=== PATIENT | male | born 1930 | race Caucasian/White ===

== ENCOUNTER 2018-04-17 07:19 | Inpatient (IN) | payer OTHER, MEDICARE ==
--- NOTE | 2018-04-17 07:56 | PDOC ---
History of Present Illness - General Chief Complaint: Chest Pain Stated Complaint: CHEST PAIN Time Seen by Provider: 04/17/18 07:25 History Source: Patient, Family Exam Limitations: No Limitations - History of Present Illness Initial Comments: 04/17/18 07:45 The patient is an 88M with a PMH of dementia, congestive heart failure with pacemaker, atrial fibrillation on xarelto who presents to the ER with worsening SOB and chest pressure. The patient states that he's had chest pressure worsening over the past 3-4 days. The pressure is retrosternal, nonradiating, not exacerbated or alleviated by any factors including positioning. The daughter is at bedside and states that the patient was recently d/c from lasix and switched from coumadin to xarelto to stop monitoring of PT/INR. The daughter states that the patient has a "wet cough" that is nonproductive. The patient denies any nausea, vomiting, fevers, chills. Past History - Past Medical History Allergies/Adverse Reactions: Allergies Allergy/AdvReac Type Severity Reaction Status Date / Time No Known Drug Allergies Allergy Verified 04/17/18 07:24 Home Medications: Ambulatory Orders Amiodarone HCl [Cordarone -] 200 mg PO DAILY 04/17/18 Donepezil HCl 10 mg PO DAILY 04/17/18 Levothyroxine [Synthroid -] 75 mcg PO DAILY 04/17/18 Metoprolol Succinate 25 mg PO DAILY 04/17/18 Quetiapine Fumarate [Seroquel -] 50 mg PO HS 04/17/18 Rivaroxaban [Xarelto -] 15 mg PO DAILY 04/17/18 Tamsulosin HCl [Flomax] 0.4 mg PO DAILY 04/17/18 Anemia: No Asthma: No Cancer: Yes (Prostate, SEEDING, leukemia) Cardiac Disorders: Yes (Atrial Fibrillation, PPM) CVA: No COPD: No CHF: Yes Dementia: Yes (MILD) Diabetes: Yes Dialysis: No GI Disorders: Yes (espohageal dilations, GI bleed) Disorders: No HTN: Yes Hypercholesterolemia: Yes Kidney Stones: No Liver Disease: No Seizures: No Thyroid Disease: Yes (hypothyroid) - Surgical History Abdominal Surgery: No Appendectomy: No Cardiac Surgery: Yes (PACEMAKER) Cholecystectomy: No Lung Surgery: No Neurologic Surgery: No Orthopedic Surgery: Yes (BACK SURGERY) - Immunization History Td Vaccination: Yes TDAP Vaccination: Yes Immunization Up to Date: Yes - Suicide/Smoking/Psychosocial Hx Smoking Status: No Smoking History: Never smoked Have you smoked in the past 12 months: No Number of Cigarettes Smoked Daily: 0 Information on smoking cessation initiated: No Hx Alcohol Use: No Drug/Substance Use Hx: No Substance Use Type: None Hx Substance Use Treatment: No Review of Systems - Review of Systems Able to Perform ROS?: Yes Comments:: 04/17/18 07:47 GENERAL/CONSTITUTIONAL: No fever or chills. No weakness. HEAD, EYES, EARS, NOSE AND THROAT: No change in vision. No ear pain or discharge. No sore throat. CARDIOVASCULAR: Positive for chest pressure. No chest pain, palpitations, or lightheadedness. RESPIRATORY: Positive for cough and shortness of breath. No wheezing or hemoptysis. GASTROINTESTINAL: No nausea, vomiting, diarrhea, constipation, or abdominal pain. GENITOURINARY: No dysuria, frequency, hematuria, or change in urination. MUSCULOSKELETAL: No joint or muscle swelling or pain. No neck or back pain. SKIN: No rash or lesions. NEUROLOGIC: No headache, numbness, tingling, focal weakness, loss of consciousness, or change in strength/sensation. ENDOCRINE: No increased thirst. No abnormal weight change. HEMATOLOGIC/LYMPHATIC: No anemia, easy bleeding, or history of blood clots. ALLERGIC/IMMUNOLOGIC: No hives or skin allergy. Is the patient limited Nigerien proficient: No *Physical Exam - Vital Signs Last Vital Signs Temp Pulse Resp BP Pulse Ox 97.4 F L 68 20 127/64 99 04/17/18 07:40 04/17/18 07:25 04/17/18 07:25 04/17/18 07:25 04/17/18 07:25 - Physical Exam Comments: 04/17/18 08:02 GENERAL: Well developed, well nourished. Awake and alert. No acute distress. HEENT: Normocephalic, atraumatic. Hearing grossly normal. Moist mucous membranes. PERRLA, EOMI. No conjunctival pallor. Sclera are non-icteric. NECK: Supple. Full ROM. CARDIOVASCULAR: Regular rate and rhythm. No murmurs, rubs, or gallops. PULMONARY: No evidence of respiratory distress. B/l lower lobe crackles. ABDOMINAL: Soft. Non-tender. Distended. No rebound or guarding. GENITOURINARY: No CVA tenderness bilaterally. MUSCULOSKELETAL: Normal range of motion at all joints. No bony deformities or tenderness. EXTREMITIES: No cyanosis. No clubbing. 2+ pitting edema in R leg. Leg swelling mildly appreciated in R leg. SKIN: Warm and dry. Normal capillary refill. No rashes. No jaundice. NEUROLOGICAL: Alert, awake, appropriate. Cranial nerves 2-12 grossly intact. Normal speech. Gait is normal without ataxia. PSYCHIATRIC: Cooperative. Good eye contact. Appropriate mood and affect. Heart Score/ECG Review #1 ECG reviewed & interpreted by me at: 08:05 General ECG Interpretation: Sinus Rhythm, Normal Rate, Normal Intervals, No acute ischemic changes Compared to previous ECG there are: No significant change 04/17/18 08:05 Vent paced rhythm rate 70 IA - QRS 178 QTc 501 No STD or BINU noted No changes from prior ED Treatment Course - LABORATORY CBC & Chemistry Diagram: 04/17/18 07:33 04/17/18 07:33 - RADIOLOGY Radiology Studies Ordered: Category Date Time Status CHEST X-RAY PORTABLE* [RAD] Stat Radiology 04/17/18 07:25 Ordered DUPLEX VASCUL US-2LEGS [US] Stat Ultrasound 04/17/18 07:42 Ordered Medical Decision Making - Medical Decision Making 04/17/18 08:05 The patient is an 88M with a PMH of CHF, a-fib on xarelto, and dementia who presents to the ER with worsening SOB and chest pressure concerning for worsening CHF vs ACS. Pt is low risk for PE d/t current AC. EKG unremarkable. Pending labs and CXR. 04/17/18 08:28 Hgb of 9.1, down from 12.1 in 2016. Will send stool occult. 04/17/18 09:32 Daughter states that the patient has a history of leukemia being treated by Dr. Garrison, and that his anemia is not new. 04/17/18 10:00 Stool occult negative. Will give 20 lasix as preliminary read of CXR shows b/l pleural effusions. I have endorsed the patient to Dr. Salamanca. I have d/w Dr. Joshua who agrees with plan. *DC/Admit/Observation/Transfer Diagnosis at time of Disposition: (HFpEF) heart failure with preserved ejection fraction CHF exacerbation Qualifiers: Heart failure type: unspecified Qualified Code(s): I50.9 - Heart failure, unspecified - Discharge Dispostion Condition at time of disposition: Guarded Decision to Admit order: Yes - Referrals Referrals: Jack Sharp MD [Primary Care Provider] - - Patient Instructions - Post Discharge Activity
--- NOTE | 2018-04-17 08:05 | PDOC ---
Attending Attestation - Resident Resident Name: Bradley Beaver - ED Attending Attestation I have performed the following: I have examined & evaluated the patient, The case was reviewed & discussed with the resident, I agree w/resident's findings & plan, Exceptions are as noted - HPI HPI: 04/17/18 07:58 80-year-old male history of CHF hypertension CK D dementia and pacemaker and A. fib here today complaining of progressive shortness of breath and today having some chest pressure. Patient is Slovak speaking translation is provided by his daughter patient refuses translation services states cough has been nonproductive he has had some worsening shortness of breath over the last few days over the last week his volleyball assistant coach Dr. huntley has been decreasing his Lasix for concerns of increasing renal failure denies any fevers or chills no nausea no vomiting did also note some leg swelling which appeared to be worse on the right no history of PE or DVT patient does take Coumadin and was recently switched to xareelto 2 days ago - Physicial Exam PE: 04/17/18 08:01 Awake alert no acute distress lungs are with crackles throughout bilateral bases posteriorly heart is regular no appreciated murmurs rubs or gallops abdomen is soft obese nontender extremities are warm and well-perfused there is noted bilateral edema pitting edema noted to the right calf foot 2+ DP and PT pulses bilaterally neurologically the patient is awake alert moves all 4 extremities - Medical Decision Making 04/17/18 08:02 88-year-old male with a history of CAD CHF A. fib and pacemaker here today with worsening shortness of breath and chest pressure. Differential includes CHF exacerbation underlying VT or angina, infection such as pneumonia, effusion. Due to concerns for asymmetric swelling DVT is considered however should be low risk the patient is currently anticoagulated will obtain a Doppler of his right leg plan EKG, chest x-ray, CBC CMP and BNP trop chest x-ray patient will likely require admission to telemetry for further diuresis will discuss this volleyball assistant coach Dr. Whitney 04/17/18 10:07 focused ed TTE performed, indication : sob four views of the heart obtained ( parasternal long and short, apical and subxiphoid) no pericardial effusion noted. moderately decreased contractility. no rv dilation or enlargement. impression: moderately decreased contractility. lung ultrasound performed. bilateral B line predominant at the bases. no plueral effusion noted. focused ED ultrasound aorta indication: anemia, abd distension aorta scanned in trasnverse and saggital planes. measurement taken at proximal , mid, and distal, no aaa noted. proximal 2.6cm mid aorta 2.2 cm distal 1.6 cm difficult study due to overlying bowel gas. impression: no aaa. cxr with fluid overload, edema. anemia noted. guiac sent. pt daughter states he has h/o leukemia, anemia, has had transfusions in the past. folows with dr. kumar. no recent melena. Heart Score/ECG Review #1 General ECG Interpretation: No acute ischemic changes Compared to previous ECG there are: Other (paced rhythem no acute changs.)
[2018-04-17 08:15] LABS: BASO % 0.4 % (0-2.0); HEMOGLOBIN 9.1 GM/dL (11.7-16.9); LYMPH % 31.3 % (8-40); MCH 32.1 pg (25.7-33.7); MCHC 33.5 g/dl (32.0-35.9); MEAN CELL VOLUME 95.8 fl (80-96); MEAN PLT VOLUME 9.3 fl (7.5-11.1); MONO % 10.6 % (3.8-10.2); NEUT % 54.7 % (42.8-82.8); PLATELET COUNT 103 K/MM3 (134-434); RBC 2.82 M/mm3 (4.00-5.60); RDW 15.1 % (11.9-15.9); WHITE BLOOD COUNT 4.7 K/mm3 (4.0-10.0)
[2018-04-17 08:36] LABS: INR 1.3 (0.83-1.09); PROTHROMBIN TIME (PATIENT) 14.7 SEC (9.7-13.0)
[2018-04-17 09:11] LABS: ALBUMIN 3.6 g/dl (3.4-5.0); ALK PHOS 65 U/L (45-117); ANION GAP 4 MMOL/L (8-16); BILIRUBIN,TOTAL 0.4 mg/dL (0.2-1); BLOOD UREA NITROGEN 24 mg/dL (7-18); CHLORIDE 111 mmol/L (98-107); CO2 26 mmol/L (21-32); CREATININE 1.7 mg/dL (0.55-1.3); GLUCOSE,RANDOM 81 mg/dL (74-106); POTASSIUM 5.1 mmol/L (3.5-5.1); SGOT/AST 13 U/L (15-37); SGPT/ALT 16 U/L (13-61); SODIUM 141 mmol/L (136-145)
[2018-04-17] MEDS ORDERED: FUROSEMIDE 40 MG/4 ML INJECTABLE VIAL IVPUSH ONE (09:31)
[2018-04-17] MEDS ORDERED: FUROSEMIDE 40 MG/4 ML INJECTABLE VIAL ONE (10:06)
--- NOTE | 2018-04-17 10:45 | CON.CARD ---
Consult Consult Specialty:: Cardiology Referred by:: Cheikh Reason for Consultation:: CHF exacerbation - History of Present Illness Chief Complaint: chest pressure, dyspnea History of Present Illness: 88M h/o dementia, combined systolic and diastolic CHF, s/p PPM, afib on xarelto p/w dyspnea, chest pressure worsening over last 3-4 days. Recently home lasix was stopped per daughter due to renal function, was on lasix 20 mg daily at home. In the ER EKG showed paced rhythm, CXR shows congestion, Cr 1.7, trop neg x 1, BNP >2400. Received lasix 20 mg IV. Currently denies complaints. Sees Dr. Whitney in clinic - Past Medical History [employer]: Yes: Dementia Cardio/Vascular: Yes: AFIB, CAD, CHF, HTN, Hyperlipdemia Renal/: Yes: Renal Inusuff, BPH, Other Musculoskeletal: Yes: Chronic low back pain (compression fractures of the spine) Endocrine: Yes: Hypothyroidism - Past Surgical History Past Surgical History: Yes: Permanent Pacemaker - Alcohol/Substance Use Hx Alcohol Use: No History of Substance Use: reports: None - Smoking History Smoking history: Never smoked Have you smoked in the past 12 months: No Aproximately how many cigarettes per day: 0 - Social History ADL: Family Assistance History of Recent Travel: No Home Medications - Allergies Allergies/Adverse Reactions: Allergies Allergy/AdvReac Type Severity Reaction Status Date / Time No Known Drug Allergies Allergy Verified 04/17/18 07:24 - Home Medications Home Medications: Ambulatory Orders Amiodarone HCl [Cordarone -] 200 mg PO DAILY 04/17/18 Donepezil HCl 10 mg PO DAILY 04/17/18 Levothyroxine [Synthroid -] 75 mcg PO DAILY 04/17/18 Metoprolol Succinate 25 mg PO DAILY 04/17/18 Quetiapine Fumarate [Seroquel -] 50 mg PO HS 04/17/18 Rivaroxaban [Xarelto -] 15 mg PO DAILY 04/17/18 Tamsulosin HCl [Flomax] 0.4 mg PO DAILY 04/17/18 Family Disease History - Family Disease History Family History: Unremarkable Family Disease History: CA: Brother (dementia) Review of Systems - Review of Systems Constitutional: reports: No Symptoms Eyes: reports: No Symptoms HENT: reports: No Symptoms Neck: reports: No Symptoms Cardiovascular: reports: Chest Pain, Shortness of Breath Respiratory: reports: SOB Gastrointestinal: reports: No Symptoms Genitourinary: reports: No Symptoms Musculoskeletal: reports: No Symptoms Integumentary: reports: No Symptoms Neurological: reports: No Symptoms Endocrine: reports: No Symptoms Hematology/Lymphatic: reports: No Symptoms Psychiatric: reports: No Symptoms Vital Signs: Vital Signs Temperature 97.4 F L 04/17/18 07:40 Pulse Rate 68 04/17/18 07:25 Respiratory Rate 20 04/17/18 07:25 Blood Pressure 127/64 04/17/18 07:25 O2 Sat by Pulse Oximetry (%) 99 04/17/18 07:25 Constitutional: Yes: Well Nourished, No Distress, Calm Eyes: Yes: Conjunctiva Clear, EOM Intact HENT: Yes: Atraumatic, Normocephalic Neck: Yes: Supple, Trachea Midline Respiratory: Yes: Regular, Rales Gastrointestinal: Yes: Normal Bowel Sounds, Soft Cardiovascular: Yes: Regular Rate and Rhythm JVD: Yes Carotid Bruit: No Heart Sounds: Yes: S1, S2 Musculoskeletal: Yes: WNL Extremities: Yes: WNL Edema: Yes Edema: LLE: 1+, RLE: 1+ Peripheral Pulses: 1+ Left Doralis Pedis, 1+ Right Dorsalis Pedis Integumentary: Yes: WNL Neurological: Yes: Alert, Oriented ...Motor Strength: WNL Psychiatric: Yes: Alert, Oriented - Other Data Labs, Other Data: CBC, BMP 04/17/18 07:33 04/17/18 07:33 INR, PTT INR 1.30 (0.83-1.09) H 04/17/18 07:33 Troponin, BNP 04/17/18 07:33 Troponin I < 0.02 B-Natriuretic Peptide 2496.0 H Troponin, BNP 04/17/18 07:33 Troponin I < 0.02 B-Natriuretic Peptide 2496.0 H Assessment/Plan EKG: sinus, BUCCARO CXR: mild congestion echo 07/2015: mild lve, lvef 45%, global hk, nl rv, mod mr/tr, mild ar, mod phtn , mild ao root dil MPI 2012 (pers): v-paced; small-medium apical infarct; apical AK with EF 46% 88M h/o dementia, combined systolic and diastolic CHF, s/p PPM, afib on xarelto p/w dyspnea, chest pressure worsening over last 3-4 days Acute on chronic combined systolic and diastolic congestive heart failure - recently lasix was stopped due to DEE by Dr. 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 Whitney recently
[2018-04-17 11:19] LABS: URINE APPEARANCE CLEAR; URINE BILIRUBIN NEGATIVE (<2.0 mg/dL); URINE COLOR STRAW; URINE GLUCOSE (UA) NEGATIVE (NEGATIVE); URINE KETONE NEGATIVE (NEGATIVE); URINE LEUK ESTERASE NEGATIVE (NEGATIVE); URINE NITRITE NEGATIVE (NEGATIVE); URINE PROTEIN NEGATIVE (NEGATIVE); URINE UROBILINOGEN NEGATIVE mg/dL (0.2-1.0)
[2018-04-17 11:23] LABS: CHOLESTEROL 166 mg/dL (50-200); HDL CHOLESTEROL 62 mg/dL (40-60); TRIGLYCERIDES 107 mg/dL (0-150)
[2018-04-17 12:57] VITALS: BMI 32.9
--- NOTE | 2018-04-17 13:02 | HP ---
Admitting History and Physical - Primary Care Physician PCP: Jack Sharp - Admission Chief Complaint: SOB History of Present Illness: 88 yo male with significant past medical history of hypertension, hyperlipidemia , CAD, P.afib, S/P PPM, CHF, pulm HTN, CKD satge 3 , hypothyroidism, dementia, chronic low back pain, today present with gradually worsening SOB over past 3 days, patient was on Lasix that was stopped few days ago due to worsening renal function, on arrival to Ed patient was saturating well P exam shows B/L Crepts , elevated BNP 2.4 K and Creat 1.7 , CXR shows Pulmonary congestion, patient recived Lasix 20 mg with improvement in symptoms, Evaluated by Cardiology consult. Home Meds: Home Medication List Medication Instructions Recorded Confirmed Type Amiodarone HCl [Cordarone -] 200 mg PO DAILY 04/17/18 04/17/18 History Donepezil HCl 10 mg PO DAILY 04/17/18 04/17/18 History Levothyroxine [Synthroid -] 75 mcg PO DAILY 04/17/18 04/17/18 History Metoprolol Succinate 25 mg PO DAILY 04/17/18 04/17/18 History Quetiapine Fumarate [Seroquel -] 50 mg PO HS 04/17/18 04/17/18 History Rivaroxaban [Xarelto -] 15 mg PO DAILY 04/17/18 04/17/18 History Tamsulosin HCl [Flomax] 0.4 mg PO DAILY 04/17/18 04/17/18 History Active Medications Amiodarone HCl (Cordarone -) 200 mg PO DAILY JOSE Donepezil HCl (Aricept -) 10 mg PO DAILY JOSE Levothyroxine Sodium (Synthroid -) 75 mcg PO DAILY@0700 [facility] Metoprolol Succinate (Toprol Xl -) 25 mg PO DAILY JOSE Quetiapine Fumarate (Seroquel -) 50 mg PO HS JOSE Rivaroxaban (Xarelto -) 15 mg PO DAILY JOSE Tamsulosin HCl (Flomax -) 0.4 mg PO DAILY [facility] History Source: Patient - Past Medical History 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 Cardiovascular: Yes: AFIB, CAD, CHF, HTN, Hyperlipdemia Renal/: Yes: Renal Inusuff, BPH, Other Heme/Onc: Yes: Other (leukemia) Musculoskeletal: Yes: Chronic low back pain (compression fractures of the spine) Endocrine: Yes: Hypothyroidism - Past Surgical History Past Surgical History: Yes: Permanent Pacemaker - Smoking History Smoking history: Never smoked Have you smoked in the past 12 months: No Aproximately how many cigarettes per day: 0 - Alcohol/Substance Use Hx Alcohol Use: No History of Substance Use: reports: None - Social History ADL: Family Assistance History of Recent Travel: No Home Medications - Allergies Allergies/Adverse Reactions: Allergies Allergy/AdvReac Type Severity Reaction Status Date / Time No Known Drug Allergies Allergy Verified 04/17/18 07:24 - Home Medications Home Medications: Ambulatory Orders Amiodarone HCl [Cordarone -] 200 mg PO DAILY 04/17/18 Donepezil HCl 10 mg PO DAILY 04/17/18 Levothyroxine [Synthroid -] 75 mcg PO DAILY 04/17/18 Metoprolol Succinate 25 mg PO DAILY 04/17/18 Quetiapine Fumarate [Seroquel -] 50 mg PO HS 04/17/18 Rivaroxaban [Xarelto -] 15 mg PO DAILY 04/17/18 Tamsulosin HCl [Flomax] 0.4 mg PO DAILY 04/17/18 Family Disease History - Family Disease History Family Disease History: CA: Brother (dementia) Review of Systems - Review of Systems Constitutional: denies: Chills, Diaphoresis, Fever, Lethargy HENT: denies: Difficult Swallowing, Ear Discharge, Ear Pain Neck: denies: Decreased ROM, Lumps, Pain on Movement Cardiovascular: reports: Edema, Shortness of Breath. denies: Chest Pain Respiratory: reports: Exercise Intolerance, Orthopnea, SOB. denies: Cough, Hemoptysis Gastrointestinal: denies: Abdominal Pain, Bloating, Constipation Genitourinary: denies: Burning, Discharge, Dysuria Integumentary: denies: Blister, Bruising, Change in Color Neurological: denies: Change in LOC, Change in Speech Psychiatric: denies: Altered Sleep Pattern, Anxiety, Depression Physical Examination Vital Signs: Vital Signs Temperature 97.4 F L 04/17/18 07:40 Pulse Rate 65 04/17/18 11:18 Respiratory Rate 20 04/17/18 11:18 Blood Pressure 134/69 04/17/18 11:18 O2 Sat by Pulse Oximetry (%) 100 04/17/18 11:18 Constitutional: Yes: Well Nourished, No Distress, Calm Eyes: Yes: Conjunctiva Clear, EOM Intact HENT: Yes: Atraumatic, Normocephalic Neck: Yes: Supple, Trachea Midline. No: Decreased ROM, Lymphadenopathy Cardiovascular: Yes: Regular Rate and Rhythm, Bradycardia, S1, S2 Respiratory: Yes: Regular, Rales, SOB Gastrointestinal: Yes: Normal Bowel Sounds, Soft Musculoskeletal: Yes: Back Pain. No: Joint Stiffness, Joint Swelling Extremities: Yes: Calf Tenderness (Rt popliteal cyst), Other Edema: Yes Edema: LLE: Trace, RLE: Trace Peripheral Pulses: Left Doralis Pedis: 1+, Right Dorsalis Pedis: 1+ Neurological: Yes: Alert, Oriented. No: Aphasia, Asterixis, Ataxia ...Motor Strength: WNL, LUE, LLE, RUE, RLE Psychiatric: Yes: Oriented Labs: CBC, BMP 04/17/18 07:33 04/17/18 07:33 CBC,CMP WBC 4.7 K/mm3 (4.0-10.0) 04/17/18 07:33 RBC 2.82 M/mm3 (4.00-5.60) L 04/17/18 07:33 Hgb 9.1 GM/dL (11.7-16.9) L 04/17/18 07:33 Hct 27.0 % (35.4-49) L D 04/17/18 07:33 MCV 95.8 fl (80-96) 04/17/18 07:33 MCH 32.1 pg (25.7-33.7) 04/17/18 07:33 MCHC 33.5 g/dl (32.0-35.9) 04/17/18 07:33 RDW 15.1 % (11.9-15.9) 04/17/18 07:33 Plt Count 103 K/MM3 (134-434) L D 04/17/18 07:33 MPV 9.3 fl (7.5-11.1) D 04/17/18 07:33 Absolute Neuts (auto) 2.6 K/mm3 (1.5-8.0) 04/17/18 07:33 Neutrophils % 54.7 % (42.8-82.8) 04/17/18 07:33 Lymphocytes % 31.3 % (8-40) 04/17/18 07:33 Monocytes % 10.6 % (3.8-10.2) H 04/17/18 07:33 Eosinophils % 3.0 % (0-4.5) D 04/17/18 07:33 Basophils % 0.4 % (0-2.0) 04/17/18 07:33 Nucleated RBC % 0 % (0-0) 04/17/18 07:33 Sodium 141 mmol/L (136-145) 04/17/18 07:33 Potassium 5.1 mmol/L (3.5-5.1) 04/17/18 07:33 Chloride 111 mmol/L (98-107) H 04/17/18 07:33 Carbon Dioxide 26 mmol/L (21-32) 04/17/18 07:33 Anion Gap 4 MMOL/L (8-16) L 04/17/18 07:33 BUN 24 mg/dL (7-18) H 04/17/18 07:33 Creatinine 1.7 mg/dL (0.55-1.3) H 04/17/18 07:33 Creat Clearance w eGFR 38.23 (>60) 04/17/18 07:33 Random Glucose 81 mg/dL (74-106) 04/17/18 07:33 Calcium 8.0 mg/dL (8.5-10.1) L 04/17/18 07:33 Total Bilirubin 0.4 mg/dL (0.2-1) 04/17/18 07:33 AST 13 U/L (15-37) L 04/17/18 07:33 ALT 16 U/L (13-61) 04/17/18 07:33 Alkaline Phosphatase 65 U/L (45-117) 04/17/18 07:33 Creatine Kinase 69 IU/L (26-308) 04/17/18 07:33 Troponin I < 0.02 ng/ml (0.00-0.05) 04/17/18 10:14 B-Natriuretic Peptide 2496.0 pg/ml (5-450) H 04/17/18 07:33 Total Protein 6.0 g/dl (6.4-8.2) L 04/17/18 07:33 Albumin 3.6 g/dl (3.4-5.0) 04/17/18 07:33 Triglycerides 107 mg/dL (0-150) 04/17/18 10:14 Cholesterol 166 mg/dL (50-200) 04/17/18 10:14 Total LDL Cholesterol 98 mg/dL (5-100) 04/17/18 10:14 HDL Cholesterol 62 mg/dL (40-60) H 04/17/18 10:14 Imaging - Results X-ray: Report Reviewed (Pulmonary congestion) Ultrasound: Report Reviewed (Rt Popliteal cyst) EKG: Report Reviewed (Paced Rhythm at [address] changes) Problem List - Problems (1) CHF exacerbation Assessment/Plan: present with CHF exacerbation in the setting of discontinuation of The lasix received IV Lasix with improvement, F/U BMP in am before standing dose of Lasix , Cardiology consult, Resume home meds Code(s): I50.9 - HEART FAILURE, UNSPECIFIED Qualifiers: Heart failure type: unspecified Qualified Code(s): I50.9 - Heart failure, unspecified (2) AF (paroxysmal atrial fibrillation) Assessment/Plan: S/P PPM on AC cont home meds Code(s): I48.0 - PAROXYSMAL ATRIAL FIBRILLATION (3) DEE (acute kidney injury) Assessment/Plan: At base line Ckd stage 3 mild worsening F/u BMP in am Code(s): N17.9 - ACUTE KIDNEY FAILURE, UNSPECIFIED (4) CKD (chronic kidney disease) Assessment/Plan: F/U BMP on Lasix Code(s): N18.9 - CHRONIC KIDNEY DISEASE, UNSPECIFIED Qualifiers: Chronic kidney disease stage: stage 3 (moderate) Qualified Code(s): N18.3 - Chronic kidney disease, stage 3 (moderate) (5) HTN (hypertension) Assessment/Plan: Controlled cont home meds Code(s): I10 - ESSENTIAL (PRIMARY) HYPERTENSION (6) Hypothyroidism Assessment/Plan: Cont Levothyroxine F/U TSH Code(s): E03.9 - HYPOTHYROIDISM, UNSPECIFIED (7) Popliteal cyst Assessment/Plan: Rt Popliteal cyst F/U as out patient Code(s): M71.20 - SYNOVIAL CYST OF POPLITEAL SPACE [RUIZ], UNSPECIFIED KNEE Qualifiers: Laterality: right Qualified Code(s): M71.21 - Synovial cyst of popliteal space [Ruiz], right knee (8) Anemia Assessment/Plan: Chronic F/U anemia w/u including stool occult blood. Iron TIBC, B12, Ferritin level. Code(s): D64.9 - ANEMIA, UNSPECIFIED
[2018-04-17] MEDS ORDERED: FLU VACCINE QUAD 60 MCG/0.5 ML (MDV 18-19) IM ONE (14:00)
--- NOTE | 2018-04-17 17:00 | EKG ---
Test Reason : Blood Pressure : / mmHG Vent. Rate : 065 BPM Atrial Rate : 053 BPM P-R Int : 000 ms QRS Dur : 178 ms QT Int : 482 ms P-R-T Axes : 000 -52 124 degrees QTc Int : 501 ms Ventricular-paced rhythm ABNORMAL ECG WHEN COMPARED WITH ECG OF 25-APR-2016 19:21, VENT. RATE HAS DECREASED BY 6 BPM Confirmed by MD Jacek, Carlos ([id number]) on 04/17/2018 5:00:10 PM Referred By: Confirmed By:Carlos Read MD
[2018-04-17] MEDS: QUEtiapine FUMARATE 50 MG TABLET PO SCH (21:29)
[2018-04-18] MEDS: LEVOTHYROXINE NA 75 MCG TABLET (FP) PO SCH (06:15)
[2018-04-18 06:47] LABS: BASO % 0.4 % (0-2.0); EOS % 2.6 % (0-4.5); HEMATOCRIT 27.8 % (35.4-49); HEMOGLOBIN 9.3 GM/dL (11.7-16.9); LYMPH % 28.5 % (8-40); MCH 31.8 pg (25.7-33.7); MCHC 33.5 g/dl (32.0-35.9); MEAN PLT VOLUME 8.9 fl (7.5-11.1); MONO % 8.3 % (3.8-10.2); NEUT % 60.2 % (42.8-82.8); PLATELET COUNT 102 K/MM3 (134-434); RBC 2.92 M/mm3 (4.00-5.60); RDW 15.1 % (11.9-15.9); WHITE BLOOD COUNT 5.3 K/mm3 (4.0-10.0)
[2018-04-18 07:37] LABS: ALBUMIN 3.6 g/dl (3.4-5.0); ALK PHOS 67 U/L (45-117); ANION GAP 5 MMOL/L (8-16); BILIRUBIN,TOTAL 0.4 mg/dL (0.2-1); BLOOD UREA NITROGEN 21 mg/dL (7-18); CALCIUM 8.1 mg/dL (8.5-10.1); CHLORIDE 110 mmol/L (98-107); CO2 26 mmol/L (21-32); CREATININE 1.6 mg/dL (0.55-1.3); GLUCOSE,RANDOM 88 mg/dL (74-106); SGOT/AST 13 U/L (15-37); SGPT/ALT 15 U/L (13-61); SODIUM 141 mmol/L (136-145); TOT PROT 6.1 g/dl (6.4-8.2)
[2018-04-18] MEDS ORDERED: FUROSEMIDE 40 MG/4 ML INJECTABLE VIAL IVPUSH SCH (10:00)
--- NOTE | 2018-04-18 10:37 | PN ---
Progress Note (short form) - Note Progress Note: s: sob improved. 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 Current Medications Amiodarone HCl (Cordarone -) 200 mg PO DAILY [facility] [place] Donepezil HCl (Aricept -) 10 mg PO DAILY [facility] Furosemide (Lasix Injection -) 20 mg IVPUSH DAILY [facility] Levothyroxine Sodium (Synthroid -) 75 mcg PO DAILY@0700 [facility] Last Admin: 04/18/18 06:15 Dose: 75 mcg Metoprolol Succinate (Toprol Xl -) 25 mg PO DAILY [facility] Quetiapine Fumarate (Seroquel -) 50 mg PO HS [facility] Last Admin: 04/17/18 21:29 Dose: 50 mg Rivaroxaban (Xarelto -) 15 mg PO DAILY [facility] [place] Tamsulosin HCl (Flomax -) 0.4 mg PO DAILY [facility] Vital Signs Period Temp Pulse Resp BP Sys/Neal Pulse Ox Last 24 Hr 97.6 F-98.8 F 64-68 18-20 103-136/46-82 96-100 Constitutional: Yes: Well Nourished, No Distress, Calm Eyes: Yes: Conjunctiva Clear, EOM Intact HENT: Yes: Atraumatic, Normocephalic Neck: Yes: Supple, Trachea Midline Respiratory: Yes: Regular, Rales Gastrointestinal: Yes: Normal Bowel Sounds, Soft Cardiovascular: Yes: Regular Rate and Rhythm JVD: Yes Carotid Bruit: No Heart Sounds: Yes: S1, S2 Musculoskeletal: Yes: WNL Extremities: Yes: WNL Edema: Yes Edema: LLE: 1+, RLE: 1+ Peripheral Pulses: 1+ Left Doralis Pedis, 1+ Right Dorsalis Pedis Integumentary: Yes: WNL Neurological: Yes: Alert, Oriented ...Motor Strength: WNL Psychiatric: Yes: Alert, Oriented Assessment/Plan EKG: sinus, SYSTEM SUPPORT TECHNICIAN CXR: mild congestion echo 07/2015: mild lve, lvef 45%, global hk, nl rv, mod mr/tr, mild ar, mod phtn , mild ao root dil MPI 2012 (pers): v-paced; small-medium apical infarct; apical AK with EF 46% LHC/RHC '09 normal wedge, nl PAP, mod nonobstructive OM1 lesion, no other dz, nl EF echo 10/2017 nl LV size, LV function mod impaired EF 40%, septal wall motion c/w pacing, other wilson mildly hypok, RV nl funcion, LA/RA severely dilated, mod MR , mod to sev TR, at least mild to mod pulm HTN, RVSP at least 47 mmHg, ao root 4.2 cm 88M h/o dementia, combined systolic and diastolic CHF, s/p PPM, afib on xarelto p/w dyspnea, chest pressure worsening over last 3-4 days Acute on chronic combined systolic and diastolic congestive heart failure - recently lasix was stopped due to DEE by Dr. Whitney - symptoms, maxi effusions on Cxr, BNP 2400 c/w CHF exacerbation - received lasix 20 mg IV in ER (was on 20 mg daily at home) and AM 04/18 - Cr improved, sob resolved - discussed case with Cindy Guardado NP, had been adjusting diuretics at home and getting weekly labs, had been advised to restart lasix 20 mg PO daily last Wednesday but had not started yet - dc IV lasix - restart lasix 20 mg PO daily on discharge - continue metoprolol, not on ACEI - daily standing weights, Cr PPM - dependent, SYSTEM SUPPORT TECHNICIAN on EKG - routine office checks afib - cont amiodarone, xarelto CAD - nonobstructive dz on cath 2008 - cont xarelto (no aspirin), intolerant to statin, cont metoprolol HTN - stable cont current meds HLD - intolerant to statins, monitor DEE - monitoring Cr, may be in setting of CHF exac - lasix had been held per Dr. Whitney recently
[2018-04-18] MEDS: AMIODARONE HCL 200 MG TABLET (FP) PO SCH (11:53)
[2018-04-18] MEDS: DONEPEZIL HCL 10 MG TABLET (FP) PO SCH (11:53)
[2018-04-18] MEDS: RIVAROXABAN 15 MG TABLET PO SCH (11:54)
[2018-04-18] MEDS: TAMSULOSIN HCL 0.4 MG CAP PO SCH (11:54)
[2018-04-18] MEDS: metoPROLOL SUCCINATE 25 MG TAB.SR.24H (FP) PO SCH (11:54)
--- NOTE | 2018-04-18 13:07 | PN ---
Progress Note, Physician Chief Complaint: Mr Cavanaugh says he is feeling well. Says his breathing is much better and feels normal. Legs are slightly more swollen then normal. No cp, sob, n/v. - Current Medication List Current Medications: Active Medications Amiodarone HCl (Cordarone -) 200 mg PO DAILY [facility] Last Admin: 04/18/18 11:53 Dose: 200 mg Donepezil HCl (Aricept -) 10 mg PO DAILY [facility] Last Admin: 04/18/18 11:53 Dose: 10 mg Furosemide (Lasix Injection -) 20 mg IVPUSH DAILY [facility] Last Admin: 04/18/18 11:54 Dose: 20 mg Levothyroxine Sodium (Synthroid -) 75 mcg PO DAILY@0700 [facility] Last Admin: 04/18/18 06:15 Dose: 75 mcg Metoprolol Succinate (Toprol Xl -) 25 mg PO DAILY [facility] Last Admin: 04/18/18 11:54 Dose: 25 mg Quetiapine Fumarate (Seroquel -) 50 mg PO HS [facility] Last Admin: 04/17/18 21:29 Dose: 50 mg Rivaroxaban (Xarelto -) 15 mg PO DAILY [facility] Last Admin: 04/18/18 11:54 Dose: 15 mg Tamsulosin HCl (Flomax -) 0.4 mg PO DAILY [facility] Last Admin: 04/18/18 11:54 Dose: 0.4 mg - Objective Vital Signs: Vital Signs Temperature 36.6 C 04/18/18 10:00 Pulse Rate 65 04/18/18 10:00 Respiratory Rate 18 04/18/18 10:00 Blood Pressure 110/46 L 04/18/18 10:00 O2 Sat by Pulse Oximetry (%) 96 04/17/18 21:00 Constitutional: Yes: Well Nourished, No Distress, Calm Cardiovascular: Yes: Regular Rate and Rhythm. No: Gallop, Murmur, Rub Respiratory: Yes: Regular, Rhonchi. No: CTA Bilaterally, Rales, Wheezes Gastrointestinal: Yes: Normal Bowel Sounds, Soft. No: Distention, Tenderness Extremities: Yes: WNL Edema: LLE: 1+, RLE: 1+ Labs: CBC, BMP 04/18/18 05:30 04/18/18 05:30 INR, PTT INR 1.30 (0.83-1.09) H 04/17/18 07:33 Problem List - Problems (1) CHF exacerbation Assessment/Plan: -case d/w Dr Joshua -continue IV lasix today -plan for discharge tomorrow, will d/w cardiology plan for outpatient diuresis Code(s): I50.9 - HEART FAILURE, UNSPECIFIED Qualifiers: Heart failure type: combined systolic and diastolic Qualified Code(s): I50.43 - Acute on chronic combined systolic (congestive) and diastolic ( congestive) heart failure (2) AF (paroxysmal atrial fibrillation) Assessment/Plan: -in sinus rhythm today -continue amiodarone and xarelto Code(s): I48.0 - PAROXYSMAL ATRIAL FIBRILLATION (3) DEE (acute kidney injury) Assessment/Plan: -monitor since on IV lasix -improved today Code(s): N17.9 - ACUTE KIDNEY FAILURE, UNSPECIFIED (4) CAD (coronary artery disease) Assessment/Plan: -quiescent -continue current regimen Code(s): I25.10 - ATHSCL HEART DISEASE OF [place] CORONARY ARTERY W/O ANG PCTRS Qualifiers: Coronary Disease-Associated Artery/Lesion type: unspecified vessel or lesion type Associated angina: with unspecified angina (5) CKD (chronic kidney disease) Assessment/Plan: -with DEE -stable today -recheck in am Code(s): N18.9 - CHRONIC KIDNEY DISEASE, UNSPECIFIED Qualifiers: Chronic kidney disease stage: stage 3 (moderate) Qualified Code(s): N18.3 - Chronic kidney disease, stage 3 (moderate) (6) Chronic interstitial lung disease Assessment/Plan: -ronchi noted Code(s): J84.9 - INTERSTITIAL PULMONARY DISEASE, UNSPECIFIED (7) Dementia Assessment/Plan: -stable Code(s): F03.90 - UNSPECIFIED DEMENTIA WITHOUT BEHAVIORAL DISTURBANCE (8) HTN (hypertension) Assessment/Plan: -well controlled Code(s): I10 - ESSENTIAL (PRIMARY) HYPERTENSION (9) Hypothyroid Assessment/Plan: -continue synthroid Code(s): E03.9 - HYPOTHYROIDISM, UNSPECIFIED
--- NOTE | 2018-04-18 19:01 | ECHO ---
Name: KAYKAY RODGERS Exam:Adult Echocardiogram Study Date: 04/18/2018 11:02 AM Age: 88 yrs Reason For Study: SYNCOPE Height: 66 in Weight: 190 lb BSA: 2.0 m2 MMode/2D Measurements & Calculations RVDd: 4.3 cm Ao root diam: 4.2 cm IVSd: 0.73 cm LA dimension: 5.1 cm LVIDd: 5.5 cm ACS: 1.9 cm LVIDs: 4.4 cm LVPWd: 0.76 cm IVSs: 1.0 cm LVPWs: 1.1 cm EDV(Teich): 145.9 ml ESV(Teich): 87.5 ml Doppler Measurements & Calculations MV E max daniele: 75.2 cm/sec Ao V2 max: 130.9 cm/sec MV A max daniele: 37.3 cm/sec Ao max P.9 mmHg MV E/A: 2.0 Ao V2 mean: 90.9 cm/sec Ao mean P.7 mmHg Ao V2 VTI: 27.8 cm AI P1/2t: 505.0 msec AI max daniele: 453.4 cm/sec MR max daniele: 483.4 cm/sec AI max P.3 mmHg MR max P.6 mmHg AI dec slope: 262.9 cm/sec2 TR max daniele: 315.8 cm/sec PI end-d daniele: 142.1 cm/sec TR max P.2 mmHg Med Peak E' Daniele: 5.4 cm/sec Med E/e': 14.0 Lat Peak E' Daniele: 9.2 cm/sec Lat E/e': 8.2 Procedure A complete two-dimensional transthoracic echocardiogram was performed (2D, M-mode, Doppler and color flow Doppler). Left Ventricle The left ventricle is normal in size. Left ventricular systolic function is moderately reduced. Eject ion Fraction = 35-40%. Diastolic dysfunction, Grade II (pseudonormalization pattern). Ratio E/E'= 15. The re is moderate global hypokinesis of the left ventricle. Right Ventricle The right ventricle is normal size. There is a pacemaker lead in the right ventricle. The right ventr icular systolic function is normal. Atria The left atrium is moderately dilated. Right atrial size is normal. Mitral Valve There is mild mitral annular calcification. There is moderate mitral regurgitation. Tricuspid Valve The tricuspid valve is normal in structure and function. There is moderate to severe tricuspid regurg itation. Pulmonary artery systolic pressure is at least 70 mmHg assuming RA pressure of 15 mmHg (dilated IVC w ith <50% collapse). Aortic Valve There is mild aortic sclerosis.;. Mild aortic regurgitation. Pulmonic Valve The pulmonic valve is not well visualized. Mild pulmonic valvular regurgitation. Great Vessels Moderate aortic root dilatation. Pericardium/Pleura There is no pericardial effusion. Interpretation Summary The left ventricle is normal in size. Left ventricular systolic function is moderately reduced. There is moderate global hypokinesis of the left ventricle. Ejection Fraction = 35-40%. Diastolic dysfunction, Grade II (pseudonormalization pattern). Ratio E/E'= 15 c/w elevated filling pressure There is a pacemaker lead in the right ventricle. The right ventricular systolic function is normal. The left atrium is moderately dilated. Right atrial size is normal. There is mild mitral annular calcification. There is moderate mitral regurgitation. There is moderate to severe tricuspid regurgitation. Pulmonary artery systolic pressure is at least 70 mmHg assuming RA pressure of 15 mmHg (dilated IVC w ith <50% collapse) There is mild aortic sclerosis.; Mild aortic regurgitation. Mild pulmonic valvular regurgitation. Moderate aortic root dilatation. There is no pericardial effusion. Previous study is not available for comparison Sesar Cedillo MD 04/18/2018 07:01 PM
[2018-04-18] MEDS: QUEtiapine FUMARATE 50 MG TABLET PO SCH (21:39)
[2018-04-19 06:06] LABS: SERUM IRON SATURATION 9 % (15-55); TOTAL IRON BINDING CAPACITY 364 ug/dL (250-450); UIBC 331 ug/dL (111-343)
[2018-04-19 06:18] VITALS: BP 123/53; PULSE 65; TEMP 98.1
[2018-04-19] MEDS: LEVOTHYROXINE NA 75 MCG TABLET (FP) PO SCH (06:29)
[2018-04-19 07:00] LABS: BASO % 0.4 % (0-2.0); EOS % 3.3 % (0-4.5); HEMATOCRIT 28.1 % (35.4-49); HEMOGLOBIN 9.3 GM/dL (11.7-16.9); LYMPH % 31.9 % (8-40); MCH 31.7 pg (25.7-33.7); MCHC 33.2 g/dl (32.0-35.9); MEAN CELL VOLUME 95.4 fl (80-96); MEAN PLT VOLUME 8.7 fl (7.5-11.1); MONO % 10.9 % (3.8-10.2); NEUT % 53.5 % (42.8-82.8); PLATELET COUNT 107 K/MM3 (134-434); RBC 2.94 M/mm3 (4.00-5.60); RDW 15.3 % (11.9-15.9); WHITE BLOOD COUNT 4.4 K/mm3 (4.0-10.0)
[2018-04-19 07:31] LABS: ANION GAP 9 MMOL/L (8-16); BLOOD UREA NITROGEN 18 mg/dL (7-18); CALCIUM 8.6 mg/dL (8.5-10.1); CHLORIDE 110 mmol/L (98-107); CO2 26 mmol/L (21-32); CREATININE 1.6 mg/dL (0.55-1.3); GLUCOSE,RANDOM 87 mg/dL (74-106); MAGNESIUM 2.6 mg/dL (1.8-2.4); PHOSPHOROUS 3.3 mg/dL (2.5-4.9); POTASSIUM 4.8 mmol/L (3.5-5.1); SODIUM 145 mmol/L (136-145)
[2018-04-19] MEDS ORDERED: PT OWN MED DRAWER 7, Y5N ONE (08:18)
[2018-04-19] MEDS: RIVAROXABAN 15 MG TABLET PO SCH (09:39)
[2018-04-19] MEDS: AMIODARONE HCL 200 MG TABLET (FP) PO SCH (09:39)
[2018-04-19] MEDS: TAMSULOSIN HCL 0.4 MG CAP PO SCH (09:39)
[2018-04-19] MEDS: metoPROLOL SUCCINATE 25 MG TAB.SR.24H (FP) PO SCH (09:40)
[2018-04-19] MEDS: DONEPEZIL HCL 10 MG TABLET (FP) PO SCH (09:42)
--- NOTE | 2018-04-19 10:27 | PN ---
Progress Note (short form) - Note Progress Note: s:no chest pain, palps, dizzy, lightheadedness, sob. feels at baseline. 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 Current Medications Amiodarone HCl (Cordarone -) 200 mg PO DAILY [facility] Last Admin: 04/19/18 09:39 Dose: 200 mg Donepezil HCl (Aricept -) 10 mg PO DAILY [facility] Last Admin: 04/19/18 09:42 Dose: 10 mg Levothyroxine Sodium (Synthroid -) 75 mcg PO DAILY@0700 [facility] Last Admin: 04/19/18 06:29 Dose: 75 mcg Metoprolol Succinate (Toprol Xl -) 25 mg PO DAILY [facility] Last Admin: 04/19/18 09:40 Dose: 25 mg Quetiapine Fumarate (Seroquel -) 50 mg PO HS [facility] Last Admin: 04/18/18 21:39 Dose: 50 mg Rivaroxaban (Xarelto -) 15 mg PO DAILY [facility] Last Admin: 04/19/18 09:39 Dose: 15 mg Tamsulosin HCl (Flomax -) 0.4 mg PO DAILY [facility] Last Admin: 04/19/18 09:39 Dose: 0.4 mg Vital Signs Period Temp Pulse Resp BP Sys/Neal Pulse Ox Last 24 Hr 97.6 F-98.4 F 65-68 20-20 121-153/53-72 97 Constitutional: Yes: Well Nourished, No Distress, Calm Eyes: Yes: Conjunctiva Clear, EOM Intact HENT: Yes: Atraumatic, Normocephalic Neck: Yes: Supple, Trachea Midline Respiratory: Yes: Regular, Rales Gastrointestinal: Yes: Normal Bowel Sounds, Soft Cardiovascular: Yes: Regular Rate and Rhythm JVD: Yes Carotid Bruit: No Heart Sounds: Yes: S1, S2 Musculoskeletal: Yes: WNL Extremities: Yes: WNL Edema: Yes Edema: LLE: 1+, RLE: 1+ Peripheral Pulses: 1+ Left Doralis Pedis, 1+ Right Dorsalis Pedis Integumentary: Yes: WNL Neurological: Yes: Alert, Oriented ...Motor Strength: WNL Psychiatric: Yes: Alert, Oriented Assessment/Plan EKG: sinus, SIDE SEAM TENDER CXR: mild congestion echo 07/2015: mild lve, lvef 45%, global hk, nl rv, mod mr/tr, mild ar, mod phtn , mild ao root dil MPI 2012 (pers): v-paced; small-medium apical infarct; apical AK with EF 46% LHC/RHC ' normal wedge, nl PAP, mod nonobstructive OM1 lesion, no other dz, nl EF echo 10/2017 nl LV size, LV function mod impaired EF 40%, septal wall motion c/w pacing, other wilson mildly hypok, RV nl funcion, LA/RA severely dilated, mod MR , mod to sev TR, at least mild to mod pulm HTN, RVSP at least 47 mmHg, ao root 4.2 cm 88M h/o dementia, combined systolic and diastolic CHF, s/p PPM, afib on xarelto p/w dyspnea, chest pressure worsening over last 3-4 days Acute on chronic combined systolic and diastolic congestive heart failure - recently lasix was stopped due to DEE by Dr. Whitney - symptoms, maxi effusions on Cxr, BNP 2400 c/w CHF exacerbation - received lasix 20 mg IV in ER (was on 20 mg daily at home) and AM 04/18 - Cr improved, sob resolved - discussed case with Cindy Guardado NP, had been adjusting diuretics at home and getting weekly labs, had been advised to restart lasix 20 mg PO daily last Wednesday but had not started yet - continue metoprolol, not on ACEI, has CKD - daily standing weights, Cr - restart lasix 20 mg PO daily on discharge - stable for discharge from cardiac perspective, follow up for weekly labs this week, discussed with Cindy Guardado NP PPM - dependent, SIDE SEAM TENDER on EKG - routine office checks afib - cont amiodarone, xarelto CAD - nonobstructive dz on cath 2008 - cont xarelto (no aspirin), intolerant to statin, cont metoprolol HTN - stable cont current meds HLD - intolerant to statins, monitor DEE - monitoring Cr, may be in setting of CHF exac - lasix had been held per Dr. Whitney recently
--- NOTE | 2018-04-19 13:16 | DS ---
Physical Examination Vital Signs: Vital Signs Temperature 36.7 C 04/19/18 06:00 Pulse Rate 65 04/19/18 06:00 Respiratory Rate 20 04/19/18 06:00 Blood Pressure 123/53 L 04/19/18 06:00 O2 Sat by Pulse Oximetry (%) 97 04/18/18 21:00 Constitutional: Yes: Well Nourished, No Distress, Calm Cardiovascular: Yes: Regular Rate and Rhythm. No: Gallop, Murmur, Rub Respiratory: Yes: Regular, Rhonchi (slight, bibasilar). No: CTA Bilaterally, Rales, Wheezes Gastrointestinal: Yes: Normal Bowel Sounds, Soft. No: Distention, Tenderness Extremities: Yes: WNL Edema: LLE: Trace, RLE: Trace Labs: CBC, BMP 04/19/18 06:20 04/19/18 06:20 Discharge Summary Reason For Visit: ACUTE CHRONIC CONGESTIVE HEART FAILURE Current Active Problems (HFpEF) heart failure with preserved ejection fraction (Acute) AF (paroxysmal atrial fibrillation) (Acute) Anemia (Acute) CHF exacerbation (Acute) Hypothyroidism (Acute) Popliteal cyst (Acute) Hospital Course: (1) CHF exacerbation Code(s): I50.9 - HEART FAILURE, UNSPECIFIED Qualifiers: Heart failure type: combined systolic and diastolic Qualified Code(s): I50.43 - Acute on chronic combined systolic (congestive) and diastolic ( congestive) heart failure (2) AF (paroxysmal atrial fibrillation) Code(s): I48.0 - PAROXYSMAL ATRIAL FIBRILLATION (3) DEE (acute kidney injury) Code(s): N17.9 - ACUTE KIDNEY FAILURE, UNSPECIFIED (4) CAD (coronary artery disease) Code(s): I25.10 - ATHSCL HEART DISEASE OF [place] CORONARY ARTERY W/O ANG PCTRS Qualifiers: Coronary Disease-Associated Artery/Lesion type: unspecified vessel or lesion type Associated angina: with unspecified angina (5) CKD (chronic kidney disease) Code(s): N18.9 - CHRONIC KIDNEY DISEASE, UNSPECIFIED Qualifiers: Chronic kidney disease stage: stage 3 (moderate) Qualified Code(s): N18.3 - Chronic kidney disease, stage 3 (moderate) (6) Chronic interstitial lung disease Code(s): J84.9 - INTERSTITIAL PULMONARY DISEASE, UNSPECIFIED (7) Dementia Code(s): F03.90 - UNSPECIFIED DEMENTIA WITHOUT BEHAVIORAL DISTURBANCE (8) HTN (hypertension) Code(s): I10 - ESSENTIAL (PRIMARY) HYPERTENSION (9) Hypothyroid Code(s): E03.9 - HYPOTHYROIDISM, UNSPECIFIED Mr Cavanaugh is a very pleasant 88 year old male who comes in with acute on chronic CHF exacerbation secondary to cessation of lasix for DEE. He was admitted to telemetry and seen by cardiology. He was diuresed with lasix 20mg IV daily with proper response. His renal function remained stable while here. Case was discussed with cardiology and he will be transitioned to lasix 20mg po daily and close follow up. He is currently feeling back to his baseline and eager to go home. He says he has slight burning on urination so a urinalysis is pending. If positive will discharge on oral antibiotics. Patient to have close follow up with his PCP and cardiology. 33 minutes spent in preparation of this discharge Condition: Stable - Instructions Diet, Activity, Other Instructions: resume previous diet and activity Referrals: Jack Sharp MD [Primary Care Provider] - David Whitney MD [Staff Physician] - Disposition: HOME - Home Medications Comprehensive Discharge Medication List: Ambulatory Orders Amiodarone HCl [Cordarone -] 200 mg PO DAILY 04/17/18 Donepezil HCl 10 mg PO DAILY 04/17/18 Levothyroxine [Synthroid -] 75 mcg PO DAILY 04/17/18 Metoprolol Succinate 25 mg PO DAILY 04/17/18 Quetiapine Fumarate [Seroquel -] 50 mg PO HS 04/17/18 Rivaroxaban [Xarelto -] 15 mg PO DAILY 04/17/18 Tamsulosin HCl [Flomax -] 0.4 mg PO DAILY 04/17/18 Furosemide [Lasix -] 20 mg PO DAILY #30 tablet 04/19/18
[2018-04-19 15:31] LABS: URINE APPEARANCE CLEAR; URINE BILIRUBIN NEGATIVE (<2.0 mg/dL); URINE COLOR LTYELLOW; URINE GLUCOSE (UA) NEGATIVE (NEGATIVE); URINE KETONE NEGATIVE (NEGATIVE); URINE LEUK ESTERASE NEGATIVE (NEGATIVE); URINE NITRITE NEGATIVE (NEGATIVE); URINE PROTEIN NEGATIVE (NEGATIVE); URINE UROBILINOGEN NEGATIVE mg/dL (0.2-1.0)
== END 2018-04-19 17:29 | disposition home or self-care (01) | DRG 291 ==
LOC: JER 07:19 → JERBED 10:03 → J4W 11:55
PROVIDERS: ADMIT Internal Medicine; ATTEND Internal Medicine
DX: I13.0 Hypertensive heart and chronic kidney disease with heart failure and stage 1 through stage 4 chronic kidney disease, or unspecified chronic kidney disease (principal); I50.43 Acute on chronic combined systolic (congestive) and diastolic (congestive) heart failure; N17.9 Acute kidney failure, unspecified; J84.9 Interstitial pulmonary disease, unspecified; N18.3 Chronic kidney disease, stage 3 (moderate); E78.5 Hyperlipidemia, unspecified; E03.9 Hypothyroidism, unspecified; F03.90 Unspecified dementia, unspecified severity, without behavioral disturbance, psychotic disturbance, mood disturbance, and anxiety; I48.0 Paroxysmal atrial fibrillation; I25.10 Atherosclerotic heart disease of native coronary artery without angina pectoris; M71.21 Synovial cyst of popliteal space [Baker], right knee; D64.9 Anemia, unspecified; Z95.0 Presence of cardiac pacemaker
CPT/HCPCS: 36415; 71045-TC-FY; 80048; 80053; 80061; 81003; 81015; 82272; 82550; 82607; 82728; 83540; 83550; 83721; 83735; 83880; 84100; 84443; 84484; 85025; 85610; 90688; 93005; 93010; 93306-TC; 93970-TC; 99285-25; G0008

== ENCOUNTER 2018-12-02 10:20 | Inpatient (IN) | payer OTHER, MEDICARE | END 2018-12-16 14:19 | LOC: J6S 12-09 20:05 → JER 10:20 → JERBED 16:15 → J4W 18:40 ==

== ENCOUNTER 2019-01-06 14:40 | Inpatient (IN) | payer OTHER, MEDICARE ==
[2019-01-06 16:00] VITALS: BMI 33.7
[2019-01-06] MEDS ORDERED: ACETAMINOPHEN 325 MG TABLET (FP) PO PRN (16:47)
[2019-01-06] MEDS ORDERED: FUROSEMIDE 40 MG/4 ML INJECTABLE VIAL IVPUSH ONE (16:50)
--- NOTE | 2019-01-06 17:21 | HP ---
Admitting History and Physical - Primary Care Physician PCP: Jack Sharp - Admission Chief Complaint: I'm ok History of Present Illness: Mr Cavanaugh is a very pleasant 88 year old male who comes in from SNF with anemia requiring transfusion. He is without complaint, however his daughter is at the bedside and states that she noticed his legs have become more swollen. He is followed by Dr Whitney as an outpatient and he was changed to torsemide. He also had a cbc checked with a low hemoglobin. He presents here for transfusion. He denies fevers, chills, lightheadedness, dizziness, passing out, chest pain or pressure, shortness of breath, nausea, vomiting, diarrhea, constipation, or difficulty/pain on urination. 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) Endocrine: Yes: Hypothyroidism - Past Surgical History Past Surgical History: Yes: Permanent Pacemaker - Smoking History Smoking history: Never smoked Have you smoked in the past 12 months: No Aproximately how many cigarettes per day: 0 - Alcohol/Substance Use Hx Alcohol Use: No History of Substance Use: reports: None - Social History Usual Living Arrangement: Yes: With Child ADL: Family Assistance History of Recent Travel: No Home Medications - Allergies Allergies/Adverse Reactions: Allergies Allergy/AdvReac Type Severity Reaction Status Date / Time No Known Drug Allergies Allergy Verified 12/02/18 10:35 - Home Medications Home Medications: Ambulatory Orders Amiodarone HCl [Cordarone -] 100 mg PO DAILY 04/17/18 Donepezil HCl 10 mg PO DAILY 04/17/18 Levothyroxine [Synthroid -] 75 mcg PO DAILY 04/17/18 Metoprolol Succinate 25 mg PO BID 04/17/18 Quetiapine Fumarate [Seroquel -] 50 mg PO HS 04/17/18 Rivaroxaban [Xarelto] 15 mg PO DAILY 04/17/18 Tamsulosin HCl [Flomax -] 0.4 mg PO DAILY 04/17/18 Furosemide [Lasix -] 20 mg PO Q48H 05/10/19 Family Disease History - Family Disease History Family Disease History: [place]: Brother (dementia) Review of Systems Findings/Remarks: Full review of systems obtained, as per HPI and otherwise negative. Physical Examination Vital Signs: Vital Signs Temperature 36.6 C 01/06/19 15:47 Pulse Rate 67 01/06/19 15:47 Respiratory Rate 20 01/06/19 15:47 Blood Pressure 115/65 01/06/19 15:47 O2 Sat by Pulse Oximetry (%) Constitutional: Yes: Well Nourished, No Distress, Calm Eyes: Yes: Conjunctiva Clear, EOM Intact, PERRL HENT: Yes: Atraumatic, Normocephalic Cardiovascular: Yes: Regular Rate and Rhythm. No: Gallop, Murmur, Rub Respiratory: Yes: Regular, CTA Bilaterally. No: Rales, Rhonchi, Wheezes Gastrointestinal: Yes: Normal Bowel Sounds, Soft. No: Distention, Tenderness Extremities: Yes: WNL Edema: Yes Edema: LLE: 3+, RLE: 3+ Integumentary: Yes: Other (pallor) Problem List - Problems (1) Anemia Code(s): D64.9 - ANEMIA, UNSPECIFIED (2) AF (paroxysmal atrial fibrillation) Code(s): I48.0 - PAROXYSMAL ATRIAL FIBRILLATION (3) CHF (congestive heart failure) Code(s): I50.9 - HEART FAILURE, UNSPECIFIED Qualifiers: Qualified Code(s): I50.22 - Chronic systolic (congestive) heart failure (4) Dementia Code(s): F03.90 - UNSPECIFIED DEMENTIA WITHOUT BEHAVIORAL DISTURBANCE (5) Hypothyroid Code(s): E03.9 - HYPOTHYROIDISM, UNSPECIFIED Assessment/Plan -admit under observation -transfuse 1 unit pRBCs -give lasix 40mg IV x1 after transfusion -fall risk precautions -otherwise continue home medications -regular diet -can discharge back to SNF in am
[2019-01-06] MEDS ORDERED: QUEtiapine FUMARATE 25 MG TABLET (FP) ONE (22:03)
[2019-01-06] MEDS: metoPROLOL SUCCINATE 25 MG TAB.SR.24H (FP) PO SCH (22:05)
[2019-01-06] MEDS: QUEtiapine FUMARATE 50 MG TABLET PO SCH (22:06)
[2019-01-06] MEDS ORDERED: PT OWN MED DRAWER 7, Y5N ONE (22:06)
--- NOTE | 2019-01-07 00:06 | HOSP ---
Subjective - Review of Symptoms Subjective: Paged by nurse to evaluate pt undergoing blood tranfusion. Transfusion paused by nurse due to pt complaining of dizziness. Upon encounter, pt also complaining of back pain. Manual BP taken: R arm 80/30s, L arm 120s systolic. Pt is verbal and answers to questions appropriately. Denies cp, sob, abd pain. Repeat manual BP while pt in Trendelenburg, improved to 90/45. No bleeding noted at IV sites. A/P: -Will discontinue blood transfusion for now due to concern for possible transfusion reaction -Will order CBC, urinalysis, blood culture <Jordana Vega - Last Filed: 01/07/19 00:30> Physical Examination Vital Signs: Vital Signs Temperature 98.5 F 01/06/19 21:42 Pulse Rate 62 01/06/19 21:42 Respiratory Rate 20 01/06/19 21:42 Blood Pressure 131/55 L 01/06/19 21:42 O2 Sat by Pulse Oximetry (%) <Jordana Vega - Last Filed: 01/07/19 00:30> Vital Signs: Vital Signs Temperature 98.8 F 01/08/19 10:00 Pulse Rate 63 01/08/19 10:00 Respiratory Rate 20 01/08/19 10:00 Blood Pressure 110/50 L 01/08/19 10:00 O2 Sat by Pulse Oximetry (%) 96 01/08/19 07:31 Labs: CBC, BMP 01/07/19 07:45 <Thomas Hamlin - Last Filed: 01/09/19 23:44> Hospitalist Encounter Assessment: Seen and examined; agree with above except as supplemented by myself in my own documentation. Present for and verified all [place] of history of physical exam and independently reviewed all labs, test results, etc. <Thomas Hamlin - Last Filed: 01/09/19 23:44> Visit type - Emergency Visit Emergency Visit: Yes Care time: The patient presented to the Emergency Department on the above date and was hospitalized for further evaluation of their emergent condition. - New Patient This patient is new to me today: Yes Date on this admission: 01/07/19 - Critical Care Critical Care patient: No <Jordana Vega - Last Filed: 01/07/19 00:30>
[2019-01-07 02:36] LABS: HEMATOCRIT 23.8 % (35.4-49); HEMOGLOBIN 7.7 GM/dL (11.7-16.9); MCH 25.9 pg (25.7-33.7); MCHC 32.2 g/dl (32.0-35.9); MEAN CELL VOLUME 80.6 fl (80-96); MEAN PLT VOLUME 7.7 fl (7.5-11.1); PLATELET COUNT 217 K/MM3 (134-434); RBC 2.96 M/mm3 (4.00-5.60); RDW 17.8 % (11.9-15.9); WHITE BLOOD COUNT 7.4 K/mm3 (4.0-10.0)
[2019-01-07 08:49] LABS: HEMATOCRIT 24.1 % (35.4-49); HEMOGLOBIN 7.7 GM/dL (11.7-16.9); MCH 25.5 pg (25.7-33.7); MCHC 31.8 g/dl (32.0-35.9); MEAN CELL VOLUME 80.2 fl (80-96); MEAN PLT VOLUME 7.5 fl (7.5-11.1); PLATELET COUNT 227 K/MM3 (134-434); RBC 3.01 M/mm3 (4.00-5.60)
[2019-01-07] MEDS ORDERED: FUROSEMIDE 40 MG/4 ML INJECTABLE VIAL IVPUSH SCH (09:11)
[2019-01-07] MEDS ORDERED: ACETAMINOPHEN 325 MG TABLET (FP) PO SCH (09:12)
[2019-01-07] MEDS: LEVOTHYROXINE NA 75 MCG TABLET (FP) PO SCH (09:17)
[2019-01-07] MEDS: AMIODARONE HCL 200 MG TABLET (FP) PO SCH (09:18)
[2019-01-07] MEDS: TAMSULOSIN HCL 0.4 MG CAP PO SCH (09:18)
[2019-01-07] MEDS: DONEPEZIL HCL 10 MG TABLET (FP) PO SCH (09:18)
[2019-01-07] MEDS: metoPROLOL SUCCINATE 25 MG TAB.SR.24H (FP) PO SCH ×2 (09:19→21:29)
--- NOTE | 2019-01-07 10:02 | PN ---
Progress Note, Physician Chief Complaint: Mr Cavanaugh is without complaint this am. No cp, sob, n/v. Last night had episode of confusion. - Current Medication List Current Medications: Active Medications Acetaminophen (Tylenol -) 650 mg PO Q4H PRN PRN Reason: FEVER Acetaminophen (Tylenol -) 650 mg PO [employer] [facility] Stop: 01/07/19 12:00 Amiodarone HCl (Cordarone -) 100 mg PO DAILY [facility] Last Admin: 01/07/19 09:18 Dose: 100 mg Diphenhydramine HCl (Benadryl Injection -) 25 mg IVPUSH [employer] [facility] Stop: 01/07/19 12:00 Donepezil HCl (Aricept -) 10 mg PO DAILY [facility] Last Admin: 01/07/19 09:18 Dose: 10 mg Furosemide (Lasix Injection -) 40 mg IVPUSH [employer] [facility] Stop: 01/07/19 14:00 Levothyroxine Sodium (Synthroid -) 75 mcg PO DAILY [facility] Last Admin: 01/07/19 09:17 Dose: 75 mcg Metoprolol Succinate (Toprol Xl -) 25 mg PO BID [facility] Last Admin: 01/07/19 09:19 Dose: 25 mg Quetiapine Fumarate (Seroquel -) 50 mg PO HS [facility] Last Admin: 01/06/19 22:06 Dose: 50 mg Tamsulosin HCl (Flomax -) 0.4 mg PO DAILY [facility] Last Admin: 01/07/19 09:18 Dose: 0.4 mg - Objective Vital Signs: Vital Signs Temperature 36.6 C 01/07/19 09:51 Pulse Rate 69 01/07/19 09:51 Respiratory Rate 20 01/07/19 09:51 Blood Pressure 110/58 L 01/07/19 09:51 O2 Sat by Pulse Oximetry (%) 96 01/07/19 08:00 Constitutional: Yes: Well Nourished, No Distress, Calm Cardiovascular: Yes: Regular Rate and Rhythm. No: Gallop, Murmur, Rub Respiratory: Yes: Regular, CTA Bilaterally. No: Rales, Rhonchi, Wheezes Gastrointestinal: Yes: Normal Bowel Sounds, Soft. No: Distention, Tenderness Extremities: Yes: WNL Edema: Yes Edema: LLE: 2+, RLE: 2+ Labs: CBC, BMP 01/07/19 07:45 Problem List - Problems (1) Anemia Code(s): D64.9 - ANEMIA, UNSPECIFIED (2) AF (paroxysmal atrial fibrillation) Code(s): I48.0 - PAROXYSMAL ATRIAL FIBRILLATION (3) CHF (congestive heart failure) Code(s): I50.9 - HEART FAILURE, UNSPECIFIED Qualifiers: Qualified Code(s): I50.22 - Chronic systolic (congestive) heart failure (4) Dementia Code(s): F03.90 - UNSPECIFIED DEMENTIA WITHOUT BEHAVIORAL DISTURBANCE (5) Hypothyroid Code(s): E03.9 - HYPOTHYROIDISM, UNSPECIFIED Assessment/Plan -unable to transfuse overnight secondary to confusion and hypotension -concern for transfusion reaction -checked, negative -will perform transfusion today -will give tylenol and benadryl prior to transfusion -give lasix longterm through transfusion -monitor overnight -if stable, can transfer back to [facility] tomorrow
[2019-01-07] MEDS ORDERED: PT OWN MED DRAWER 7, Y5N ONE (16:34)
[2019-01-07 20:54] LABS: EPI CELLS 1.5 /HPF (0-5/HPF); HYALINE CASTS 1 /lpf (0-8); PH,URINE 7.5 (5.0-8.0); URINE APPEARANCE CLEAR; URINE BACTERIA 66.9 /hpf (NEGATIVE); URINE BILIRUBIN NEGATIVE (NEGATIVE); URINE COLOR YELLOW; URINE GLUCOSE (UA) NEGATIVE (NEGATIVE); URINE KETONE NEGATIVE (NEGATIVE); URINE LEUK ESTERASE TRACE (NEGATIVE); URINE NITRITE NEGATIVE (NEGATIVE); URINE PROTEIN NEGATIVE (NEGATIVE); URINE RBC 1 /hpf (0-4); URINE UROBILINOGEN 0.2 mg/dL (0.2-1.0); URINE WBC 5 /hpf (0-5)
[2019-01-07] MEDS ORDERED: QUEtiapine FUMARATE 25 MG TABLET (FP) ONE (21:08)
[2019-01-07] MEDS: QUEtiapine FUMARATE 50 MG TABLET PO SCH (21:29)
[2019-01-08] MEDS ORDERED: PT OWN MED DRAWER 7, Y5N ONE (09:26)
[2019-01-08] MEDS: TAMSULOSIN HCL 0.4 MG CAP PO SCH (09:27)
[2019-01-08] MEDS: metoPROLOL SUCCINATE 25 MG TAB.SR.24H (FP) PO SCH (09:27)
[2019-01-08] MEDS: DONEPEZIL HCL 10 MG TABLET (FP) PO SCH (09:27)
[2019-01-08] MEDS: AMIODARONE HCL 200 MG TABLET (FP) PO SCH (09:27)
--- NOTE | 2019-01-08 09:51 | DS ---
Physical Examination Vital Signs: Vital Signs Temperature 36.7 C 01/08/19 06:00 Pulse Rate 69 01/08/19 06:00 Respiratory Rate 20 01/08/19 07:31 Blood Pressure 112/60 01/08/19 06:00 O2 Sat by Pulse Oximetry (%) 96 01/08/19 07:31 Constitutional: Yes: Well Nourished, No Distress, Calm Cardiovascular: Yes: Regular Rate and Rhythm, Murmur. No: Gallop, Rub Respiratory: Yes: Regular, CTA Bilaterally. No: Rales, Rhonchi, Wheezes Gastrointestinal: Yes: Normal Bowel Sounds, Soft. No: Distention, Tenderness Extremities: Yes: WNL Edema: Yes Edema: LLE: 2+, RLE: 2+ Labs: CBC, BMP 01/07/19 07:45 Discharge Summary Reason For Visit: ANEMIA Hospital Course: (1) Anemia Code(s): D64.9 - ANEMIA, UNSPECIFIED (2) AF (paroxysmal atrial fibrillation) Code(s): I48.0 - PAROXYSMAL ATRIAL FIBRILLATION (3) CHF (congestive heart failure) Code(s): I50.9 - HEART FAILURE, UNSPECIFIED Qualifiers: Qualified Code(s): I50.22 - Chronic systolic (congestive) heart failure (4) Dementia Code(s): F03.90 - UNSPECIFIED DEMENTIA WITHOUT BEHAVIORAL DISTURBANCE (5) Hypothyroid Code(s): E03.9 - HYPOTHYROIDISM, UNSPECIFIED Mr Cavanaugh is a very pleasant 88 year old male who came over for 1 unit pRBC transfusion and IV lasix secondary to anemia and increased edema. He was originally admitted under observation in anticipation of transfusion and discharge, however when the first transfusion was started he became confused, agitated, and hypotensive. The transfusion was stopped and he was monitored overnight. The possibility of a transfusion reaction was investigated, this was ruled out by labs and the transfusion commenced again with close monitoring. He tolerated the second attempt without difficulty or complication. He also received IV lasix and diuresed well. His leg swelling is improved. He is safe for discharge back to SNF for continued rehabilitation. He will be transitioned from oral lasix to oral torsemide. 34 minutes spent in preparation of this discharge. Condition: Stable - Instructions Diet, Activity, Other Instructions: Change lasix 80mg daily to torsemide 80mg daily. If weight not improved and edema not decreasing after being on torsemide 80mg daily for 1 week, increase torsemide to 100mg daily. Repeat cbc/bmp in 5 days. Hold xarelto, please call Dr Whitney after CBC/BMP in 5 days to evaluate if xarelto can be restarted. No wraps of YANI bandages on legs. Referrals: Jack Sharp MD [Staff Physician] - David Whitney MD [Staff Physician] - Disposition: [facility] - Home Medications Comprehensive Discharge Medication List: Ambulatory Orders Amiodarone HCl [Cordarone -] 100 mg PO DAILY 04/17/18 Donepezil HCl 10 mg PO DAILY 04/17/18 Levothyroxine [Synthroid -] 75 mcg PO DAILY 04/17/18 Metoprolol Succinate 25 mg PO BID 04/17/18 Quetiapine Fumarate [Seroquel -] 50 mg PO HS 04/17/18 Tamsulosin HCl [Flomax -] 0.4 mg PO DAILY 04/17/18 Torsemide [Demadex -] 80 mg PO DAILY #30 tablet 01/08/19
[2019-01-08] MEDS: LEVOTHYROXINE NA 75 MCG TABLET (FP) PO SCH (11:14)
[2019-01-08 11:25] VITALS: BP 110/50; PULSE 63; TEMP 98.8
== END 2019-01-08 11:37 | DRG 812 ==
LOC: JBLOOD 14:40 → J8W 14:42 → JBLOOD 14:43 → J8W 14:43 → UNDOADMIN 01-07 15:08 → J8W 01-07 15:08
PROVIDERS: ADMIT Internal Medicine; ATTEND Internal Medicine
PROC: 30233N1 Transfusion of Nonautologous Red Blood Cells into Peripheral Vein, Percutaneous Approach (ICD-10-PCS; principal; 2019-01-06)
DX: D64.9 Anemia, unspecified (principal); I50.22 Chronic systolic (congestive) heart failure; I25.10 Atherosclerotic heart disease of native coronary artery without angina pectoris; I11.0 Hypertensive heart disease with heart failure; E78.5 Hyperlipidemia, unspecified; I48.0 Paroxysmal atrial fibrillation; E03.9 Hypothyroidism, unspecified; F03.90 Unspecified dementia, unspecified severity, without behavioral disturbance, psychotic disturbance, mood disturbance, and anxiety
CPT/HCPCS: 36415; 36430; 81003; 82962; 85027; 86078; 86850; 86900; 86901; 86922; 87040; P9038; P9058

== ENCOUNTER 2019-01-26 21:54 | Inpatient (IN) | payer OTHER, MEDICARE ==
--- NOTE | 2019-01-26 22:45 | PDOC ---
History of Present Illness - General Chief Complaint: Injury Stated Complaint: FALL Time Seen by Provider: 01/26/19 22:29 History Source: Family (daughter) - History of Present Illness Initial Comments: 01/26/19 22:44 Miguel Cavanaugh is an [place]ian 88M with PMH dementia, CHF, hypothyroidism, HTN , Afib on Xarelto presenting with injury from fall. Patient is Liberian-speaking with dementia, here with daughter to translate. Daughter reports patient fell out of bed onto floor, unwitnessed fall. High likelihood of head injury, and patient is nursing both elbows but not complaining of pain in a specific place. On Eliquis 15mg qd, took all medications today. Per daughter, patient is baseline confused, but is acting more confused at this time. No F/C, no N/V, no C/D. Able to walk with walker and assistance only. No incontinence, patient denies dysuria or hematuria. Past History - Past Medical History Allergies/Adverse Reactions: Allergies Allergy/AdvReac Type Severity Reaction Status Date / Time No Known Drug Allergies Allergy Verified 12/02/18 10:35 Home Medications: Ambulatory Orders Amiodarone HCl [Cordarone -] 100 mg PO DAILY 04/17/18 Donepezil HCl 10 mg PO DAILY 04/17/18 Levothyroxine [Synthroid -] 75 mcg PO DAILY 04/17/18 Metoprolol Succinate 25 mg PO BID 04/17/18 Quetiapine Fumarate [Seroquel -] 50 mg PO HS 04/17/18 Tamsulosin HCl [Flomax -] 0.4 mg PO DAILY 04/17/18 Torsemide [Demadex -] 80 mg PO DAILY #30 tablet 01/08/19 Anemia: No Asthma: No Cancer: Yes (Prostate, SEEDING, leukemia) Cardiac Disorders: Yes (Atrial Fibrillation, PPM) CVA: No COPD: No CHF: Yes Dementia: Yes (MILD) Diabetes: Yes Dialysis: No GI Disorders: Yes (espohageal dilations, GI bleed) Disorders: No HTN: Yes Hypercholesterolemia: Yes Kidney Stones: No Liver Disease: No Seizures: No Thyroid Disease: Yes (hypothyroid) - Surgical History Abdominal Surgery: No Appendectomy: No Cardiac Surgery: Yes (PACEMAKER) Cholecystectomy: No Lung Surgery: No Neurologic Surgery: No Orthopedic Surgery: Yes (BACK SURGERY) - Immunization History Td Vaccination: Yes TDAP Vaccination: Yes Immunization Up to Date: Yes - Suicide/Smoking/Psychosocial Hx Smoking Status: No Smoking History: Never smoked Have you smoked in the past 12 months: No Number of Cigarettes Smoked Daily: 0 Cigars Per Day: 0 Information on smoking cessation initiated: No Hx Alcohol Use: No Drug/Substance Use Hx: No Substance Use Type: None Hx Substance Use Treatment: No Review of Systems - Review of Systems Able to Perform ROS?: No (Liberian speaking+dementia) Is the patient limited Romansh proficient: No Constitutional: Yes: Loss of Appetite *Physical Exam - Vital Signs Last Vital Signs Temp Pulse Resp BP Pulse Ox 98.5 F 61 18 132/55 L 96 01/26/19 22:10 01/26/19 22:10 01/26/19 22:10 01/26/19 22:10 01/26/19 22:10 - Physical Exam General Appearance: Yes: Nourished, Appropriately Dressed. No: Apparent Distress HEENT: positive: EOMI, Normal Voice, Symmetrical, Pharynx Normal, Other ( folliculitis R ear). negative: Scleral Icterus (R), Scleral Icterus (L), Orbits Neck: positive: Supple. negative: Tender Respiratory/Chest: positive: Lungs Clear, Normal Breath Sounds. negative: Chest Tender, Respiratory Distress, Crackles, Rales, Rhonchi Cardiovascular: positive: Regular Rhythm, Regular Rate, Edema. negative: Murmur Gastrointestinal/Abdominal: positive: Normal Bowel Sounds, Flat, Soft. negative : Tender, Tenderness, Mass Musculoskeletal: positive: Decreased Range of Motion (bilateral elbows) Extremity: positive: Normal Capillary Refill, Other (guarding L and R elbows, some ecchymosis L forearm) Integumentary: positive: Normal Color, Dry, Warm. negative: Jaundice Neurologic: positive: trimmer climber II-XII NML intact, Alert, Motor Strength 5/5, Responsive, Confused, Disoriented. negative: Facial Droop ED Treatment Course - LABORATORY CBC & Chemistry Diagram: 01/27/19 00:20 01/27/19 00:20 Medical Decision Making - Medical Decision Making 01/27/19 00:47 Given presentation of falling out of bed, will order CT head and C-spine, as well as CXR and limb XR to evaluate for further injury. CMP, CBC, UA, and ECG for evaluation of non-medical causes of fall, including syncope 2/2 arrythmia vs. infection such as UTI. 01/27/19 00:[address] Fink. *DC/Admit/Observation/Transfer Diagnosis at time of Disposition: Fall - Discharge Dispostion Condition at time of disposition: Fair - Referrals Referrals: Jack Sharp MD [Primary Care Provider] - - Patient Instructions - Post Discharge Activity
--- NOTE | 2019-01-26 23:31 | PDOC ---
Documentation entered by Nghia Arriaza SCRIBE, acting as scribe for Saman Richmond MD. Saman Richmond MD: This documentation has been prepared by the Arsalan hutchins Nirvannie, SCRIBE, under my direction and personally reviewed by me in its entirety. I confirm that the documentation accurately reflects all work, treatment, procedures, and medical decision making performed by me. Attending Attestation - Resident Resident Name: CornellsanjuNorman - ED Attending Attestation I have performed the following: I have examined & evaluated the patient, The case was reviewed & discussed with the resident, I agree w/resident's findings & plan - HPI HPI: 01/26/19 23:12 The patient is an 88 year old male, with a significant past medical history of dementia, hypothyroidism, CHF, AFib (on xarelto, s/p pacemaker), and leukemia, who presents to the emergency department s/p unwitnessed fall. As per daughter, they are unaware of the mechanism of fall but, believes he hit his head. Daughter endorses increased confusion beyond baseline dementia, prompting his arrival to the ED. Allergies: NKDA Primary Care Physician: Dr. Sharp - Physicial Exam PE: 01/27/19 02:02 Agree with exam as documented by resident - Medical Decision Making 01/27/19 01:30 EKG ventricular paced rhythm at 60 bpm Unwitnessed fall from bed, a/w acute worsening of chronic dementia unreliable historian cannot characterize nature of fall. Eval for trauma, consider syncope admit for further evaluation.
[2019-01-27 00:28] LABS: BASO % 0.6 % (0-2.0); EOS % 2.3 % (0-4.5); HEMOGLOBIN 8.5 GM/dL (11.7-16.9); LYMPH % 29.4 % (8-40); MCH 26.3 pg (25.7-33.7); MCHC 31.4 g/dl (32.0-35.9); MEAN CELL VOLUME 83.8 fl (80-96); MEAN PLT VOLUME 8.1 fl (7.5-11.1); MONO % 8.7 % (3.8-10.2); PLATELET COUNT 171 K/MM3 (134-434); RBC 3.22 M/mm3 (4.00-5.60); RDW 19.5 % (11.9-15.9); WHITE BLOOD COUNT 8.3 K/mm3 (4.0-10.0)
[2019-01-27 00:51] LABS: INR 1.63 (0.83-1.09); PROTHROMBIN TIME (PATIENT) 19.3 SEC (9.7-13.0)
[2019-01-27 01:03] LABS: ALBUMIN 3.4 g/dl (3.4-5.0); BILIRUBIN,TOTAL 0.3 mg/dL (0.2-1); CALCIUM 8.5 mg/dL (8.5-10.1); CREATININE 2.1 mg/dL (0.55-1.3); POTASSIUM 4.5 mmol/L (3.5-5.1); TOT PROT 6.1 g/dl (6.4-8.2)
--- NOTE | 2019-01-27 01:13 | PDOC ---
*Physical Exam - Vital Signs Last Vital Signs Temp Pulse Resp BP Pulse Ox 98.5 F 61 18 132/55 L 96 01/26/19 22:10 01/26/19 22:10 01/26/19 22:10 01/26/19 22:10 01/26/19 22:10 - Physical Exam General Appearance: Yes: Obese. No: Apparent Distress HEENT: positive: Normal Voice, Symmetrical Neck: positive: Trachea midline, Supple Respiratory/Chest: positive: Lungs Clear, Normal Breath Sounds. negative: Accessory Muscle Use Cardiovascular: positive: Regular Rhythm, Regular Rate Extremity: positive: Normal Capillary Refill, Normal Inspection, Pedal Edema Integumentary: positive: Normal Color, Dry, Warm, Ecchymosis, Bruising Neurologic: positive: air sampling and monitoring II-XII NML intact, Alert, Normal Response, Motor Strength /5 ED Treatment Course - LABORATORY CBC & Chemistry Diagram: 01/27/19 00:20 01/27/19 00:20 - ADDITIONAL ORDERS Additional order review: Laboratory Results 01/27/19 01/27/19 00:20 00:20 PT with INR 19.30 H INR 1.63 H Sodium 146 H Potassium 4.5 Chloride 115 H Carbon Dioxide 27 Anion Gap 5 L BUN 32.0 H Creatinine 2.1 H Est GFR (CKD-EPI)AfAm 31.62 Est GFR (CKD-EPI)NonAf 27.28 Random Glucose 100 Calcium 8.5 Total Bilirubin 0.3 AST 19 ALT 15 Alkaline Phosphatase 74 Total Protein 6.1 L Albumin 3.4 01/27/19 00:20 RBC 3.22 L MCV 83.8 MCHC 31.4 L RDW 19.5 H MPV 8.1 Neutrophils % 59.0 Lymphocytes % 29.4 D Monocytes % 8.7 Eosinophils % 2.3 D Basophils % 0.6 Medical Decision Making - Medical Decision Making Signout received from Dr. Edmonds. 01/27/19 01:[address] Spine, Elbow/Chest Xray, UA, and ECG. Assessing possible medical causes for fall. 01/27/19 01:17 Spoke with pt daughter at bedside. Wednesday patient SBP of 89, PCP changed Terosemide to Furosemide with subsequent BP readings in the 110s. Daughter is concerned about taking pt home, appears overwhelmed and hopeful for admission. Bruising noted on lateral right knee and lateral left elbow. 01/27/19 01:32 88yo man with pmh dementia, afib on xarelto, CHF, HTN, hypothyroidism presenting after an unwitnessed fall. Pt with bruising, at baseline mental status per daughter at bedside. - NCHCT negative - C-spine negative - R and L Elbows negative - Chest XRAY without signs of fracture - Cr 2.1, up from baseline - Baseline anemia - HEART Score 5 - Pending Troponin - Pending UA Plan to admit for further workup given unexplained fall on eloquis with DEE, anemia, dementia at baseline. 01/27/19 02:03 *DC/Admit/Observation/Transfer Diagnosis at time of Disposition: Fall - Discharge Dispostion Condition at time of disposition: Fair Decision to Admit order: Yes - Referrals Referrals: Jack Sharp MD [Primary Care Provider] - - Patient Instructions - Post Discharge Activity
--- NOTE | 2019-01-27 03:05 | PN ---
Teaching Attending Note Name of Resident: Yasir Kaur ATTENDING PHYSICIAN STATEMENT I saw and evaluated the patient. I reviewed the resident's note and discussed the case with the resident. I agree with the resident's findings and plan as documented. SUBJECTIVE: Patient is an [place]ian 88 year old man with PMH Dementia, Pacemaker, CHF, Hypothyroidism, HTN and Afib on Xarelto presenting with injury from fall. Patient is Estonian-speaking with dementia, here with daughter to translate. Daughter reports patient fell out of bed onto floor - unwitnessed. High likelihood of head injury, and patient is nursing both elbows but not complaining of pain in a specific place. On Eliquis 15mg qd and took all his medications today. Per daughter, patient is baseline confused, but is acting more confused at this time. 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 No sick contacts or recent travel. No fever, chills, nausea, vomiting and no changes in bowel habit. Able to walk with walker and assistance only. No incontinence, patient denies dysuria or hematuria. OBJECTIVE: Alert Vital Signs Period Temp Pulse Resp BP Sys/Neal Pulse Ox Last 24 Hr 98.5 F 61-67 18 113-132/55-68 96-100 HEENT: No Jaundice, eye redness or discharge, PERRLA, EOMI. Normocephalic, atraumatic. External ears are normal and hearing is grossly intact. No nasal discharge. Neck: Supple, nontender. No palpable adenopathy or thyromegaly. No JVD Chest: Good effort. Clear to auscultation and percussion. Heart: Regular. No S3, rub or murmur Abdomen: Not distended, soft, nontender and no HSM. No rebound or guarding. Normal bowel sounds. Ext: Peripheral pulses intact. No leg edema. Skin: Warm and dry. No petechiae, rash or ecchymosis. Neuro: Alert. Oriented to person. CN 2-12 grossly intact. Sensation grossly intact in all four extremities and DTR are symmetric. Psych: Appropriate mood and affect. Home Medications Medication Instructions Recorded Amiodarone HCl [Cordarone -] 100 mg PO DAILY 04/17/18 Donepezil HCl 10 mg PO DAILY 04/17/18 Levothyroxine [Synthroid -] 75 mcg PO DAILY 04/17/18 Metoprolol Succinate 25 mg PO BID 04/17/18 Quetiapine Fumarate [Seroquel -] 50 mg PO HS 04/17/18 Tamsulosin HCl [Flomax -] 0.4 mg PO DAILY 04/17/18 Furosemide 20 mg PO DAILY 01/27/19 Rivaroxaban [Xarelto -] 0 mg PO DAILY 01/27/19 Abnormal Lab Results 01/27/19 01/27/19 01/27/19 00:20 00:20 00:20 RBC 3.22 L Hgb 8.5 L Hct 27.0 L MCHC 31.4 L RDW 19.5 H PT with INR 19.30 H INR 1.63 H Sodium 146 H Chloride 115 H Anion Gap 5 L BUN 32.0 H Creatinine 2.1 H Total Protein 6.1 L ASSESSMENT AND PLAN: 1. Fall/On Xarelto for Afib - Unclear if he had a syncopal episode when he fell. No new abnormality on head CT and CXR. EKG shows ventricular-paced rhythm with no new ST-T wave changes. Initial troponin is negative. Will monitor closely on telemetry, do neurochecks, get urinalysis, CPK, repeat head CT in 24 hours, implement fall precautions and arrange for pacemaker interrogation. Consult his coating and embossing unit operator. Continue comprehensive care of all his comorbid conditions. 2. Obesity Counseled on the risks associated with obesity. Will provide patient all the necessary assistance, counseling and positive reinforcement to facilitate weight loss. Consult time buyer. 3. Hypertension - Restart suitable outpatient antihypertensive drugs when clinically appropriate. Revise regimen to ensure good BP control. Nonpharmacologic measures to control hypertension like weight loss, salt restriction and exercise discussed. 4. Anemia - Likely multifactorial. Will do basic anemia work up including serial stool guaiacs, reticulocyte count and iron studies. Would benefit from Procrit therapy once iron replete. 5. CKD - Cause unclear. Will consult nephrology and avoid nephrotoxic agents such as NSAIDS, aminoglycosides, contrast dyes and certain Alternative medicine products. 6. DVT prophylaxis - On Eliquis for Afib 7. Advance directives - Full code
--- NOTE | 2019-01-27 04:08 | HP ---
CHIEF COMPLAINT: found down PCP: HISTORY OF PRESENT ILLNESS: 88M Syriac-speaking w/ PMH of Dementia, h/o prostate Ca, BPH(s/p TURP November 2018) , h/o of ANJUM(doesn't use CPAP), Pacemaker, HF, PPM, Hypothyroidism, HTN, Afib( on Xarelto), chronic anemia, ?leukemia, CKD, chronic lower back pain presents to [facility] after being found down by patient's . Patient was found conscious bedside his household bed. Complaint of b/l elbow pain. Denies LOC. Denies double vision, headache, confusion, numbness, weakness. Recently, was discharged from SNF with medication change(torsemide -> furosemide). Daughter believes that the medication change was due to severe pitting edema of lower extremities. Has h/o of fall in 2003, sustaining severe injuries to back and wrists. ER course was notable for: (1) CXR neg (2) CT H neg Recent Travel: PAST MEDICAL HISTORY: Dementia, h/o prostate Ca, BPH(s/p TURP November 2018) Pacemaker, HF, PPM, Hypothyroidism, HTN, Afib(on Xarelto), chronic anemia, ?leukemia, CKD, chronic lower back pain PAST SURGICAL HISTORY: TURP PPM(additional lead installed recently) Social History: Smoking: denies Alcohol: denies Drugs: denies Family History: Allergies: No Known Drug Allergies Allergy (Verified 12/02/18 10:35) HOME MEDICATIONS: Home Medications Medication Instructions Recorded Amiodarone HCl [Cordarone -] 100 mg PO DAILY 04/17/18 Donepezil HCl 10 mg PO DAILY 04/17/18 Levothyroxine [Synthroid -] 75 mcg PO DAILY 04/17/18 Metoprolol Succinate 25 mg PO BID 04/17/18 Quetiapine Fumarate [Seroquel -] 50 mg PO HS 04/17/18 Tamsulosin HCl [Flomax -] 0.4 mg PO DAILY 04/17/18 Furosemide 20 mg PO DAILY 01/27/19 Rivaroxaban [Xarelto -] 0 mg PO DAILY 01/27/19 REVIEW OF SYSTEMS CONSTITUTIONAL: lower extremity weakness Absent: fever, chills, diaphoresis, generalized weakness, malaise, loss of appetite, weight change HEENT: Absent: rhinorrhea, nasal congestion, throat pain, throat swelling, difficulty swallowing, mouth swelling, ear pain, eye pain, visual changes CARDIOVASCULAR: h/o peripheral edema Absent: chest pain, syncope, palpitations, irregular heart rate, lightheadedness RESPIRATORY: Absent: cough, shortness of breath, dyspnea with exertion, orthopnea, wheezing, stridor, hemoptysis GASTROINTESTINAL: Absent: abdominal pain, abdominal distension, nausea, vomiting, diarrhea, constipation, melena, hematochezia GENITOURINARY: frequent urination Absent: dysuria, urgency, hesitancy, hematuria, flank pain, genital pain MUSCULOSKELETAL: Absent: myalgia, arthralgia, joint swelling, back pain, neck pain SKIN: Absent: rash, itching, pallor HEMATOLOGIC/IMMUNOLOGIC: Absent: easy bleeding, easy bruising, lymphadenopathy, frequent infections ENDOCRINE: Absent: unexplained weight gain, unexplained weight loss, heat intolerance, cold intolerance NEUROLOGIC: Absent: headache, focal weakness or paresthesias, dizziness, unsteady gait, seizure, mental status changes, bladder or bowel incontinence PSYCHIATRIC: Absent: anxiety, depression, suicidal or homicidal ideation, hallucinations. PHYSICAL EXAMINATION Vital Signs - 24 hr 01/26/19 01/27/19 01/27/19 22:10 01:27 02:57 Temperature 98.5 F Pulse Rate 61 Pulse Rate [ 67 65 Radial] Respiratory 18 Rate Blood Pressure 132/55 L Blood Pressure 124/68 113/64 [Right Arm] O2 Sat by Pulse 96 99 100 Oximetry (%) GENERAL: no acute distress HEAD: Normal with no signs of trauma. EYES: Pupils equal, round and reactive to light, extraocular movements intact, sclera anicteric, conjunctiva clear. EARS, NOSE, THROAT: Ears normal, nares patent, oropharynx clear without exudates. Moist mucous membranes. NECK: Normal range of motion, supple without lymphadenopathy, JVD, or masses. LUNGS: Breath sounds equal, clear to auscultation bilaterally. No wheezes, and no crackles. No accessory muscle use. HEART: Regular rate and rhythm, normal S1 and S2 without murmur, rub or gallop. ABDOMEN: Soft, nontender, not distended, no guarding, no rebound, no masses. Recti diastasis MUSCULOSKELETAL: Normal range of motion at all joints. No bony deformities. Purpura of b/l elbow UPPER EXTREMITIES: well-perfused. No peripheral edema. LOWER EXTREMITIES: 2+ pulses, warm, well-perfused. No peripheral edema. NEUROLOGICAL: Cranial nerves II-XII intact. Normal speech. PSYCHIATRIC: Cooperative. Good eye contact. Appropriate mood and affect. SKIN: Warm, dry, normal turgor, no rashes or lesions noted. Laboratory Results - last 24 hr 01/27/19 01/27/19 01/27/19 00:20 00:20 00:20 WBC 8.3 RBC 3.22 L Hgb 8.5 L Hct 27.0 L MCV 83.8 MCH 26.3 MCHC 31.4 L RDW 19.5 H Plt Count 171 D MPV 8.1 Absolute Neuts (auto) 4.9 Neutrophils % 59.0 Lymphocytes % 29.4 D Monocytes % 8.7 Eosinophils % 2.3 D Basophils % 0.6 Nucleated RBC % 0 PT with INR 19.30 H INR 1.63 H Sodium 146 H Potassium 4.5 Chloride 115 H Carbon Dioxide 27 Anion Gap 5 L BUN 32.0 H Creatinine 2.1 H Est GFR (CKD-EPI)AfAm 31.62 Est GFR (CKD-EPI)NonAf 27.28 Random Glucose 100 Calcium 8.5 Total Bilirubin 0.3 AST 19 ALT 15 Alkaline Phosphatase 74 Troponin I Total Protein 6.1 L Albumin 3.4 01/27/19 00:30 WBC RBC Hgb Hct MCV MCH MCHC RDW Plt Count MPV Absolute Neuts (auto) Neutrophils % Lymphocytes % Monocytes % Eosinophils % Basophils % Nucleated RBC % PT with INR INR Sodium Potassium Chloride Carbon Dioxide Anion Gap BUN Creatinine Est GFR (CKD-EPI)AfAm Est GFR (CKD-EPI)NonAf Random Glucose Calcium Total Bilirubin AST ALT Alkaline Phosphatase Troponin I < 0.02 Total Protein Albumin ASSESSMENT/PLAN: 88M Syriac-speaking w/ PMH of Dementia, h/o prostate Ca, BPH(s/p TURP November 2018) , h/o of ANJUM(doesn't use CPAP), Pacemaker, HF, PPM, Hypothyroidism, HTN, Afib( on Xarelto), chronic anemia, ?leukemia, CKD, chronic lower back pain presents with fall possibly 2/2 to mechanical vs syncopal # fall 2/2 mechanical vs syncope >non cont CT Head(01/26/19): prelim neg >echo(12/05/18): LVEF 35-40% w/ global hypokinesis, PASP>27mmHg - defer carotid duplex - repeat CT H in 24hs - hold on AC - admit to tele NEURO # chronic dementia - fall precautions - cw home donepezil CARDIO # HF w/ PPM - cardiology consult - interogate PM # Afib - LEFTY-VASC ~3 - hold Xarelto RESPIR # chronic ANJUM - pt refused CPAP in past - monitor pulse-ox GI # no active issues RENAL # CKD - IVF and encourage PO intake FEN - low sodium diet ENDO # hypothyrodism - cw levothyroxine HEME # ?leukemia - monitor CBC MSK # chronic lower back pain - monitor - avoid excessive NSAID usage DISPO - possible SNF, pending PT evaluation Yasir Kaur, DO PGY-1 Medicine, PM Float [id number] 01/27/19 Visit type - Emergency Visit Emergency Visit: Yes ED Registration Date: 01/27/19 Care time: The patient presented to the Emergency Department on the above date and was hospitalized for further evaluation of their emergent condition. - New Patient This patient is new to me today: Yes Date on this admission: 01/27/19 - Critical Care Critical Care patient: No
[2019-01-27] MEDS: LEVOTHYROXINE NA 75 MCG TABLET (FP) PO SCH (06:37)
--- NOTE | 2019-01-27 07:23 | PDOC ---
Patient Follow-up (Call Back) - Post ED Follow - Up Condition at time of discharge: Fair - Disposition Additional Instructions/Notes: Received call from radiology re: L elbow radial head fracture Information endorsed to night RN admitting team - VIKTORIYA Kirby
[2019-01-27] MEDS ORDERED: TAMSULOSIN HCL 0.4 MG CAP PO SCH (08:30)
--- NOTE | 2019-01-27 08:51 | PN ---
Progress Note, Physician Chief Complaint: Known to our service from recent admission, now readmitted. History of Present Illness: HPI from ER reviewed: 88M Barbadian-speaking w/ PMH of Dementia, h/o prostate Ca, BPH(s/p TURP November 2018) , h/o of ANJUM(doesn't use CPAP), Pacemaker, HF, PPM, Hypothyroidism, HTN, Afib( on Xarelto), chronic anemia, ?leukemia, CKD, chronic lower back pain presents to [facility] after being found down by patient's . Patient was found conscious bedside his household bed. Complaint of b/l elbow pain. Denies LOC. Denies double vision, headache, confusion, numbness, weakness. Patient was seen and examined on telemetry. History was reviewed in Barbadian: He denies CP, SOB, palpitations. Circumstances surrounding the fall are unclear at this time. Head CT pending. X rays reveal left radial head fx. ECG: Paced, 60bpm. TELE: Paced, no sustained arrhythmias. - Current Medication List Current Medications: Active Medications Amiodarone HCl (Cordarone -) 100 mg PO DAILY JOSE Donepezil HCl (Aricept -) 10 mg PO HS [facility] Levothyroxine Sodium (Synthroid -) 75 mcg PO DAILY@0700 [facility] Last Admin: 01/27/19 06:37 Dose: 75 mcg Metoprolol Succinate (Toprol Xl -) 25 mg PO BID JOSE Tamsulosin HCl (Flomax -) 0.4 mg PO DAILY@0830 [facility] - Objective Vital Signs: Vital Signs Temperature 98.4 F 01/27/19 08:14 Pulse Rate 60 01/27/19 08:14 Respiratory Rate 16 01/27/19 08:17 Blood Pressure 97/44 L 01/27/19 08:14 O2 Sat by Pulse Oximetry (%) 100 01/27/19 08:17 Constitutional: Yes: No Distress Cardiovascular: Yes: Regular Rate and Rhythm Respiratory: Yes: Other (rales at bases 1/3 up) Gastrointestinal: Yes: Soft Edema: No Peripheral Pulses WNL: Yes Neurological: Yes: Alert Labs: CBC, BMP 01/27/19 00:20 01/27/19 00:20 INR, PTT INR 1.63 (0.83-1.09) H 01/27/19 00:20 Laboratory Tests 01/27/19 01/27/19 01/27/19 00:20 00:20 00:30 WBC 8.3 Hgb 8.5 L Plt Count 171 D Sodium 146 H Potassium 4.5 BUN 32.0 H Creatinine 2.1 H Troponin I < 0.02 - ....Imaging Chest X-ray: Image Reviewed (cardiomegaly, PPM) Cat Scan: Pending, Report Reviewed EKG: Image Reviewed Assessment/Plan Echo 11/2018: EF 35-40%, Global. HK, AVS, mild AR. RVSP 27- may be underestimated Assessment/Plan A/P: 88M h/o dementia, combined systolic and diastolic CHF, s/p PPM, afib on xarelto p/w fall, circumstances unclear: 1. Fall: mechanical vs syncope--unclear circumstances -Telemetry -Check orthostatics -Holding Lasix for now -Daily weights -Will check office records, and check PPM interrogation this admission. 2.Chronic combined systolic and diastolic congestive heart failure, pulm HTN, RV dysfunction: -Lasix held for now in setting of soft BP, possible orthostasis -Creatinine is at baseline -Would resume usual home dose within next 24 hours if not orthostatic. 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 continue prior tx plan 3. PPM: -nl fxn on ecg/tele -Will try to have PPM interrogated 4. Afib: -cont amiodarone -Xarelto held in setting of fall, radial fracture and pending Head CT final result (prelim negative) -May need to assess his candidacy for chronic snf AC based on PT eval and discussion w/ pt and family re fall risk 5. CAD: - no signs acs - nonobstructive dz on cath 2008 - intolerant to statin, cont metoprolol 6. HTN: -Chronically on low end 90s-110 systolic. Check orthostatics 7. HLD: - intolerant to statins, monitor 8. CKD: -Creat is basically at baseline. Ok to hold Diuretic for a day or two while we assess orthostatics. Resume over weekend pending initial evaluation 9. Anemia: -At baseline. Follow H/H
[2019-01-27] MEDS: AMIODARONE HCL 200 MG TABLET (FP) PO SCH (09:15)
[2019-01-27] MEDS ORDERED: ACETAMINOPHEN 1000 MG/100 ML VIAL (NON FORMULARY) IVPB PRN (09:31)
[2019-01-27] MEDS ORDERED: metoPROLOL SUCCINATE 25 MG TAB.SR.24H (FP) PO SCH (10:00)
--- NOTE | 2019-01-27 10:06 | CONSULT ---
Consult - text type - Consultation Consultation Note: ORTHOPEDIC SURGERY CONSULTATION NOTE Department of Orthopedic Surgery HISTORY OF PRESENT ILLNESS Miguel Perkins is an 88 year old male who was admitted to [facility] yesterday after being found down by his . The history was obtained by the patient and his medical records. He does not recall well the events that brought him to the hospital. The orthopedic service was consulted for a possible left radial head fracture. The patient apparently was complaining of elbow pain and radiographs were taken which showed a possible radial head fracture. He currently denies any joint pain. Denies numbness, tingling or other constitutional complaints. Denies tobacco use, drug use, alcohol abuse. PAST MEDICAL HISTORY: Dementia, h/o prostate Ca, BPH(s/p TURP November 2018) Pacemaker, HF, PPM, Hypothyroidism, HTN, Afib(on Xarelto), chronic anemia, ?leukemia, CKD, chronic lower back pain PAST SURGICAL HISTORY: TURP PPM(additional lead installed recently) Social History: Smoking: denies Alcohol: denies Drugs: denies Active Problems Problem Status Category Onset Fall Acute Medical Past Medical History [facility] Dementia Cardio/Vascular AFIB,CAD,CHF,HTN,Hyperlipdemia Renal/ Renal Inusuff,BPH,Other Heme/Onc Other Endocrine Hypothyroidism Past Surgical History Past Surgical History Permanent Pacemaker Social History Smoking history Unknown if ever smoked Aproximately how many 0 cigarettes per day Hx Alcohol Use No History of Substance Use None ADL Family Assistance History of Recent Travel No Allergies Allergy/AdvReac Type Severity Reaction Status Date / Time No Known Drug Allergies Allergy Verified 12/02/18 10:35 Active Medications Generic Name Dose Route Start Last Admin Trade Name Markq PRN Reason Stop Dose Admin Acetaminophen 1,000 mg 01/27/19 09:31 Ofirmev Injection - IVPB Q6H PRN PAIN LEVEL 6-10 Amiodarone HCl 100 mg 01/27/19 10:00 01/27/19 09:15 Cordarone - PO 100 mg DAILY JOSE Administration Donepezil HCl 10 mg 01/27/19 22:00 Aricept - PO HS JOSE Levothyroxine Sodium 75 mcg 01/27/19 07:00 01/27/19 06:37 Synthroid - PO 75 mcg DAILY@0700 JOSE Administration Metoprolol Succinate 25 mg 01/27/19 10:00 01/27/19 09:15 Toprol Xl - PO 25 mg BID JOSE Administration Tamsulosin HCl 0.4 mg 01/27/19 08:30 01/27/19 09:15 Flomax - PO 0.4 mg DAILY@0830 JOSE Administration Vital Signs (last) Temp Pulse Resp BP Pulse Ox 98.4 F 60 16 97/44 L 100 01/27/19 08:14 01/27/19 08:14 01/27/19 08:17 01/27/19 08:14 01/27/19 08:17 Intake and Output 01/25/19 01/26/19 01/27/19 23:59 23:59 23:59 Other: Voiding Method Incontinent # Unmeasured Voids Void 3 Weight 192 lb 193 lb 12.8 oz Height 5 ft 5 in 5 ft 5 in Body Mass Index (BMI) 31.9 31.9 Weight Measurement Method Standing Scale Weight Measurement Method Est/Stated by Patient Laboratory 01/27/19 00:20 01/27/19 00:20 PT with INR 19.30 SEC (9.7-13.0) H 01/27/19 00:20 FAMILY HISTORY Reviewed and noncontributory. REVIEW OF SYMPTOMS A twelve-point review of systems was performed and was negative except as noted in HPI. PHYSICAL EXAM Constitutional: Alert and oriented to person, place, and time. Appropriate mood and affect. HEENT: Normocephalic, atraumatic Right Upper Extremity: Skin warm, dry, and intact; subcutaneous ecchymosis noted. Muscle mass equal and symmetric to contralateral side. No atrophy noted. No masses or effusions noted. No tenderness to palpation. Passive and active ROM , free from pain. Joints stable with no pathologic laxity. M/R/U/MSK/AX motor intact; SILT distally; 2+ radial pulses; Cap refill brisk. Tone and reflexes normal. Left Upper Extremity: Skin warm, dry, and intact; subcutaneous ecchymosis noted. Muscle mass equal and symmetric to contralateral side. No atrophy noted. No masses or effusions noted. No tenderness to palpation. No tenderness over the radial head. Passive and active ROM, free from pain. Joints stable with no pathologic laxity. M/R/U/MSK/AX motor intact; SILT distally; 2+ radial pulses; Cap refill brisk. Tone and reflexes normal. Right Lower Extremity: No tenderness to palpation. No cords or calf tenderness. No significant calf/ankle edema. Passive and active ROM, free from pain. Joints stable with no pathologic laxity. EHL/TA/GS motor intact; SILT distally; 2+ DP pulses; Cap refill brisk. Tone and reflexes normal. Left Lower Extremity: No tenderness to palpation. No cords or calf tenderness. No significant calf/ankle edema. Passive and active ROM, free from pain. Joints stable with no pathologic laxity. EHL/TA/GS motor intact; SILT distally; 2+ DP pulses; Cap refill brisk. Tone and reflexes normal. IMAGING I personally reviewed radiograph of bilateral elbows. There is a non displaced fracture lined on the AP which is not seen on the other images. The right elbow shows no fracture or dislocation. ASSESSMENT AND PLAN Miguel Cavanaugh is an 88 year old male presenting status post fall with a possible left sided radial head fracture. We have reviewed the imaging and clinical findings in detail, as well as their potential implications. - No surgical intervention - AROM of the left elbow as tolerated; No AAROM or PROM of the elbow. AROM and PROM of the shoulder, wrist and hand. - WBAT - Physical therapy eval - Appreciate medical management - DVT prophylaxis All questions were answered. Thank you for involving our team in the care of this patient. Please have patient follow up in our office in 1-2 weeks .
--- NOTE | 2019-01-27 11:19 | EKG ---
Test Reason : Blood Pressure : / mmHG Vent. Rate : 060 BPM Atrial Rate : 202 BPM P-R Int : 000 ms QRS Dur : 132 ms QT Int : 474 ms P-R-T Axes : 000 000 127 degrees QTc Int : 474 ms ATRIAL FIBRILLATION Ventricular-paced rhythm Confirmed by ANGELA RUGGIERO MD ([id number]) on 01/27/2019 11:19:17 AM Referred By: Confirmed By:ANGELA RUGGIERO MD
--- NOTE | 2019-01-27 15:16 | PN ---
Teaching Attending Note Name of Resident: Tessie Pereyra ATTENDING PHYSICIAN STATEMENT I saw and evaluated the patient. I reviewed the resident's note and discussed the case with the resident. I agree with the resident's findings and plan as documented with exceptions below. SUBJECTIVE: patient seen and examined, oriented to self, knows is in the hospital, unable to recall events around the falls. OBJECTIVE: Vital Signs Period Temp Pulse Resp BP Sys/Nael Pulse Ox Last 24 Hr 98.3 F-98.5 F 60-67 16-18 91-132/38-68 96-100 Intake & Output 01/24/19 01/25/19 01/26/19 01/27/19 23:59 23:59 23:59 23:59 Weight 192 lb 193 lb 12.8 oz General: sitting in wheelchair in no acute distress Chest: Decreased effort, no rales or wheezing Abdomen:soft, NT, ND Extremities: no edema CVS:S1S2 regular Neuro: AAOx2, to person and place, not to time, facial symmetry, moves all extremities, unable to check for sensations Home Medications Medication Instructions Recorded Amiodarone HCl [Cordarone -] 100 mg PO DAILY 04/17/18 Donepezil HCl 10 mg PO DAILY 04/17/18 Levothyroxine [Synthroid -] 75 mcg PO DAILY 04/17/18 Metoprolol Succinate 25 mg PO BID 04/17/18 Quetiapine Fumarate [Seroquel -] 50 mg PO HS 04/17/18 Tamsulosin HCl [Flomax -] 0.4 mg PO DAILY 04/17/18 Furosemide 20 mg PO DAILY 01/27/19 Rivaroxaban [Xarelto -] 0 mg PO DAILY 01/27/19 Active Medications Acetaminophen (Ofirmev Injection -) 1,000 mg IVPB Q6H PRN PRN Reason: PAIN LEVEL 6-10 Amiodarone HCl (Cordarone -) 100 mg PO DAILY REPLACED BY [facility] Last Admin: 01/27/19 09:15 Dose: 100 mg Donepezil HCl (Aricept -) 10 mg PO HS REPLACED BY [facility] Levothyroxine Sodium (Synthroid -) 75 mcg PO DAILY@0700 REPLACED BY [facility] Last Admin: 01/27/19 06:37 Dose: 75 mcg Metoprolol Succinate (Toprol Xl -) 25 mg PO BID REPLACED BY [facility] Tamsulosin HCl (Flomax -) 0.4 mg PO HS REPLACED BY [facility] Laboratory Results - last 24 hr 01/27/19 01/27/19 01/27/19 00:20 00:20 00:20 WBC 8.3 RBC 3.22 L Hgb 8.5 L Hct 27.0 L MCV 83.8 MCH 26.3 MCHC 31.4 L RDW 19.5 H Plt Count 171 D MPV 8.1 Absolute Neuts (auto) 4.9 Neutrophils % 59.0 Lymphocytes % 29.4 D Monocytes % 8.7 Eosinophils % 2.3 D Basophils % 0.6 Nucleated RBC % 0 PT with INR 19.30 H INR 1.63 H Sodium 146 H Potassium 4.5 Chloride 115 H Carbon Dioxide 27 Anion Gap 5 L BUN 32.0 H Creatinine 2.1 H Est GFR (CKD-EPI)AfAm 31.62 Est GFR (CKD-EPI)NonAf 27.28 Random Glucose 100 Calcium 8.5 Total Bilirubin 0.3 AST 19 ALT 15 Alkaline Phosphatase 74 Troponin I Total Protein 6.1 L Albumin 3.4 01/27/19 01/27/19 00:30 09:45 WBC RBC Hgb Hct MCV MCH MCHC RDW Plt Count MPV Absolute Neuts (auto) Neutrophils % Lymphocytes % Monocytes % Eosinophils % Basophils % Nucleated RBC % PT with INR INR Sodium Potassium Chloride Carbon Dioxide Anion Gap BUN Creatinine Est GFR (CKD-EPI)AfAm Est GFR (CKD-EPI)NonAf Random Glucose Calcium Total Bilirubin AST ALT Alkaline Phosphatase Troponin I < 0.02 < 0.02 Total Protein Albumin Telemetry reviewed, no events of tachycardia, Afib CT head/C-spine results noted Elbow xrays noted ASSESSMENT AND PLAN: 88 yom with PMHx of hypertension, hyperlipidemia, CAD, P.afib, S/P PPM, on Xarelto, Sysytolic/Diastolic Dysfunction, CHF, pulm HTN, CKD satge 3 , Prostate ca s/p Radiation/Seed, H/o urinary retention needing peña, Leukemia, 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, hypothyroidism, dementia, chronic low back pain, progressive dementia, recent change from torsemide to lasix, admitted with unwitnessed fall from bed -Unwitnessed fall from bed vs syncope -Hypernatremia, ?hypovolumia from unreliable oral intake/continuation of lasix -DEE on CKD stage III,?from above -Hypotension -Afib s/p PMM, on xarelto -Chronic systolic/diastolic dysfunction -Pul HTN -CKD stage III-HTN -HLD -CAD -Prostate ca s/p radiation/seed -Leukemia -Hypothyroidism -Chronic low back pain -Progressive dementia Plan: Trauma w/u in ED neg. PPM interrogated, no events Suspect left elbow fracture but full ROM, no point tenderness, discussed with Dr. Garzon, no indication for intervention, WBAT. Discussed with Dr. Tavares, resume eliquis. Hold lasix for now. Encourage oral free water intake. Monitor lytes, renal function. Change flomax to hs Metoprolol with hemodynamic parameters. PT eval noted, for SNF. Discussed with CM Plan for SNF in 24-48 hours if continues to improve, and disposition arranged Plan discussed with nursing.
--- NOTE | 2019-01-27 15:44 | PN ---
Teaching Attending Note Name of Resident: Tessie Pereyra ATTENDING PHYSICIAN STATEMENT I saw and evaluated the patient. I reviewed the resident's note and discussed the case with the resident. I agree with the resident's findings and plan as documented with exceptions below. SUBJECTIVE: Patient seen and examined. OBJECTIVE: ASSESSMENT AND PLAN:
--- NOTE | 2019-01-27 18:51 | PN ---
Physical Exam: SUBJECTIVE: Patient seen and examined. Sitting up in bed c/o generalized body pain. Moving all extremities. Not short of breath, no chest pain, no bleeding from any orifice. Asking for his daughter. OBJECTIVE: Vital Signs Period Temp Pulse Resp BP Sys/Neal Pulse Ox Last 24 Hr 98.2 F-98.5 F 60-69 16-18 91-132/38-68 96-100 GENERAL: The patient is awake, alert, and fully oriented, in no acute distress. HEAD: Healed upper lip scar EYES: PERRL, extraocular movements intact ENT: moist mucous membranes. NECK: full range of motion, supple, R posterior neck swelling 1x1cm, non tender. LUNGS: B/l gynecomastia, posterior fine crackles lung bases HEART: Regular rate and rhythm, S1, S2 without murmur, rub or gallop. ABDOMEN: firm, nontender, normoactive bowel sounds, no guarding EXTREMITIES: B/l leg edema NEUROLOGICAL: Cranial nerves II through XII grossly intact. Normal speech, gait not observed. CBC, BMP 01/27/19 00:20 01/27/19 00:20 Laboratory Results - last 24 hr 01/27/19 01/27/19 01/27/19 00:20 00:20 00:20 WBC 8.3 RBC 3.22 L Hgb 8.5 L Hct 27.0 L MCV 83.8 MCH 26.3 MCHC 31.4 L RDW 19.5 H Plt Count 171 D MPV 8.1 Absolute Neuts (auto) 4.9 Neutrophils % 59.0 Lymphocytes % 29.4 D Monocytes % 8.7 Eosinophils % 2.3 D Basophils % 0.6 Nucleated RBC % 0 PT with INR 19.30 H INR 1.63 H Sodium 146 H Potassium 4.5 Chloride 115 H Carbon Dioxide 27 Anion Gap 5 L BUN 32.0 H Creatinine 2.1 H Est GFR (CKD-EPI)AfAm 31.62 Est GFR (CKD-EPI)NonAf 27.28 Random Glucose 100 Calcium 8.5 Total Bilirubin 0.3 AST 19 ALT 15 Alkaline Phosphatase 74 Troponin I Total Protein 6.1 L Albumin 3.4 01/27/19 01/27/19 00:30 09:45 WBC RBC Hgb Hct MCV MCH MCHC RDW Plt Count MPV Absolute Neuts (auto) Neutrophils % Lymphocytes % Monocytes % Eosinophils % Basophils % Nucleated RBC % PT with INR INR Sodium Potassium Chloride Carbon Dioxide Anion Gap BUN Creatinine Est GFR (CKD-EPI)AfAm Est GFR (CKD-EPI)NonAf Random Glucose Calcium Total Bilirubin AST ALT Alkaline Phosphatase Troponin I < 0.02 < 0.02 Total Protein Albumin Active Medications Generic Name Dose Route Start Last Admin Trade Name Freq PRN Reason Stop Dose Admin Acetaminophen 1,000 mg 01/27/19 09:31 Ofirmev Injection - IVPB Q6H PRN PAIN LEVEL 6-10 Amiodarone HCl 100 mg 01/27/19 10:00 01/27/19 09:15 Cordarone - PO 100 mg DAILY [facility] Administration Donepezil HCl 10 mg 01/27/19 22:00 Aricept - PO [facility] Levothyroxine Sodium 75 mcg 01/27/19 07:00 01/27/19 06:37 Synthroid - PO 75 mcg DAILY@0700 [facility] Administration Metoprolol Succinate 25 mg 01/27/19 22:00 Toprol Xl - PO BID [facility] Rivaroxaban 15 mg 01/27/19 18:00 Xarelto PO DAILY@1800 [facility] Tamsulosin HCl 0.4 mg 01/28/19 22:00 Flomax - PO [facility] Ambulatory Orders Amiodarone HCl [Cordarone -] 100 mg PO DAILY 04/17/18 Donepezil HCl 10 mg PO DAILY 04/17/18 Levothyroxine [Synthroid -] 75 mcg PO DAILY 04/17/18 Metoprolol Succinate 25 mg PO BID 04/17/18 Quetiapine Fumarate [Seroquel -] 50 mg PO HS 04/17/18 Tamsulosin HCl [Flomax -] 0.4 mg PO DAILY 04/17/18 Furosemide 20 mg PO DAILY 01/27/19 Rivaroxaban [Xarelto] 15 mg PO DAILY 01/27/19 Current Medications Acetaminophen (Ofirmev Injection -) 1,000 mg IVPB Q6H PRN PRN Reason: PAIN LEVEL 6-10 Amiodarone HCl (Cordarone -) 100 mg PO DAILY [facility] Last Admin: 01/27/19 09:15 Dose: 100 mg Donepezil HCl (Aricept -) 10 mg PO HS [facility] Last Admin: 01/27/19 23:22 Dose: 10 mg Levothyroxine Sodium (Synthroid -) 75 mcg PO DAILY@0700 [facility] Last Admin: 01/27/19 06:37 Dose: 75 mcg Metoprolol Succinate (Toprol Xl -) 25 mg PO BID [facility] Last Admin: 01/27/19 23:23 Dose: 25 mg Rivaroxaban (Xarelto) 15 mg PO DAILY@1800 [facility] Last Admin: 01/27/19 23:23 Dose: 15 mg Tamsulosin HCl (Flomax -) 0.4 mg PO HS [facility] CT Head(01/26/19): neg echo(12/05/18): LVEF 35-40% w/ global hypokinesis, PASP>27mmHg ASSESSMENT/PLAN: 88M [place]-speaking w/ PMH of Dementia, h/o prostate Ca, BPH(s/p TURP November 2018) , ANJUM(doesn't use CPAP), Pacemaker, HF, PPM, Hypothyroidism, HTN, Afib(on Xarelto), chronic anemia, possible leukemia, CKD, chronic lower back pain presents to [facility] after being found down by patient's admitted to R/o mechanical fall vs syncope, found to have possible L radial head fracture on imaging # Possible mechanical fall vs syncope -Trops negative x2 - Px on xarelto, held initally, now resumed -Paced and interrogated PPM per cards - Will need re-eval and discussion about terminal system operator AC with recurrent falls -Lasix held for 24 hrs, pt orthostatic, will repeat orthostatic vitals in am -Per cards- if negative, pt may cont lasix -Fall precautions #L radial fracture -Pt moving all extremities -No surgical intervention per ortho -PT-max distance 75 #PPM: -s/p interrogation per cards -Known AF -Pt Pacemaker depend. -Overall noted normal functioning PPM with no arrhythmias likely related to fall. #Chronic systolic and diastolic CHF, pulm HTN, RV dysfunction -Repeat orthostatics to determine resuming lasix #Afib: -cont amiodarone -Cont Xarelto, held intially, head CT negative for ICH or fractures -Pending discussion for goals for continous AC # chronic dementia - fall precautions - cw home donepezil # chronic ANJUM - pt refused CPAP in past, pt with PH per ECHO - Cont to monitor #CAD: -s/p cardiac cath (2008) with nonobstructive dx - did not tolerant statin -cont metoprolol # CKD G4 -Cr close to [place] -Avoid nephrotoxins -Strict ins and outs - Lasix held for now pending negative orthostatics # chronic lower back pain - Cont tylenol - avoid NSAIDs /opiates # hypothyrodism - cont levothyroxine #Anemia: -Stable H/H, cont to monitor -Transfusion treshold <8 with CAD #HTN: -Cont to monitor -orthostatic vitals FEN - low sodium diet Dispo Walked with PT Dc planning Visit type - Emergency Visit Emergency Visit: Yes ED Registration Date: 01/27/19 Care time: The patient presented to the Emergency Department on the above date and was hospitalized for further evaluation of their emergent condition. - New Patient This patient is new to me today: Yes Date on this admission: 01/27/19 - Critical Care Critical Care patient: No
[2019-01-27] MEDS: DONEPEZIL HCL 10 MG TABLET (FP) PO SCH ×2 (21:00→21:54)
[2019-01-27] MEDS: RIVAROXABAN 15 MG TABLET PO SCH ×2 (21:00→21:54)
[2019-01-27] MEDS: metoPROLOL SUCCINATE 25 MG TAB.SR.24H (FP) PO SCH ×3 (21:00→23:23)
[2019-01-27] MEDS ORDERED: LORazepam 2 MG/ML SDV VIAL IVPUSH ONE (21:32)
[2019-01-27] MEDS ORDERED: QUEtiapine FUMARATE 50 MG TABLET PO ONE (22:48)
[2019-01-27] MEDS ORDERED: DONEPEZIL HCL 10 MG TABLET (FP) PO SCH (23:30)
[2019-01-27] MEDS ORDERED: RIVAROXABAN 15 MG TABLET PO SCH (23:30)
[2019-01-28] MEDS: LEVOTHYROXINE NA 75 MCG TABLET (FP) PO SCH (06:14)
[2019-01-28 07:29] LABS: HEMATOCRIT 26.4 % (35.4-49); HEMOGLOBIN 8.3 GM/dL (11.7-16.9); MCH 26.4 pg (25.7-33.7); MCHC 31.6 g/dl (32.0-35.9); MEAN CELL VOLUME 83.3 fl (80-96); MEAN PLT VOLUME 8.4 fl (7.5-11.1); RBC 3.17 M/mm3 (4.00-5.60); RDW 19.2 % (11.9-15.9); WHITE BLOOD COUNT 7.1 K/mm3 (4.0-10.0)
[2019-01-28 08:07] LABS: CALCIUM 8.6 mg/dL (8.5-10.1); CREATININE 1.5 mg/dL (0.55-1.3); PHOSPHOROUS 3.1 mg/dL (2.5-4.9); POTASSIUM 4.4 mmol/L (3.5-5.1)
[2019-01-28 08:23] LABS: PLATELET COUNT 159 K/MM3 (134-434)
[2019-01-28] MEDS: AMIODARONE HCL 200 MG TABLET (FP) PO SCH (09:02)
[2019-01-28] MEDS: metoPROLOL SUCCINATE 25 MG TAB.SR.24H (FP) PO SCH ×2 (09:02→21:02)
--- NOTE | 2019-01-28 11:31 | PN ---
Progress Note (short form) - Note Progress Note: s: per daughter has been confused, not answering questions. agitated and fell yesterday. no chest pain, sob, palps Current Medications Acetaminophen (Ofirmev Injection -) 1,000 mg IVPB Q6H PRN PRN Reason: PAIN LEVEL 6-10 Amiodarone HCl (Cordarone -) 100 mg PO DAILY [facility] Last Admin: 01/28/19 09:02 Dose: 100 mg Donepezil HCl (Aricept -) 10 mg PO [facility] Last Admin: 01/27/19 23:22 Dose: 10 mg Levothyroxine Sodium (Synthroid -) 75 mcg PO DAILY@0700 [facility] Last Admin: 01/28/19 06:14 Dose: Not Given Metoprolol Succinate (Toprol Xl -) 25 mg PO BID [facility] Last Admin: 01/28/19 09:02 Dose: 25 mg Rivaroxaban (Xarelto) 15 mg PO DAILY@1800 [facility] Last Admin: 01/27/19 23:23 Dose: 15 mg Tamsulosin HCl (Flomax -) 0.4 mg PO [facility] Vital Signs Period Temp Pulse Resp BP Sys/Neal Pulse Ox Last 24 Hr 97.9 F-98.3 F 58-69 18-20 112-155/50-80 98-98 Constitutional: Yes: No Distress Cardiovascular: Yes: Regular Rate and Rhythm Respiratory: Yes: rales at bases maxi Gastrointestinal: Yes: Soft Edema: No Peripheral Pulses WNL: Yes Neurological: Yes: Alert, confused not agitated no jaundice, diaphoresis - ....Imaging Chest X-ray: Image Reviewed (cardiomegaly, PPM) Cat Scan: Pending, Report Reviewed EKG: Image Reviewed Assessment/Plan Echo 11/2018: EF 35-40%, Global. HK, AVS, mild AR. RVSP 27- may be underestimated Assessment/Plan A/P: 88M h/o dementia, combined systolic and diastolic CHF, s/p PPM, afib on xarelto p/w fall, circumstances unclear: 1. 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 continue prior tx plan 3. PPM: -nl fxn on ecg/tele - interrogated here, no arrhythmia - outpatient follow up 4. 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 CAD: - no signs acs - nonobstructive dz on cath 2008 - intolerant to statin, cont metoprolol 6. HTN: -Chronically on low end 90s-110 systolic - holding lasix as above 7. HLD: - intolerant to statins, monitor 8. CKD: -Creat is basically at baseline. holding lasix as above 9. Anemia: -At baseline. Follow H/H
--- NOTE | 2019-01-28 11:53 | PN ---
Physical Exam: SUBJECTIVE: Patient seen and examined, oriented to self, denies pain. OBJECTIVE: Vital Signs Period Temp Pulse Resp BP Sys/Neal Pulse Ox Last 24 Hr 97.9 F-98.3 F 58-69 18-20 112-155/50-80 98-98 Intake & Output 01/25/19 01/26/19 01/27/19 01/28/19 23:59 23:59 23:59 23:59 Intake Total 180 210 Balance 180 210 Weight 192 lb 193 lb 12.8 oz General: sitting in wheelchair in no acute distress Neck: soft, supple, no JVD Chest: Decreased effort, no rales or wheezing Abdomen:soft, NT, ND Extremities: no edema CVS:S1S2 regular Neuro: AAOx1, to self only, facial symmetry, moves all extremities, unable to check for sensations Psych: confused, oriented to self only, follows simple commands and answers simple questions appropriately Laboratory Results - last 24 hr 01/28/19 01/28/19 05:25 05:25 WBC 7.1 RBC 3.17 L Hgb 8.3 L Hct 26.4 L MCV 83.3 MCH 26.4 MCHC 31.6 L RDW 19.2 H Plt Count 159 MPV 8.4 Sodium 146 H Potassium 4.4 Chloride 114 H Carbon Dioxide 25 Anion Gap 8 BUN 23.0 H Creatinine 1.5 H Est GFR (CKD-EPI)AfAm 47.49 Est GFR (CKD-EPI)NonAf 40.98 Random Glucose 96 Calcium 8.6 Phosphorus 3.1 Magnesium 3.0 H Active Medications Generic Name Dose Route Start Last Admin Trade Name Freq PRN Reason Stop Dose Admin Acetaminophen 1,000 mg 01/27/19 09:31 Ofirmev Injection - IVPB Q6H PRN PAIN LEVEL 6-10 Amiodarone HCl 100 mg 01/27/19 10:00 01/28/19 09:02 Cordarone - PO 100 mg DAILY [facility] Administration Donepezil HCl 10 mg 01/27/19 23:30 01/27/19 23:22 Aricept - PO 10 mg HS [facility] Administration Levothyroxine Sodium 75 mcg 01/27/19 07:00 01/28/19 06:14 Synthroid - PO Not Given DAILY@0700 [facility] Metoprolol Succinate 25 mg 01/27/19 23:30 01/28/19 09:02 Toprol Xl - PO 25 mg BID [facility] Administration Rivaroxaban 15 mg 01/27/19 23:30 01/27/19 23:23 Xarelto PO 15 mg DAILY@1800 [facility] Administration Tamsulosin HCl 0.4 mg 01/28/19 22:00 Flomax - PO HS [facility] ASSESSMENT/PLAN: 88 yom with PMHx of hypertension, hyperlipidemia, CAD, P.afib, S/P PPM, on Xarelto, Sysytolic/Diastolic Dysfunction, CHF, pulm HTN, CKD satge 3 , Prostate ca s/p Radiation/Seed, H/o urinary retention needing peña, Leukemia, 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, hypothyroidism, dementia, chronic low back pain, progressive dementia, recent change from torsemide to lasix, admitted with unwitnessed fall from bed -Unwitnessed fall from bed vs syncope -Hypernatremia, ?hypovolumia from unreliable oral intake/continuation of lasix -DEE on CKD stage III,?from above -Hypotension -AMS, suspect toxic metabolic encephalopathy from above/Delirium in the setting of severe dementia -Afib s/p PMM, on xarelto -Chronic systolic/diastolic dysfunction -Pul HTN -CKD stage III-HTN -HLD -CAD -Prostate ca s/p radiation/seed -Leukemia -Hypothyroidism -Chronic low back pain -Progressive dementia Plan: Overnight events noted Resume seroquel. Avoid benzos. Haldol prn for severe agitation. Trauma w/u in ED neg. PPM interrogated, no events Suspected left elbow fracture on imaging but full ROM, no point tenderness, discussed with Dr. Garzon, no indication for intervention, WBAT. Xarelto resumed. Recurrent fall, when slid out of wheelchair today. Defer to outpatient programming engineer Dr. Whitney to address longterm AC. Hold lasix for now. Encourage oral free water intake. Monitor lytes, renal function. Flomax changed to hs. Metoprolol with hemodynamic parameters. PT eval noted, for SNF. Discussed with CM Plan for SNF in 24-48 hours if no events, and disposition arranged d/c telemetry. Plan discussed with nursing. Visit type - Emergency Visit Emergency Visit: Yes ED Registration Date: 01/27/19 Care time: The patient presented to the Emergency Department on the above date and was hospitalized for further evaluation of their emergent condition. - New Patient This patient is new to me today: No - Critical Care Critical Care patient: No - Discharge Referral Referred to [facility] Med P.C.: No
[2019-01-28] MEDS ORDERED: HALOPERIDOL LACTATE 5 MG/ML IM PRN (14:06)
[2019-01-28] MEDS ORDERED: ACETAMINOPHEN 1000 MG/100 ML VIAL (NON FORMULARY) IVPB PRN (16:19)
[2019-01-28] MEDS ORDERED: QUEtiapine FUMARATE 25 MG TABLET (FP) ONE (20:54)
[2019-01-28] MEDS: TAMSULOSIN HCL 0.4 MG CAP PO SCH (21:02)
[2019-01-28] MEDS: QUEtiapine FUMARATE 50 MG TABLET PO SCH (21:03)
[2019-01-28] MEDS: RIVAROXABAN 15 MG TABLET PO SCH (21:04)
[2019-01-28] MEDS: DONEPEZIL HCL 10 MG TABLET (FP) PO SCH (21:05)
[2019-01-28] MEDS ORDERED: TAMSULOSIN HCL 0.4 MG CAP PO SCH (22:00)
[2019-01-29] MEDS: LEVOTHYROXINE NA 75 MCG TABLET (FP) PO SCH (07:03)
--- NOTE | 2019-01-29 10:24 | PN ---
Physical Exam: SUBJECTIVE: Patient seen and examined, sleeping comfortably, no complaints. OBJECTIVE: Vital Signs Period Temp Pulse Resp BP Sys/Neal Pulse Ox Last 24 Hr 97.7 F-98.6 F 54-67 18-18 109-144/54-75 98 Intake & Output 01/26/19 01/27/19 01/28/19 01/29/19 23:59 23:59 23:59 23:59 Intake Total 180 820 Balance 180 820 Weight 192 lb 193 lb 12.8 oz 184 lb 14.4 oz General: in bed in no acute distress Neck: soft, supple, no JVD Chest: Decreased effort, no rales or wheezing Abdomen:soft, NT, ND Extremities: no edema CVS:S1S2 regular Neuro: AAOx1, to self only, facial symmetry, moves all extremities, unable to check for sensations Psych: confused, oriented to self only, follows simple commands and answers simple questions appropriately Active Medications Generic Name Dose Route Start Last Admin Trade Name Freq PRN Reason Stop Dose Admin Acetaminophen 1,000 mg 01/28/19 16:19 Ofirmev Injection - IVPB Q6H PRN PAIN LEVEL 6-10 Amiodarone HCl 100 mg 01/29/19 10:00 Cordarone - PO DAILY [facility] Donepezil HCl 10 mg 01/28/19 22:00 01/28/19 21:05 Aricept - PO 10 mg HS [facility] Administration Haloperidol 5 mg 01/28/19 14:06 Haldol Injection (Fast Acting) - IM Q6H PRN AGITATION Levothyroxine Sodium 75 mcg 01/29/19 07:00 01/29/19 07:03 Synthroid - PO 75 mcg DAILY@0700 [facility] Administration Metoprolol Succinate 25 mg 01/28/19 22:00 01/28/19 21:02 Toprol Xl - PO 25 mg BID [facility] Administration Quetiapine Fumarate 50 mg 01/28/19 20:00 01/28/19 21:03 Seroquel - PO 50 mg DAILY [facility] Administration Rivaroxaban 15 mg 01/28/19 18:00 01/28/19 21:04 Xarelto PO 15 mg DAILY@1800 [facility] Administration Tamsulosin HCl 0.4 mg 01/28/19 22:00 01/28/19 21:02 Flomax - PO 0.4 mg HS [facility] Administration ASSESSMENT/PLAN: 88 yom with PMHx of hypertension, hyperlipidemia, CAD, P.afib, S/P PPM, on Xarelto, Sysytolic/Diastolic Dysfunction, CHF, pulm HTN, CKD satge 3 , Prostate ca s/p Radiation/Seed, H/o urinary retention needing peña, Leukemia, 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, hypothyroidism, dementia, chronic low back pain, progressive dementia, recent change from torsemide to lasix, admitted with unwitnessed fall from bed -Unwitnessed fall from bed vs syncope -Hypernatremia, ?hypovolumia from unreliable oral intake/continuation of lasix -DEE on CKD stage III,?from above -Hypotension -AMS, suspect toxic metabolic encephalopathy from above/Delirium in the setting of severe dementia -Afib s/p PMM, on xarelto -Chronic systolic/diastolic dysfunction -Pul HTN -CKD stage III-HTN -HLD -CAD -Prostate ca s/p radiation/seed -Leukemia -Hypothyroidism -Chronic low back pain -Progressive dementia Plan: Mental status improved, calmer. Continue seroquel. Avoid benzos. Haldol prn for severe agitation. Trauma w/u in ED neg. PPM interrogated, no events Suspected left elbow fracture on imaging but full ROM, no point tenderness, discussed with Dr. Garzon, no indication for intervention, WBAT. Xarelto resumed. Defer to outpatient plant sprayer Dr. Whitney to address lobsterman AC. Hold lasix for now. Encourage oral free water intake. Monitor lytes, renal function. Flomax changed to hs. Metoprolol with hemodynamic parameters. PT eval noted, for SNF. Discussed with CM Plan for SNF when disposition arranged Plan discussed with nursing. Visit type - Emergency Visit Emergency Visit: Yes ED Registration Date: 01/27/19 Care time: The patient presented to the Emergency Department on the above date and was hospitalized for further evaluation of their emergent condition. - New Patient This patient is new to me today: No - Critical Care Critical Care patient: No - Discharge Referral Referred to [facility] Med P.C.: No
[2019-01-29] MEDS ORDERED: QUEtiapine FUMARATE 25 MG TABLET (FP) ONE (10:38)
[2019-01-29] MEDS: QUEtiapine FUMARATE 50 MG TABLET PO SCH (10:39)
[2019-01-29] MEDS: AMIODARONE HCL 200 MG TABLET (FP) PO SCH (10:39)
[2019-01-29] MEDS: metoPROLOL SUCCINATE 25 MG TAB.SR.24H (FP) PO SCH ×2 (10:39→21:29)
[2019-01-29] MEDS: ACETAMINOPHEN 325 MG TABLET (FP) PO PRN (11:19)
--- NOTE | 2019-01-29 11:42 | PN ---
Progress Note (short form) - Note Progress Note: s: no chest pain, sob, palps Current Medications Acetaminophen (Tylenol -) 650 mg PO Q6H PRN PRN Reason: PAIN LEVEL 1-5 Last Admin: 01/29/19 11:19 Dose: 650 mg Amiodarone HCl (Cordarone -) 100 mg PO DAILY [facility] Last Admin: 01/29/19 10:39 Dose: 100 mg Donepezil HCl (Aricept -) 10 mg PO [facility] Last Admin: 01/28/19 21:05 Dose: 10 mg Haloperidol (Haldol Injection (Fast Acting) -) 5 mg IM Q6H PRN PRN Reason: AGITATION Levothyroxine Sodium (Synthroid -) 75 mcg PO DAILY@0700 [facility] Last Admin: 01/29/19 07:03 Dose: 75 mcg Metoprolol Succinate (Toprol Xl -) 25 mg PO BID [facility] Last Admin: 01/29/19 10:39 Dose: 25 mg Quetiapine Fumarate (Seroquel -) 50 mg PO DAILY [facility] Last Admin: 01/29/19 10:39 Dose: 50 mg Rivaroxaban (Xarelto) 15 mg PO DAILY@1800 [facility] Last Admin: 01/28/19 21:04 Dose: 15 mg Tamsulosin HCl (Flomax -) 0.4 mg PO [facility] Last Admin: 01/28/19 21:02 Dose: 0.4 mg Vital Signs Period Temp Pulse Resp BP Sys/Neal Pulse Ox Last 24 Hr 97.7 F-98.6 F 54-67 18-18 109-144/54-75 98 Constitutional: Yes: No Distress Cardiovascular: Yes: Regular Rate and Rhythm Respiratory: Yes: rales at bases maxi Gastrointestinal: Yes: Soft Edema: No Peripheral Pulses WNL: Yes Neurological: Yes: Alert, confused not agitated no jaundice, diaphoresis - ....Imaging Chest X-ray: Image Reviewed (cardiomegaly, PPM) Cat Scan: Pending, Report Reviewed EKG: Image Reviewed Assessment/Plan Echo 11/2018: EF 35-40%, Global. HK, AVS, mild AR. RVSP 27- may be underestimated Assessment/Plan A/P: 88M h/o dementia, combined systolic and diastolic CHF, s/p PPM, afib on xarelto p/w fall, circumstances unclear: 1. 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 continue prior tx plan 3. PPM: -nl fxn on ecg/tele - interrogated here, no arrhythmia - outpatient follow up 4. Afib: -cont amiodarone -Xarelto initially after fall - restarted -May need to assess his candidacy for chronic fpc AC based on PT eval and discussion w/ pt and family re fall risk 5. CAD: - no signs acs - nonobstructive dz on cath 2008 - intolerant to statin, cont metoprolol 6. HTN: -Chronically on low end 90s-110 systolic - holding lasix as above 7. HLD: - intolerant to statins, monitor 8. CKD: -Creat is basically at baseline. holding lasix as above 9. Anemia: -At baseline. Follow H/H
[2019-01-29 16:24] VITALS: BMI 30.6
[2019-01-29] MEDS: RIVAROXABAN 15 MG TABLET PO SCH (17:36)
[2019-01-29] MEDS: TAMSULOSIN HCL 0.4 MG CAP PO SCH (21:29)
[2019-01-29] MEDS: DONEPEZIL HCL 10 MG TABLET (FP) PO SCH (21:30)
[2019-01-30] MEDS: LEVOTHYROXINE NA 75 MCG TABLET (FP) PO SCH (06:51)
[2019-01-30 07:00] LABS: BLOOD UREA NITROGEN 15.5 mg/dL (7-18); CALCIUM 8.2 mg/dL (8.5-10.1); CREATININE 1.5 mg/dL (0.55-1.3); POTASSIUM 4.2 mmol/L (3.5-5.1)
[2019-01-30 08:55] VITALS: BP 114/47; PULSE 60; TEMP 97.9
[2019-01-30] MEDS ORDERED: QUEtiapine FUMARATE 25 MG TABLET (FP) ONE (09:45)
[2019-01-30] MEDS: ACETAMINOPHEN 325 MG TABLET (FP) PO PRN (09:48)
[2019-01-30] MEDS: AMIODARONE HCL 200 MG TABLET (FP) PO SCH (09:48)
[2019-01-30] MEDS: metoPROLOL SUCCINATE 25 MG TAB.SR.24H (FP) PO SCH (09:49)
[2019-01-30] MEDS: QUEtiapine FUMARATE 50 MG TABLET PO SCH (09:54)
--- NOTE | 2019-01-30 11:25 | PN ---
Progress Note, Physician Chief Complaint: sitting in chair No acute distress - Current Medication List Current Medications: Active Medications Acetaminophen (Tylenol -) 650 mg PO Q6H PRN PRN Reason: PAIN LEVEL 1-5 Last Admin: 01/30/19 09:48 Dose: 650 mg Amiodarone HCl (Cordarone -) 100 mg PO DAILY [facility] Last Admin: 01/30/19 09:48 Dose: 100 mg Donepezil HCl (Aricept -) 10 mg PO [facility] Last Admin: 01/29/19 21:30 Dose: 10 mg Haloperidol (Haldol Injection (Fast Acting) -) 5 mg IM Q6H PRN PRN Reason: AGITATION Last Admin: 01/29/19 23:32 Dose: 5 mg Levothyroxine Sodium (Synthroid -) 75 mcg PO DAILY@0700 [facility] Last Admin: 01/30/19 06:51 Dose: Not Given Metoprolol Succinate (Toprol Xl -) 25 mg PO BID [facility] Last Admin: 01/30/19 09:49 Dose: 25 mg Quetiapine Fumarate (Seroquel -) 50 mg PO DAILY [facility] Last Admin: 01/30/19 09:54 Dose: 50 mg Rivaroxaban (Xarelto) 15 mg PO DAILY@1800 [facility] Last Admin: 01/29/19 17:36 Dose: 15 mg Tamsulosin HCl (Flomax -) 0.4 mg PO [facility] Last Admin: 01/29/19 21:29 Dose: 0.4 mg - Objective Vital Signs: Vital Signs Temperature 97.9 F 01/30/19 08:48 Pulse Rate 60 01/30/19 08:48 Respiratory Rate 18 01/30/19 08:48 Blood Pressure 114/47 L 01/30/19 08:48 O2 Sat by Pulse Oximetry (%) 98 01/29/19 21:00 Constitutional: Yes: No Distress Cardiovascular: Yes: Pulse Irregular Respiratory: Yes: Other (decreased breath sounds bases) Gastrointestinal: Yes: Soft Edema: No Labs: CBC, BMP 01/28/19 05:25 01/30/19 06:10 INR, PTT INR 1.63 (0.83-1.09) H 01/27/19 00:20 Laboratory Tests 01/30/19 06:10 Sodium 144 Potassium 4.2 Creatinine 1.5 H Assessment/Plan Echo 11/2018: EF 35-40%, Global. HK, AVS, mild AR. RVSP 27- may be underestimated Assessment/Plan A/P: 88M h/o dementia, combined systolic and diastolic CHF, s/p PPM, afib on xarelto p/w fall, circumstances unclear: 1. 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 continue prior tx plan 3. PPM: -nl fxn on ecg/tele - interrogated here, no arrhythmia - outpatient follow up 4. 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 CAD: - no signs acs - nonobstructive dz on cath 2008 - intolerant to statin, cont metoprolol 6. HTN: -Chronically on low end 90s-110 systolic - holding lasix as above 7. HLD: - intolerant to statins, monitor 8. CKD: -Creat is basically at baseline. Would resume Lasix 9. Anemia: -At baseline. Follow H/H
[2019-01-30] MEDS ORDERED: FUROSEMIDE 20 MG TABLET (FP) PO SCH (11:30)
--- NOTE | 2019-01-30 12:12 | DS ---
Physical Exam: SUBJECTIVE: Patient seen and examined, "pain all over". OBJECTIVE: Vital Signs Period Temp Pulse Resp BP Sys/Neal Pulse Ox Last 24 Hr 97.9 F-98.5 F 60-73 18-18 105-125/47-61 98 PHYSICAL EXAM General: sitting in wheel chair in no acute distress Neck: soft, supple, no JVD Chest: Decreased effort, no rales or wheezing Abdomen:soft, NT, ND Extremities: no edema CVS:S1S2 regular Neuro: AAOx1, to self only, facial symmetry, moves all extremities, unable to check for sensations Psych: confused, oriented to self only, follows simple commands and answers simple questions appropriately LABS Laboratory Results - last 24 hr 01/30/19 06:10 Sodium 144 Potassium 4.2 Chloride 113 H Carbon Dioxide 25 Anion Gap 6 L BUN 15.5 Creatinine 1.5 H Est GFR (CKD-EPI)AfAm 47.49 Est GFR (CKD-EPI)NonAf 40.98 Random Glucose [address] brain/CT C-spine: IMPRESSION: No significant interval change or acute intracranial pathology. Chronic sinusitis that has improved since the prior examination. CT scan of the cervical spine without intravenous contrast Coronal and sagittal reconstruction images were obtained. There is minimal retrolisthesis of C3 over C4, likely degenerative. Otherwise, no gross fracture, subluxation or prevertebral soft tissue swelling is seen. No jumped facets are identified. There is a suggestion of fusion of C4, C5 and C6 vertebral bodies. Marked degenerative disc disease at C3-C4 and C6-C7 level with anterior and mild posterior spur formation. Visualized portion of the airway appears unremarkable. No gross enlarged lymph nodes are identified. Lung windows at the thoracic inlet appear unremarkable. IMPRESSION: Minimal retrolisthesis of C3 over C4, likely degenerative. Otherwise , the alignment is satisfactory. No gross fracture or subluxation is seen. No jumped facets are identified. Multilevel degenerative disc disease, as described above with fusion of C4-C6 vertebral bodies. [facility], [employer]. Right/Left Elbow xray: 3 views of the right elbow have been submitted. A gross fracture, subluxation or bone destruction is not seen. If symptoms persist, further imaging and orthopedic consultation may be of help. 3 views of the left elbow have been submitted. The imaging is somewhat rotated. In one view there is suggestion of a radial head fracture. Correlation recommended. 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 He was watched on telemetry with no events, his PPM was interrogated with no concerns. He was seen by cardiology. He was also noted hypernatremic/ hyperchloremic with DEE. His lasix was held and oral free water intake was encouraged. His renal function and electrolytes improved. His elbow xray raised suspicion for left radial head fracture, he was evaluated by orthopedic, was noted to have full ROM, with no point tenderness or limitation and was advised conservative management. He had episodes of agitation at night that improved with resumption of seroquel. He will be discharged to SNF in stable condition. Condition: Stable - Instructions Diet, Activity, Other Instructions: You were admitted with unwitnessed fall from the bed. You were watched on monitor and your pacemaker was interrogated. You were seen by civil process server. You were evaluated by physical therapy and will be discharged to rehab FOLLOW UP: Flomax has been changed to night time dosing. Continue all your medications as before INSTRUCTIONS: Weigh yourself daily and notify doctor if weight gain > 3 lbs in 2 days Your kidney function needs to be monitored. FOLLOW UP: Blood work for kidneys BMP in 3 days at the SNF Follow up with your primary care doctor in 1 week of discharge from SNF With Dr. Whitney in 1 week, please discuss about long standing blood thinner xarelto on next visit If you notice severe dizziness, or any new concerns, please call 911 or come to the ED. Referrals: Jack Sharp MD [Primary Care Provider] - David Whitney MD [Staff Physician] - Sameer Garrison MD [Staff Physician] - [facility]position[facility] - Home Medications Comprehensive Discharge Medication List: Ambulatory Orders Amiodarone HCl [Cordarone -] 100 mg PO DAILY 04/17/18 Donepezil HCl 10 mg PO DAILY 04/17/18 Levothyroxine [Synthroid -] 75 mcg PO DAILY 04/17/18 Metoprolol Succinate 25 mg PO BID 04/17/18 Quetiapine Fumarate [Seroquel -] 50 mg PO HS 04/17/18 Furosemide 20 mg PO DAILY 01/27/19 Rivaroxaban [Xarelto] 15 mg PO DAILY 01/27/19 Tamsulosin HCl [Flomax -] 0.4 mg PO HS cap.er.24h 01/30/19 This patient is new to me today: No Emergency Visit: Yes ED Registration Date: 01/27/19 Care time: The patient presented to the Emergency Department on the above date and was hospitalized for further evaluation of their emergent condition. Critical Care patient: No - Discharge Referral Referred to [facility] No
== END 2019-01-30 13:44 | DRG 682 ==
LOC: JER 21:54 → JERBED 01-27 03:02 → J4W 01-27 04:37 → J5S 01-28 15:36
PROVIDERS: ADMIT Internal Medicine; ATTEND Hospitalist
DX: N17.9 Acute kidney failure, unspecified (principal); G93.41 Metabolic encephalopathy; I13.0 Hypertensive heart and chronic kidney disease with heart failure and stage 1 through stage 4 chronic kidney disease, or unspecified chronic kidney disease; I50.42 Chronic combined systolic (congestive) and diastolic (congestive) heart failure; E87.0 Hyperosmolality and hypernatremia; R41.0 Disorientation, unspecified; N18.3 Chronic kidney disease, stage 3 (moderate); E86.1 Hypovolemia; F03.90 Unspecified dementia, unspecified severity, without behavioral disturbance, psychotic disturbance, mood disturbance, and anxiety; S52.125A Nondisplaced fracture of head of left radius, initial encounter for closed fracture; I48.91 Unspecified atrial fibrillation; E03.9 Hypothyroidism, unspecified; D64.9 Anemia, unspecified; I25.10 Atherosclerotic heart disease of native coronary artery without angina pectoris; I95.9 Hypotension, unspecified; E66.8 Other obesity; Z68.30 Body mass index [BMI] 30.0-30.9, adult; I27.20 Pulmonary hypertension, unspecified; N40.0 Benign prostatic hyperplasia without lower urinary tract symptoms; G47.33 Obstructive sleep apnea (adult) (pediatric); M54.5 Low back pain; Z85.46 Personal history of malignant neoplasm of prostate; Z85.6 Personal history of leukemia; Z95.0 Presence of cardiac pacemaker; Y92.092 Bedroom in other non-institutional residence as the place of occurrence of the external cause; W06.XXXA Fall from bed, initial encounter
CPT/HCPCS: 36415; 70450-TC; 71045-TC-FY; 72125-TC; 73070-TC-LT-FY; 73070-TC-RT-FY; 80048; 80053; 82962; 83735; 84100; 84484; 85025; 85027; 85610; 93005; 93010; 97116-GP; 97161-GP; 99284-25

== ENCOUNTER 2019-03-08 22:10 | Inpatient (IN) | payer OTHER, MEDICARE ==
--- NOTE | 2019-03-09 00:37 | PDOC ---
Attending Attestation - Resident Resident Name: Alysia Calzada - ED Attending Attestation I have performed the following: I have examined & evaluated the patient, The case was reviewed & discussed with the resident, I agree w/resident's findings & plan - HPI HPI: 03/14/19 21:26 see resident HPI - Physicial Exam PE: 03/14/19 21:26 agree with resident exam - Medical Decision Making 03/14/19 21:26 03/14/19 21:27 88-year-old status post unwitnessed fall currently on [place] toe CT scan of the head and cervical spine are negative for acute traumatic injury Will admit for observation and possible syncope workup to medical service
--- NOTE | 2019-03-09 02:35 | PDOC ---
History of Present Illness - General Chief Complaint: Injury Stated Complaint: FALL Time Seen by Provider: 03/09/19 00:28 - History of Present Illness Initial Comments: 03/09/19 05:11 88y/o M hx of dementia, prostate Ca, BPH s/p TURP, ANJUM, CHF, HTN, Afib on Xarelto, pacemaker, CKD, hypothyroidism, chronic back pain,presents to the ED after an unwitnessed fall. He was found by his on his left side and BIBEMS. He complained about lightheadeness earlier in the day, but is unable to elaborate any further. He was accompanied by his daughter. He was last seen for a fall from his bed in this ED on 01/27/2019 , CXR and head CT at that time were negative. 03/09/19 07:08 Past History - Past Medical History Allergies/Adverse Reactions: Allergies Allergy/AdvReac Type Severity Reaction Status Date / Time No Known Drug Allergies Allergy Verified 12/02/18 10:35 Home Medications: Ambulatory Orders Amiodarone HCl [Cordarone -] 100 mg PO DAILY 04/17/18 Donepezil HCl 10 mg PO DAILY 04/17/18 Levothyroxine [Synthroid -] 75 mcg PO DAILY 04/17/18 Metoprolol Succinate 25 mg PO BID 04/17/18 Quetiapine Fumarate [Seroquel -] 50 mg PO HS 04/17/18 Furosemide 20 mg PO DAILY 01/27/19 Rivaroxaban [Xarelto] 15 mg PO DAILY 01/27/19 Tamsulosin HCl [Flomax -] 0.4 mg PO HS cap.er.24h 01/30/19 Anemia: No Asthma: No Cancer: Yes (Prostate, SEEDING, leukemia) Cardiac Disorders: Yes (Atrial Fibrillation, PPM) CVA: No COPD: No CHF: Yes Dementia: Yes (MILD) Diabetes: Yes Dialysis: No GI Disorders: Yes (espohageal dilations, GI bleed) Disorders: No HTN: Yes Hypercholesterolemia: Yes Kidney Stones: No Liver Disease: No Seizures: No Thyroid Disease: Yes (hypothyroid) - Surgical History Abdominal Surgery: No Appendectomy: No Cardiac Surgery: Yes (PACEMAKER) Cholecystectomy: No Lung Surgery: No Neurologic Surgery: No Orthopedic Surgery: Yes (BACK SURGERY) - Immunization History Td Vaccination: Yes TDAP Vaccination: Yes Immunization Up to Date: Yes - Suicide/Smoking/Psychosocial Hx Smoking Status: No Smoking History: Unknown if ever smoked Have you smoked in the past 12 months: No Number of Cigarettes Smoked Daily: 0 Cigars Per Day: 0 Hx Alcohol Use: No Drug/Substance Use Hx: No Substance Use Type: None Hx Substance Use Treatment: No Review of Systems - Review of Systems Able to Perform ROS?: No Comments:: 03/09/19 05:16 Pt has dementia *Physical Exam - Vital Signs Last Vital Signs Temp Pulse Resp BP Pulse Ox 98.0 F 60 17 115/63 100 03/08/19 23:26 03/08/19 23:26 03/08/19 23:26 03/08/19 23:26 03/08/19 23:26 - Physical Exam General Appearance: Yes: Nourished, Appropriately Dressed HEENT: positive: LATIA. negative: Scleral Icterus (R), Scleral Icterus (L) Neck: positive: Trachea midline. negative: Rigid, Decreased range of motion Respiratory/Chest: positive: Rales. negative: Chest Tender, Respiratory Distress, Accessory Muscle Use, Labored Respiration, Decreased Breath Sounds Cardiovascular: positive: Regular Rhythm, Regular Rate, S1, S2. negative: JVD Vascular Pulses: Dorsalis-Pedis (R): 2+, Doralis-Pedis (L): 2+ Gastrointestinal/Abdominal: positive: Normal Bowel Sounds, Soft, Increased Bowel Sounds, Decreased BS, Mass. negative: Pulsatile Mass, Distended, Guarding Rectal Exam: positive: normal exam, normal rectal tone Musculoskeletal: positive: Normal Inspection. negative: CVA Tenderness Extremity: positive: Other (Bruising on the left elbow and left knee laterally) Integumentary: positive: Normal Color, Dry, Warm Neurologic: positive: Alert, Other (Has dementia) ED Treatment Course - LABORATORY CBC & Chemistry Diagram: 03/09/19 02:36 03/09/19 02:36 - RADIOLOGY Radiology Studies Ordered: Category Date Time Status CERVICAL SPINE CT W/O CONTR [CT] Stat CT Scan 03/09/19 01:[address] WITHOUT CONTRAST [CT] Stat CT Scan 03/09/19 01:14 Ordered ELBOW-LEFT [RAD] Stat Radiology 03/09/19 01:14 Ordered KNEE 3 POS-LEFT [RAD] Stat Radiology 03/09/19 01:14 Ordered Medical Decision Making - Medical Decision Making 03/09/19 05:20 88y/o M hx of dementia, prostate Ca, BPH s/p TURP, ANJUM, CHF, HTN, Afib on Xarelto, pacemaker, CKD Ddx: mechanical fall vs syncope vs ACS Labs/Imaging/Meds CT c-spine and head w/o contrast, ua and urine culture, cxr, left elbow and left knee x-ray cbc,cmp, troponin, pt/inr, ptt, ekg -Pt became very agitated and comabative in radiology when CT scanning was attempted initially. Was brought back to the ED where he received 1 mg Ativan IV and 5mg Haldol IM after which we were able to get cxr, head and c-spine ct.CT Results Trop negative pt/inr/ptt: 17.30/1.46/38.5 white count: 7.1 Ct Head: No evidence of acute pathology CT cervical spine: No fracture EKG: ventricular paced rhythm. No ST elevations - 03/09/19 05:27 Admitting team microblogged for admission 03/09/19 06:[address] Artis (resident) on the phone she will be signing the patient out to the day admitting team 03/09/19 07:12 *DC/Admit/Observation/Transfer Diagnosis at time of Disposition: Syncope Qualifiers: Syncope type: unspecified Qualified Code(s): R55 - Syncope and collapse - Discharge Dispostion Condition at time of disposition: Guarded Decision to Admit order: Yes - Referrals - Patient Instructions - Post Discharge Activity
[2019-03-09 02:55] LABS: BASO % 0.4 % (0-2.0); EOS % 4.1 % (0-4.5); HEMATOCRIT 25.1 % (35.4-49); HEMOGLOBIN 8.1 GM/dL (11.7-16.9); LYMPH % 38.6 % (8-40); MCH 26.9 pg (25.7-33.7); MCHC 32.1 g/dl (32.0-35.9); MEAN CELL VOLUME 83.9 fl (80-96); MEAN PLT VOLUME 7.7 fl (7.5-11.1); MONO % 10.7 % (3.8-10.2); NEUT % 46.2 % (42.8-82.8); PLATELET COUNT 155 K/MM3 (134-434); RDW 19.6 % (11.9-15.9); WHITE BLOOD COUNT 7.1 K/mm3 (4.0-10.0)
[2019-03-09 03:06] LABS: INR 1.46 (0.83-1.09); PROTHROMBIN TIME (PATIENT) 17.3 SEC (9.7-13.0)
[2019-03-09 03:20] LABS: ALBUMIN 3.2 g/dl (3.4-5.0); BILIRUBIN,TOTAL 0.2 mg/dL (0.2-1); BLOOD UREA NITROGEN 31.6 mg/dL (7-18); CALCIUM 8.5 mg/dL (8.5-10.1); CREATININE 1.7 mg/dL (0.55-1.3); POTASSIUM 4.5 mmol/L (3.5-5.1)
[2019-03-09] MEDS ORDERED: LORazepam 2 MG/ML SDV VIAL ONE (03:59)
[2019-03-09] MEDS ORDERED: HALOPERIDOL LACTATE 5 MG/ML IM ONE (04:08)
[2019-03-09] MEDS ORDERED: HALOPERIDOL LACTATE 5 MG/ML ONE (04:13)
[2019-03-09 08:24] LABS: EPI CELLS 0.2 /HPF (0-5/HPF); HYALINE CASTS 8 /lpf (0-8); URINE APPEARANCE CLEAR; URINE BACTERIA 1761.1 /hpf (NEGATIVE); URINE BILIRUBIN NEGATIVE (NEGATIVE); URINE COLOR YELLOW; URINE GLUCOSE (UA) NEGATIVE (NEGATIVE); URINE KETONE NEGATIVE (NEGATIVE); URINE LEUK ESTERASE 2+ (NEGATIVE); URINE NITRITE NEGATIVE (NEGATIVE); URINE PROTEIN 1+ (NEGATIVE); URINE RBC 3 /hpf (0-4); URINE UROBILINOGEN 0.2 mg/dL (0.2-1.0); URINE WBC 47 /hpf (0-5)
--- NOTE | 2019-03-09 09:16 | HP ---
CHIEF COMPLAINT: syncope PCP:Dr. Sharp HISTORY OF PRESENT ILLNESS: 88 y/o male with PMH of dementia, prostate ca, BPH sp TURP, CHF, HTN, Afib (on xarelto) ppm, CKD presents to the ED after having an unwitnessed fall at home- of note, patient was here about one month ago after suffering a fall at home, where his pacemaker was interrogated at the time showoing no arrythmias and was discharged to [facility] and had just been discharged back home this past wednesday- as per patient's daughter, the visiting nurse had heard a thud came in to the room and saw the patient on the floor far from the bed , she noticed a slight bruise on his forehead as well as some bruising on is elbow. the daughter states that the patient has not been is usual self since coming home from [facility], that she thinks his legs are weaker, he has been complaining frequently that he is dizzy and that he could possibly ne having a urinary tract infection. she denies him having any chest pains/abdominal discomfort/ fevers or chills ER course was notable for: (1)vitals wnl; (2)Hgb 8.1; Na 146, Cr 1,7 UA" 2+ leuk esterase 43 WBC (3)head CT and c spine negative; CXR congestive changes Recent Travel: denies PAST MEDICAL HISTORY: see above PAST SURGICAL HISTORY: TURP; pacemaker placement Social History: Smoking:denies Alcohol:denies Drugs: denies Family History: not contributable Allergies No Known Drug Allergies Allergy (Verified 12/02/18 10:35) HOME MEDICATIONS: Home Medications Medication Instructions Recorded Amiodarone HCl [Cordarone -] 100 mg PO DAILY 04/17/18 Donepezil HCl 10 mg PO DAILY 04/17/18 Levothyroxine [Synthroid -] 75 mcg PO DAILY 04/17/18 Metoprolol Succinate 25 mg PO BID 04/17/18 Quetiapine Fumarate [Seroquel -] 50 mg PO HS 04/17/18 Furosemide 20 mg PO DAILY 01/27/19 Rivaroxaban [Xarelto] 15 mg PO DAILY 01/27/19 Tamsulosin HCl [Flomax -] 0.4 mg PO HS cap.er.24h 01/30/19 REVIEW OF SYSTEMS CONSTITUTIONAL: Absent: fever, chills, diaphoresis, generalized weakness, malaise, loss of appetite, weight change HEENT: Absent: rhinorrhea, nasal congestion, throat pain, throat swelling, difficulty swallowing, mouth swelling, ear pain, eye pain, visual changes CARDIOVASCULAR: Absent: chest pain, syncope, palpitations, irregular heart rate, lightheadedness , peripheral edema RESPIRATORY: Absent: cough, shortness of breath, dyspnea with exertion, orthopnea, wheezing, stridor, hemoptysis GASTROINTESTINAL: Absent: abdominal pain, abdominal distension, nausea, vomiting, diarrhea, constipation, melena, hematochezia GENITOURINARY: Absent: dysuria, frequency, urgency, hesitancy, hematuria, flank pain, genital pain MUSCULOSKELETAL: Present: back pain Absent: myalgia, arthralgia, joint swelling, neck pain SKIN: Absent: rash, itching, pallor HEMATOLOGIC/IMMUNOLOGIC: Absent: easy bleeding, easy bruising, lymphadenopathy, frequent infections ENDOCRINE: Absent: unexplained weight gain, unexplained weight loss, heat intolerance, cold intolerance NEUROLOGIC: Absent: headache, focal weakness or paresthesias, dizziness, unsteady gait, seizure, mental status changes, bladder or bowel incontinence PSYCHIATRIC: Absent: anxiety, depression, suicidal or homicidal ideation, hallucinations. PHYSICAL EXAMINATION Vital Signs - 24 hr 03/08/19 03/09/19 03/09/19 23:26 02:34 08:00 Temperature 98.0 F 97.9 F 98.1 F Pulse Rate 60 Pulse Rate [ 66 60 Right Radial] Respiratory 17 15 15 Rate Blood Pressure 115/63 Blood Pressure 127/68 124/52 L [Left Arm] O2 Sat by Pulse 100 99 100 Oximetry (%) GENERAL: Awake, alert, oriented to self HEAD: slight scab on forehead with bruise EYES:PEERLA: EOMI: no scleral itcterus NECK:no JVD; no lymphadenopathy LUNGS: fine crackles at the bases HEART:irregularly irregular, normal S1 and S2 without murmur, rub or gallop. ABDOMEN: Soft,NT/ND +BS in all 4 quadrants; no suprapubic tenderness MUSCULOSKELETAL: moving all extremities EXTREMITIES: warml well-perfused 1+pitting edema B/L NEUROLOGICAL: Cranial nerves II-XII intact. Normal speech.5/5 strenght B/L UE LE sensation intact; oriented to self . PSYCHIATRIC: Cooperative. Good eye contact. Appropriate mood and affect. SKIN: Warm, dry, normal turgor, no rashes or lesions noted, normal capillary refill. Laboratory Results - last 24 hr 03/09/19 03/09/19 03/09/19 02:36 02:36 02:36 WBC 7.1 RBC 3.00 L Hgb 8.1 L Hct 25.1 L MCV 83.9 MCH 26.9 MCHC 32.1 RDW 19.6 H Plt Count 155 MPV 7.7 Absolute Neuts (auto) 3.3 Neutrophils % 46.2 D Lymphocytes % 38.6 D Monocytes % 10.7 H Eosinophils % 4.1 Basophils % 0.4 Nucleated RBC % 0 PT with INR INR PTT (Actin FS) 38.5 H Sodium 146 H Potassium 4.5 Chloride 112 H Carbon Dioxide 29 Anion Gap 5 L BUN 31.6 H Creatinine 1.7 H Est GFR (CKD-EPI)AfAm 40.82 Est GFR (CKD-EPI)NonAf 35.22 Random Glucose 87 Calcium 8.5 Total Bilirubin 0.2 AST 12 L ALT 13 Alkaline Phosphatase 81 Creatine Kinase Troponin I Total Protein 6.0 L Albumin 3.2 L Urine Color Urine Appearance Urine pH Ur Specific [place] Urine Protein Urine Glucose (UA) Urine Ketones Urine Blood Urine Nitrite Urine Bilirubin Urine Urobilinogen Ur Leukocyte Esterase Urine WBC (Auto) Urine RBC (Auto) Urine Casts (Auto) U Epithel Cells (Auto) Urine Bacteria (Auto) 03/09/19 03/09/19 03/09/19 02:36 02:36 07:51 WBC RBC Hgb Hct MCV MCH MCHC RDW Plt Count MPV Absolute Neuts (auto) Neutrophils % Lymphocytes % Monocytes % Eosinophils % Basophils % Nucleated RBC % PT with INR 17.30 H INR 1.46 H PTT (Actin FS) Sodium Potassium Chloride Carbon Dioxide Anion Gap BUN Creatinine Est GFR (CKD-EPI)AfAm Est GFR (CKD-EPI)NonAf Random Glucose Calcium Total Bilirubin AST ALT Alkaline Phosphatase Creatine Kinase 66 Troponin I < 0.02 Total Protein Albumin Urine Color Yellow Urine Appearance Clear Urine pH 7.0 Ur Specific [place] 1.018 Urine Protein 1+ H Urine Glucose (UA) Negative Urine Ketones Negative Urine Blood Negative Urine Nitrite Negative Urine Bilirubin Negative Urine Urobilinogen 0.2 Ur Leukocyte Esterase 2+ H Urine WBC (Auto) 47 Urine RBC (Auto) 3 Urine Casts (Auto) 8 U Epithel Cells (Auto) 0.2 Urine Bacteria (Auto) 1761.1 ASSESSMENT/PLAN: 88 y/o male with PMH of dementia, prostate ca, BPH sp TURP, CHF, HTN, Afib (on xarelto) ppm, CKD presents to the ED after having an unwitnessed fall at home additionally found to have a urinary tract infection #Syncope patient had a fall at home; unclear if mechanical v. syncope -imaging done and negative thus far -tele monitoring - carotid dopplers ordered -will call pacemaker company and have pacemaker interrogated -PT -fall precautions #UTI patient found to have a positive UA -f/u urine cx -Ceftriaxone 1gram daily #CHF patient found to have increased congestive changes on CXR -c/w lasix 20mg daily -cardio consulted -I's and O's #Afib on Xarelto and amiodarone -will call pacemaker company and have ppm interrogated #HTN -c/w toprol 25mg BID #CKD patients Cr on arrival was 1.7 -baseline seems to be around 1.15 -avoid nephrotoxic drugs #Anemia patients Hgb on arrival was 8.1 -at baseline -monitor for any signs of bleeding #hypothyroidism -c/w sythoid 75mcg daily -TSH for AM #BPH -c/w flomax 0.4mg HS #Dementia c/w donepezil and seroquel F/E/N d5@42mls/hr monitor electrolytes soidum controlled diet dvt ppx: xarelto Problem List - Problem (1) Syncope Code(s): R55 - SYNCOPE AND COLLAPSE Qualifiers: Syncope type: unspecified Qualified Code(s): R55 - Syncope and collapse (2) AF (paroxysmal atrial fibrillation) Code(s): I48.0 - PAROXYSMAL ATRIAL FIBRILLATION (3) CHF (congestive heart failure) Code(s): I50.9 - HEART FAILURE, UNSPECIFIED Qualifiers: Qualified Code(s): I50.22 - Chronic systolic (congestive) heart failure (4) Dizziness Code(s): R42 - DIZZINESS AND GIDDINESS Visit type - Emergency Visit Emergency Visit: Yes ED Registration Date: 03/09/19 Care time: The patient presented to the Emergency Department on the above date and was hospitalized for further evaluation of their emergent condition. - New Patient This patient is new to me today: Yes Date on this admission: 03/09/19 - Critical Care Critical Care patient: No ATTENDING PHYSICIAN STATEMENT I saw and evaluated the patient. I reviewed the resident's note and discussed the case with the resident. I agree with the resident's findings and plan as documented. SUBJECTIVE: OBJECTIVE: ASSESSMENT AND PLAN:
[2019-03-09 09:18] LABS: N-TERMINAL BNP 2735.3 pg/ml (5-450)
[2019-03-09] MEDS: CEFTRIAXONE 1 GM in DEXTROSE 5%-WATER - 50 ML IVPB SCH ×2 (09:47→12:22)
[2019-03-09] MEDS: DEXTROSE 5%-WATER - 1,000 ML IV SCH (09:48)
--- NOTE | 2019-03-09 09:53 | PN ---
Progress Note, Physician Chief Complaint: Well known to our group with multiple recent admissions here for falls, urinary retention and chronic systolic CHF now re-admitted after fall at home. History obtained in [place] from patient and with daughter at bedside. In summary, 88M with non-obstructive CAD, AF s/p PPM ([employer]tr[employer]), Chronic systolic CHF and CKD who has had multiple recent admissions here for various issues: falls, urinary issues, CHF and has been in and out of rehab. Daughter reports she has been checking on him regularly because she is working on termite renewal inspector care plan for him and he has been complaining of feeling dizzy lately. When he stands and when he rises from supine position. Last evening he fell at home and scraped his head, bruised his palm and hip. He has no memory of the event but denies chest pain, SOB, palps. He appears dry. History of Present Illness: ECG: Paced, underlying AF - Current Medication List Current Medications: Active Medications Amiodarone HCl (Cordarone -) 100 mg PO DAILY JOSE Donepezil HCl (Aricept -) 10 mg PO DAILY JOSE Furosemide (Lasix -) 20 mg PO DAILY JOSE Ceftriaxone Sodium 1 gm/ (Dextrose) 50 mls @ 100 mls/hr IVPB DAILY JOSE; Protocol Last Admin: 03/09/19 09:47 Dose: 100 mls/hr Dextrose (D5w -) 1,000 mls @ 42 mls/hr IV ASDIR JOSE Last Admin: 03/09/19 09:48 Dose: 42 mls/hr Levothyroxine Sodium (Synthroid -) 75 mcg PO AM JOSE Metoprolol Succinate (Toprol Xl -) 25 mg PO BID JOSE Quetiapine Fumarate (Seroquel -) 50 mg PO HS JOSE Rivaroxaban (Xarelto) 15 mg PO 1630 JOSE Tamsulosin HCl (Flomax -) 0.4 mg PO HS JOSE - Objective Vital Signs: Vital Signs Temperature 98.1 F 03/09/19 08:00 Pulse Rate 60 03/09/19 08:00 Respiratory Rate 15 03/09/19 08:00 Blood Pressure 124/52 L 03/09/19 08:00 O2 Sat by Pulse Oximetry (%) 100 03/09/19 08:00 Constitutional: Yes: No Distress, Calm, Other (dry OP) Eyes: Yes: Conjunctiva Clear Cardiovascular: Yes: Regular Rate and Rhythm, Other (no murmur) Respiratory: Yes: Other (decreasd breath sounds at bases.) Gastrointestinal: Yes: Soft Edema: No Neurological: Yes: Alert, Oriented ...Motor Strength: WNL Labs: CBC, BMP 03/09/19 02:36 03/09/19 02:36 INR, PTT INR 1.46 (0.83-1.09) H 03/09/19 02:36 Laboratory Tests 03/09/19 03/09/19 03/09/19 02:36 02:36 02:36 WBC 7.1 Hgb 8.1 L Plt Count 155 INR 1.46 H Sodium 146 H Potassium 4.5 Creatinine 1.7 H Troponin I B-Natriuretic Peptide 2735.3 H Urine Color Urine Appearance Urine Protein Urine Glucose (UA) Urine Ketones Urine Blood Urine Nitrite Urine Bilirubin Ur Leukocyte Esterase Urine Bacteria (Auto) 03/09/19 03/09/19 02:36 07:51 WBC Hgb Plt Count INR Sodium Potassium Creatinine Troponin I < 0.02 B-Natriuretic Peptide Urine Color Yellow Urine Appearance Clear Urine Protein 1+ H Urine Glucose (UA) Negative Urine Ketones Negative Urine Blood Negative Urine Nitrite Negative Urine Bilirubin Negative Ur Leukocyte Esterase 2+ H Urine Bacteria (Auto) 1761.1 - ....Imaging Chest X-ray: Image Reviewed EKG: Image Reviewed Other: Other (Head and cervical CT no acute fx or acute intracranial path) Assessment/Plan DATA: MPI 2012 (pers): v-paced; small-medium apical infarct; apical AK with EF 46% LHC/RHC '09 normal wedge, nl PAP, mod nonobstructive OM1 lesion, no other dz, nl EF echo 10/2017 nl LV size, LV function mod impaired EF 40%, septal wall motion c/w pacing, other wilson mildly hypok, RV nl funcion, LA/RA severely dilated, mod MR , mod to sev TR, at least mild to mod pulm HTN, RVSP at least 47 mmHg, ao root 4.2 cm Pacemaker: [employer]TRONIC IMP: 88M h/o dementia, combined systolic and diastolic CHF, s/p PPM, afib on xarelto, multiple recent admissions for various issues now recently discharged from rehab presents to ER after fall at home and with complaints of dizziness, orthostatic in character. REC: 1. Check orthostatics. 2. Tele to r/o arrhythmia (rapid AF/ VT), although sx sound more orthostatic in nature. Continue current dose Metoprolol. 3. Ok to gently hydrate, with close f/u of weight and volume status. BNP is unreliable in setting CKD. Clinically, he appears dry. 4. Abx deferred to PMD, r/o UTI. 5. On flomax for BPH, may be contributing to orthostatic sx. 6. Chronic anemia noted, H/H seem to be at baseline. 7. For now, continue NOAC. Will need to address with family goals of care. If he is continues to be considered a sig falls risk moving forward then the risk/ benefit of full AC should be revisited.
--- NOTE | 2019-03-09 10:55 | EKG ---
Test Reason : Blood Pressure : / mmHG Vent. Rate : 060 BPM Atrial Rate : 312 BPM P-R Int : 000 ms QRS Dur : 126 ms QT Int : 450 ms P-R-T Axes : 000 002 156 degrees QTc Int : 450 ms Suspect unspecified pacemaker failure Ventricular-paced rhythm ATRIAL FIBRILLATION underlying ABNORMAL ECG Confirmed by ANGELA RUGGIERO MD ([id number]) on 03/09/2019 10:55:13 AM Referred By: Confirmed By:ANGELA RUGGIERO MD
[2019-03-09] MEDS ORDERED: DEXTROSE 5%-WATER - 50 ML IVPB ONE (11:57)
[2019-03-09] MEDS ORDERED: cefTRIAXone SODIUM 1 GM VIAL ONE (11:57)
[2019-03-09] MEDS: FUROSEMIDE 20 MG TABLET (FP) PO SCH (12:21)
[2019-03-09] MEDS: AMIODARONE HCL 200 MG TABLET (FP) PO SCH (12:21)
[2019-03-09] MEDS: metoPROLOL SUCCINATE 25 MG TAB.SR.24H (FP) PO SCH ×2 (12:21→21:00)
[2019-03-09] MEDS: DONEPEZIL HCL 10 MG TABLET (FP) PO SCH (12:21)
--- NOTE | 2019-03-09 13:16 | PN ---
Progress Note (short form) - Note Progress Note: Medtronic biV PPM interrogated: 4 years approximately remain on battery Paced 100% of time AF is permanent. Possible increased Optival fluid retention since December, but trend improved last 3 -4 weeks.
--- NOTE | 2019-03-09 14:56 | PN ---
Teaching Attending Note Name of Resident: Aria Damon ATTENDING PHYSICIAN STATEMENT I saw and evaluated the patient. I reviewed the resident's note and discussed the case with the resident. I agree with the resident's findings and plan as documented with exceptions below. SUBJECTIVE: 88 yom with PMhx of HTN, HLD, CAD, P Afib, s/pPPM, on xarelto, systolic/ diastolic dysfunction, CHF, pulm HTN, CKD stage III, prostate Ca s/p radiation/ seed, h/o urinary retention, needing peña, leukemia (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), hypothyroidism, dementia, chronic low back pain, progressive dementia, recently admitted with unwitnessed fall vs syncope comes with another unwitnessed fall. heard a 'thud' and found patient on floor far from bad with bruise on his forehead. recently d/marylin from [employer], per daughter, has been weaker and not his usual self. OBJECTIVE: Vital Signs Period Temp Pulse Resp BP Sys/Neal Pulse Ox Last 24 Hr 97.9 F-98.1 F 60-66 15-17 115-133/52-68 98-100 Intake & Output 03/06/19 03/07/19 03/08/19 03/09/19 23:59 23:59 23:59 23:59 Weight 192 lb 192 lb GENERAL: Awake, alert, oriented to self, in no acute distress HEAD: small scab on forehead with bruise EYES: Pupils equal, round and reactive to light, extraocular movements intact, sclera anicteric, conjunctiva clear. No lid lag. EARS, NOSE, THROAT: Ears normal, nares patent, oropharynx clear without exudates. dry mucous membrane NECK: Normal range of motion, supple without lymphadenopathy, JVD, or masses. LUNGS: Breath sounds equal, clear to auscultation bilaterally. No wheezes, and no crackles. No accessory muscle use. HEART: Regular rate and rhythm, normal S1 and S2 ABDOMEN: Soft, nontender, not distended, normoactive bowel sounds, no guarding, no rebound, no masses. MUSCULOSKELETAL: Normal range of motion at all joints. Left elbow/left knee bruising UPPER EXTREMITIES: 2+ pulses, warm, well-perfused. No cyanosis. No clubbing. No peripheral edema. LOWER EXTREMITIES: 2+ pulses, warm, well-perfused. No calf tenderness. No peripheral edema. NEUROLOGICAL: AA, Oriented to self, facial symmetry, moves all extremities, unable to check for sensation, moves all extremities freely, speech normal, gait not observed PSYCHIATRIC: Occasionally co-operative SKIN: Warm, dry, normal turgor, no rashes or lesions noted, normal capillary refill. Home Medications Medication Instructions Recorded Amiodarone HCl [Cordarone -] 100 mg PO DAILY 04/17/18 Donepezil HCl 10 mg PO DAILY 04/17/18 Levothyroxine [Synthroid -] 75 mcg PO DAILY 04/17/18 Metoprolol Succinate 25 mg PO BID 04/17/18 Quetiapine Fumarate [Seroquel -] 50 mg PO HS 04/17/18 Furosemide 20 mg PO DAILY 01/27/19 Rivaroxaban [Xarelto] 15 mg PO DAILY 01/27/19 Tamsulosin HCl [Flomax -] 0.4 mg PO HS cap.er.24h 01/30/19 Active Medications Amiodarone HCl (Cordarone -) 100 mg PO DAILY [facility] Last Admin: 03/09/19 12:21 Dose: 100 mg Donepezil HCl (Aricept -) 10 mg PO DAILY [facility] Last Admin: 03/09/19 12:21 Dose: 10 mg Furosemide (Lasix -) 20 mg PO DAILY [facility] Last Admin: 03/09/19 12:21 Dose: 20 mg Ceftriaxone Sodium 1 gm/ (Dextrose) 50 mls @ 100 mls/hr IVPB DAILY JOSE; Protocol Last Admin: 03/09/19 12:22 Dose: Not Given Dextrose (D5w -) 1,000 mls @ 42 mls/hr IV ASDIR JOSE Last Admin: 03/09/19 09:48 Dose: 42 mls/hr Levothyroxine Sodium (Synthroid -) 75 mcg PO AM JOSE Metoprolol Succinate (Toprol Xl -) 25 mg PO BID [facility] Last Admin: 03/09/19 12:21 Dose: 25 mg Quetiapine Fumarate (Seroquel -) 50 mg PO HS JOSE Rivaroxaban (Xarelto) 15 mg PO 1630 JOSE Tamsulosin HCl (Flomax -) 0.4 mg PO HS [facility] Laboratory Results - last 24 hr 03/09/19 03/09/19 03/09/19 02:36 02:36 02:36 WBC 7.1 RBC 3.00 L Hgb 8.1 L Hct 25.1 L MCV 83.9 MCH 26.9 MCHC 32.1 RDW 19.6 H Plt Count 155 MPV 7.7 Absolute Neuts (auto) 3.3 Neutrophils % 46.2 D Lymphocytes % 38.6 D Monocytes % 10.7 H Eosinophils % 4.1 Basophils % 0.4 Nucleated RBC % 0 PT with INR INR PTT (Actin FS) 38.5 H Sodium 146 H Potassium 4.5 Chloride 112 H Carbon Dioxide 29 Anion Gap 5 L BUN 31.6 H Creatinine 1.7 H Est GFR (CKD-EPI)AfAm 40.82 Est GFR (CKD-EPI)NonAf 35.22 Random Glucose 87 Calcium 8.5 Total Bilirubin 0.2 AST 12 L ALT 13 Alkaline Phosphatase 81 Creatine Kinase Troponin I B-Natriuretic Peptide 2735.3 H Total Protein 6.0 L Albumin 3.2 L Urine Color Urine Appearance Urine pH Ur Specific [place] Urine Protein Urine Glucose (UA) Urine Ketones Urine Blood Urine Nitrite Urine Bilirubin Urine Urobilinogen Ur Leukocyte Esterase Urine WBC (Auto) Urine RBC (Auto) Urine Casts (Auto) U Epithel Cells (Auto) Urine Bacteria (Auto) 03/09/19 03/09/19 03/09/19 02:36 02:36 07:51 WBC RBC Hgb Hct MCV MCH MCHC RDW Plt Count MPV Absolute Neuts (auto) Neutrophils % Lymphocytes % Monocytes % Eosinophils % Basophils % Nucleated RBC % PT with INR 17.30 H INR 1.46 H PTT (Actin FS) Sodium Potassium Chloride Carbon Dioxide Anion Gap BUN Creatinine Est GFR (CKD-EPI)AfAm Est GFR (CKD-EPI)NonAf Random Glucose Calcium Total Bilirubin AST ALT Alkaline Phosphatase Creatine Kinase 66 Troponin I < 0.02 B-Natriuretic Peptide Total Protein Albumin Urine Color Yellow Urine Appearance Clear Urine pH 7.0 Ur Specific [place] 1.018 Urine Protein 1+ H Urine Glucose (UA) Negative Urine Ketones Negative Urine Blood Negative Urine Nitrite Negative Urine Bilirubin Negative Urine Urobilinogen 0.2 Ur Leukocyte Esterase 2+ H Urine WBC (Auto) 47 Urine RBC (Auto) 3 Urine Casts (Auto) 8 U Epithel Cells (Auto) 0.2 Urine Bacteria (Auto) 1761.1 EKG V pacing CXR results and images reviewed ASSESSMENT AND PLAN: 88 yom with PMhx of HTN, HLD, CAD, P Afib, s/pPPM, on xarelto, systolic/ diastolic dysfunction, CHF, pulm HTN, CKD stage III, prostate Ca s/p radiation/ seed, h/o urinary retention, needing peña, leukemia (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), hypothyroidism, dementia, chronic low back pain, progressive dementia, recently admitted with unwitnessed fall vs syncope comes with another unwitnessed fall -Unwitnessed fall from bed vs syncope -Hypernatremia, suspect from poor free water intake/continuation of lasix -DEE on CKD stage III,?from above -Complicated UTI -AMS, suspect toxic metabolic encephalopathy from above/Delirium in the setting of severe dementia -Afib s/p PMM, on xarelto -Chronic systolic/diastolic dysfunction -Pul HTN -CKD stage III -HTN -HLD -CAD -Prostate ca s/p radiation/seed -Leukemia -Hypothyroidism -Chronic low back pain -Progressive dementia Plan: Telemetry, carotid duplex, fall precautions, PT eval Trauma w/u in Ed neg. PPM interrogation. Recent 2D echo. No clinical concerns for gross volume overload. Cardiology input appreciated. Continue lasix 20 mg daily D5w at 42 ml/hr, encourage free water intake Ceftriaxone, follow up urine cultures. Continue Amiodarone/Metoprolol/xarelto/levothyroxine/donepezil/seroquel/flomax. DVTPPX xarelto dispo admit to telemetry Plan discussed with daughter at bedside, all questions answered Total admit time 65 min.
[2019-03-09] MEDS: RIVAROXABAN 15 MG TABLET PO SCH (17:39)
[2019-03-09] MEDS: QUEtiapine FUMARATE 50 MG TABLET PO SCH (21:00)
[2019-03-09] MEDS: TAMSULOSIN HCL 0.4 MG CAP PO SCH (21:00)
[2019-03-10] MEDS: LEVOTHYROXINE NA 75 MCG TABLET (FP) PO SCH (06:47)
[2019-03-10 07:48] LABS: BASO % 0.4 % (0-2.0); HEMATOCRIT 26.2 % (35.4-49); HEMOGLOBIN 8.7 GM/dL (11.7-16.9); LYMPH % 34.8 % (8-40); MCH 27.3 pg (25.7-33.7); MEAN CELL VOLUME 82.5 fl (80-96); MEAN PLT VOLUME 8.2 fl (7.5-11.1); MONO % 10.9 % (3.8-10.2); NEUT % 50.9 % (42.8-82.8); PLATELET COUNT 162 K/MM3 (134-434); RBC 3.18 M/mm3 (4.00-5.60); RDW 19.6 % (11.9-15.9)
[2019-03-10 07:49] LABS: INR 1.39 (0.83-1.09); PROTHROMBIN TIME (PATIENT) 16.5 SEC (9.7-13.0)
[2019-03-10 07:52] LABS: ACTIVATED PTT 36.8 SECONDS (25.2-36.5)
[2019-03-10 07:59] LABS: ALBUMIN 3.4 g/dl (3.4-5.0); BILIRUBIN,TOTAL 0.4 mg/dL (0.2-1); BLOOD UREA NITROGEN 23.5 mg/dL (7-18); CALCIUM 8.8 mg/dL (8.5-10.1); CREATININE 1.3 mg/dL (0.55-1.3); MAGNESIUM 2.6 mg/dL (1.8-2.4); PHOSPHOROUS 3.7 mg/dL (2.5-4.9); TOT PROT 6.4 g/dl (6.4-8.2)
[2019-03-10] MEDS: DEXTROSE 5%-WATER - 1,000 ML IV SCH (09:09)
--- NOTE | 2019-03-10 09:14 | PN ---
Progress Note, Physician Chief Complaint: laying on his left side today, appears mildly tachypneic History of Present Illness: creat is improved to 1.3 TELE: Paced. Found to be orthostatic. - Current Medication List Current Medications: Active Medications Amiodarone HCl (Cordarone -) 100 mg PO DAILY [facility] Last Admin: 03/09/19 12:21 Dose: 100 mg Donepezil HCl (Aricept -) 10 mg PO DAILY [facility] Last Admin: 03/09/19 12:21 Dose: 10 mg Furosemide (Lasix -) 20 mg PO DAILY [facility] Last Admin: 03/09/19 12:21 Dose: 20 mg Ceftriaxone Sodium 1 gm/ (Dextrose) 50 mls @ 100 mls/hr IVPB DAILY [facility]; Protocol Last Admin: 03/09/19 12:22 Dose: Not Given Dextrose (D5w -) 1,000 mls @ 42 mls/hr IV ASDIR [facility] Last Admin: 03/10/19 09:09 Dose: Not Given Levothyroxine Sodium (Synthroid -) 75 mcg PO AM [facility] Last Admin: 03/10/19 06:47 Dose: 75 mcg Metoprolol Succinate (Toprol Xl -) 25 mg PO BID [facility] Last Admin: 03/09/19 21:00 Dose: 25 mg Quetiapine Fumarate (Seroquel -) 50 mg PO HS [facility] Last Admin: 03/09/19 21:00 Dose: 50 mg Rivaroxaban (Xarelto) 15 mg PO 1630 [facility] Last Admin: 03/09/19 17:39 Dose: 15 mg Tamsulosin HCl (Flomax -) 0.4 mg PO HS [facility] Last Admin: 03/09/19 21:00 Dose: 0.4 mg - Objective Vital Signs: Vital Signs Temperature 98.3 F 03/10/19 05:00 Pulse Rate 60 03/10/19 05:00 Respiratory Rate 20 03/10/19 05:00 Blood Pressure 140/75 03/10/19 05:00 O2 Sat by Pulse Oximetry (%) 95 03/09/19 21:00 Constitutional: Yes: Calm Cardiovascular: Yes: Regular Rate and Rhythm Respiratory: Yes: Other (bibasilar rales 1/3 up.) Gastrointestinal: Yes: Soft Edema: No Neurological: Yes: Alert, Oriented ...Motor Strength: WNL Labs: CBC, BMP 03/10/19 05:50 03/10/19 05:50 INR, PTT INR 1.39 (0.83-1.09) H 03/10/19 05:50 Laboratory Tests 03/09/19 03/10/19 03/10/19 02:36 05:50 05:50 WBC 6.0 Hgb 8.7 L Plt Count 162 Sodium 142 Potassium 4.0 BUN 23.5 H Creatinine 1.3 Calcium 8.8 Phosphorus 3.7 Magnesium 2.6 H Total Bilirubin 0.4 AST 16 ALT 12 L Troponin I < 0.02 - ....Imaging EKG: Image Reviewed Assessment/Plan DATA: MPI 2012 (pers): v-paced; small-medium apical infarct; 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 Optival crossing over last few months noted, worse in December. IMP: 88M h/o dementia, combined systolic and diastolic CHF, s/p PPM, afib on xarelto, multiple recent admissions for various issues now recently discharged from rehab presents to ER after fall at home and with complaints of dizziness, found to be markedly orthostatic, hydrated gently overnight and now with signs of mild fluid overload. REC: 1. Found to be orhtostatic: ? need for Flomax? if does not need for urinary retention can try to d/c 2. Tele and PPM interrogation show well controlled rates and no sig arrhythmias to explain falls. 3. Gently hydrated overnight, now appears slightly volume overloaded; d/c IVF and repeat CXR. 4. Abx deferred to PMD, r/o UTI. 5. Chronic anemia noted, H/H seem to be at baseline. 6. For now, continue NOAC. Will need to address with family goals of care. If he is continues to be considered a sig falls risk moving forward then the risk/ benefit of full AC should be revisited.
[2019-03-10] MEDS ORDERED: cefTRIAXone SODIUM 1 GM VIAL ONE (10:28)
[2019-03-10] MEDS ORDERED: DEXTROSE 5%-WATER - 50 ML IVPB ONE (10:28)
[2019-03-10] MEDS: AMIODARONE HCL 200 MG TABLET (FP) PO SCH (10:30)
[2019-03-10] MEDS: metoPROLOL SUCCINATE 25 MG TAB.SR.24H (FP) PO SCH ×2 (10:30→22:14)
[2019-03-10] MEDS: DONEPEZIL HCL 10 MG TABLET (FP) PO SCH (10:30)
[2019-03-10] MEDS: FUROSEMIDE 20 MG TABLET (FP) PO SCH (10:30)
[2019-03-10] MEDS: CEFTRIAXONE 1 GM in DEXTROSE 5%-WATER - 50 ML IVPB SCH (10:31)
--- NOTE | 2019-03-10 11:36 | PN ---
Physical Exam: SUBJECTIVE: Patient seen and examined laying down on his side , refuse to interact , but follow commands OBJECTIVE: Vital Signs Period Temp Pulse Resp BP Sys/Neal Pulse Ox Last 24 Hr 97.6 F-98.3 F 60-61 20-20 99-142/58-85 95-98 GENERAL: Awake, alert, oriented to self HEAD: slight scab on forehead with bruise EYES:PEERLA: EOMI: no scleral itcterus NECK:no JVD; supple LUNGS: fine crackles at the bases HEART:irregularly irregular, normal S1 and S2 without MRG ABDOMEN: Soft,NT/ND +BS in all 4 quadrants; no suprapubic tenderness MUSCULOSKELETAL: moving all extremities EXTREMITIES: warml well-perfused no edema NEUROLOGICAL: no focal deficit . Normal speech.5/5 strenght B/L UE LE sensation intact; oriented to self . PSYCHIATRIC: Cooperative. SKIN: Warm, dry, normal turgor, Laboratory Results - last 24 hr 03/10/19 03/10/19 03/10/19 05:50 05:50 05:50 WBC 6.0 RBC 3.18 L Hgb 8.7 L Hct 26.2 L MCV 82.5 MCH 27.3 MCHC 33.0 RDW 19.6 H Plt Count 162 MPV 8.2 Absolute Neuts (auto) 3.1 Neutrophils % 50.9 Lymphocytes % 34.8 Monocytes % 10.9 H Eosinophils % 3.0 Basophils % 0.4 Nucleated RBC % 0 PT with INR 16.50 H INR 1.39 H PTT (Actin FS) 36.8 H Sodium 142 Potassium 4.0 Chloride 108 H Carbon Dioxide 27 Anion Gap 7 L BUN 23.5 H Creatinine 1.3 Est GFR (CKD-EPI)AfAm 56.46 Est GFR (CKD-EPI)NonAf 48.72 Random Glucose 92 Calcium 8.8 Phosphorus 3.7 Magnesium 2.6 H Total Bilirubin 0.4 AST 16 ALT 12 L Alkaline Phosphatase 89 Total Protein 6.4 Albumin 3.4 TSH 1.50 D Active Medications Generic Name Dose Route Start Last Admin Trade Name Freq PRN Reason Stop Dose Admin Amiodarone HCl 100 mg 03/09/19 10:00 03/10/19 10:30 Cordarone - PO 100 mg DAILY JOSE Administration Donepezil HCl 10 mg 03/09/19 10:00 03/10/19 10:30 Aricept - PO 10 mg DAILY JOSE Administration Furosemide 20 mg 03/09/19 10:00 03/10/19 10:30 Lasix - PO 20 mg DAILY JOSE Administration Ceftriaxone Sodium 1 gm/ 50 mls @ 100 mls/hr 03/09/19 08:40 03/10/19 10:31 Dextrose IVPB 100 mls/hr DAILY JOSE Administration Protocol Levothyroxine Sodium 75 mcg 03/10/19 07:00 03/10/19 06:47 Synthroid - PO 75 mcg AM JOSE Administration Metoprolol Succinate 25 mg 03/09/19 10:00 03/10/19 10:30 Toprol Xl - PO 25 mg BID JOSE Administration Quetiapine Fumarate 50 mg 03/09/19 22:00 03/09/19 21:00 Seroquel - PO 50 mg HS JOSE Administration Rivaroxaban 15 mg 03/09/19 16:30 03/09/19 17:39 Xarelto PO 15 mg 1630 JOSE Administration Tamsulosin HCl 0.4 mg 03/09/19 22:00 03/09/19 21:00 Flomax - PO 0.4 mg HS JOSE Administration CBC, BMP 03/10/19 05:50 03/10/19 05:50 ASSESSMENT/PLAN: 88 y/o male with PMH of dementia, prostate ca, BPH sp TURP, CHF, HTN, Afib (on xarelto) ppm, CKD presents to the ED after having an unwitnessed fall at home additionally found to have a urinary tract infection #Syncope unwitness fall vs syncope -imaging done and negative thus far -tele monitoring - carotid dopplers noted -PT -fall precautions - goal of care - will benifit from rehab #UTI patient found to have a positive UA -f/u urine cx -Ceftriaxone 1gram daily #CHF patient found to have increased congestive changes on CXR -c/w lasix 20mg daily -cardio consulted AC mattie risk for fall will benifit from watchman device -I's and O's - daighly weight #Afib on Xarelto and amiodarone -ppm interrogated #HTN -c/w toprol 25mg BID #CKD patients Cr on arrival was 1.7 -baseline seems to be around 1.415 -avoid nephrotoxic drugs #Anemia patients Hgb on arrival was 8.1 -stable -no signs of bleeding #hypothyroidism -c/w sythoid 75mcg daily #BPH -c/w flomax 0.4mg HS #Dementia c/w donepezil and seroquel F/E/N monitor off fluids monitor electrolytes soidum controlled diet dvt ppx: xarelto Visit type - Emergency Visit Emergency Visit: Yes ED Registration Date: 03/09/19 Care time: The patient presented to the Emergency Department on the above date and was hospitalized for further evaluation of their emergent condition. - New Patient This patient is new to me today: Yes Date on this admission: 03/12/19 - Critical Care Critical Care patient: No ATTENDING PHYSICIAN STATEMENT I saw and evaluated the patient. I reviewed the resident's note and discussed the case with the resident. I agree with the resident's findings and plan as documented. SUBJECTIVE: OBJECTIVE: ASSESSMENT AND PLAN:
--- NOTE | 2019-03-10 12:17 | PN ---
Teaching Attending Note Name of Resident: Royce Lira ATTENDING PHYSICIAN STATEMENT I saw and evaluated the patient. I reviewed the resident's note and discussed the case with the resident. I agree with the resident's findings and plan as documented with exceptions below. SUBJECTIVE: Patient seen and examined. oriented to self, no complaints. Limited ROS given his dementia. OBJECTIVE: Vital Signs Period Temp Pulse Resp BP Sys/Neal Pulse Ox Last 24 Hr 97.6 F-98.3 F 60-61 20-20 99-142/58-85 95-98 Intake & Output 03/07/19 03/08/19 03/09/19 03/10/19 23:59 23:59 23:59 23:59 Intake Total 368 314 Balance 368 314 Weight 192 lb 192 lb 187 lb 6.4 oz General: lying in bed, no acute distress Neck: soft, supple, limited exam Chest: laying to right, fine dependent rales, pos air entry, no wheezing Abdomen:soft, NT, ND Extremities: no edema Home Medications Medication Instructions Recorded Amiodarone HCl [Cordarone -] 100 mg PO DAILY 04/17/18 Donepezil HCl 10 mg PO DAILY 04/17/18 Levothyroxine [Synthroid -] 75 mcg PO DAILY 04/17/18 Metoprolol Succinate 25 mg PO BID 04/17/18 Quetiapine Fumarate [Seroquel -] 50 mg PO HS 04/17/18 Furosemide 20 mg PO DAILY 01/27/19 Rivaroxaban [Xarelto] 15 mg PO DAILY 01/27/19 Tamsulosin HCl [Flomax -] 0.4 mg PO HS cap.er.24h 01/30/19 Active Medications Amiodarone HCl (Cordarone -) 100 mg PO DAILY [facility] Last Admin: 03/10/19 10:30 Dose: 100 mg Donepezil HCl (Aricept -) 10 mg PO DAILY [facility] Last Admin: 03/10/19 10:30 Dose: 10 mg Furosemide (Lasix -) 20 mg PO DAILY [facility] Last Admin: 03/10/19 10:30 Dose: 20 mg Ceftriaxone Sodium 1 gm/ (Dextrose) 50 mls @ 100 mls/hr IVPB DAILY [facility]; Protocol Last Admin: 03/10/19 10:31 Dose: 100 mls/hr Levothyroxine Sodium (Synthroid -) 75 mcg PO AM [facility] Last Admin: 03/10/19 06:47 Dose: 75 mcg Metoprolol Succinate (Toprol Xl -) 25 mg PO BID [facility] Last Admin: 03/10/19 10:30 Dose: 25 mg Quetiapine Fumarate (Seroquel -) 50 mg PO HS [facility] Last Admin: 03/09/19 21:00 Dose: 50 mg Rivaroxaban (Xarelto) 15 mg PO 1630 [facility] Last Admin: 03/09/19 17:39 Dose: 15 mg Tamsulosin HCl (Flomax -) 0.4 mg PO HS [facility] Last Admin: 03/09/19 21:00 Dose: 0.4 mg Laboratory Results - last 24 hr 03/10/19 03/10/19 03/10/19 05:50 05:50 05:50 WBC 6.0 RBC 3.18 L Hgb 8.7 L Hct 26.2 L MCV 82.5 MCH 27.3 MCHC 33.0 RDW 19.6 H Plt Count 162 MPV 8.2 Absolute Neuts (auto) 3.1 Neutrophils % 50.9 Lymphocytes % 34.8 Monocytes % 10.9 H Eosinophils % 3.0 Basophils % 0.4 Nucleated RBC % 0 PT with INR 16.50 H INR 1.39 H PTT (Actin FS) 36.8 H Sodium 142 Potassium 4.0 Chloride 108 H Carbon Dioxide 27 Anion Gap 7 L BUN 23.5 H Creatinine 1.3 Est GFR (CKD-EPI)AfAm 56.46 Est GFR (CKD-EPI)NonAf 48.72 Random Glucose 92 Calcium 8.8 Phosphorus 3.7 Magnesium 2.6 H Total Bilirubin 0.4 AST 16 ALT 12 L Alkaline Phosphatase 89 Total Protein 6.4 Albumin 3.4 TSH 1.50 D Microbiology 03/09/19 08:03 Urine - Urine Clean Catch Urine Culture - Preliminary Pending Organism ASSESSMENT AND PLAN: 88 yom with PMhx of HTN, HLD, CAD, P Afib, s/pPPM, on xarelto, systolic/ diastolic dysfunction, CHF, pulm HTN, CKD stage III, prostate Ca s/p radiation/ seed, h/o urinary retention, needing peña, leukemia (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), hypothyroidism, dementia, chronic low back pain, progressive dementia, recently admitted with unwitnessed fall vs syncope comes with another unwitnessed fall -Unwitnessed fall from bed vs syncope -Hypernatremia, suspect from poor free water intake/continuation of lasix -DEE on CKD stage III,?from above -Complicated UTI -AMS, suspect toxic metabolic encephalopathy from above/Delirium in the setting of severe dementia -Afib s/p PMM, on xarelto -Acute on chronic systolic/diastolic HF exacerbation -Pul HTN -CKD stage III -HTN -HLD -CAD -Prostate ca s/p radiation/seed -Leukemia -Hypothyroidism -Chronic low back pain -Progressive dementia Plan: No events on telemetry. PPM interrogated. Na and cr improved. IVF d/marylin. Cardiology input noted. CXR reviewed. Continue lasix 20 mg daily with volume status monitoring. carotid duplex noted Trauma w/u in Ed neg. Ceftriaxone day 2, follow up urine cultures. Continue flomax Continue Amiodarone/Metoprolol/xarelto/levothyroxine/donepezil/seroquel. DVTPPX xarelto dispo PT eval, SNF vs home with services in 24-48 hours pending urine cultures, clinical improvement and disposition arrangements. Discussed with nursing.
[2019-03-10] MEDS: RIVAROXABAN 15 MG TABLET PO SCH (17:22)
[2019-03-10] MEDS: QUEtiapine FUMARATE 50 MG TABLET PO SCH (22:14)
[2019-03-10] MEDS: TAMSULOSIN HCL 0.4 MG CAP PO SCH (22:14)
[2019-03-11] MEDS: LEVOTHYROXINE NA 75 MCG TABLET (FP) PO SCH (06:23)
[2019-03-11 07:18] LABS: BASO % 0.3 % (0-2.0); EOS % 1.1 % (0-4.5); HEMATOCRIT 27.8 % (35.4-49); HEMOGLOBIN 9.1 GM/dL (11.7-16.9); LYMPH % 25.2 % (8-40); MCHC 32.7 g/dl (32.0-35.9); MEAN CELL VOLUME 82.6 fl (80-96); MEAN PLT VOLUME 8.4 fl (7.5-11.1); MONO % 8.9 % (3.8-10.2); NEUT % 64.5 % (42.8-82.8); PLATELET COUNT 169 K/MM3 (134-434); RBC 3.36 M/mm3 (4.00-5.60); RDW 19.6 % (11.9-15.9); WHITE BLOOD COUNT 8.6 K/mm3 (4.0-10.0)
[2019-03-11 07:46] LABS: ALBUMIN 3.5 g/dl (3.4-5.0); BILIRUBIN,TOTAL 0.5 mg/dL (0.2-1); BLOOD UREA NITROGEN 20.8 mg/dL (7-18); CALCIUM 8.8 mg/dL (8.5-10.1); CREATININE 1.5 mg/dL (0.55-1.3); POTASSIUM 4.4 mmol/L (3.5-5.1); TOT PROT 6.7 g/dl (6.4-8.2)
[2019-03-11] MEDS ORDERED: DEXTROSE 5%-WATER - 50 ML IVPB ONE (08:21)
[2019-03-11] MEDS ORDERED: cefTRIAXone SODIUM 1 GM VIAL ONE (08:21)
--- NOTE | 2019-03-11 08:35 | PN ---
Progress Note, Physician Chief Complaint: fall History of Present Illness: not ambulating. seated in WC at nurse's station for observation. denies dizziness when stands. denies leg swelling, sob. no cp. no palp no cigs - Current Medication List Current Medications: Active Medications Amiodarone HCl (Cordarone -) 100 mg PO DAILY [facility] Last Admin: 03/10/19 10:30 Dose: 100 mg Donepezil HCl (Aricept -) 10 mg PO DAILY [facility] Last Admin: 03/10/19 10:30 Dose: 10 mg Furosemide (Lasix -) 20 mg PO DAILY [facility] Last Admin: 03/10/19 10:30 Dose: 20 mg Ceftriaxone Sodium 1 gm/ (Dextrose) 50 mls @ 100 mls/hr IVPB DAILY [facility]; Protocol Last Admin: 03/10/19 10:31 Dose: 100 mls/hr Levothyroxine Sodium (Synthroid -) 75 mcg PO AM [facility] Last Admin: 03/11/19 06:23 Dose: 75 mcg Metoprolol Succinate (Toprol Xl -) 25 mg PO BID [facility] Last Admin: 03/10/19 22:14 Dose: 25 mg Quetiapine Fumarate (Seroquel -) 50 mg PO [facility] Last Admin: 03/10/19 22:14 Dose: 50 mg Rivaroxaban (Xarelto) 15 mg PO 1630 [facility] Last Admin: 03/10/19 17:22 Dose: 15 mg Tamsulosin HCl (Flomax -) 0.4 mg PO [facility] Last Admin: 03/10/19 22:14 Dose: 0.4 mg - Objective Vital Signs: Vital Signs Temperature 98.1 F 03/11/19 05:00 Pulse Rate 74 03/11/19 05:00 Respiratory Rate 20 03/11/19 05:00 Blood Pressure 127/60 03/11/19 05:00 O2 Sat by Pulse Oximetry (%) 95 03/10/19 21:00 Constitutional: Yes: No Distress, Calm Eyes: No: Sclera Icterus HENT: No: Nasal Congestion Cardiovascular: Yes: Regular Rate and Rhythm, S1, S2, Other (PMI non diplaced). No: Gallop, Murmur Respiratory: Yes: CTA Bilaterally, Rales (bases). No: Accessory Muscle Use, Wheezes Gastrointestinal: Yes: Normal Bowel Sounds, Soft. No: Tenderness Musculoskeletal: Yes: Other (No kyphosis) Extremities: No: Cold, Cyanosis Edema: No Integumentary: No: Jaundice Neurological: Yes: Alert. No: Seizure Psychiatric: No: Agitated Labs: CBC, BMP 03/11/19 05:39 03/11/19 05:39 INR, PTT INR 1.39 (0.83-1.09) H 03/10/19 05:50 Assessment/Plan MPI 2012 (pers): v-paced; small-medium apical infarct; apical AK with EF 46% LHC/RHC normal wedge, nl PAP, mod nonobstructive OM1 lesion, no other dz, nl EF Echo 10/2017 nl LV size, LV function mod impaired EF 40%, septal wall motion c/w pacing, other wilson mildly hypok, RV nl funcion, LA/RA severely dilated, mod MR , mod to sev TR, at least mild to mod pulm HTN, RVSP at least 47 mmHg, ao root 4.2 cm Pacemaker: [employer] interrogated--> normal device function. Optivol crossing over last few months noted, worse in December. tele: v-paced, artifact IMP: -combined systolic and diastolic CHF (? sec to untreated severe ANJUM) -afib on xarelto -s/p PPM -? early dementia (h/o severe sundowning when in hospital) -known orthostatic hypotension tendencies--s/p fall with marked orthostatic hypotension here -chronic L spine dz/pain -CKD (creat 1.7-1.9 baseline)--stable renal fxn here -multiple recent admissions for various issues including urinary retention, now recently discharged from rehab presents to ER after fall at home and with complaints of dizziness, found to be markedly orthostatic, hydrated gently overnight with subsequent mild chf REC: -Found to be orthostatic here, known h/o same at times-- ? need for Flomax ( severe urinary retention few mo ago)--? if does not need for urinary retention can try to d/c -Will not tolerate midodrine (urinary retention history) or fludrocortisone (CHF ). consider pyridostigmine trial if orthostasis continues -Tele and PPM interrogation show well controlled rates and no sig arrhythmias to explain falls. -Gently hydrated overnight-->slightly volume overloaded, CXR with congestive changes. stopped IVF, home lasix 20 qd resumed. continue low dose lasix as long as no sob or edema (LE edema usually is sign of impending chf in him) -cont home BB. no YANI/ARB sec to orthostatic hypotension and intolerance previously -Abx deferred to PMD, r/o UTI. -Chronic anemia (? sec to CKD)--H/H stable at baseline. -For now, continue NOAC. Will need to address with family goals of care. If he is continues to be considered a sig falls risk moving forward then the risk/ benefit of full AC should be revisited, and consideration of Watchman device will be discussed.
[2019-03-11] MEDS: metoPROLOL SUCCINATE 25 MG TAB.SR.24H (FP) PO SCH ×2 (10:36→21:28)
[2019-03-11] MEDS: AMIODARONE HCL 200 MG TABLET (FP) PO SCH (10:36)
[2019-03-11] MEDS: CEFTRIAXONE 1 GM in DEXTROSE 5%-WATER - 50 ML IVPB SCH (10:36)
[2019-03-11] MEDS: FUROSEMIDE 20 MG TABLET (FP) PO SCH (10:36)
[2019-03-11] MEDS: DONEPEZIL HCL 10 MG TABLET (FP) PO SCH (10:36)
--- NOTE | 2019-03-11 13:32 | PN ---
Physical Exam: SUBJECTIVE: Patient seen and examined, oriented to self, unable to do ROS. OBJECTIVE: Vital Signs Period Temp Pulse Resp BP Sys/Neal Pulse Ox Last 24 Hr 97.9 F-98.4 F 60-74 18-20 99-134/47-70 95-99 Intake & Output 03/08/19 03/09/19 03/10/19 03/11/19 23:59 23:59 23:59 23:59 Intake Total 368 1556 200 Balance 368 1556 200 Weight 192 lb 192 lb 187 lb 6.4 oz 184 lb 6.4 oz General: lying in bed, no acute distress Neck: soft, supple, limited exam CVS:S1S2 regular Chest: no rales or wheezing appreciated Abdomen:soft, NT, ND Extremities: no edema Laboratory Results - last 24 hr 03/11/19 03/11/19 05:39 05:39 WBC 8.6 RBC 3.36 L Hgb 9.1 L Hct 27.8 L MCV 82.6 MCH 27.0 MCHC 32.7 RDW 19.6 H Plt Count 169 MPV 8.4 Absolute Neuts (auto) 5.5 Neutrophils % 64.5 D Lymphocytes % 25.2 D Monocytes % 8.9 Eosinophils % 1.1 Basophils % 0.3 Nucleated RBC % 0 Sodium 143 Potassium 4.4 Chloride 108 H Carbon Dioxide 27 Anion Gap 8 BUN 20.8 H Creatinine 1.5 H Est GFR (CKD-EPI)AfAm 47.49 Est GFR (CKD-EPI)NonAf 40.98 Random Glucose 101 Calcium 8.8 Total Bilirubin 0.5 AST 18 ALT 13 Alkaline Phosphatase 87 Total Protein 6.7 Albumin 3.5 Active Medications Generic Name Dose Route Start Last Admin Trade Name Freq PRN Reason Stop Dose Admin Amiodarone HCl 100 mg 03/09/19 10:00 03/11/19 10:36 Cordarone - PO 100 mg DAILY [facility] Administration Donepezil HCl 10 mg 03/09/19 10:00 03/11/19 10:36 Aricept - PO 10 mg DAILY [facility] Administration Furosemide 20 mg 03/09/19 10:00 03/11/19 10:36 Lasix - PO 20 mg DAILY [facility] Administration Ceftriaxone Sodium 1 gm/ 50 mls @ 100 mls/hr 03/09/19 08:40 03/11/19 10:36 Dextrose IVPB 100 mls/hr DAILY [facility] Administration Protocol Levothyroxine Sodium 75 mcg 03/10/19 07:00 03/11/19 06:23 Synthroid - PO 75 mcg AM [facility] Administration Metoprolol Succinate 25 mg 03/09/19 10:00 03/11/19 10:36 Toprol Xl - PO 25 mg BID [facility] Administration Quetiapine Fumarate 50 mg 03/09/19 22:00 03/10/19 22:14 Seroquel - PO 50 mg HS [facility] Administration Rivaroxaban 15 mg 03/09/19 16:30 03/10/19 17:22 Xarelto PO 15 mg 1630 [facility] Administration Tamsulosin HCl 0.4 mg 03/09/19 22:00 03/10/19 22:14 Flomax - PO 0.4 mg HS [facility] Administration Microbiology 03/09/19 08:03 Urine - Urine Clean Catch Urine Culture - Final Streptococcus Viridans ASSESSMENT/PLAN: 88 yom with PMhx of HTN, HLD, CAD, P Afib, s/pPPM, on xarelto, systolic/ diastolic dysfunction, CHF, pulm HTN, CKD stage III, prostate Ca s/p radiation/ seed, h/o urinary retention, needing peña, leukemia (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), hypothyroidism, dementia, chronic low back pain, progressive dementia, recently admitted with unwitnessed fall vs syncope comes with another unwitnessed fall -Unwitnessed fall from bed vs syncope -Orthostatic hypotension -Hypernatremia, suspect from poor free water intake/continuation of lasix -DEE on CKD stage III,?from above -Complicated UTI -AMS, suspect toxic metabolic encephalopathy from above/Delirium in the setting of severe dementia -Afib s/p PMM, on xarelto -Acute on chronic systolic/diastolic HF exacerbation -Pul HTN -CKD stage III -HTN -HLD -CAD -Prostate ca s/p radiation/seed -Leukemia -Hypothyroidism -Chronic low back pain -Progressive dementia Plan: No events on telemetry. PPM interrogated. Na and cr improved. IVF d/marylin. Cardiology input noted. CXR reviewed. Continue lasix 20 mg daily with volume status monitoring. Ongoing orthostasis. ?trial with pyridostigmine, defer to cardiology. carotid duplex noted Trauma w/u in Ed neg. Ceftriaxone day 3, follow up urine cultures. Continue flomax Continue Amiodarone/Metoprolol/xarelto/levothyroxine/donepezil/seroquel. DVTPPX xarelto dispo PT eval, SNF vs home with services in 24-48 hours pending urine cultures, clinical improvement and disposition arrangements. Discussed with nursing. Visit type - Emergency Visit Emergency Visit: Yes ED Registration Date: 03/09/19 Care time: The patient presented to the Emergency Department on the above date and was hospitalized for further evaluation of their emergent condition. - New Patient This patient is new to me today: No - Critical Care Critical Care patient: No - Discharge Referral Referred to [facility] Med P.C.: No
[2019-03-11 15:26] VITALS: BMI 30.6
[2019-03-11] MEDS: RIVAROXABAN 15 MG TABLET PO SCH (17:20)
[2019-03-11] MEDS: QUEtiapine FUMARATE 50 MG TABLET PO SCH (21:28)
[2019-03-11] MEDS: TAMSULOSIN HCL 0.4 MG CAP PO SCH (21:28)
[2019-03-12] MEDS: LEVOTHYROXINE NA 75 MCG TABLET (FP) PO SCH (07:36)
[2019-03-12 07:56] LABS: BLOOD UREA NITROGEN 18.2 mg/dL (7-18); CALCIUM 8.7 mg/dL (8.5-10.1); CREATININE 1.4 mg/dL (0.55-1.3); MAGNESIUM 2.5 mg/dL (1.8-2.4); PHOSPHOROUS 3.2 mg/dL (2.5-4.9); POTASSIUM 3.9 mmol/L (3.5-5.1)
--- NOTE | 2019-03-12 08:23 | PN ---
Progress Note, Physician Chief Complaint: fall/dizzy History of Present Illness: laying flat. denies sob, orthopnea no leg swelling no cp no cigs - Current Medication List Current Medications: Active Medications Amiodarone HCl (Cordarone -) 100 mg PO DAILY [facility] Last Admin: 03/11/19 10:36 Dose: 100 mg Donepezil HCl (Aricept -) 10 mg PO DAILY [facility] Last Admin: 03/11/19 10:36 Dose: 10 mg Furosemide (Lasix -) 20 mg PO DAILY [facility] Last Admin: 03/11/19 10:36 Dose: 20 mg Ceftriaxone Sodium 1 gm/ (Dextrose) 50 mls @ 100 mls/hr IVPB DAILY [facility]; Protocol Last Admin: 03/11/19 10:36 Dose: 100 mls/hr Levothyroxine Sodium (Synthroid -) 75 mcg PO AM [facility] Last Admin: 03/12/19 07:36 Dose: 75 mcg Metoprolol Succinate (Toprol Xl -) 25 mg PO BID [facility] Last Admin: 03/11/19 21:28 Dose: 25 mg Quetiapine Fumarate (Seroquel -) 50 mg PO [facility] Last Admin: 03/11/19 21:28 Dose: 50 mg Rivaroxaban (Xarelto) 15 mg PO 1630 [facility] Last Admin: 03/11/19 17:20 Dose: 15 mg Tamsulosin HCl (Flomax -) 0.4 mg PO [facility] Last Admin: 03/11/19 21:28 Dose: 0.4 mg - Objective Vital Signs: Vital Signs Temperature 98.1 F 03/12/19 06:00 Pulse Rate 67 03/12/19 06:00 Respiratory Rate 18 03/12/19 06:00 Blood Pressure 122/75 03/12/19 06:00 O2 Sat by Pulse Oximetry (%) 99 03/11/19 20:05 Constitutional: Yes: No Distress, Calm Eyes: No: Sclera Icterus HENT: No: Nasal Congestion Cardiovascular: Yes: Regular Rate and Rhythm, JVD, S1, S2, Other (PMI non diplaced). No: Gallop, Murmur Respiratory: Yes: CTA Bilaterally, Rales (bases). No: Accessory Muscle Use, Wheezes Gastrointestinal: Yes: Normal Bowel Sounds, Soft. No: Tenderness Musculoskeletal: Yes: Other (No kyphosis) Extremities: No: Cold, Cyanosis Edema: No Integumentary: No: Jaundice Neurological: Yes: Alert. No: Seizure Psychiatric: No: Agitated Labs: CBC, BMP 03/11/19 05:39 03/12/19 06:06 INR, PTT INR 1.39 (0.83-1.09) H 03/10/19 05:50 Assessment/Plan MPI 2012 (pers): v-paced; small-medium apical infarct; apical AK with EF 46% LHC/RHC ' normal wedge, nl PAP, mod nonobstructive OM1 lesion, no other dz, nl EF Echo 10/2017 nl LV size, LV function mod impaired EF 40%, septal wall motion c/w pacing, other wilson mildly hypok, RV nl funcion, LA/RA severely dilated, mod MR , mod to sev TR, at least mild to mod pulm HTN, RVSP at least 47 mmHg, ao root 4.2 cm Pacemaker: [employer] interrogated--> normal device function. Optivol crossing over last few months noted, worse in December. tele: v-paced IMP: -known orthostatic hypotension tendencies--s/p fall with marked orthostatic hypotension here -acute combined systolic and diastolic CHF (? sec to untreated severe ANJUM) -afib on xarelto -s/p PPM -? early dementia (h/o severe sundowning when in hospital) -chronic L spine dz/pain -CKD (creat 1.7-1.9 baseline)--stable renal fxn here -multiple recent admissions for various issues including urinary retention, now recently discharged from rehab presents to ER after fall at home and with complaints of dizziness, found to be markedly orthostatic, hydrated gently overnight with subsequent mild chf REC: -remains markedly orthostatic here (40 mmHg bp drop). prior rare h/o same, likely being exacerbated by tamsulosin at present. -rec input re: ? can stop tamsulosin (finasteride substitution?) -if pt requires continued alpha-sakina treatment, then will have to try pyridostigmine (will not tolerate midodrine (urinary retention) or fludrocortisone (CHF)) -currently in mild chf with JVD (8 cm), rales on exam, wet CXR. wt declining steadily past few days. gentle diuresis to avoid exacerbating orthostasis--incr lasix 20 to 40 qd -cont home BB. no YANI/ARB sec to orthostatic hypotension and intolerance previously -Abx deferred to PMD, r/o UTI. -Chronic anemia (? sec to CKD)--H/H stable at baseline. -For now, continue NOAC--has been stable as far as falls risk previously, now with reversible cause (orthostatic hypotension)
[2019-03-12] MEDS ORDERED: cefTRIAXone SODIUM 1 GM VIAL ONE (08:54)
[2019-03-12] MEDS ORDERED: DEXTROSE 5%-WATER - 50 ML IVPB ONE (08:54)
[2019-03-12] MEDS: CEFTRIAXONE 1 GM in DEXTROSE 5%-WATER - 50 ML IVPB SCH (10:05)
[2019-03-12] MEDS: DONEPEZIL HCL 10 MG TABLET (FP) PO SCH (10:05)
[2019-03-12] MEDS: metoPROLOL SUCCINATE 25 MG TAB.SR.24H (FP) PO SCH ×2 (10:05→21:58)
[2019-03-12] MEDS: AMIODARONE HCL 200 MG TABLET (FP) PO SCH (10:05)
[2019-03-12] MEDS: FUROSEMIDE 20 MG TABLET (FP) PO SCH (10:05)
[2019-03-12] MEDS ORDERED: FUROSEMIDE 20 MG TABLET (FP) PO SCH (11:14)
[2019-03-12] MEDS: FUROSEMIDE 40 MG TABLET (FP) PO SCH (11:46)
--- NOTE | 2019-03-12 15:02 | PN ---
Physical Exam: SUBJECTIVE: Patient seen and examined, oriented to self, no complaints OBJECTIVE: Vital Signs Period Temp Pulse Resp BP Sys/Neal Pulse Ox Last 24 Hr 97.6 F-98.8 F 60-67 16-20 82-122/36-75 98-99 Intake & Output 03/09/19 03/10/19 03/11/19 03/12/19 23:59 23:59 23:59 23:59 Intake Total 368 1556 1180 Output Total 150 100 Balance 368 1556 1030 -100 Weight 192 lb 187 lb 6.4 oz 184 lb 182 lb 6.4 oz General: lying in bed, no acute distress Neck: soft, supple, limited exam CVS:S1S2 regular Chest: no rales or wheezing appreciated Abdomen:soft, NT, ND Extremities: no edema Laboratory Results - last 24 hr 03/12/19 06:06 Sodium 142 Potassium 3.9 Chloride 106 Carbon Dioxide 29 Anion Gap 8 BUN 18.2 H Creatinine 1.4 H Est GFR (CKD-EPI)AfAm 51.62 Est GFR (CKD-EPI)NonAf 44.54 Random Glucose 92 Calcium 8.7 Phosphorus 3.2 Magnesium 2.5 H Active Medications Generic Name Dose Route Start Last Admin Trade Name Freq PRN Reason Stop Dose Admin Amiodarone HCl 100 mg 03/09/19 10:00 03/12/19 10:05 Cordarone - PO 100 mg DAILY [facility] Administration Donepezil HCl 10 mg 03/09/19 10:00 03/12/19 10:05 Aricept - PO 10 mg DAILY [facility] Administration Furosemide 40 mg 03/12/19 11:15 03/12/19 11:46 Lasix - PO 40 mg DAILY [facility] Administration Ceftriaxone Sodium 1 gm/ 50 mls @ 100 mls/hr 03/09/19 08:40 03/12/19 10:05 Dextrose IVPB 100 mls/hr DAILY [facility] Administration Protocol Levothyroxine Sodium 75 mcg 03/10/19 07:00 03/12/19 07:36 Synthroid - PO 75 mcg AM [facility] Administration Metoprolol Succinate 25 mg 03/09/19 10:00 03/12/19 10:05 Toprol Xl - PO 25 mg BID [facility] Administration Quetiapine Fumarate 50 mg 03/09/19 22:00 03/11/19 21:28 Seroquel - PO 50 mg HS [facility] Administration Rivaroxaban 15 mg 03/09/19 16:30 03/11/19 17:20 Xarelto PO 15 mg 1630 [facility] Administration Tamsulosin HCl 0.4 mg 03/09/19 22:00 03/11/19 21:28 Flomax - PO 0.4 mg HS [facility] Administration Microbiology 03/09/19 08:03 Urine - Urine Clean Catch Urine Culture - Final Streptococcus Viridans ASSESSMENT/PLAN: 88 yom with PMhx of HTN, HLD, CAD, P Afib, s/pPPM, on xarelto, systolic/ diastolic dysfunction, CHF, pulm HTN, CKD stage III, prostate Ca s/p radiation/ seed, h/o urinary retention, needing peña, leukemia (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), hypothyroidism, dementia, chronic low back pain, progressive dementia, recently admitted with unwitnessed fall vs syncope comes with another unwitnessed fall -Unwitnessed fall from bed vs syncope -Orthostatic hypotension -Hypernatremia, suspect from poor free water intake/continuation of lasix -DEE on CKD stage III,?from above -Complicated UTI -AMS, suspect toxic metabolic encephalopathy from above/Delirium in the setting of severe dementia -Afib s/p PMM, on xarelto -Acute on chronic systolic/diastolic HF exacerbation -Pul HTN -CKD stage III -HTN -HLD -CAD -Prostate ca s/p radiation/seed -Leukemia -Hypothyroidism -Chronic low back pain -Progressive dementia Plan: No events on telemetry. PPM interrogated. Na and cr improved. IVF d/marylin. Cardiology input noted. CXR reviewed. Continue lasix 20 mg daily with volume status monitoring. Ongoing orthostasis. ?discuss with urology if ok to dc flomax and transition to finasteride( patient with h/o urinary retention/Prostate CA/TUVRP) Carotid duplex noted Trauma w/u in Ed neg. Ceftriaxone day 4, follow up urine cultures. Continue flomax Continue Amiodarone/Metoprolol/xarelto/levothyroxine/donepezil/seroquel. DVTPPX xarelto dispo PT eval, SNF vs home with services in 24 hours pending urine cultures, clinical improvement and disposition arrangements. Discussed with nursing. Visit type - Emergency Visit Emergency Visit: Yes ED Registration Date: 03/09/19 Care time: The patient presented to the Emergency Department on the above date and was hospitalized for further evaluation of their emergent condition. - New Patient This patient is new to me today: No - Critical Care Critical Care patient: No - Discharge Referral Referred to [facility] Med P.C.: No
[2019-03-12] MEDS: RIVAROXABAN 15 MG TABLET PO SCH (15:53)
[2019-03-12] MEDS: FINASTERIDE 5 MG TABLET (FP) PO SCH (15:53)
[2019-03-12] MEDS: QUEtiapine FUMARATE 50 MG TABLET PO SCH (21:58)
[2019-03-13] MEDS: LEVOTHYROXINE NA 75 MCG TABLET (FP) PO SCH (06:33)
--- NOTE | 2019-03-13 07:16 | PN ---
Physical Exam: SUBJECTIVE: Patient seen and examined laying down in bed , no new complains , AOx2 OBJECTIVE: Vital Signs Period Temp Pulse Resp BP Sys/Neal Pulse Ox Last 24 Hr 98.2 F-99.0 F 61-76 16-20 98-143/40-74 91-98 GENERAL: Awake, alert, oriented to self and place but no time HEAD: slight scab on forehead with bruise EYES:PEERLA: EOMI: no scleral itcterus NECK:no JVD; supple LUNGS: fine crackles at the bases HEART:irregularly irregular, normal S1 and S2 without MRG ABDOMEN: Soft,NT/ND +BS in all 4 quadrants; no suprapubic tenderness MUSCULOSKELETAL: moving all extremities EXTREMITIES: warml well-perfused no edema NEUROLOGICAL: no focal deficit . Normal speech.5/5 strenght B/L UE LE sensation intact; oriented to self . PSYCHIATRIC: Cooperative. SKIN: Warm, dry, normal turgor, Laboratory Results - last 24 hr 03/12/19 06:06 Sodium 142 Potassium 3.9 Chloride 106 Carbon Dioxide 29 Anion Gap 8 BUN 18.2 H Creatinine 1.4 H Est GFR (CKD-EPI)AfAm 51.62 Est GFR (CKD-EPI)NonAf 44.54 Random Glucose 92 Calcium 8.7 Phosphorus 3.2 Magnesium 2.5 H Active Medications Generic Name Dose Route Start Last Admin Trade Name Freq PRN Reason Stop Dose Admin Amiodarone HCl 100 mg 03/09/19 10:00 03/12/19 10:05 Cordarone - PO 100 mg DAILY JOSE Administration Donepezil HCl 10 mg 03/09/19 10:00 03/12/19 10:05 Aricept - PO 10 mg DAILY JOSE Administration Finasteride 5 mg 03/12/19 15:15 03/12/19 15:53 Proscar - PO 5 mg DAILY JOSE Administration Furosemide 40 mg 03/12/19 11:15 03/12/19 11:46 Lasix - PO 40 mg DAILY JOSE Administration Ceftriaxone Sodium 1 gm/ 50 mls @ 100 mls/hr 03/09/19 08:40 03/12/19 10:05 Dextrose IVPB 100 mls/hr DAILY JOSE Administration Protocol Levothyroxine Sodium 75 mcg 03/10/19 07:00 03/13/19 06:33 Synthroid - PO 75 mcg AM JOSE Administration Metoprolol Succinate 25 mg 03/09/19 10:00 03/12/19 21:58 Toprol Xl - PO 25 mg BID JOSE Administration Quetiapine Fumarate 50 mg 03/09/19 22:00 03/12/19 21:58 Seroquel - PO 50 mg HS JOSE Administration Rivaroxaban 15 mg 03/09/19 16:30 03/12/19 15:53 Xarelto PO 15 mg 1630 JOSE Administration CBC, BMP 03/11/19 05:39 03/13/19 06:40 ASSESSMENT/PLAN: 88 y/o male with PMH of dementia, prostate ca, BPH sp TURP, CHF, HTN, Afib (on xarelto) ppm, CKD presents to the ED after having an unwitnessed fall at home additionally found to have a urinary tract infection #Syncope un witness fall vs syncope -imaging done and negative thus far -tele monitoring - carotid dopplers noted -PT maximum 45 steps with shuffling gait -fall precautions - goal of care - will benifit from rehab - dc today and family appeal - DC flomax and start Finasteride -back on lasix 20 home dose #UTI patient found to have a positive UA -f/u urine cx -Ceftriaxone 1gram daily x3 day completed #CHF patient found to have increased congestive changes on CXR -c/w lasix 20mg daily -cardio consulted AC mattie risk for fall will benifit from watchman device -I's and O's - daighly weight - D/c fluids #Afib on Xarelto and amiodarone -ppm interrogated #HTN -c/w toprol 25mg BID #CKD -patients Cr on arrival was 1.7...1.6 -baseline seems to be around 1.4/15 -avoid nephrotoxic drugs #Anemia, stable patients Hgb on arrival was 8.1 -stable -no signs of bleeding #hypothyroidism -c/w sythoid 75mcg daily #BPH -dc flomax 0.4mg HS and start Finasterid #Dementia -c/w donepezil and seroquel F/E/N -monitor off fluids -monitor electrolytes -soidum controlled diet dvt ppx: xarelto Pt was dc today to SNF and family appealed the discharged. Visit type - Emergency Visit Emergency Visit: Yes ED Registration Date: 03/09/19 Care time: The patient presented to the Emergency Department on the above date and was hospitalized for further evaluation of their emergent condition. - New Patient This patient is new to me today: No - Critical Care Critical Care patient: No ATTENDING PHYSICIAN STATEMENT I saw and evaluated the patient. I reviewed the resident's note and discussed the case with the resident. I agree with the resident's findings and plan as documented. SUBJECTIVE: OBJECTIVE: ASSESSMENT AND PLAN:
[2019-03-13 08:43] LABS: BLOOD UREA NITROGEN 22.3 mg/dL (7-18); CALCIUM 8.8 mg/dL (8.5-10.1); CREATININE 1.6 mg/dL (0.55-1.3); POTASSIUM 3.7 mmol/L (3.5-5.1)
--- NOTE | 2019-03-13 09:56 | PN ---
Progress Note, Physician Chief Complaint: fall History of Present Illness: no sob, orthopnea, cp, palpitations, syncope - Current Medication List Current Medications: Active Medications Amiodarone HCl (Cordarone -) 100 mg PO DAILY [facility] Last Admin: 03/12/19 10:05 Dose: 100 mg Donepezil HCl (Aricept -) 10 mg PO DAILY [facility] Last Admin: 03/12/19 10:05 Dose: 10 mg Finasteride (Proscar -) 5 mg PO DAILY [facility] Last Admin: 03/12/19 15:53 Dose: 5 mg Furosemide (Lasix -) 40 mg PO DAILY [facility] Last Admin: 03/12/19 11:46 Dose: 40 mg Ceftriaxone Sodium 1 gm/ (Dextrose) 50 mls @ 100 mls/hr IVPB DAILY [facility]; Protocol Last Admin: 03/12/19 10:05 Dose: 100 mls/hr Levothyroxine Sodium (Synthroid -) 75 mcg PO AM [facility] Last Admin: 03/13/19 06:33 Dose: 75 mcg Metoprolol Succinate (Toprol Xl -) 25 mg PO BID [facility] Last Admin: 03/12/19 21:58 Dose: 25 mg Quetiapine Fumarate (Seroquel -) 50 mg PO HS [facility] Last Admin: 03/12/19 21:58 Dose: 50 mg Rivaroxaban (Xarelto) 15 mg PO 1630 [facility] Last Admin: 03/12/19 15:53 Dose: 15 mg - Objective Vital Signs: Vital Signs Temperature 98 F 03/13/19 08:41 Pulse Rate 64 03/13/19 09:52 Respiratory Rate 18 03/13/19 09:00 Blood Pressure 116/59 L 03/13/19 09:52 O2 Sat by Pulse Oximetry (%) 96 03/13/19 09:00 Constitutional: Yes: Well Nourished, No Distress, Calm Cardiovascular: Yes: Regular Rate and Rhythm, JVD (probable). No: Gallop, Murmur Respiratory: Yes: Regular. No: CTA Bilaterally, Accessory Muscle Use, Rales, Wheezes Extremities: No: Cool Edema: No Neurological: Yes: Alert. No: Seizure Psychiatric: No: Agitated Labs: CBC, BMP 03/11/19 05:39 03/13/19 06:40 INR, PTT INR 1.39 (0.83-1.09) H 03/10/19 05:50 Assessment/Plan MPI 2013 (pers): v-paced; small-medium apical infarct; apical AK with EF 46% LHC/RHC '09 normal wedge, nl PAP, mod nonobstructive OM1 lesion, no other dz, nl EF Echo 10/2017 nl LV size, LV function mod impaired EF 40%, septal wall motion c/w pacing, other wilson mildly hypok, RV nl funcion, LA/RA severely dilated, mod MR , mod to sev TR, at least mild to mod pulm HTN, RVSP at least 47 mmHg, ao root 4.2 cm Pacemaker: [employer] interrogated--> normal device function. Optivol crossing over last few months noted, worse in December. tele: AF, v-paced IMP: -known orthostatic hypotension tendencies--s/p fall with marked orthostatic hypotension here -acute combined systolic and diastolic CHF (? sec to untreated severe ANJUM) -afib on xarelto -s/p PPM -? early dementia (h/o severe sundowning when in hospital) -chronic L spine dz/pain -CKD (creat 1.7-1.9 baseline)--stable renal fxn here -multiple recent admissions for various issues including urinary retention, now recently discharged from rehab presents to ER after fall at home and with complaints of dizziness, found to be markedly orthostatic, hydrated gently overnight with subsequent mild chf REC: -markedly orthostatic here (40 mmHg bp drop). 03/13: orthostatics ok (no intervention for this--spurious?). prior rare h/o same, likely being exacerbated by tamsulosin at present. -followup input re: ? can stop tamsulosin (finasteride substitution?) -if pt requires continued alpha-sakina treatment, then will have to try pyridostigmine (will not tolerate midodrine (urinary retention) or fludrocortisone (CHF)) -03/12: mild chf with JVD (8 cm), rales on exam, wet CXR. wt declining steadily past few days. gentle diuresis to avoid exacerbating orthostasis--incr lasix 20 to 40 qd -03/13: bun/creat up slightly but well within his baseline range. probable JVD still. continue lasix 40 qd--once diuresed, he will likely need 20-40 qd ( became orthostatic with 40 qd previously but may not happen again if flomax is held) -cont home BB. no YANI/ARB sec to orthostatic hypotension and intolerance previously -Abx deferred to PMD, r/o UTI. -Chronic anemia (? sec to CKD)--H/H stable at baseline. -For now, continue NOAC--has been stable as far as falls risk previously, now with reversible cause (orthostatic hypotension)
[2019-03-13] MEDS ORDERED: DEXTROSE 5%-WATER - 50 ML IVPB ONE (10:47)
[2019-03-13] MEDS ORDERED: cefTRIAXone SODIUM 1 GM VIAL ONE (10:47)
[2019-03-13] MEDS: FUROSEMIDE 40 MG TABLET (FP) PO SCH (10:49)
[2019-03-13] MEDS: AMIODARONE HCL 200 MG TABLET (FP) PO SCH (10:49)
[2019-03-13] MEDS: metoPROLOL SUCCINATE 25 MG TAB.SR.24H (FP) PO SCH ×2 (10:50→21:52)
[2019-03-13] MEDS: DONEPEZIL HCL 10 MG TABLET (FP) PO SCH (10:50)
[2019-03-13] MEDS: CEFTRIAXONE 1 GM in DEXTROSE 5%-WATER - 50 ML IVPB SCH (10:50)
[2019-03-13] MEDS: FINASTERIDE 5 MG TABLET (FP) PO SCH (10:50)
--- NOTE | 2019-03-13 12:52 | PN ---
Teaching Attending Note Name of Resident: Royce Lira ATTENDING PHYSICIAN STATEMENT I saw and evaluated the patient. I reviewed the resident's note and discussed the case with the resident. I agree with the resident's findings and plan as documented with exceptions below. SUBJECTIVE: patient seen and examined. no complaints. OBJECTIVE: Vital Signs Period Temp Pulse Resp BP Sys/Neal Pulse Ox Last 24 Hr 98 F-99.0 F 61-76 16-20 98-143/40-74 91-96 Intake & Output 03/10/19 03/11/19 03/12/19 03/13/19 23:59 23:59 23:59 23:59 Intake Total 1556 1180 660 Output Total 150 300 200 Balance 1556 1030 360 -200 Weight 187 lb 6.4 oz 184 lb 182 lb 6.4 oz 182 lb General: lying in bed, no acute distress Neck: soft, supple, limited exam CVS:S1S2 regular Chest: no rales or wheezing appreciated Abdomen:soft, NT, ND Extremities: no edema ASSESSMENT AND PLAN: 88 yom with PMhx of HTN, HLD, CAD, P Afib, s/pPPM, on xarelto, systolic/ diastolic dysfunction, CHF, pulm HTN, CKD stage III, prostate Ca s/p radiation/ seed, h/o urinary retention, needing peña, leukemia (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), hypothyroidism, dementia, chronic low back pain, progressive dementia, recently admitted with unwitnessed fall vs syncope comes with another unwitnessed fall -Unwitnessed fall from bed vs syncope -Orthostatic hypotension -Hypernatremia, suspect from poor free water intake/continuation of lasix -DEE on CKD stage III,?from above -Complicated UTI -AMS, suspect toxic metabolic encephalopathy from above/Delirium in the setting of severe dementia -Afib s/p PMM, on xarelto -Acute on chronic systolic/diastolic HF exacerbation -Pul HTN -CKD stage III -HTN -HLD -CAD -Prostate ca s/p radiation/seed -Leukemia -Hypothyroidism -Chronic low back pain -Progressive dementia Plan: discussed with urology, flomax d/marylin, started on finasteride. voiding well currently. Outpatient urology follow up. Orthostasis resolved. Lasix to home dose 20 mg daily. Advised to avoid sudden postural changes. s/p 3 days of ceftriaxone PT eval noted, for SNF Dispo d/c to Snf when bed available. Discussed with nursing and social work.
--- NOTE | 2019-03-13 18:21 | CONS ---
DATE OF CONSULTATION: DATE OF DICTATION: 03/13/2019 Patient is an 88-year-old male, history of dementia, prostatism, prostate cancer, underwent a TURP several years earlier; also has history of congestive heart failure, hypertension. He is a chronic atrial fibber on Xarelto. He also has chronic kidney disease. He presented to the emergency room after a fall. His pacemaker was interrogated and revealed no arrhythmias. The patient's daughter states that, while in the assisted, they found the patient on the floor. There is no loss of consciousness or focalizing neurologic deficits. He does have history of prostatism including urinary tract infections and urinary retention. In the emergency room, his vital signs were normal. Hemoglobin was 8.1 and hematocrit 25. Chest x-ray revealed congestive changes. A CT scan of his spine is negative. Besides the pacemaker and the TUR, there is no other history. The patient is on tamsulosin 0.4 mg daily. His BUN was 31.6 and creatinine 1.7 on admission. The urine was positive for blood and negative for nitrites. The patient has been commenced on ceftriaxone 1 g IV daily. He is incontinent of urine. PHYSICAL EXAMINATION: Abdomen: Soft. There is no CVA tenderness. Genitalia: Revealed an uncircumcised male. Testes are soft. There are no lesions. No hernias or hydroceles are palpated. Rectal: Tone is poor. Prostate is 3+ and firm. IMPRESSION: At present is an 88-year-old male with history of prostate cancer as well as prostatism with constant urinary incontinence on adult diaper. No signs of acute infection. There is no evidence of patient discomfort. We will monitor patient. Patient should undergo a renal and pelvic ultrasound to rule out any upper tract disease. Will follow with you as needed. Steve [id number]
[2019-03-13] MEDS: RIVAROXABAN 15 MG TABLET PO SCH (18:46)
[2019-03-13] MEDS: QUEtiapine FUMARATE 50 MG TABLET PO SCH (21:52)
[2019-03-14] MEDS: LEVOTHYROXINE NA 75 MCG TABLET (FP) PO SCH (06:20)
[2019-03-14 07:08] LABS: BLOOD UREA NITROGEN 23.4 mg/dL (7-18); CALCIUM 8.9 mg/dL (8.5-10.1); CREATININE 1.5 mg/dL (0.55-1.3); POTASSIUM 3.7 mmol/L (3.5-5.1)
--- NOTE | 2019-03-14 07:27 | PN ---
Physical Exam: SUBJECTIVE: Patient seen and examined OBJECTIVE: Vital Signs Period Temp Pulse Resp BP Sys/Neal Pulse Ox Last 24 Hr 97.8 F-98.6 F 60-66 18-18 98-132/45-66 95-96 GENERAL: The patient is awake, alert, and fully oriented, in no acute distress. HEAD: Normal with no signs of trauma. EYES: PERRL, extraocular movements intact, sclera anicteric, conjunctiva clear. No ptosis. ENT: Ears normal, nares patent, oropharynx clear without exudates, moist mucous membranes. NECK: Trachea midline, full range of motion, supple. LUNGS: Breath sounds equal, clear to auscultation bilaterally, no wheezes, no crackles, no accessory muscle use. HEART: Regular rate and rhythm, S1, S2 without murmur, rub or gallop. ABDOMEN: Soft, nontender, nondistended, normoactive bowel sounds, no guarding, no rebound, no hepatosplenomegaly, no masses. EXTREMITIES: 2+ pulses, warm, well-perfused, no edema. NEUROLOGICAL: Cranial nerves II through XII grossly intact. Normal speech, gait not observed. PSYCH: Normal mood, normal affect. SKIN: Warm, dry, normal turgor, no rashes or lesions noted Laboratory Results - last 24 hr 03/13/19 03/14/19 06:40 05:49 Sodium 142 142 Potassium 3.7 3.7 Chloride 105 104 Carbon Dioxide 28 31 Anion Gap 9 7 L BUN 22.3 H 23.4 H Creatinine 1.6 H 1.5 H Est GFR (CKD-EPI)AfAm 43.93 47.49 Est GFR (CKD-EPI)NonAf 37.90 40.98 Random Glucose 99 87 Calcium 8.8 8.9 Active Medications Generic Name Dose Route Start Last Admin Trade Name Freq PRN Reason Stop Dose Admin Amiodarone HCl 100 mg 03/09/19 10:00 03/13/19 10:49 Cordarone - PO 100 mg DAILY JOSE Administration Donepezil HCl 10 mg 03/09/19 10:00 03/13/19 10:50 Aricept - PO 10 mg DAILY JOSE Administration Finasteride 5 mg 03/12/19 15:15 03/13/19 10:50 Proscar - PO 5 mg DAILY JOSE Administration Furosemide 40 mg 03/12/19 11:15 03/13/19 10:49 Lasix - PO 40 mg DAILY JOSE Administration Ceftriaxone Sodium 1 gm/ 50 mls @ 100 mls/hr 03/09/19 08:40 03/13/19 10:50 Dextrose IVPB 100 mls/hr DAILY JOSE Administration Protocol Levothyroxine Sodium 75 mcg 03/10/19 07:00 03/14/19 06:20 Synthroid - PO 75 mcg AM JOSE Administration Metoprolol Succinate 25 mg 03/09/19 10:00 03/13/19 21:52 Toprol Xl - PO 25 mg BID JOSE Administration Quetiapine Fumarate 50 mg 03/09/19 22:00 03/13/19 21:52 Seroquel - PO 50 mg HS JOSE Administration Rivaroxaban 15 mg 03/09/19 16:30 03/13/19 18:46 Xarelto PO 15 mg 1630 JOSE Administration ASSESSMENT/PLAN: ATTENDING PHYSICIAN STATEMENT I saw and evaluated the patient. I reviewed the resident's note and discussed the case with the resident. I agree with the resident's findings and plan as documented. SUBJECTIVE: OBJECTIVE: ASSESSMENT AND PLAN:
--- NOTE | 2019-03-14 10:32 | PN ---
Teaching Attending Note Name of Resident: Royce Lira ATTENDING PHYSICIAN STATEMENT I saw and evaluated the patient. I reviewed the resident's note and discussed the case with the resident. I agree with the resident's findings and plan as documented with exceptions below. SUBJECTIVE: Patient seen and examined, no complaints. OBJECTIVE: Vital Signs Period Temp Pulse Resp BP Sys/Neal Pulse Ox Last 24 Hr 97.5 F-98.7 F 60-75 18-18 98-132/46-80 95 Intake & Output 03/11/19 03/12/19 03/13/19 03/14/19 23:59 23:59 23:59 23:59 Intake Total 1180 660 50 10 Output Total 150 300 200 Balance 1030 360 -150 10 Weight 184 lb 182 lb 6.4 oz 182 lb General lying in bed in no acute distress Chest: few basilar rales, improved exam Abdomen:soft, NT, no suprapubic or CVA tenderness Extremities: no edema Home Medications Medication Instructions Recorded Amiodarone HCl [Cordarone -] 100 mg PO DAILY 04/17/18 Donepezil HCl 10 mg PO DAILY 04/17/18 Levothyroxine [Synthroid -] 75 mcg PO DAILY 04/17/18 Metoprolol Succinate 25 mg PO BID 04/17/18 Quetiapine Fumarate [Seroquel -] 50 mg PO HS 04/17/18 Furosemide 20 mg PO DAILY 01/27/19 Rivaroxaban [Xarelto] 15 mg PO DAILY 01/27/19 Finasteride [Proscar -] 5 mg PO DAILY tablet 03/13/19 Active Medications Amiodarone HCl (Cordarone -) 100 mg PO DAILY [facility] Last Admin: 03/13/19 10:49 Dose: 100 mg Donepezil HCl (Aricept -) 10 mg PO DAILY [facility] Last Admin: 03/13/19 10:50 Dose: 10 mg Finasteride (Proscar -) 5 mg PO DAILY [facility] Last Admin: 03/13/19 10:50 Dose: 5 mg Furosemide (Lasix -) 40 mg PO DAILY [facility] Last Admin: 03/13/19 10:49 Dose: 40 mg Levothyroxine Sodium (Synthroid -) 75 mcg PO AM [facility] Last Admin: 03/14/19 06:20 Dose: 75 mcg Metoprolol Succinate (Toprol Xl -) 25 mg PO BID [facility] Last Admin: 03/13/19 21:52 Dose: 25 mg Quetiapine Fumarate (Seroquel -) 50 mg PO HS [facility] Last Admin: 03/13/19 21:52 Dose: 50 mg Rivaroxaban (Xarelto) 15 mg PO 1630 [facility] Last Admin: 03/13/19 18:46 Dose: 15 mg Laboratory Results - last 24 hr 03/14/19 05:49 Sodium 142 Potassium 3.7 Chloride 104 Carbon Dioxide 31 Anion Gap 7 L BUN 23.4 H Creatinine 1.5 H Est GFR (CKD-EPI)AfAm 47.49 Est GFR (CKD-EPI)NonAf 40.98 Random Glucose 87 Calcium 8.9 ASSESSMENT AND PLAN: 88 yom with PMhx of HTN, HLD, CAD, P Afib, s/pPPM, on xarelto, systolic/ diastolic dysfunction, CHF, pulm HTN, CKD stage III, prostate Ca s/p radiation/ seed, h/o urinary retention, needing peña, leukemia (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), hypothyroidism, dementia, chronic low back pain, progressive dementia, recently admitted with unwitnessed fall vs syncope comes with another unwitnessed fall -Unwitnessed fall from bed vs syncope -Orthostatic hypotension -Hypernatremia, suspect from poor free water intake/continuation of lasix -DEE on CKD stage III,?from above -Complicated UTI -AMS, suspect toxic metabolic encephalopathy from above/Delirium in the setting of severe dementia -Afib s/p PMM, on xarelto -Acute on chronic systolic/diastolic HF exacerbation -Pul HTN -CKD stage III -HTN -HLD -CAD -Prostate ca s/p radiation/seed -Leukemia -Hypothyroidism -Chronic low back pain -Progressive dementia Plan: BP stable, transtion to lasix 20 mg daily on dc. Outpatient cardiology follow up. renal function stable. urology input noted. Voiding freely, renal function stable. Flomax d/marylin, on finasteride, outpatient urology follow up. Advised to avoid sudden postural changes. s/p 5 days of ceftriaxone, dc PT eval noted, for SNF Dispo bed available, d/c order placed 03/13 to SNF.Will follow up with social work.
[2019-03-14] MEDS: FUROSEMIDE 40 MG TABLET (FP) PO SCH (10:52)
[2019-03-14] MEDS: AMIODARONE HCL 200 MG TABLET (FP) PO SCH (10:52)
[2019-03-14] MEDS: metoPROLOL SUCCINATE 25 MG TAB.SR.24H (FP) PO SCH ×2 (10:53→21:56)
[2019-03-14] MEDS: DONEPEZIL HCL 10 MG TABLET (FP) PO SCH (10:53)
[2019-03-14] MEDS: FINASTERIDE 5 MG TABLET (FP) PO SCH (10:53)
[2019-03-14] MEDS: CEFTRIAXONE 1 GM in DEXTROSE 5%-WATER - 50 ML IVPB SCH (10:56)
--- NOTE | 2019-03-14 11:58 | DS ---
Physical Exam: SUBJECTIVE: Patient seen and examined at bed side , no acute events over night , more awake and alert and responsive , still with some fine crackles at the abses, but denies any chest pain or cough. OBJECTIVE: Vital Signs Period Temp Pulse Resp BP Sys/Neal Pulse Ox Last 24 Hr 97.5 F-98.7 F 60-75 18-18 98-132/46-80 95-95 PHYSICAL EXAM GENERAL: Awake, alert, oriented to self and place but no time HEAD: slight scab on forehead with bruise EYES:PEERLA: EOMI: no scleral itcterus NECK:no JVD; supple LUNGS: fine crackles at the bases HEART:irregularly irregular, normal S1 and S2 without MRG ABDOMEN: Soft,NT/ND +BS in all 4 quadrants; no suprapubic tenderness MUSCULOSKELETAL: moving all extremities EXTREMITIES: warm, well-perfused no edema NEUROLOGICAL: no focal deficit . Normal speech.5/5 strenght B/L UE LE sensation intact; oriented to self and place . PSYCHIATRIC: Cooperative. SKIN: Warm, dry, normal turgor, LABS Laboratory Results - last 24 hr 03/14/19 05:49 Sodium 142 Potassium 3.7 Chloride 104 Carbon Dioxide 31 Anion Gap 7 L BUN 23.4 H Creatinine 1.5 H Est GFR (CKD-EPI)AfAm 47.49 Est GFR (CKD-EPI)NonAf 40.98 Random Glucose 87 Calcium 8.9 CBC, BMP 03/11/19 05:39 03/14/19 05:49 Microbiology 03/09/19 08:03 Urine - Urine Clean Catch Urine Culture - Final Streptococcus Viridans HOSPITAL COURSE: Date of Admission:03/09/19 Date of Discharge: 03/14/19 88 y/o male with PMH of dementia, prostate ca, BPH sp TURP, CHF, HTN, Afib (on xarelto) ppm, CKD presents to the ED after having an unwitnessed fall at home additionally found to have a urinary tract infection, Syncope with un witness fall with imaging done and negative , monitored on tele , no significant stenosis on carotid doppler, walk 45 steps with PT , will be dc to snf. UTI treated with 3 days course of ceftriaxone with ucx shows strep viridans.pt can resume lasix 20 daily , xarelto and amiodarone for chf and Afib, and toprol xl 25 BID for HTN , pt can resume synthroid for hypothyroidism.kiney function back to baseline Cr 1.4 . pt can follow up with her pcp within one week. Minutes to complete discharge: 45 Discharge Summary Reason For Visit: SYNCOPE Current Active Problems (HFpEF) heart failure with preserved ejection fraction (Chronic) Acute metabolic encephalopathy (Chronic) Anemia (Chronic) Back pain (Chronic) CHF (congestive heart failure) (Chronic) Hypothyroidism (Chronic) Pacemaker (Chronic) Condition: Improved - Instructions Diet, Activity, Other Instructions: you presented to the hospital due to suspected fall fall due to dehydration and possible urinary infection , you symptoms improved with antibiotics and hydration. Your BP was noted to drop on standing up and after discussion with cardiology and urology, flomax has been stopped and you are started on finasteride. MEDICATIONS: Stop flomax, start finasteride. Continue other home medications as before. INSTRUCTIONS: 24 hour assist and superivision. Avoid sudden postural changes. Weigh yourself daily and notify doctor if weight gain > 3 lbs in 2 days. FOLLOW UP: Blood work BMP (basic metabolic panel) in 1 week at the rehab Please follow up with your primary physician within one week, please repeat kidney function levels (BMP within one week ) please follow up with cardiology Dr Whitney within one week. Please follow up with Dr Edward Urologist within one week if you develop fever , chills, chest pain , sever abdominal pain , pain when you pass urine or any new concerns, please return to emergency room. Referrals: Jack Sharp MD [Primary Care Provider] - 1 Week aDvid Whitney MD [Staff Physician] - 1 Week Gold Salas MD [Staff Physician] - 1 Week [facility]position: [facility] - Home Medications Comprehensive Discharge Medication List: Ambulatory Orders Amiodarone HCl [Cordarone -] 100 mg PO DAILY 04/17/18 Donepezil HCl 10 mg PO DAILY 04/17/18 Levothyroxine [Synthroid -] 75 mcg PO DAILY 04/17/18 Metoprolol Succinate 25 mg PO BID 04/17/18 Quetiapine Fumarate [Seroquel -] 50 mg PO HS 04/17/18 Furosemide 20 mg PO DAILY 01/27/19 Rivaroxaban [Xarelto] 15 mg PO DAILY 01/27/19 Finasteride [Proscar -] 5 mg PO DAILY tablet 03/13/19 This patient is new to me today: No Emergency Visit: Yes ED Registration Date: 03/09/19 Care time: The patient presented to the Emergency Department on the above date and was hospitalized for further evaluation of their emergent condition. Critical Care patient: No - Discharge Referral Referred to [facility] No ATTENDING PHYSICIAN STATEMENT I saw and evaluated the patient. I reviewed the resident's note and discussed the case with the resident. I agree with the resident's findings and plan as documented. SUBJECTIVE: OBJECTIVE: ASSESSMENT AND PLAN:
--- NOTE | 2019-03-14 17:14 | PN ---
Progress Note, Physician Chief Complaint: fall, orthostatic hypotension History of Present Illness: no dizzy (not ambulating) no sob, orthopnea no cp, palpitations - Current Medication List Current Medications: Active Medications Amiodarone HCl (Cordarone -) 100 mg PO DAILY [facility] Last Admin: 03/14/19 10:52 Dose: 100 mg Donepezil HCl (Aricept -) 10 mg PO DAILY [facility] Last Admin: 03/14/19 10:53 Dose: 10 mg Finasteride (Proscar -) 5 mg PO DAILY [facility] Last Admin: 03/14/19 10:53 Dose: 5 mg Furosemide (Lasix -) 40 mg PO DAILY [facility] Last Admin: 03/14/19 10:52 Dose: 40 mg Levothyroxine Sodium (Synthroid -) 75 mcg PO AM [facility] Last Admin: 03/14/19 06:20 Dose: 75 mcg Metoprolol Succinate (Toprol Xl -) 25 mg PO BID [facility] Last Admin: 03/14/19 10:53 Dose: 25 mg Quetiapine Fumarate (Seroquel -) 50 mg PO HS [facility] Last Admin: 03/13/19 21:52 Dose: 50 mg Rivaroxaban (Xarelto) 15 mg PO 1630 [facility] Last Admin: 03/13/19 18:46 Dose: 15 mg - Objective Vital Signs: Vital Signs Temperature 97.5 F L 03/14/19 14:00 Pulse Rate 65 03/14/19 14:00 Respiratory Rate 18 03/14/19 14:00 Blood Pressure 122/54 L 03/14/19 14:00 O2 Sat by Pulse Oximetry (%) 95 03/14/19 09:00 Constitutional: Yes: Well Nourished, No Distress, Calm Cardiovascular: Yes: Regular Rate and Rhythm, S1, S2. No: Gallop, Murmur Respiratory: Yes: Regular, CTA Bilaterally. No: Accessory Muscle Use, Rales, Wheezes Extremities: No: Cold Edema: No Neurological: Yes: Alert. No: Seizure Psychiatric: No: Agitated Labs: CBC, BMP 03/11/19 05:39 03/14/19 05:49 INR, PTT INR 1.39 (0.83-1.09) H 03/10/19 05:50 Assessment/Plan MPI 2012 (pers): v-paced; small-medium apical infarct; apical AK with EF 46% LHC/RHC '09 normal wedge, nl PAP, mod nonobstructive OM1 lesion, no other dz, nl EF Echo 10/2017 nl LV size, LV function mod impaired EF 40%, septal wall motion c/w pacing, other wilson mildly hypok, RV nl funcion, LA/RA severely dilated, mod MR , mod to sev TR, at least mild to mod pulm HTN, RVSP at least 47 mmHg, ao root 4.2 cm Pacemaker: [employer] interrogated--> normal device function. Optivol crossing over last few months noted, worse in December. IMP: -known orthostatic hypotension tendencies--s/p fall with marked orthostatic hypotension here -acute combined systolic and diastolic CHF (? sec to untreated severe ANJUM) -afib on xarelto -s/p PPM -? early dementia (h/o severe sundowning when in hospital) -chronic L spine dz/pain -CKD (creat 1.7-1.9 baseline)--stable renal fxn here -multiple recent admissions for various issues including urinary retention, now recently discharged from rehab presents to ER after fall at home and with complaints of dizziness, found to be markedly orthostatic, hydrated gently overnight with subsequent mild chf REC: -markedly orthostatic here (40 mmHg bp drop). 03/13: orthostatics ok (no intervention for this--spurious?). prior rare h/o same, likely being exacerbated by tamsulosin at present. -flomax stopped, changed to finasteride per --orthostasis resolved. -if pt requires continued alpha-sakina treatment, then will have to try pyridostigmine (will not tolerate midodrine (urinary retention) or fludrocortisone (CHF)) -appears euvolemic. bun/creat stable--cont lasix 40 po qd. -cont home BB. no YANI/ARB sec to orthostatic hypotension and intolerance previously -Abx deferred to PMD, r/o UTI. -Chronic anemia (? sec to CKD)--H/H stable at baseline. -For now, continue NOAC--has been stable as far as falls risk previously, now with reversible cause (orthostatic hypotension)
[2019-03-14] MEDS: RIVAROXABAN 15 MG TABLET PO SCH (18:07)
[2019-03-14] MEDS: QUEtiapine FUMARATE 50 MG TABLET PO SCH (22:07)
[2019-03-15] MEDS: LEVOTHYROXINE NA 75 MCG TABLET (FP) PO SCH (06:15)
[2019-03-15 08:37] LABS: BLOOD UREA NITROGEN 24.6 mg/dL (7-18); CALCIUM 8.8 mg/dL (8.5-10.1); CREATININE 1.5 mg/dL (0.55-1.3); POTASSIUM 3.6 mmol/L (3.5-5.1)
--- NOTE | 2019-03-15 10:17 | PN ---
Physical Exam: SUBJECTIVE: Patient seen and examined, no complaints. OBJECTIVE: Vital Signs Period Temp Pulse Resp BP Sys/Neal Pulse Ox Last 24 Hr 97.5 F-98.3 F 60-75 18-18 91-135/37-55 98 Intake & Output 03/12/19 03/13/19 03/14/19 03/15/19 23:59 23:59 23:59 23:59 Intake Total 660 50 295 220 Output Total 300 200 Balance 360 -150 295 220 Weight 182 lb 6.4 oz 182 lb 180 lb General lying in bed in no acute distress CVS:S1S2 regular Chest: few basilar rales, improved exam Abdomen:soft, NT, no suprapubic or CVA tenderness Extremities: no edema psych: calm, co-operative HEENT: PERRL Neck: soft, supple Laboratory Results - last 24 hr 03/15/19 06:51 Sodium 143 Potassium 3.6 Chloride 104 Carbon Dioxide 29 Anion Gap 10 BUN 24.6 H Creatinine 1.5 H Est GFR (CKD-EPI)AfAm 47.49 Est GFR (CKD-EPI)NonAf 40.98 Random Glucose 106 Calcium 8.8 Active Medications Generic Name Dose Route Start Last Admin Trade Name Freq PRN Reason Stop Dose Admin Amiodarone HCl 100 mg 03/09/19 10:00 03/14/19 10:52 Cordarone - PO 100 mg DAILY JOSE Administration Donepezil HCl 10 mg 03/09/19 10:00 03/14/19 10:53 Aricept - PO 10 mg DAILY JOSE Administration Finasteride 5 mg 03/12/19 15:15 03/14/19 10:53 Proscar - PO 5 mg DAILY JOSE Administration Levothyroxine Sodium 75 mcg 03/10/19 07:00 03/15/19 06:15 Synthroid - PO 75 mcg AM JOSE Administration Metoprolol Succinate 25 mg 03/09/19 10:00 03/14/19 21:56 Toprol Xl - PO Not Given BID JOSE Quetiapine Fumarate 50 mg 03/09/19 22:00 03/14/19 22:07 Seroquel - PO 50 mg HS JOSE Administration Rivaroxaban 15 mg 03/09/19 16:30 03/14/19 18:07 Xarelto PO 15 mg 1630 JOSE Administration ASSESSMENT/PLAN: 88 yom with PMhx of HTN, HLD, CAD, P Afib, s/pPPM, on xarelto, systolic/ diastolic dysfunction, CHF, pulm HTN, CKD stage III, prostate Ca s/p radiation/ seed, h/o urinary retention, needing peña, leukemia (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), hypothyroidism, dementia, chronic low back pain, progressive dementia, recently admitted with unwitnessed fall vs syncope comes with another unwitnessed fall -Unwitnessed fall from bed vs syncope -Orthostatic hypotension -Hypernatremia, suspect from poor free water intake/continuation of lasix -DEE on CKD stage III,?from above -Complicated UTI -AMS, suspect toxic metabolic encephalopathy from above/Delirium in the setting of severe dementia -Afib s/p PMM, on xarelto -Acute on chronic systolic/diastolic HF exacerbation -Pul HTN -CKD stage III -HTN -HLD -CAD -Prostate ca s/p radiation/seed -Leukemia -Hypothyroidism -Chronic low back pain -Progressive dementia Plan: BP stable, transtion to lasix 20 mg daily on dc. Outpatient cardiology follow up. renal function stable. urology input noted. Voiding freely, renal function stable. Flomax d/marylin, on finasteride, outpatient urology follow up. Advised to avoid sudden postural changes. s/p 5 days of ceftriaxone PT eval noted, for SNF Dispo bed available, d/c order placed 03/13 to SNF.For dc today Visit type - Emergency Visit Emergency Visit: Yes ED Registration Date: 03/09/19 Care time: The patient presented to the Emergency Department on the above date and was hospitalized for further evaluation of their emergent condition. - New Patient This patient is new to me today: No - Critical Care Critical Care patient: No - Discharge Referral Referred to [facility] No
[2019-03-15] MEDS: DONEPEZIL HCL 10 MG TABLET (FP) PO SCH (10:20)
[2019-03-15] MEDS: metoPROLOL SUCCINATE 25 MG TAB.SR.24H (FP) PO SCH (10:21)
[2019-03-15] MEDS: AMIODARONE HCL 200 MG TABLET (FP) PO SCH (10:21)
[2019-03-15] MEDS: FINASTERIDE 5 MG TABLET (FP) PO SCH (10:24)
[2019-03-15 10:54] VITALS: BP 102/48; PULSE 62; TEMP 97.5
--- NOTE | 2019-03-15 12:09 | PN ---
Progress Note (short form) - Note Progress Note: no chest pain, palps, dizziness, dyspnea Current Medications Amiodarone HCl (Cordarone -) 100 mg PO DAILY [facility] Last Admin: 03/15/19 10:21 Dose: 100 mg Donepezil HCl (Aricept -) 10 mg PO DAILY [facility] Last Admin: 03/15/19 10:20 Dose: 10 mg Finasteride (Proscar -) 5 mg PO DAILY [facility] Last Admin: 03/15/19 10:24 Dose: 5 mg Levothyroxine Sodium (Synthroid -) 75 mcg PO AM [facility] Last Admin: 03/15/19 06:15 Dose: 75 mcg Metoprolol Succinate (Toprol Xl -) 25 mg PO BID [facility] Last Admin: 03/15/19 10:21 Dose: 25 mg Quetiapine Fumarate (Seroquel -) 50 mg PO HS [facility] Last Admin: 03/14/19 22:07 Dose: 50 mg Rivaroxaban (Xarelto) 15 mg PO 1630 [facility] Last Admin: 03/14/19 18:07 Dose: 15 mg Vital Signs Period Temp Pulse Resp BP Sys/Neal Pulse Ox Last 24 Hr 97.5 F-98.3 F 60-75 18-18 91-135/37-55 98-98 Constitutional: Yes: Well Nourished, No Distress, Calm Cardiovascular: Yes: Regular Rate and Rhythm, S1, S2. No: Gallop, Murmur Respiratory: Yes: Regular, CTA Bilaterally. No: Accessory Muscle Use, Rales, Wheezes Extremities: No: Cold Edema: No Neurological: Yes: Alert. No: Seizure Psychiatric: No: Agitated Assessment/Plan MPI 2012 (pers): v-paced; small-medium apical infarct; apical AK with EF 46% LHC/RHC '09 normal wedge, nl PAP, mod nonobstructive OM1 lesion, no other dz, nl EF Echo 10/2017 nl LV size, LV function mod impaired EF 40%, septal wall motion c/w pacing, other wilson mildly hypok, RV nl funcion, LA/RA severely dilated, mod MR , mod to sev TR, at least mild to mod pulm HTN, RVSP at least 47 mmHg, ao root 4.2 cm Pacemaker: [employer] interrogated--> normal device function. Optivol crossing over last few months noted, worse in December. IMP: -known orthostatic hypotension tendencies--s/p fall with marked orthostatic hypotension here -acute combined systolic and diastolic CHF (? sec to untreated severe ANJUM) -afib on xarelto -s/p PPM -? early dementia (h/o severe sundowning when in hospital) -chronic L spine dz/pain -CKD (creat 1.7-1.9 baseline)--stable renal fxn here -multiple recent admissions for various issues including urinary retention, now recently discharged from rehab presents to ER after fall at home and with complaints of dizziness, found to be markedly orthostatic, hydrated gently overnight with subsequent mild chf REC: -markedly orthostatic here (40 mmHg bp drop). 03/13: orthostatics ok (no intervention for this--spurious?). prior rare h/o same, likely being exacerbated by tamsulosin at present - tamsulosin was dc'ed -flomax stopped, changed to finasteride per --orthostasis resolved. -appears euvolemic. bun/creat stable--cont lasix 40 po qd. -cont home BB. no YANI/ARB sec to orthostatic hypotension and intolerance previously -Abx deferred to PMD, r/o UTI. -Chronic anemia (? sec to CKD)--H/H stable at baseline. -For now, continue NOAC--has been stable as far as falls risk previously, now with reversible cause (orthostatic hypotension)
== END 2019-03-15 13:39 | DRG 689 ==
LOC: JER 22:10 → JERBED 03-09 06:30 → J4W 03-09 11:20
PROVIDERS: ADMIT Internal Medicine; ATTEND Hospitalist
DX: N39.0 Urinary tract infection, site not specified (principal); I50.43 Acute on chronic combined systolic (congestive) and diastolic (congestive) heart failure; G93.41 Metabolic encephalopathy; I13.0 Hypertensive heart and chronic kidney disease with heart failure and stage 1 through stage 4 chronic kidney disease, or unspecified chronic kidney disease; N17.9 Acute kidney failure, unspecified; E87.0 Hyperosmolality and hypernatremia; I95.1 Orthostatic hypotension; I48.2 Chronic atrial fibrillation; N18.3 Chronic kidney disease, stage 3 (moderate); I27.20 Pulmonary hypertension, unspecified; E78.5 Hyperlipidemia, unspecified; E03.9 Hypothyroidism, unspecified; F03.90 Unspecified dementia, unspecified severity, without behavioral disturbance, psychotic disturbance, mood disturbance, and anxiety; E86.0 Dehydration; I25.10 Atherosclerotic heart disease of native coronary artery without angina pectoris; N40.0 Benign prostatic hyperplasia without lower urinary tract symptoms; M54.5 Low back pain
CPT/HCPCS: 36415; 70450-TC; 71045-TC-FY; 72125-TC; 73070-TC-LT-FY; 73562-TC-LT-FY; 80048; 80053; 81003; 82550; 83735; 83880; 84100; 84443; 84484; 85025; 85610; 85730; 87077; 87086; 93005; 93010; 93880-TC; 97116-GP; 97161-GP; 99283-25

== ENCOUNTER 2019-08-22 04:35 | Observation (INO) | payer OTHER, MEDICARE ==
[2019-08-22 05:09] VITALS: BMI 30.7
--- NOTE | 2019-08-22 05:21 | PDOC ---
History of Present Illness - General Chief Complaint: Pain, Acute Stated Complaint: R SIDE PAIN History Source: Patient Exam Limitations: No Limitations - History of Present Illness Initial Comments: 08/22/19 07:52 89 y/o male with PMH of dementia, prostate ca, BPH sp TURP, CHF, HTN, Afib (on xarelto) ppm, and CKD presents to the emergency department with unwitnessed fall at his nursing facility. The patient has no recollection of the event and is difficult to ascertain the events leading to the fall. The daughter at bedside stated that her father falls frequently. The patient complains of pain in his neck, lower back, and anterior portion of his right hip. The patient denies headache, visual changes, nausea, vomiting, chest pain, SOB, abdominal pain, and dysuria. Past History - Past Medical History Allergies/Adverse Reactions: Allergies Allergy/AdvReac Type Severity Reaction Status Date / Time No Known Drug Allergies Allergy Verified 08/22/19 05:00 Home Medications: Ambulatory Orders Amiodarone HCl [Cordarone -] 100 mg PO DAILY 04/17/18 Donepezil HCl 10 mg PO DAILY 04/17/18 Levothyroxine [Synthroid -] 50 mcg PO DAILY 04/17/18 Metoprolol Succinate 25 mg PO BID 04/17/18 Quetiapine Fumarate [Seroquel -] 12.5 mg PO HS 04/17/18 Furosemide 20 mg PO DAILY 01/27/19 Rivaroxaban [Xarelto] 15 mg PO DAILY 01/27/19 Finasteride [Proscar -] 5 mg PO DAILY tablet 03/13/19 Anemia: No Asthma: No Cancer: Yes (Prostate, SEEDING, leukemia) Cardiac Disorders: Yes (Atrial Fibrillation, PPM) CVA: No COPD: No CHF: Yes Dementia: Yes (MILD) Diabetes: Yes Dialysis: No GI Disorders: Yes (espohageal dilations, GI bleed) Disorders: No HTN: Yes Hypercholesterolemia: Yes Kidney Stones: No Liver Disease: No Seizures: No Thyroid Disease: Yes (hypothyroid) - Surgical History Abdominal Surgery: No Appendectomy: No Cardiac Surgery: Yes (PACEMAKER) Cholecystectomy: No Lung Surgery: No Neurologic Surgery: No Orthopedic Surgery: Yes (BACK SURGERY) - Immunization History Td Vaccination: Yes TDAP Vaccination: Yes Immunization Up to Date: Yes - Psycho Social/Smoking Cessation Hx Smoking Status: No Smoking History: Never smoked Have you smoked in the past 12 months: No Number of Cigarettes Smoked Daily: 0 Cigars Per Day: 0 Hx Alcohol Use: No Drug/Substance Use Hx: No Substance Use Type: None Hx Substance Use Treatment: No Review of Systems - Review of Systems Able to Perform ROS?: No (Dementia) Is the patient limited Chinese proficient: Yes *Physical Exam - Vital Signs Last Vital Signs Temp Pulse Resp BP Pulse Ox 98.6 F 76 18 131/85 98 08/22/19 04:35 08/22/19 04:35 08/22/19 04:35 08/22/19 04:35 08/22/19 04:35 - Physical Exam General Appearance: Yes: Nourished, Appropriately Dressed. No: Apparent Distress, Intoxicated HEENT: positive: EOMI, LATAI, Normal Voice, Symmetrical, Pharynx Normal, Hearing Grossly Normal. negative: Pale Conjunctivae, Scleral Icterus (R), Scleral Icterus (L), Muffled/Hoarse voice, Pharyngeal Erythema, Tonsillar Exudate, Tonsillar Erythema, Nasal Congestion, Rhinorrhea, Sinus Tenderness, Excessive drooling Neck: positive: Tender (midline tenderness in the C6-C7 region), Trachea midline , Supple. negative: Lymphadenopathy (R), Lymphadenopathy (L) Respiratory/Chest: positive: Lungs Clear, Normal Breath Sounds. negative: Chest Tender, Respiratory Distress, Accessory Muscle Use, Crackles, Rales, Rhonchi, Stridor, Wheezing Cardiovascular: positive: Regular Rate, S1, S2, Irregularly Irregular. negative : Systolic Murmur Gastrointestinal/Abdominal: positive: Normal Bowel Sounds, Flat, Soft. negative : Tender, Distended, Guarding, Rebound Lymphatic: negative: Adenopathy Musculoskeletal: positive: Normal Inspection, Vertebral Tenderness (lumbar midline and right paraspinal region L1-L4). negative: CVA Tenderness Extremity: positive: Normal Capillary Refill, Normal Inspection, Normal Range of Motion. negative: Tender Integumentary: positive: Normal Color, Dry, Warm Neurologic: positive: Alert, Normal Mood/Affect. negative: Fully Oriented (to self only) ED Treatment Course - LABORATORY CBC & Chemistry Diagram: 08/22/19 06:45 08/22/19 05:33 Medical Decision Making - Medical Decision Making 89 y/o male with PMH of dementia, prostate ca, BPH sp TURP, CHF, HTN, Afib (on xarelto) ppm, and CKD presents to the emergency department with unwitnessed fall at his nursing facility. Initial vitals: Initial Vital Signs Temp Pulse Resp BP Pulse Ox 98.6 F 76 18 131/85 98 08/22/19 04:35 08/22/19 04:35 08/22/19 04:35 08/22/19 04:35 08/22/19 04:35 Work up: 89 yo M presents with right flank/pelvis pain with midline lumbar pain in the setting of a traumatic fall. Also on xarelto. hemodynamically stable currently. Patient to receive CT of the head, cervical/thoracic/lumbar, chest, abdomen and pelvis to rule out acute process. Will order syncope work up labs. Patient was signed out to the day team with pending image reads and lab work. Discharge - Discharge Information Problems reviewed: Yes Clinical Impression/Diagnosis: Syncope and collapse - Follow up/Referral - Patient Discharge Instructions - Post Discharge Activity
--- NOTE | 2019-08-22 05:24 | PDOC ---
Attending Attestation - Resident Resident Name: Thomas Crandall - ED Attending Attestation I have performed the following: I have examined & evaluated the patient, The case was reviewed & discussed with the resident, I agree w/resident's findings & plan - HPI HPI: 08/22/19 05:21 see resident hpi - Physicial Exam PE: 08/22/19 05:21 agree with resident exam - Medical Decision Making 08/22/19 05:23 89-year-old male status post unwitnessed fall with history of dementia, poor historian currently on Xarelto Plan for scan of the head cervical spine chest abdomen and pelvis to evaluate for fractures There is low risk of visceral injury and history of renal insufficiency IV contrast withheld
[2019-08-22] MEDS ORDERED: ACETAMINOPHEN 1000 MG/100 ML VIAL (NON FORMULARY) IVPB ONE (05:30)
[2019-08-22] MEDS ORDERED: ACETAMINOPHEN INJECTION 100 ML IVPB ONE (05:37)
[2019-08-22 07:51] LABS: BASO % 0.4 % (0-2.0); EOS % 1.5 % (0-4.5); HEMATOCRIT 29.8 % (35.4-49); HEMOGLOBIN 9.6 GM/dL (11.7-16.9); LYMPH % 32.2 % (8-40); MCH 27.2 pg (25.7-33.7); MCHC 32.1 g/dl (32.0-35.9); MEAN CELL VOLUME 84.6 fl (80-96); MEAN PLT VOLUME 7.9 fl (7.5-11.1); MONO % 8.6 % (3.8-10.2); NEUT % 57.3 % (42.8-82.8); PLATELET COUNT 177 K/MM3 (134-434); RBC 3.52 M/mm3 (4.00-5.60); RDW 19.3 % (11.9-15.9)
[2019-08-22 08:06] LABS: INR 1.18 (0.83-1.09)
--- NOTE | 2019-08-22 08:32 | PDOC ---
*Physical Exam - Vital Signs Last Vital Signs Temp Pulse Resp BP Pulse Ox 97.9 F 69 17 139/66 97 08/22/19 06:31 08/22/19 06:31 08/22/19 06:31 08/22/19 06:31 08/22/19 06:31 ED Treatment Course - LABORATORY CBC & Chemistry Diagram: 08/22/19 06:45 08/22/19 05:33 - ADDITIONAL ORDERS Additional order review: Laboratory Results 08/22/19 06:45 PT with INR 14.00 H INR 1.18 H 08/22/19 06:45 RBC 3.52 L MCV 84.6 MCHC 32.1 RDW 19.3 H MPV 7.9 Neutrophils % 57.3 Lymphocytes % 32.2 D Monocytes % 8.6 Eosinophils % 1.5 Basophils % 0.4 - RADIOLOGY Radiograph Interpretation: Head CT: CT scan of the brain c-. Comparison study. CT brain March 09, 2019 Findings. Serial axial images of the brain were obtained from foramen magnum to the cranial vertex without intravenous contrast, with coronal, sagittal reconstruction. The head was tilted using the acquisition of images. There is no evidence of acute subarachnoid hemorrhage, acute intra-axial or extra-axial fluid collection consistent with subdural or epidural hematoma. No acute territorial ischemic changes, herniation or edema is present. Normal nunez matter white matter differentiation. Cortical sulci sylvian fissure perimesencephalic cisterns are not effaced Loss of volume of the brain parenchyma with involutional changes. There is dilatation the lateral ventricles , third ventricle. Dilated temporal horns associated with loss of volume of medial temporal lobes, hippocampus clinically correlate history of Alzheimer dementia. CSF spaces unchanged from prior CT Intracranial vascular calcifications are noted Examination of the bone windows show no fracture. Status post cataract surgeries. Right occipital lobe calcification. Impression. No evidence of acute intracranial hemorrhage, edema, midline shift, mass effect , or skull fracture. No CT evidence of acute territorial ischemic changes. Chest/Abdomen CT: [id number] EXAM#: TYPE/EXAM: RESULT: CT/CHEST CT WITHOUT CONTRAST CT/ABDOMEN PELVIS CT W/ O CONTR HISTORY PROVIDED: Trauma TECHNIQUE: Sequential axial images were obtained from the thoracic inlet through the symphysis pubis. The study is severely limited without the use of any contrast material, as well as the patient's poor cooperation. Examination of the mediastinum demonstrates no evidence of mediastinal masses, fluid collections or significant lymphadenopathy. The heart is enlarged. There is a large hiatal hernia within the retrocardiac space extending into the left hemithorax. The lung osuna are free of pulmonary masses, areas of acute consolidation or pleural effusions. There is a moderate degree of chronic interstitial lung disease. There is also a calcified granuloma at the right lung base. The liver, spleen, pancreas, adrenal glands and kidneys demonstrate no gross abnormalities. Gallstones are identified within the gallbladder. The kidneys are somewhat atrophic. The aorta is markedly ectatic with no evidence of aneurysmal dilatation. There is no evidence of pneumoperitoneum, bowel obstruction or intra-abdominal abscess. Examination of the pelvis demonstrates no evidence of pelvic masses, fluid collections or lymphadenopathy. There is extensive diverticulosis of the sigmoid colon with no evidence of acute diverticulitis. Brachytherapy seeds are identified within the prostate gland which is not enlarged. A moderate amount of retained fecal material is noted within the rectum. There is no definite evidence of fracture or acute bony pathology. There are multiple compression fractures of the thoracic and upper lumbar spine that have not significantly changed since a CT scan of 03/15/2016. The patient is S/P kyphoplasty at T11 and T12. IMPRESSION: 1. Cardiomegaly and extensive chronic interstitial lung disease with no acute pathology within the chest. 2. Cholelithiasis with no evidence of acute pathology within the abdomen or pelvis. Markedly limited study as described above. - Medications Given in the ED: ED Medications Discontinued Medications Generic Name Dose Route Start Last Admin Trade Name Freq PRN Reason Stop Dose Admin Acetaminophen 1,000 mg 08/22/19 05:30 08/22/19 06:28 Ofirmev Injection - IVPB 08/22/19 05:31 1,000 mg ONCE ONE Administration Medical Decision Making - Medical Decision Making Patient signed out to me from night team pending Labs and imaging to then be admitted to the hospital for syncope workup and ACS r/o on Tele - I spoke with Dr. Napier who accepts the patient for admission to his service Discharge - Discharge Information Problems reviewed: Yes Clinical Impression/Diagnosis: Syncope and collapse Condition: Fair - Admission Yes - Follow up/Referral Referrals: Jack Sharp MD [Primary Care Provider] - - Patient Discharge Instructions - Post Discharge Activity
[2019-08-22 08:33] LABS: EPI CELLS 2.7 /HPF (0-5/HPF); HYALINE CASTS 2 /lpf (0-8); URINE APPEARANCE CLEAR; URINE BACTERIA 8.1 /hpf (NEGATIVE); URINE BILIRUBIN NEGATIVE (NEGATIVE); URINE COLOR YELLOW; URINE GLUCOSE (UA) NEGATIVE (NEGATIVE); URINE KETONE NEGATIVE (NEGATIVE); URINE LEUK ESTERASE 1+ (NEGATIVE); URINE NITRITE NEGATIVE (NEGATIVE); URINE PROTEIN 1+ (NEGATIVE); URINE RBC 4 /hpf (0-4); URINE UROBILINOGEN 0.2 mg/dL (0.2-1.0); URINE WBC 15 /hpf (0-5)
[2019-08-22 08:58] LABS: ALBUMIN 3.8 g/dl (3.4-5.0); BILIRUBIN,TOTAL 0.4 mg/dL (0.2-1); BLOOD UREA NITROGEN 15.7 mg/dL (7-18); CALCIUM 8.9 mg/dL (8.5-10.1); CREATININE 1.3 mg/dL (0.55-1.3); POTASSIUM 4.7 mmol/L (3.5-5.1); TOT PROT 6.5 g/dl (6.4-8.2)
[2019-08-22] MEDS ORDERED: morphine CARPU-JECT 2 MG/1 ML DISP.SYRIN IM ONE (08:58)
[2019-08-22] MEDS ORDERED: MORPHINE SULFATE 2 MG/ML VIAL ONE (08:59)
--- NOTE | 2019-08-22 10:31 | HP ---
Admitting History and Physical - Admission Chief Complaint: Acute unwitnessed fall, acute pain of the right hip, low back, and cervical region. History of Present Illness: This 89 yr old w/m with hx of CHF, atrial fibrillation, BPH (s/p TURP), prostate cancer, leukemia, dementia, HTN, and CKD admitted via ER with an acute unwitnessed fall, and acute pain of the right hip, thigh, low back and cervical region. 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: Dementia Cardiovascular: Yes: AFIB, CAD, CHF, HTN, Hyperlipdemia Pulmonary: No: Asthma, Bronchitis, Cancer, COPD, O2 Dependent, Pneumonia, Previously Intubated, Pulmonary Embolus, Pulmonary Fibrosis, Sleep Apnea, Other Gastrointestinal: No: Ascites, Cancer, Constipation, Crohn's Disease, Diverticulitis, Diverticulosis, Esophageal Varices, Gastritis, GERD, GI Bleed, Hemorrhoids, Hiatal Hernia, Inflamatory Bowel Disease, Irritable Bowel Disease, Pancreatitis, Peptic Ulcer Disease, Ulcerative Colitis, Other Hepatobiliary: No: Cirrhosis, Cholelithiasis, Cholecystitis, Choledocholithiasis , Hepatitis A, Hepatitis B, Hepatitis C, Other Renal/: Yes: Renal Inusuff, BPH, Other Heme/Onc: Yes: Anemia, Other (leukemia) Infectious Disease: No: AIDS, C-Diff, Herpes Zoster, HIV, MRSA, STD's, Tuberculosis, VREF, Other Psych: Yes: Depression Musculoskeletal: Yes: Chronic low back pain (compression fractures of the spine) Rheumatology: No: Fibromyalgia, Gout, Lupus, Rheumatoid Arthritis, Sarcoidosis, Vasculitis, Other ENT: No: Allergic Rhinitis, Sinusitis, Other Endocrine: Yes: Hypothyroidism Dermatology: No: Basal Cell, Cellulitis, Eczema, Melanoma, Psoriasis, Squamous Cell, Other - Past Surgical History Past Surgical History: Yes: Permanent Pacemaker - Smoking History Smoking history: Never smoked Have you smoked in the past 12 months: No Aproximately how many cigarettes per day: 0 - Alcohol/Substance Use Hx Alcohol Use: No History of Substance Use: reports: None - Social History ADL: Family Assistance History of Recent Travel: No Home Medications - Allergies Allergies/Adverse Reactions: Allergies Allergy/AdvReac Type Severity Reaction Status Date / Time No Known Drug Allergies Allergy Verified 08/22/19 05:00 - Home Medications Home Medications: Ambulatory Orders Amiodarone HCl [Cordarone -] 100 mg PO DAILY 04/17/18 Donepezil HCl 10 mg PO DAILY 04/17/18 Levothyroxine [Synthroid -] 50 mcg PO DAILY 04/17/18 Metoprolol Succinate 25 mg PO BID 04/17/18 Quetiapine Fumarate [Seroquel -] 12.5 mg PO HS 04/17/18 Furosemide 20 mg PO DAILY 01/27/19 Rivaroxaban [Xarelto] 15 mg PO DAILY 01/27/19 Finasteride [Proscar -] 5 mg PO DAILY tablet 03/13/19 Review of Systems - Review of Systems Constitutional: reports: Weakness Eyes: reports: No Symptoms HENT: reports: No Symptoms Neck: reports: Pain on Movement, Stiffness Cardiovascular: reports: No Symptoms Respiratory: denies: No Symptoms, Cough, Exercise Intolerance, Hemoptysis, Orthopnea, PND, Snoring, SOB, SOB on Exertion, Wheezing, Other Gastrointestinal: denies: No Symptoms, Abdominal Pain, Bloating, Constipation, Diarrhea, Dysphagia, Indigestion, Melena, Nausea, Rectal Bleeding, Vomiting, Vomiting Blood, Other Genitourinary: denies: No Symptoms, Burning, Discharge, Dysuria, Flank Pain, Frequency, Hematuria, Incontinence, Lesions, Menses, Pain, Testicular Mass, Testicular Pain, Testicular Swelling, Urgency, Vaginal Bleeding, Other Breasts: reports: No Symptoms Reported Musculoskeletal: reports: Muscle Weakness Integumentary: reports: No Symptoms Neurological: reports: Incoordination, Unsteady Gait, Weakness Endocrine: reports: No Symptoms Hematology/Lymphatic: reports: No Symptoms Psychiatric: reports: Depression Physical Examination Vital Signs: Vital Signs Temperature 98 F 08/22/19 10:23 Pulse Rate 80 08/22/19 10:23 Respiratory Rate 18 08/22/19 10:23 Blood Pressure 108/70 08/22/19 10:23 O2 Sat by Pulse Oximetry (%) 98 08/22/19 09:26 Constitutional: Yes: Well Nourished, No Distress, Calm Eyes: Yes: Conjunctiva Clear, EOM Intact HENT: Yes: Atraumatic, Normocephalic Neck: Yes: Supple, Trachea Midline, Decreased ROM Cardiovascular: Yes: Regular Rate and Rhythm Respiratory: Yes: Regular, CTA Bilaterally Gastrointestinal: Yes: Normal Bowel Sounds, Soft ...Rectal Exam: Yes: Deferred Renal/: Yes: WNL Breast(s): Yes: WNL Musculoskeletal: Yes: Muscle Weakness Extremities: Yes: Other (generalized muscle weakness) Edema: No Peripheral Pulses WNL: Yes Peripheral Pulses: Left Radial: 2+, Right Radial: 2+, Left Doralis Pedis: 2+, Right Dorsalis Pedis: 2+, Left Femoral: 2+, Right Femoral: 2+ Integumentary: Yes: WNL Neurological: Yes: Alert, Unsteady Gait, Weakness ...Motor Strength: LUE (generalized muscle weakness) Psychiatric: Yes: Alert Labs: CBC, BMP 08/22/19 06:45 08/22/19 05:33 Problem List - Problems (1) Syncope and collapse Code(s): R55 - SYNCOPE AND COLLAPSE (2) AF (paroxysmal atrial fibrillation) Code(s): I48.0 - PAROXYSMAL ATRIAL FIBRILLATION (3) Afib Code(s): I48.91 - UNSPECIFIED ATRIAL FIBRILLATION (4) Anemia Code(s): D64.9 - ANEMIA, UNSPECIFIED (5) Unwitnessed fall Code(s): R29.6 - REPEATED FALLS (6) Cardiomegaly Code(s): I51.7 - CARDIOMEGALY (7) Cholelithiasis Code(s): K80.20 - CALCULUS OF GALLBLADDER W/O CHOLECYSTITIS W/O OBSTRUCTION (8) Spondylosis of cervical spine Code(s): M47.812 - SPONDYLOSIS W/O MYELOPATHY OR RADICULOPATHY, CERVICAL REGION (9) Diverticulosis of sigmoid colon Code(s): K57.30 - DVRTCLOS OF LG INT W/O PERFORATION OR ABSCESS W/O BLEEDING (10) Thoracic compression fracture Code(s): S22.000A - WEDGE COMPRESSION FRACTURE OF UNSP THORACIC VERTEBRA, INIT (11) Lumbar compression fracture Code(s): S32.000A - WEDGE COMPRESSION FRACTURE OF UNSP LUMBAR VERTEBRA, INIT (12) Hx of kyphoplasty Code(s): Z98.890 - OTHER SPECIFIED POSTPROCEDURAL STATES (13) Hiatal hernia Code(s): K44.9 - DIAPHRAGMATIC HERNIA WITHOUT OBSTRUCTION OR GANGRENE (14) Compression fracture of L1 lumbar vertebra Code(s): S32.010A - WEDGE COMPRESSION FRACTURE OF FIRST LUMBAR VERTEBRA, INIT (15) Compression fracture of L2 lumbar vertebra Code(s): S32.020A - WEDGE COMPRESSION FRACTURE OF SECOND LUMBAR VERTEBRA, INIT Assessment/Plan Assessment/plan: acute syncope, acute unwitnessed fall, acute pain of the right hip, thigh, low back and cervical area; telemetry, physical therapy, out of bed in wheelchair, scd's, DVT prophylaxis.
[2019-08-22] MEDS: ACETAMINOPHEN 500 MG TABLET (FP) PO PRN (12:49)
[2019-08-23] MEDS: ACETAMINOPHEN 500 MG TABLET (FP) PO PRN (04:45)
[2019-08-23 10:56] VITALS: BP 145/74; PULSE 65; TEMP 97.4
--- NOTE | 2019-08-23 11:23 | EKG ---
Test Reason : Blood Pressure : / mmHG Vent. Rate : 067 BPM Atrial Rate : 357 BPM P-R Int : 000 ms QRS Dur : 132 ms QT Int : 458 ms P-R-T Axes : 000 002 084 degrees QTc Int : 483 ms Suspect unspecified pacemaker failure Ventricular-paced rhythm ABNORMAL ECG WHEN COMPARED WITH ECG OF 09-MAR-2019 03:42, VENT. RATE HAS INCREASED BY 7 BPM Confirmed by Garland Lua MD ([id number]) on 08/23/2019 11:22:42 AM Referred By: Confirmed By:Garland Lua MD
--- NOTE | 2019-08-23 13:30 | DS ---
Physical Examination Vital Signs: Vital Signs Temperature 97.4 F L 08/23/19 10:00 Pulse Rate 65 08/23/19 10:00 Respiratory Rate 22 H 08/23/19 10:00 Blood Pressure 145/74 08/23/19 10:00 O2 Sat by Pulse Oximetry (%) 98 08/23/19 09:00 Labs: CBC, BMP 08/22/19 06:45 08/22/19 05:33 Discharge Summary Problems reviewed: Yes Reason For Visit: SYNCOPR AND COLLAPSE Condition: Fair - Instructions Diet, Activity, Other Instructions: Continue home meds. Tylenol 500mg po bid for right hip pain. Physical therapy. Activity as tolerated in wheelchair. Transfer to [facility]. Total time spent over 30 minutes. Referrals: Jack Sharp MD [Primary Care Provider] - Disposition: [facility] - Home Medications Comprehensive Discharge Medication List: Ambulatory Orders Amiodarone HCl [Cordarone -] 100 mg PO DAILY 04/17/18 Donepezil HCl 10 mg PO DAILY 04/17/18 Levothyroxine [Synthroid -] 50 mcg PO DAILY 04/17/18 Metoprolol Succinate 25 mg PO BID 04/17/18 Quetiapine Fumarate [Seroquel -] 12.5 mg PO HS 04/17/18 Furosemide 20 mg PO DAILY 01/27/19 Rivaroxaban [Xarelto] 15 mg PO DAILY 01/27/19 Finasteride [Proscar -] 5 mg PO DAILY tablet 03/13/19 Acetaminophen [Tylenol .Extra-Strength -] 500 mg PO Q4H PRN tablet 08/23/19
== END 2019-08-23 11:15 ==
LOC: JER 04:35 → JERBED 08:39 → J4W 09:54
PROVIDERS: ADMIT Internal Medicine; ATTEND Internal Medicine
PROC: 3E013NZ Introduction of Analgesics, Hypnotics, Sedatives into Subcutaneous Tissue, Percutaneous Approach (ICD-10-PCS; principal; 2019-08-22)
DX: R55 Syncope and collapse (principal); I12.9 Hypertensive chronic kidney disease with stage 1 through stage 4 chronic kidney disease, or unspecified chronic kidney disease; I13.0 Hypertensive heart and chronic kidney disease with heart failure and stage 1 through stage 4 chronic kidney disease, or unspecified chronic kidney disease; N18.9 Chronic kidney disease, unspecified; E78.5 Hyperlipidemia, unspecified; I50.9 Heart failure, unspecified; I48.0 Paroxysmal atrial fibrillation; N40.0 Benign prostatic hyperplasia without lower urinary tract symptoms; F03.90 Unspecified dementia, unspecified severity, without behavioral disturbance, psychotic disturbance, mood disturbance, and anxiety; E03.9 Hypothyroidism, unspecified; D64.9 Anemia, unspecified; M47.812 Spondylosis without myelopathy or radiculopathy, cervical region; K57.30 Diverticulosis of large intestine without perforation or abscess without bleeding; K44.9 Diaphragmatic hernia without obstruction or gangrene; R29.6 Repeated falls; K80.20 Calculus of gallbladder without cholecystitis without obstruction; C95.90 Leukemia, unspecified not having achieved remission; Z85.46 Personal history of malignant neoplasm of prostate; Z79.01 Long term (current) use of anticoagulants; Z95.1 Presence of aortocoronary bypass graft; Z98.890 Other specified postprocedural states
CPT/HCPCS: 36415; 70450-TC; 71250-TC; 72125-TC; 72128-TC; 72131-TC; 74176-TC; 80053; 81003; 82550; 84443; 84484; 85025; 85610; 87086; 93005; 93010; 96372; 96374; 97116-GP; 97161-GP; 99285-25; G0378; J0131

== ENCOUNTER 2019-09-14 09:46 | Inpatient (IN) | payer OTHER, MEDICARE ==
--- NOTE | 2019-09-14 10:08 | PDOC ---
Attending Attestation - Resident Resident Name: Kareen Bowles - ED Attending Attestation I have performed the following: I have examined & evaluated the patient, The case was reviewed & discussed with the resident, I agree w/resident's findings & plan, Exceptions are as noted - HPI HPI: 09/14/19 11:37 Patient with dementia, shelter at [facility], [facility], blood was noted by the staff, dark red, in the toilet bowl this morning after defecating. Denies abdominal pain. History of anemia requiring transfusions, peptic ulcer disease with GI bleeding. A. fib on Xarelto. INR is 2.47, which is unusual. - Physicial Exam PE: 09/14/19 11:38 Awake, confused, but baseline mental status according to his daughter, who is present no signs stable Pale, nonicteric Lungs clear CV regular without murmur rub or gallop Abdomen benign Rectal without masses or tenderness, stool is black, guaiac positive. 09/14/19 11:40 Stool is guaiac positive H&H of 6 and 19 LFTs are normal INR 2.47 - Medical Decision Making 09/14/19 11:41 Assessment: Upper gastrointestinal bleeding, on anticoagulant for A. fib Plan: Primary physician contacted by phone. Case was reviewed. Recommended holding Xarelto, transfusion, and transfer to [facility] for further monitoring and GI consultation. Patient is DNR.
--- NOTE | 2019-09-14 10:11 | PDOC ---
History of Present Illness - General Stated Complaint: RECTAL BLEEDING Time Seen by Provider: 09/14/19 09:50 History Source: Patient, Family (daughter), Custodial Records Exam Limitations: Dementia - History of Present Illness Initial Comments: 09/14/19 10:24 89y M with PMH of Afib (Xarelto, PPM), CLL, Prostate Ca (s/p seeding), CKD, CHF , HTN, Hypothyroidism, Dementia presenting to ED from [facility] for rectal bleeding this AM. Per NH, pt had a bowel movement which was black with blood around it. Pt does not recall this. He is denying any abdominal pain, vomiting, headache, lightheadedness, shortness of breath. He does endorse feeling weak. Per daughter, pt had bleeding ulcers years ago. Unable to obtain further information from patient. DNR/DNI PMD: [facility] Cardiology: [facility] Onc: [facility] GI: Saw Dr. Bustamante in the past PMH: see hpi PSH: Meds: see med rec Allergies: nkda Past History - Past Medical History Allergies/Adverse Reactions: Allergies Allergy/AdvReac Type Severity Reaction Status Date / Time No Known Drug Allergies Allergy Verified 08/22/19 05:00 Home Medications: Ambulatory Orders Amiodarone HCl [Cordarone -] 100 mg PO DAILY 04/17/18 Donepezil HCl 10 mg PO HS 04/17/18 Levothyroxine [Synthroid -] 50 mcg PO DAILY 04/17/18 Metoprolol Succinate 25 mg PO BID 04/17/18 Quetiapine Fumarate [Seroquel -] 12.5 mg PO HS 04/17/18 Furosemide 20 mg PO DAILY 01/27/19 Rivaroxaban [Xarelto] 15 mg PO DAILY 01/27/19 Finasteride [Proscar -] 5 mg PO DAILY tablet 03/13/19 Acetaminophen [Tylenol .Extra-Strength -] 500 mg PO Q4H PRN tablet 08/23/19 Cyanocobalamin (Vitamin B-12) [Vitamin B-12] 2,500 mcg SL WEEKLY 09/14/19 Iron Polysaccharide Complex [Ferrex 150] 150 mg PO DAILY 09/14/19 Melatonin 5 mg PO HS 09/14/19 Sennosides [Senna] 8.6 mg PO DAILY 09/14/19 Anemia: No Asthma: No Cancer: Yes (Prostate, SEEDING, leukemia) Cardiac Disorders: Yes (Atrial Fibrillation, PPM) CVA: No COPD: No CHF: Yes Dementia: Yes (MILD) Diabetes: Yes Dialysis: No GI Disorders: Yes (espohageal dilations, GI bleed) Disorders: No HTN: Yes Hypercholesterolemia: Yes Kidney Stones: No Liver Disease: No Seizures: No Thyroid Disease: Yes (hypothyroid) - Surgical History Abdominal Surgery: No Appendectomy: No Cardiac Surgery: Yes (PACEMAKER) Cholecystectomy: No Lung Surgery: No Neurologic Surgery: No Orthopedic Surgery: Yes (BACK SURGERY) - Immunization History Td Vaccination: Yes TDAP Vaccination: Yes Immunization Up to Date: Yes - Psycho Social/Smoking Cessation Hx Smoking Status: No Smoking History: Unknown if ever smoked Have you smoked in the past 12 months: No Number of Cigarettes Smoked Daily: 0 Cigars Per Day: 0 Hx Alcohol Use: No Drug/Substance Use Hx: No Substance Use Type: None Hx Substance Use Treatment: No Review of Systems - Review of Systems Constitutional: Yes: Weakness HEENTM: No: Symptoms Reported Respiratory: No: Shortness of Breath Cardiac (ROS): No: Lightheadedness, Palpitations, Syncope ABD/GI: Yes: Rectal Bleeding, Tarry Stools. No: Abdominal cramping Musculoskeletal: No: Symptoms Reported Integumentary: No: Symptoms Reported Neurological: No: Symptoms reported *Physical Exam - Physical Exam General Appearance: Yes: Appropriately Dressed, Obese. No: Apparent Distress HEENT: positive: EOMI, LATIA, Pale Conjunctivae Neck: positive: Trachea midline, Supple Respiratory/Chest: positive: Lungs Clear, Normal Breath Sounds. negative: Crackles, Rales, Rhonchi, Stridor, Wheezing Cardiovascular: positive: Regular Rhythm, Regular Rate, S1, S2. negative: Edema , JVD, Murmur Vascular Pulses: Dorsalis-Pedis (R): 2+, Doralis-Pedis (L): 2+ Gastrointestinal/Abdominal: positive: Normal Bowel Sounds, Soft. negative: Tender Rectal Exam: positive: normal rectal tone, melena, heme positive stool. negative: hemorrhoids Musculoskeletal: negative: CVA Tenderness Extremity: positive: Normal Capillary Refill. 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 vitals wnl -tarry stools with brbpr ddx includes upper +/- lower gi bleed. pt is on blood thinner. no history of AAA ; low suspicion for fistula. -cbc, ts, coags, cmp, ekg , cxr hgb 6.9, down almost 3u from July this year. hct 19. Cr at baseline. cxr: no acute pathology. will transfuse [address] Nathan. will admit to med/surg for GI bleed Discharge - Discharge Information Problems reviewed: Yes Clinical Impression/Diagnosis: GI bleed Qualifiers: GI bleed type/associated pathology: melena Qualified Code(s): K92.1 - Melena Condition: Stable - Admission Yes - Follow up/Referral - Patient Discharge Instructions - Post Discharge Activity
[2019-09-14 11:09] LABS: INR 2.47 (0.82-1.09); PROTHROMBIN TIME (PATIENT) 27.2 SEC (10.2-13.0)
[2019-09-14 11:12] LABS: ALBUMIN 3.2 g/dl (3.4-5.0); BASO % 0.3 % (0-2.0); BILIRUBIN,TOTAL 0.4 mg/dl (0.2-1); CREATININE 1.4 mg/dl (0.55-1.3); EOS % 0.6 % (0-4.5); HEMATOCRIT 19.2 % (35.4-49); LYMPH % 22.5 % (8-40); MCH 28.7 pg (25.7-33.7); MCHC 33.1 g/dl (32.0-35.9); MEAN CELL VOLUME 86.7 fl (80-96); MEAN PLT VOLUME 7.8 fl (7.5-11.1); MONO % 7.7 % (3.8-10.2); NEUT % 68.9 % (42.8-82.8); PLATELET COUNT 178 K/MM3 (134-434); POTASSIUM 4.1 mmol/L (3.5-5.1); RBC 2.21 M/mm3 (4.00-5.60); RDW 18.2 % (11.9-15.9); TOT PROT 5.4 g/dl (6.4-8.2); WHITE BLOOD COUNT 8.3 K/mm3 (4.0-10.8)
[2019-09-14 11:14] LABS: HEMOGLOBIN 6.3 GM/dl (11.7-16.9)
--- NOTE | 2019-09-14 12:01 | HP ---
Admitting History and Physical - Admission Chief Complaint: Acute lower GI bleeding, and acute generalized muscle weakness History of Present Illness: This 89 yr old w/m with hx of chronic atrial fibrillation, anemia, leukemia, HTN , HLD, CHF, CAD, BPH, renal insufficiency, depresion, chronic low back pain, hypothyroidism, dementia, and peptic ulcer disease admitted via ER with an acute lower GI bleeding, an acute severe anemia, and an acute generalized muscle weakness. 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: Dementia Cardiovascular: Yes: AFIB, CAD, CHF, HTN, Hyperlipdemia Pulmonary: No: Asthma, Bronchitis, Cancer, COPD, O2 Dependent, Pneumonia, Previously Intubated, Pulmonary Embolus, Pulmonary Fibrosis, Sleep Apnea, Other Gastrointestinal: No: Ascites, Cancer, Constipation, Crohn's Disease, Diverticulitis, Diverticulosis, Esophageal Varices, Gastritis, GERD, GI Bleed, Hemorrhoids, Hiatal Hernia, Inflamatory Bowel Disease, Irritable Bowel Disease, Pancreatitis, Peptic Ulcer Disease, Ulcerative Colitis, Other Hepatobiliary: No: Cirrhosis, Cholelithiasis, Cholecystitis, Choledocholithiasis , Hepatitis A, Hepatitis B, Hepatitis C, Other Renal/: Yes: Renal Inusuff, BPH Heme/Onc: Yes: Anemia, Other (leukemia) Infectious Disease: No: AIDS, C-Diff, Herpes Zoster, HIV, MRSA, STD's, Tuberculosis, VREF, Other Psych: Yes: Depression Musculoskeletal: Yes: Chronic low back pain (compression fractures of the spine) Rheumatology: No: Fibromyalgia, Gout, Lupus, Rheumatoid Arthritis, Sarcoidosis, Vasculitis, Other ENT: No: Allergic Rhinitis, Sinusitis, Other Endocrine: Yes: Hypothyroidism Dermatology: No: Basal Cell, Cellulitis, Eczema, Melanoma, Psoriasis, Squamous Cell, Other - Past Surgical History Past Surgical History: Yes: Permanent Pacemaker - Smoking History Smoking history: Unknown if ever smoked Have you smoked in the past 12 months: No Aproximately how many cigarettes per day: 0 - Alcohol/Substance Use Hx Alcohol Use: No History of Substance Use: reports: None - Social History Usual Living Arrangement: Yes: Assisted Living ADL: Family Assistance History of Recent Travel: No Home Medications - Allergies Allergies/Adverse Reactions: Allergies Allergy/AdvReac Type Severity Reaction Status Date / Time No Known Drug Allergies Allergy Verified 08/22/19 05:00 - Home Medications Home Medications: Ambulatory Orders Amiodarone HCl [Cordarone -] 100 mg PO DAILY 04/17/18 Donepezil HCl 10 mg PO HS 04/17/18 Levothyroxine [Synthroid -] 50 mcg PO DAILY 04/17/18 Metoprolol Succinate 25 mg PO BID 04/17/18 Quetiapine Fumarate [Seroquel -] 12.5 mg PO HS 04/17/18 Furosemide 20 mg PO DAILY 01/27/19 Rivaroxaban [Xarelto] 15 mg PO DAILY 01/27/19 Finasteride [Proscar -] 5 mg PO DAILY tablet 03/13/19 Acetaminophen [Tylenol .Extra-Strength -] 500 mg PO Q4H PRN tablet 08/23/19 Cyanocobalamin (Vitamin B-12) [Vitamin B-12] 2,500 mcg SL WEEKLY 09/14/19 Iron Polysaccharide Complex [Ferrex 150] 150 mg PO DAILY 09/14/19 Melatonin 5 mg PO HS 09/14/19 Sennosides [Senna] 8.6 mg PO DAILY 09/14/19 Review of Systems - Review of Systems Constitutional: reports: Weakness (severe anemia) HENT: reports: No Symptoms Neck: reports: No Symptoms Cardiovascular: reports: No Symptoms Respiratory: reports: No Symptoms Gastrointestinal: reports: Melena, Rectal Bleeding Genitourinary: reports: No Symptoms Breasts: reports: No Symptoms Reported Musculoskeletal: reports: Muscle Weakness Integumentary: reports: Pallor Neurological: reports: Unsteady Gait, Weakness Endocrine: reports: No Symptoms Hematology/Lymphatic: reports: No Symptoms Psychiatric: reports: Depression Physical Examination Vital Signs: Vital Signs Temperature 98.1 F 09/14/19 09:47 Pulse Rate 73 09/14/19 11:03 Respiratory Rate 09/14/19 11:03 Blood Pressure 118/58 L 09/14/19 11:03 O2 Sat by Pulse Oximetry (%) 98 09/14/19 11:03 Constitutional: Yes: Well Nourished, Pallor, Other (generalized muscle weakness) Eyes: Yes: Conjunctiva Clear, EOM Intact HENT: Yes: Atraumatic, Normocephalic Neck: Yes: Supple, Trachea Midline Cardiovascular: Yes: Regular Rate and Rhythm Respiratory: Yes: Regular, CTA Bilaterally Gastrointestinal: Yes: Normal Bowel Sounds, Soft, Melena, Rectal Bleeding ...Rectal Exam: Yes: Guaiac Positive Renal/: Yes: WNL Breast(s): Yes: WNL Musculoskeletal: Yes: Muscle Weakness Extremities: Yes: Pallor, Other (generalized muscle weakness) Edema: No Peripheral Pulses WNL: Yes Peripheral Pulses: Left Radial: 2+, Right Radial: 2+, Left Doralis Pedis: 2+, Right Dorsalis Pedis: 2+ Integumentary: Yes: WNL Neurological: Yes: Alert, Confusion, Unsteady Gait, Weakness ...Motor Strength: LUE (muscle weakness), LLE (muscle weakness), RUE (muscle weakness), RLE (muscle weakness) Psychiatric: Yes: Alert Labs: CBC, BMP 09/14/19 10:43 09/14/19 10:43 Imaging - Results Chest X-ray: Report Reviewed Other: Report Reviewed (Lab data reviewed) Problem List - Problems (1) AF (paroxysmal atrial fibrillation) Code(s): I48.0 - PAROXYSMAL ATRIAL FIBRILLATION (2) Acute pure red cell anemia Code(s): D60.8 - OTHER ACQUIRED PURE RED CELL APLASIAS (3) Afib Code(s): I48.91 - UNSPECIFIED ATRIAL FIBRILLATION (4) Altered mental status Code(s): R41.82 - ALTERED MENTAL STATUS, UNSPECIFIED (5) Anemia Code(s): D64.9 - ANEMIA, UNSPECIFIED (6) Anxiety Code(s): F41.9 - ANXIETY DISORDER, UNSPECIFIED (7) Cardiomegaly Code(s): I51.7 - CARDIOMEGALY (8) Dementia Code(s): F03.90 - UNSPECIFIED DEMENTIA WITHOUT BEHAVIORAL DISTURBANCE (9) Diverticulosis of sigmoid colon Code(s): K57.30 - DVRTCLOS OF LG INT W/O PERFORATION OR ABSCESS W/O BLEEDING (10) HTN (hypertension) Code(s): I10 - ESSENTIAL (PRIMARY) HYPERTENSION (11) Hx of fpc use of blood thinners Code(s): Z79.01 - MCC (CURRENT) USE OF ANTICOAGULANTS (12) Hyperlipidemia Code(s): E78.5 - HYPERLIPIDEMIA, UNSPECIFIED (13) Hypothyroid Code(s): E03.9 - HYPOTHYROIDISM, UNSPECIFIED (14) Intractable low back pain Code(s): M54.5 - LOW BACK PAIN (15) Lumbar compression fracture Code(s): S32.000A - WEDGE COMPRESSION FRACTURE OF UNSP LUMBAR VERTEBRA, INIT (16) Orthostatic hypotension Code(s): I95.1 - ORTHOSTATIC HYPOTENSION (17) Spondylosis of cervical spine Code(s): M47.812 - SPONDYLOSIS W/O MYELOPATHY OR RADICULOPATHY, CERVICAL REGION (18) Thoracic compression fracture Code(s): S22.000A - WEDGE COMPRESSION FRACTURE OF UNSP THORACIC VERTEBRA, INIT (19) Thrombocytopenia Code(s): D69.6 - THROMBOCYTOPENIA, UNSPECIFIED (20) Anemia Code(s): D64.9 - ANEMIA, UNSPECIFIED (21) Back pain Code(s): M54.9 - DORSALGIA, UNSPECIFIED (22) Hypothyroidism Code(s): E03.9 - HYPOTHYROIDISM, UNSPECIFIED (23) Peptic ulcer disease with hemorrhage Code(s): K27.4 - CHRONIC OR UNSP PEPTIC ULCER, SITE UNSP, WITH HEMORRHAGE (24) Gastric ulcer Code(s): K25.9 - GASTRIC ULCER, UNSP ACUTE OR CHRONIC, W/O HEMOR OR PERF (25) Lower GI bleeding Code(s): K92.2 - GASTROINTESTINAL HEMORRHAGE, UNSPECIFIED (26) Muscle weakness (generalized) Code(s): M62.81 - MUSCLE WEAKNESS (GENERALIZED) Assessment/Plan Assessment/plan: acute lower GI bleeding, acute peptic ulcer with hemorrhage, acute gastric ulcer, acute severe anemia, acute generalized muscle weakness; 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
[2019-09-14] MEDS ORDERED: ACETAMINOPHEN 500 MG TABLET (FP) PO PRN (12:59)
--- NOTE | 2019-09-14 13:28 | PN ---
Progress Note (short form) - Note Progress Note: Patient seen and consult dictated. Patient with acute GI bleed/anemia - likely UGI bleed with hx of PUD, and on Xarelto. Agree with plans for PRBC transfusions, holding Xarelto and close monitoring. Decision regarding EGD per clinical course with discussion had with daughter. Begin on Pantoprazole IV empirically. Monitor CBC.
[2019-09-14] MEDS ORDERED: PANTOPRAZOLE SODIUM 40 MG VIAL ONE (13:29)
[2019-09-14] MEDS: PANTOPRAZOLE SODIUM 40 MG VIAL IVPUSH SCH ×2 (13:35→21:35)
[2019-09-14] MEDS ORDERED: D5-1/2NS+10 MEQ KCL - 10 MEQ/1,000 ML INFUS.BAG IV SCH (13:45)
--- NOTE | 2019-09-14 13:47 | CONS ---
DATE OF CONSULTATION: 09/14/2019 REQUESTING PHYSICIAN: Rajesh Napier MD HISTORY: Patient is an 89-year-old residential resident at the [facility] with a history of mild dementia. The patient does have a history of bleeding ulcers in the past and a most recent diagnosis of atrial fibrillation for which she was initially on Coumadin and most recently on Xarelto. He now presents with dark red blood and melena from this morning. His hematocrit at the present time is 19% with a hemoglobin of 6. His INR is 2.47. The patient is alert. He is mildly confused but in no obvious discomfort. He is afebrile with a blood pressure of 103/77 and a heart rate of 85. His white count is 8.3. His platelet count is 178,000. The patient, as mentioned, has had peptic ulcer disease and bleeding in the past, but according to the daughter, this was many years ago. He has not knowingly been on any aspirin or NSAIDs. PHYSICAL EXAMINATION: General: He is a well-developed, elderly, pale-appearing gentleman in no obvious discomfort lying in bed. Seen in the emergency room. HEENT: He has pale conjunctivae. No icterus. Lungs: Grossly clear lungs. Heart: An irregular heart rate. Abdomen: His abdomen is soft, flat, and nontender. Rectal: The stool is grossly Hemoccult positive. Patient with acute GI bleed most likely related to his underlying ulcer disease with superimposed Xarelto. He will receive packed red blood cells and empirically be started on a proton pump inhibitor. The patient is currently DNR and DNI, but this may be lifted in order for the patient to have an endoscopy at a future date if he is stable. Decision regarding anticoagulation based on his clinical course and possible endoscopic findings. MARK TOWNSEND M.D. [id number]
[2019-09-14 14:09] LABS: EPITHELIAL CELLS RARE /hpf
[2019-09-14 14:10] LABS: URINE MUCUS 1+
--- NOTE | 2019-09-14 14:21 | EKG ---
Test Reason : Blood Pressure : / mmHG Vent. Rate : 064 BPM Atrial Rate : 241 BPM P-R Int : 000 ms QRS Dur : 130 ms QT Int : 468 ms P-R-T Axes : 000 -01 142 degrees QTc Int : 482 ms Ventricular-paced rhythm ABNORMAL ECG WHEN COMPARED WITH ECG OF 22-AUG-2019 08:52, VENT. RATE HAS DECREASED BY 3 BPM Confirmed by BERLIN WILLARD MD ([id number]) on 09/14/2019 2:20:44 PM Referred By: HALLIE BRENNAN Confirmed By:BERLIN WILLARD MD
[2019-09-14 15:18] VITALS: BMI 30.1
[2019-09-14] MEDS ORDERED: HALOPERIDOL LACTATE 5 MG/ML IM ONE (20:15)
[2019-09-14] MEDS: MELATONIN 5 MG TABLETS PO SCH (21:35)
[2019-09-14] MEDS: SENNOSIDES 8.6MG TABLET (FP) PO SCH (21:36)
[2019-09-15] MEDS: LEVOTHYROXINE NA 50 MCG TABLET (FP) PO SCH (06:23)
[2019-09-15] MEDS ORDERED: D5-1/2NS+10 MEQ KCL - 10 MEQ/1,000 ML INFUS.BAG IV SCH (07:54)
[2019-09-15 07:55] LABS: EOS % 0.4 % (0-4.5); MEAN PLT VOLUME 7.8 fl (7.5-11.1); NEUT % 61.9 % (42.8-82.8)
[2019-09-15 07:56] LABS: ALBUMIN 3.3 g/dl (3.4-5.0); BILIRUBIN,TOTAL 0.7 mg/dl (0.2-1); CALCIUM 8.1 mg/dl (8.5-10); CREATININE 1.5 mg/dl (0.55-1.3); POTASSIUM 4.2 mmol/L (3.5-5.1); TOT PROT 5.2 g/dl (6.4-8.2)
--- NOTE | 2019-09-15 07:58 | PN ---
Progress Note, Physician Chief Complaint: Patient seen and examined at the bedside, no acute events from last night, feeling stronger today. History of Present Illness: This 89 yr old w/m with hx of chronic atrial fibrillation, anemia, leukemia, peptic ulcer disease, renal insufficiency, HTN, HLD, CAD, BPH, CHF, depression, chronic low back pain, and dementia admitted via ER with an acute lower GI bleeding, and acute generalized muscle weakness. - Current Medication List Current Medications: Active Medications Acetaminophen (Tylenol -) 500 mg PO Q6H PRN PRN Reason: MODERATE PAIN Amiodarone HCl (Cordarone -) 100 mg PO DAILY [facility] Donepezil HCl (Aricept -) 10 mg PO DAILY@1800 [facility] Finasteride (Proscar -) 5 mg PO DAILY [facility] Furosemide (Lasix -) 20 mg PO DAILY [facility] Potassium Chloride/Dextrose/Sod Cl (D5-1/2ns+10 Meq Kcl -) 10 meq in 1,000 mls @ 42 mls/hr IV ASDIR [facility] Levothyroxine Sodium (Synthroid -) 50 mcg PO DAILY@0700 [facility] Last Admin: 09/15/19 06:23 Dose: 50 mcg Melatonin (Melatonin) 5 mg PO [facility] Last Admin: 09/14/19 21:35 Dose: Not Given Metoprolol Succinate (Toprol Xl -) 25 mg PO BID@0800,2000 [facility] Pantoprazole Sodium (Protonix Iv) 40 mg IVPUSH BID [facility] Last Admin: 09/14/19 21:35 Dose: Not Given Quetiapine Fumarate (Seroquel -) 12.5 mg PO DAILY@2000 [facility] Senna (Senna -) 1 tab PO [facility] Last Admin: 09/14/19 21:36 Dose: Not Given - Objective Vital Signs: Vital Signs Temperature 98.3 F 09/15/19 05:00 Pulse Rate 64 09/15/19 05:00 Respiratory Rate 18 09/15/19 05:00 Blood Pressure 147/60 09/15/19 05:00 O2 Sat by Pulse Oximetry (%) 98 09/15/19 06:59 Constitutional: Yes: Well Nourished, No Distress, Calm Eyes: Yes: Conjunctiva Clear, EOM Intact HENT: Yes: Atraumatic, Normocephalic Neck: Yes: Supple, Trachea Midline Cardiovascular: Yes: Regular Rate and Rhythm Respiratory: Yes: Regular, CTA Bilaterally Gastrointestinal: Yes: Normal Bowel Sounds ...Rectal Exam: Yes: Guaiac Positive Genitourinary: Yes: WNL Breast(s): Yes: WNL Musculoskeletal: Yes: Muscle Weakness Edema: No Peripheral Pulses WNL: Yes Peripheral Pulses: Left Radial: 2+, Right Radial: 2+, Left Doralis Pedis: 2+, Right Dorsalis Pedis: 2+ Integumentary: Yes: WNL Neurological: Yes: Alert, Confusion, Unsteady Gait, Weakness ...Motor Strength: LLE (muscle weakness), RLE (muscle weakness) Psychiatric: Yes: Alert Labs: INR, PTT INR 2.47 (0.82-1.09) H 09/14/19 10:43 - ....Imaging Other: Report Reviewed (Lab data reviewed) Problem List - Problems (1) AF (paroxysmal atrial fibrillation) Code(s): I48.0 - PAROXYSMAL ATRIAL FIBRILLATION (2) Acute pure red cell anemia Code(s): D60.8 - OTHER ACQUIRED PURE RED CELL APLASIAS (3) Afib Code(s): I48.91 - UNSPECIFIED ATRIAL FIBRILLATION (4) Altered mental status Code(s): R41.82 - ALTERED MENTAL STATUS, UNSPECIFIED (5) Anemia Code(s): D64.9 - ANEMIA, UNSPECIFIED (6) Anxiety Code(s): F41.9 - ANXIETY DISORDER, UNSPECIFIED (7) Cardiomegaly Code(s): I51.7 - CARDIOMEGALY (8) Dementia Code(s): F03.90 - UNSPECIFIED DEMENTIA WITHOUT BEHAVIORAL DISTURBANCE (9) Diverticulosis of sigmoid colon Code(s): K57.30 - DVRTCLOS OF LG INT W/O PERFORATION OR ABSCESS W/O BLEEDING (10) HTN (hypertension) Code(s): I10 - ESSENTIAL (PRIMARY) HYPERTENSION (11) Hx of director of compliance use of blood thinners Code(s): Z79.01 - CARE HOME (CURRENT) USE OF ANTICOAGULANTS (12) Hyperlipidemia Code(s): E78.5 - HYPERLIPIDEMIA, UNSPECIFIED (13) Hypothyroid Code(s): E03.9 - HYPOTHYROIDISM, UNSPECIFIED (14) Intractable low back pain Code(s): M54.5 - LOW BACK PAIN (15) Lumbar compression fracture Code(s): S32.000A - WEDGE COMPRESSION FRACTURE OF UNSP LUMBAR VERTEBRA, INIT (16) Orthostatic hypotension Code(s): I95.1 - ORTHOSTATIC HYPOTENSION (17) Spondylosis of cervical spine Code(s): M47.812 - SPONDYLOSIS W/O MYELOPATHY OR RADICULOPATHY, CERVICAL REGION (18) Thoracic compression fracture Code(s): S22.000A - WEDGE COMPRESSION FRACTURE OF UNSP THORACIC VERTEBRA, INIT (19) Thrombocytopenia Code(s): D69.6 - THROMBOCYTOPENIA, UNSPECIFIED (20) Anemia Code(s): D64.9 - ANEMIA, UNSPECIFIED (21) Back pain Code(s): M54.9 - DORSALGIA, UNSPECIFIED (22) Hypothyroidism Code(s): E03.9 - HYPOTHYROIDISM, UNSPECIFIED (23) Peptic ulcer disease with hemorrhage Code(s): K27.4 - CHRONIC OR UNSP PEPTIC ULCER, SITE UNSP, WITH HEMORRHAGE (24) Gastric ulcer Code(s): K25.9 - GASTRIC ULCER, UNSP ACUTE OR CHRONIC, W/O HEMOR OR PERF (25) Lower GI bleeding Code(s): K92.2 - GASTROINTESTINAL HEMORRHAGE, UNSPECIFIED (26) Muscle weakness (generalized) Code(s): M62.81 - MUSCLE WEAKNESS (GENERALIZED) Assessment/Plan Assessment/plan: acute lower GI bleeding, acute generalized muscle weakness; NPO , IV fluids, IV Protonix, blood transfusion, DVT prophylaxis, SCDS, physical therapy, fall precautions, wrist restraints.
[2019-09-15 08:08] LABS: BASO % 0.3 % (0-2.0); HEMATOCRIT 24.4 % (35.4-49); LYMPH % 28.1 % (8-40); MCH 28.9 pg (25.7-33.7); MCHC 32.9 g/dl (32.0-35.9); MEAN CELL VOLUME 87.7 fl (80-96); MONO % 9.3 % (3.8-10.2); PLATELET COUNT 164 K/MM3 (134-434); RBC 2.79 M/mm3 (4.00-5.60); RDW 15.4 % (11.9-15.9); WHITE BLOOD COUNT 7.2 K/mm3 (4.0-10.8)
[2019-09-15] MEDS: metoPROLOL SUCCINATE 25 MG TAB.SR.24H (FP) PO SCH ×2 (08:26→22:13)
[2019-09-15] MEDS: PANTOPRAZOLE SODIUM 40 MG VIAL IVPUSH SCH ×2 (09:36→22:13)
[2019-09-15] MEDS: FUROSEMIDE 20 MG TABLET (FP) PO SCH (09:37)
[2019-09-15] MEDS: AMIODARONE HCL 200 MG TABLET PO SCH (09:37)
[2019-09-15] MEDS: FINASTERIDE 5 MG TABLET (FP) PO SCH (09:37)
[2019-09-15] MEDS ORDERED: metoPROLOL SUCCINATE 25 MG TAB.SR.24H (FP) PO SCH (10:00)
[2019-09-15] MEDS ORDERED: AMIODARONE HCL 200 MG TABLET PO SCH (10:00)
[2019-09-15] MEDS ORDERED: PROPOFOL 20 ML ONE ×2 (13:41)
--- NOTE | 2019-09-15 14:03 | PN ---
Progress Note (short form) - Note Progress Note: Patient s/p PRBC transfusion with Hct 24-25%. No further dark blood passage off Eliquis VSS Abdomen soft +BS nontender Upper endoscopy performed with report in chart. Findings include a small-medium sized hiatal hernia and minimal gastritis. No ulcer, mass or bleeding site identified. Unclear if the recent bleeding was due to an upper GI or LGI source (BUN/creat ratio essentially unchanged today) Suggest 1. repeat INR 2. begin on clear liquid diet 3. monitor CBC 4. consider colonoscopy if patient/family agreeable or alternatively, restart a/ c with caution and follow closely
--- NOTE | 2019-09-15 14:18 | PN ---
Progress Note (short form) - Note Progress Note: Discussed findings on EGD with patient's daughter; in view of reported chronic blood loss (for which patient was on iron, with dark stools) and history of colon polyps (last exam >5-10 years ago) will arrange for colonoscopy on Wednesday. To keep on a clear liquid diet (non-red/purple) and prep on Wednesday with Nulytely.
--- NOTE | 2019-09-15 14:26 | PN ---
Progress Note (short form) - Note Progress Note: Diet adjusted; to allow low sodium diet today and tomorrow with prep orders for colonoscopy (and clear liquid diet) on Wednesday
[2019-09-15] MEDS: DONEPEZIL HCL 10 MG TABLET (FP) PO SCH (17:40)
[2019-09-15 17:46] LABS: BASO % 0.2 % (0-2.0); EOS % 0.2 % (0-4.5); HEMATOCRIT 24.8 % (35.4-49); LYMPH % 19.8 % (8-40); MCH 27.9 pg (25.7-33.7); MCHC 32.3 g/dl (32.0-35.9); MEAN CELL VOLUME 86.2 fl (80-96); MEAN PLT VOLUME 7.7 fl (7.5-11.1); MONO % 11.3 % (3.8-10.2); NEUT % 68.5 % (42.8-82.8); PLATELET COUNT 182 K/MM3 (134-434); RBC 2.88 M/mm3 (4.00-5.60); RDW 15.8 % (11.9-15.9); WHITE BLOOD COUNT 7.6 K/mm3 (4.0-10.8)
[2019-09-15] MEDS ORDERED: QUEtiapine FUMARATE 25 MG TABLET PO SCH (20:00)
[2019-09-15] MEDS: QUEtiapine FUMARATE 25 MG TABLET PO SCH (22:12)
[2019-09-15] MEDS: SENNOSIDES 8.6MG TABLET (FP) PO SCH (22:12)
[2019-09-15] MEDS: MELATONIN 5 MG TABLETS PO SCH (22:13)
[2019-09-16] MEDS: LEVOTHYROXINE NA 50 MCG TABLET (FP) PO SCH (06:47)
[2019-09-16 08:49] LABS: BASO % 0.2 % (0-2.0); EOS % 0.5 % (0-4.5); HEMATOCRIT 21.8 % (35.4-49); HEMOGLOBIN 7.3 GM/dl (11.7-16.9); INR 1.1 (0.82-1.09); MCH 29.2 pg (25.7-33.7); MCHC 33.3 g/dl (32.0-35.9); MEAN CELL VOLUME 87.8 fl (80-96); MEAN PLT VOLUME 7.4 fl (7.5-11.1); MONO % 9.9 % (3.8-10.2); NEUT % 67.4 % (42.8-82.8); PLATELET COUNT 153 K/MM3 (134-434); PROTHROMBIN TIME (PATIENT) 12.3 SEC (10.2-13.0); RBC 2.49 M/mm3 (4.00-5.60); RDW 16.2 % (11.9-15.9)
[2019-09-16 08:50] LABS: ALBUMIN 3.1 g/dl (3.4-5.0); BILIRUBIN,TOTAL 0.5 mg/dl (0.2-1); CALCIUM 7.9 mg/dl (8.5-10); CREATININE 1.3 mg/dl (0.55-1.3); POTASSIUM 3.2 mmol/L (3.5-5.1); TOT PROT 4.9 g/dl (6.4-8.2)
[2019-09-16] MEDS: AMIODARONE HCL 200 MG TABLET PO SCH (12:13)
[2019-09-16] MEDS: PANTOPRAZOLE SODIUM 40 MG VIAL IVPUSH SCH ×2 (12:13→22:01)
[2019-09-16] MEDS: FINASTERIDE 5 MG TABLET (FP) PO SCH (12:13)
[2019-09-16] MEDS ORDERED: D5-1/2NS+10 MEQ KCL - 10 MEQ/1,000 ML INFUS.BAG IV SCH (13:25)
--- NOTE | 2019-09-16 13:28 | PN ---
Progress Note, Physician Chief Complaint: Patient seen and examined at the bedside, black tarry stools mixed with blood, feeling very weak today. History of Present Illness: This 89 yr old w/m with hx of leukemia, peptic ulcer disease, chronic atrial fibrillation, anemia, HTN, HLD, CHF, BPH, CAD, renal insufficiency, chronic low back pain, depression, and dementia admitted via ER with an acute lower GI bleeding, and acute generalized muscle weakness. - Current Medication List Current Medications: Active Medications Acetaminophen (Tylenol -) 500 mg PO Q6H PRN PRN Reason: MODERATE PAIN Amiodarone HCl (Cordarone -) 100 mg PO DAILY [facility] Last Admin: 09/15/19 09:37 Dose: 100 mg Donepezil HCl (Aricept -) 10 mg PO DAILY@1800 [facility] Last Admin: 09/15/19 17:40 Dose: 10 mg Finasteride (Proscar -) 5 mg PO DAILY [facility] Last Admin: 09/15/19 09:37 Dose: 5 mg Furosemide (Lasix -) 20 mg PO DAILY [facility] Last Admin: 09/15/19 09:37 Dose: 20 mg Potassium Chloride/Dextrose/Sod Cl (D5-1/2ns+10 Meq Kcl -) 10 meq in 1,000 mls @ 60 mls/hr IV ASDIR [facility] Last Admin: 09/15/19 08:36 Dose: 60 mls/hr Levothyroxine Sodium (Synthroid -) 50 mcg PO DAILY@0700 [facility] Last Admin: 09/16/19 06:47 Dose: 50 mcg Melatonin (Melatonin) 5 mg PO [facility] Last Admin: 09/15/19 22:13 Dose: 5 mg Metoprolol Succinate (Toprol Xl -) 25 mg PO BID@799,1999 [facility] Last Admin: 09/15/19 22:13 Dose: 25 mg Pantoprazole Sodium (Protonix Iv) 40 mg IVPUSH BID [facility] Last Admin: 09/15/19 22:13 Dose: 40 mg Polyethylene Glycol/Electrolytes (Nulytely) 4,000 ml PO ONCE ONE Stop: 09/17/19 13:01 Quetiapine Fumarate (Seroquel -) 12.5 mg PO DAILY@1999 [facility] Last Admin: 09/15/19 22:12 Dose: 12.5 mg Senna (Senna -) 1 tab PO [facility] Last Admin: 09/15/19 22:12 Dose: 1 tab - Objective Vital Signs: Vital Signs Temperature 97.4 F L 09/16/19 10:00 Pulse Rate 61 09/16/19 10:00 Respiratory Rate 20 09/16/19 10:00 Blood Pressure 95/36 L 09/16/19 10:00 O2 Sat by Pulse Oximetry (%) 100 09/16/19 07:23 Constitutional: Yes: Well Nourished, Ashen, Mild Distress, Pallor Eyes: Yes: Conjunctiva Clear, EOM Intact HENT: Yes: Atraumatic, Normocephalic Neck: Yes: Supple, Trachea Midline Cardiovascular: Yes: Regular Rate and Rhythm Respiratory: Yes: Regular, CTA Bilaterally Gastrointestinal: Yes: Normal Bowel Sounds, Soft, Melena ...Rectal Exam: Yes: Guaiac Positive Genitourinary: Yes: WNL Breast(s): Yes: WNL Musculoskeletal: Yes: Muscle Weakness Extremities: Yes: Other (generalized muscle weakness) Edema: No Peripheral Pulses WNL: Yes Peripheral Pulses: Left Radial: 2+, Right Radial: 2+ Integumentary: Yes: WNL Neurological: Yes: Confusion, Unsteady Gait, Weakness ...Motor Strength: LUE (muscle weakness), LLE (muscle weakness), RUE (muscle weakness), RLE (muscle weakness) Psychiatric: Yes: Alert Labs: CBC, BMP 09/16/19 07:20 09/16/19 07:20 INR, PTT INR 1.10 (0.82-1.09) 09/16/19 07:20 - ....Imaging Other: Report Reviewed (Lab data reviewed) Problem List - Problems (1) AF (paroxysmal atrial fibrillation) Code(s): I48.0 - PAROXYSMAL ATRIAL FIBRILLATION (2) Acute pure red cell anemia Code(s): D60.8 - OTHER ACQUIRED PURE RED CELL APLASIAS (3) Afib Code(s): I48.91 - UNSPECIFIED ATRIAL FIBRILLATION (4) Altered mental status Code(s): R41.82 - ALTERED MENTAL STATUS, UNSPECIFIED (5) Anemia Code(s): D64.9 - ANEMIA, UNSPECIFIED (6) Anxiety Code(s): F41.9 - ANXIETY DISORDER, UNSPECIFIED (7) Cardiomegaly Code(s): I51.7 - CARDIOMEGALY (8) Dementia Code(s): F03.90 - UNSPECIFIED DEMENTIA WITHOUT BEHAVIORAL DISTURBANCE (9) Diverticulosis of sigmoid colon Code(s): K57.30 - DVRTCLOS OF LG INT W/O PERFORATION OR ABSCESS W/O BLEEDING (10) HTN (hypertension) Code(s): I10 - ESSENTIAL (PRIMARY) HYPERTENSION (11) 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 intermediate project manager use of blood 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000A - WEDGE COMPRESSION FRACTURE OF UNSP THORACIC VERTEBRA, INIT (19) Thrombocytopenia Code(s): D69.6 - THROMBOCYTOPENIA, UNSPECIFIED (20) Anemia Code(s): D64.9 - ANEMIA, UNSPECIFIED (21) Back pain Code(s): M54.9 - DORSALGIA, UNSPECIFIED (22) Hypothyroidism Code(s): E03.9 - HYPOTHYROIDISM, UNSPECIFIED (23) Peptic ulcer disease with hemorrhage Code(s): K27.4 - CHRONIC OR UNSP PEPTIC ULCER, SITE UNSP, WITH HEMORRHAGE (24) Gastric ulcer Code(s): K25.9 - GASTRIC ULCER, UNSP ACUTE OR CHRONIC, W/O HEMOR OR PERF (25) Lower GI bleeding Code(s): K92.2 - GASTROINTESTINAL HEMORRHAGE, UNSPECIFIED (26) Muscle weakness (generalized) Code(s): M62.81 - MUSCLE WEAKNESS (GENERALIZED) (27) Hypokalemia Code(s): E87.6 - HYPOKALEMIA Assessment/Plan Assessment/plan: acute lower GI bleeding, acute generalized muscle weakness, acute lethargy, acute anemia, acute hypokalemia; IV fluids, IV potassium chloride, blood transfusion, DVT prophylaxis, SCDS, physical therapy, oxygen as needed to maintain oxygen saturation above 90%, fall precautions.
[2019-09-16] MEDS ORDERED: D5-NS + 20 MEQ KCL - 20 MEQ/1,000 ML INFUS.BAG IV SCH ×2 (13:45→21:21)
[2019-09-16] MEDS: KCL 10 MEQ IVPB 10 MEQ/100 ML INFUS.BAG IVPB SCH ×2 (14:14→16:00)
[2019-09-16] MEDS: FUROSEMIDE 20 MG TABLET (FP) PO SCH (14:57)
[2019-09-16] MEDS: metoPROLOL SUCCINATE 25 MG TAB.SR.24H (FP) PO SCH ×2 (14:57→21:57)
[2019-09-16] MEDS: DONEPEZIL HCL 10 MG TABLET (FP) PO SCH (18:44)
[2019-09-16] MEDS: QUEtiapine FUMARATE 25 MG TABLET PO SCH (21:57)
[2019-09-16] MEDS: MELATONIN 5 MG TABLETS PO SCH (22:01)
[2019-09-16] MEDS: SENNOSIDES 8.6MG TABLET (FP) PO SCH (22:01)
[2019-09-16 23:10] LABS: HEMOGLOBIN 9.4 GM/dl (11.7-16.9); MCH 28.2 pg (25.7-33.7); MCHC 32.4 g/dl (32.0-35.9); MEAN CELL VOLUME 87.2 fl (80-96); MEAN PLT VOLUME 7.2 fl (7.5-11.1); PLATELET COUNT 152 K/MM3 (134-434); RBC 3.32 M/mm3 (4.00-5.60); RDW 15.1 % (11.9-15.9); WHITE BLOOD COUNT 7.9 K/mm3 (4.0-10.8)
[2019-09-17] MEDS: D5-NS + 20 MEQ KCL - 20 MEQ/1,000 ML INFUS.BAG IV SCH (01:00)
[2019-09-17] MEDS: LEVOTHYROXINE NA 50 MCG TABLET (FP) PO SCH (06:46)
[2019-09-17 09:28] LABS: BASO % 0.3 % (0-2.0); EOS % 0.9 % (0-4.5); HEMATOCRIT 30.3 % (35.4-49); HEMOGLOBIN 9.6 GM/dl (11.7-16.9); LYMPH % 24.7 % (8-40); MCH 27.5 pg (25.7-33.7); MCHC 31.6 g/dl (32.0-35.9); MEAN CELL VOLUME 87.3 fl (80-96); MEAN PLT VOLUME 7.7 fl (7.5-11.1); MONO % 8.9 % (3.8-10.2); NEUT % 65.2 % (42.8-82.8); PLATELET COUNT 157 K/MM3 (134-434); RBC 3.48 M/mm3 (4.00-5.60); RDW 15.3 % (11.9-15.9); WHITE BLOOD COUNT 7.6 K/mm3 (4.0-10.8)
[2019-09-17 09:33] LABS: ALBUMIN 3.1 g/dl (3.4-5.0); BILIRUBIN,TOTAL 0.5 mg/dl (0.2-1); CALCIUM 8.2 mg/dl (8.5-10); CREATININE 1.2 mg/dl (0.55-1.3); POTASSIUM 3.8 mmol/L (3.5-5.1); TOT PROT 5.2 g/dl (6.4-8.2)
--- NOTE | 2019-09-17 09:52 | PN ---
Progress Note, Physician Chief Complaint: Patient seen and examined at the bedside, no acute events from last night, feeling stronger today, more awake and alert. History of Present Illness: This 89 yr old w/m with hx of peptic ulcer disease, dementia, CHF, HTN, HLD, CAD , BPH leukemia, chronic atrial fibrillation, anemia, renal insufficiency, chronic low back pain, and depression admitted via ER with an acute lower GI bleeding, and an acute generalized muscle weakness, and severe anemia. - Current Medication List Current Medications: Active Medications Acetaminophen (Tylenol -) 500 mg PO Q6H PRN PRN Reason: MODERATE PAIN Amiodarone HCl (Cordarone -) 100 mg PO DAILY [facility] Last Admin: 09/16/19 12:13 Dose: 100 mg Donepezil HCl (Aricept -) 10 mg PO DAILY@1800 [facility] Last Admin: 09/16/19 18:44 Dose: 10 mg Finasteride (Proscar -) 5 mg PO DAILY [facility] Last Admin: 09/16/19 12:13 Dose: 5 mg Furosemide (Lasix -) 20 mg PO DAILY [facility] Last Admin: 09/16/19 14:57 Dose: Not Given Dextrose/Sodium Chloride (Dextrose 5%-Normal Saline+20 Meq Kcl -) 20 meq in 1, 000 mls @ 50 mls/hr IV ASDIR [facility] Last Admin: 09/17/19 01:00 Dose: 50 mls/hr Levothyroxine Sodium (Synthroid -) 50 mcg PO DAILY@0700 [facility] Last Admin: 09/17/19 06:46 Dose: 50 mcg Melatonin (Melatonin) 5 mg [address] [facility] Last Admin: 09/16/19 22:01 Dose: Not Given Metoprolol Succinate (Toprol Xl -) 25 mg PO BID@0800,1999 [facility] Last Admin: 09/16/19 21:57 Dose: Not Given Pantoprazole Sodium (Protonix Iv) 40 mg IVPUSH BID [facility] Last Admin: 09/16/19 22:01 Dose: 40 mg Polyethylene Glycol/Electrolytes (Nulytely) 4,000 ml PO ONCE ONE Stop: 09/17/19 13:01 Quetiapine Fumarate (Seroquel -) 12.5 mg PO DAILY@1999 [facility] Last Admin: 09/16/19 21:57 Dose: Not Given Senna (Senna -) 1 tab PO [facility] Last Admin: 09/16/19 22:01 Dose: 1 tab - Objective Vital Signs: Vital Signs Temperature 98.0 F 09/17/19 06:00 Pulse Rate 63 09/17/19 06:00 Respiratory Rate 18 09/17/19 06:00 Blood Pressure 110/68 09/17/19 06:00 O2 Sat by Pulse Oximetry (%) 98 09/16/19 22:00 Constitutional: Yes: Well Nourished, No Distress, Calm Eyes: Yes: Conjunctiva Clear, EOM Intact HENT: Yes: Atraumatic, Normocephalic Neck: Yes: Supple, Trachea Midline Cardiovascular: Yes: Regular Rate and Rhythm Respiratory: Yes: Regular, CTA Bilaterally Gastrointestinal: Yes: Normal Bowel Sounds, Soft ...Rectal Exam: Yes: Deferred Genitourinary: Yes: WNL Breast(s): Yes: WNL Musculoskeletal: Yes: Muscle Weakness Extremities: Yes: Other (generalized muscle weakness) Edema: No Peripheral Pulses WNL: Yes Peripheral Pulses: Left Radial: 2+, Right Radial: 2+ Integumentary: Yes: WNL Neurological: Yes: Alert, Unsteady Gait, Weakness ...Motor Strength: LUE (muscle weakness), LLE (muscle weakness), RUE (muscle weakness), RLE (muscle weakness) Psychiatric: Yes: Alert Labs: CBC, BMP 09/17/19 06:00 09/17/19 06:00 INR, PTT INR 1.10 (0.82-1.09) 09/16/19 07:20 - ....Imaging Other: Report Reviewed (Lab data reviewed) Problem List - Problems (1) AF (paroxysmal atrial fibrillation) Code(s): I48.0 - PAROXYSMAL ATRIAL FIBRILLATION (2) Acute pure red cell anemia Code(s): D60.8 - OTHER ACQUIRED PURE RED CELL APLASIAS (3) Afib Code(s): I48.91 - UNSPECIFIED ATRIAL FIBRILLATION (4) Altered mental status Code(s): R41.82 - ALTERED MENTAL STATUS, UNSPECIFIED (5) Anemia Code(s): D64.9 - ANEMIA, UNSPECIFIED (6) Anxiety Code(s): F41.9 - ANXIETY DISORDER, UNSPECIFIED (7) Cardiomegaly Code(s): I51.7 - CARDIOMEGALY (8) Dementia Code(s): F03.90 - UNSPECIFIED DEMENTIA WITHOUT BEHAVIORAL DISTURBANCE (9) Diverticulosis of sigmoid colon Code(s): K57.30 - DVRTCLOS OF LG INT W/O PERFORATION OR ABSCESS W/O BLEEDING (10) HTN (hypertension) Code(s): I10 - ESSENTIAL (PRIMARY) HYPERTENSION (11) Hx of long-term use of blood thinners Code(s): Z79.01 - SHELTER (CURRENT) USE OF ANTICOAGULANTS (12) Hyperlipidemia Code(s): E78.5 - HYPERLIPIDEMIA, UNSPECIFIED (13) Hypothyroid Code(s): E03.9 - HYPOTHYROIDISM, UNSPECIFIED (14) Intractable low back pain Code(s): M54.5 - LOW BACK PAIN (15) Lumbar compression fracture Code(s): S32.000A - WEDGE COMPRESSION FRACTURE OF UNSP LUMBAR VERTEBRA, INIT (16) Orthostatic hypotension Code(s): I95.1 - ORTHOSTATIC HYPOTENSION (17) Spondylosis of cervical spine Code(s): M47.812 - SPONDYLOSIS W/O MYELOPATHY OR RADICULOPATHY, CERVICAL REGION (18) Thoracic compression fracture Code(s): S22.000A - WEDGE COMPRESSION FRACTURE OF UNSP THORACIC VERTEBRA, INIT (19) Thrombocytopenia Code(s): D69.6 - THROMBOCYTOPENIA, UNSPECIFIED (20) Anemia Code(s): D64.9 - ANEMIA, UNSPECIFIED (21) Back pain Code(s): M54.9 - DORSALGIA, UNSPECIFIED (22) Hypothyroidism Code(s): E03.9 - HYPOTHYROIDISM, UNSPECIFIED (23) Peptic ulcer disease with hemorrhage Code(s): K27.4 - CHRONIC OR UNSP PEPTIC ULCER, SITE UNSP, WITH HEMORRHAGE (24) Gastric ulcer Code(s): K25.9 - GASTRIC ULCER, UNSP ACUTE OR CHRONIC, W/O HEMOR OR PERF (25) Lower GI bleeding Code(s): K92.2 - GASTROINTESTINAL HEMORRHAGE, UNSPECIFIED (26) Muscle weakness (generalized) Code(s): M62.81 - MUSCLE WEAKNESS (GENERALIZED) (27) Hypokalemia Code(s): E87.6 - HYPOKALEMIA Assessment/Plan Assessment/plan: Acute lower GI bleeding, acute severe anemia, acute generalized muscle weakness; IV fluids, blood transfuion, DVT prophylaxis, SCDs , physical therapy, oxygen as needed to maintain oxygen saturation above 90%, fall precautions.
[2019-09-17] MEDS: PANTOPRAZOLE SODIUM 40 MG VIAL IVPUSH SCH ×2 (10:00→22:40)
[2019-09-17] MEDS: FINASTERIDE 5 MG TABLET (FP) PO SCH (10:00)
[2019-09-17] MEDS: FUROSEMIDE 20 MG TABLET (FP) PO SCH (10:15)
[2019-09-17] MEDS: AMIODARONE HCL 200 MG TABLET PO SCH (10:30)
[2019-09-17] MEDS: metoPROLOL SUCCINATE 25 MG TAB.SR.24H (FP) PO SCH ×2 (10:50→20:57)
[2019-09-17] MEDS ORDERED: PEG/ELECTROLYTES (NULYTELY) 4,000 ML BOTTLE PO ONE (13:00)
[2019-09-17] MEDS: DONEPEZIL HCL 10 MG TABLET (FP) PO SCH (18:22)
[2019-09-17] MEDS: QUEtiapine FUMARATE 25 MG TABLET PO SCH (20:56)
[2019-09-17] MEDS: SENNOSIDES 8.6MG TABLET (FP) PO SCH (22:40)
[2019-09-17] MEDS: MELATONIN 5 MG TABLETS PO SCH (22:40)
[2019-09-18] MEDS: D5-NS + 20 MEQ KCL - 20 MEQ/1,000 ML INFUS.BAG IV SCH (00:32)
[2019-09-18] MEDS: LEVOTHYROXINE NA 50 MCG TABLET (FP) PO SCH (06:30)
[2019-09-18] MEDS ORDERED: PROPOFOL 20 ML ONE ×2 (07:38)
[2019-09-18] MEDS ORDERED: LIDOCAINE HCL/PF 2% SDV 5ML VIAL ONE ×2 (07:38→10:13)
[2019-09-18 07:47] LABS: BASO % 0.2 % (0-2.0); EOS % 1.1 % (0-4.5); HEMATOCRIT 28.6 % (35.4-49); HEMOGLOBIN 9.2 GM/dl (11.7-16.9); LYMPH % 21.7 % (8-40); MCHC 32.2 g/dl (32.0-35.9); MEAN CELL VOLUME 87.2 fl (80-96); MEAN PLT VOLUME 7.5 fl (7.5-11.1); MONO % 8.8 % (3.8-10.2); NEUT % 68.2 % (42.8-82.8); PLATELET COUNT 163 K/MM3 (134-434); RBC 3.28 M/mm3 (4.00-5.60); RDW 14.8 % (11.9-15.9); WHITE BLOOD COUNT 6.7 K/mm3 (4.0-10.8)
[2019-09-18 07:58] LABS: CALCIUM 8.4 mg/dl (8.5-10); CREATININE 1.2 mg/dl (0.55-1.3)
[2019-09-18] MEDS: metoPROLOL SUCCINATE 25 MG TAB.SR.24H (FP) PO SCH ×2 (08:21→20:38)
--- NOTE | 2019-09-18 09:06 | PN ---
Progress Note, Physician Chief Complaint: Patient seen and examined at the bedside, no acute events from last night, awake and alert, no nausea, no abdominal pain. History of Present Illness: This 89 yr old w/m with hx of leukemia, CHF, HTN, peptic ulcer disease, chronic atrial fibrillation, anemia, HLD, BPH, CAD, renal insufficiency, dementia, chronic low back pain, and depression admitted via ER with an acute lower GI bleeding, severe anemia, and an acute generalized muscle weakness. - Current Medication List Current Medications: Active Medications Acetaminophen (Tylenol -) 500 mg PO Q6H PRN PRN Reason: MODERATE PAIN Amiodarone HCl (Cordarone -) 100 mg PO DAILY [facility] Last Admin: 09/17/19 10:30 Dose: 100 mg Donepezil HCl (Aricept -) 10 mg PO DAILY@1800 [facility] Last Admin: 09/17/19 18:22 Dose: 10 mg Finasteride (Proscar -) 5 mg PO DAILY [facility] Last Admin: 09/17/19 10:00 Dose: 5 mg Furosemide (Lasix -) 20 mg PO DAILY [facility] Last Admin: 09/17/19 10:15 Dose: 20 mg Dextrose/Sodium Chloride (Dextrose 5%-Normal Saline+20 Meq Kcl -) 20 meq in 1, 000 mls @ 50 mls/hr IV ASDIR [facility] Last Admin: 09/18/19 00:32 Dose: 50 mls/hr Levothyroxine Sodium (Synthroid -) 50 mcg PO DAILY@0700 [facility] Last Admin: 09/18/19 06:30 Dose: 50 mcg Melatonin (Melatonin) 5 mg PO [facility] Last Admin: 09/17/19 22:40 Dose: Not Given Metoprolol Succinate (Toprol Xl -) 25 mg PO BID@799,1999 [facility] Last Admin: 09/18/19 08:21 Dose: Not Given Pantoprazole Sodium (Protonix Iv) 40 mg IVPUSH BID [facility] Last Admin: 09/17/19 22:40 Dose: 40 mg Quetiapine Fumarate (Seroquel -) 12.5 mg PO DAILY@1999 [facility] Last Admin: 09/17/19 20:56 Dose: Not Given Senna (Senna -) 1 tab PO [facility] Last Admin: 09/17/19 22:40 Dose: 1 tab - Objective Vital Signs: Vital Signs Temperature 98.5 F 09/18/19 07:42 Pulse Rate 72 02/24/20 07:42 Respiratory Rate 18 09/18/19 07:42 Blood Pressure 127/50 L 09/18/19 07:42 O2 Sat by Pulse Oximetry (%) 96 09/18/19 07:42 Constitutional: Yes: Well Nourished, No Distress, Calm Eyes: Yes: Conjunctiva Clear, EOM Intact HENT: Yes: Atraumatic, Normocephalic Neck: Yes: Supple, Trachea Midline Cardiovascular: Yes: Regular Rate and Rhythm Respiratory: Yes: Regular, CTA Bilaterally Gastrointestinal: Yes: Normal Bowel Sounds, Soft ...Rectal Exam: Yes: Deferred Genitourinary: Yes: WNL Breast(s): Yes: WNL Musculoskeletal: Yes: Muscle Weakness Extremities: Yes: Other (generalized muscle weakness) Edema: No Peripheral Pulses WNL: Yes Peripheral Pulses: Left Radial: 2+, Right Radial: 2+ Integumentary: Yes: WNL Neurological: Yes: Alert, Confusion, Unsteady Gait, Weakness ...Motor Strength: LUE (muscle weakness), LLE (muscle weakness), RUE (muscle weakness), RLE (muscle weakness) Psychiatric: Yes: Alert Labs: CBC, BMP 09/18/19 07:00 09/18/19 07:00 INR, PTT INR 1.10 (0.82-1.09) 09/16/19 07:20 - ....Imaging Other: Report Reviewed (Lab data reviewed) Problem List - Problems (1) AF (paroxysmal atrial fibrillation) Code(s): I48.0 - PAROXYSMAL ATRIAL FIBRILLATION (2) Acute pure red cell anemia Code(s): D60.8 - OTHER ACQUIRED PURE RED CELL APLASIAS (3) Afib Code(s): I48.91 - UNSPECIFIED ATRIAL FIBRILLATION (4) Altered mental status Code(s): R41.82 - ALTERED MENTAL STATUS, UNSPECIFIED (5) Anemia Code(s): D64.9 - ANEMIA, UNSPECIFIED (6) Anxiety Code(s): F41.9 - ANXIETY DISORDER, UNSPECIFIED (7) Cardiomegaly Code(s): I51.7 - CARDIOMEGALY (8) Dementia Code(s): F03.90 - UNSPECIFIED DEMENTIA WITHOUT BEHAVIORAL DISTURBANCE (9) Diverticulosis of sigmoid colon Code(s): K57.30 - DVRTCLOS OF LG INT W/O PERFORATION OR ABSCESS W/O BLEEDING (10) HTN (hypertension) Code(s): I10 - ESSENTIAL (PRIMARY) HYPERTENSION (11) Hx of usp use of blood thinners Code(s): Z79.01 - MCC (CURRENT) USE OF ANTICOAGULANTS (12) Hyperlipidemia Code(s): E78.5 - HYPERLIPIDEMIA, UNSPECIFIED (13) Hypothyroid Code(s): E03.9 - HYPOTHYROIDISM, UNSPECIFIED (14) Intractable low back pain Code(s): M54.5 - LOW BACK PAIN (15) Lumbar compression fracture Code(s): S32.000A - WEDGE COMPRESSION FRACTURE OF UNSP LUMBAR VERTEBRA, INIT (16) Orthostatic hypotension Code(s): I95.1 - ORTHOSTATIC HYPOTENSION (17) Spondylosis of cervical spine Code(s): M47.812 - SPONDYLOSIS W/O MYELOPATHY OR RADICULOPATHY, CERVICAL REGION (18) Thoracic compression fracture Code(s): S22.000A - WEDGE COMPRESSION FRACTURE OF UNSP THORACIC VERTEBRA, INIT (19) Thrombocytopenia Code(s): D69.6 - THROMBOCYTOPENIA, UNSPECIFIED (20) Anemia Code(s): D64.9 - ANEMIA, UNSPECIFIED (21) Back pain Code(s): M54.9 - DORSALGIA, UNSPECIFIED (22) Hypothyroidism Code(s): E03.9 - HYPOTHYROIDISM, UNSPECIFIED (23) Peptic ulcer disease with hemorrhage Code(s): K27.4 - CHRONIC OR UNSP PEPTIC ULCER, SITE UNSP, WITH HEMORRHAGE (24) Gastric ulcer Code(s): K25.9 - GASTRIC ULCER, UNSP ACUTE OR CHRONIC, W/O HEMOR OR PERF (25) Lower GI bleeding Code(s): K92.2 - GASTROINTESTINAL HEMORRHAGE, UNSPECIFIED (26) Muscle weakness (generalized) Code(s): M62.81 - MUSCLE WEAKNESS (GENERALIZED) (27) Hypokalemia Code(s): E87.6 - HYPOKALEMIA Assessment/Plan Assessment/plan: acute lower GI bleeding, acute severe anemia, acute generalized muscle weakness; IV fluids, DVT prophylaxis, SCDs, physical therapy , incentive spirometer, fall precautions, scheduled for colonoscopy this am, discussed clinical condition of the patient with his daughter.
[2019-09-18] MEDS: PANTOPRAZOLE SODIUM 40 MG VIAL IVPUSH SCH ×2 (09:50→22:01)
[2019-09-18] MEDS: AMIODARONE HCL 200 MG TABLET PO SCH (09:50)
[2019-09-18] MEDS: FUROSEMIDE 20 MG TABLET (FP) PO SCH (09:50)
[2019-09-18] MEDS: FINASTERIDE 5 MG TABLET (FP) PO SCH (09:50)
[2019-09-18] MEDS ORDERED: ETOMIDATE 20 MG/10 ML AMPUL IVPUSH ONE (10:13)
--- NOTE | 2019-09-18 10:53 | PN ---
Progress Note (short form) - Note Progress Note: Colonoscopy performed to cecum with report in chart. Findings include: 1. cecal angiodysplasia (AVM) - ablated; likely source of recent GI bleeding 2. 2 small polyps -removed 3. diverticulosis Suspect bleeding was due to AVM (cecum); would hold a/c for 5-7 days to allow healing of both the cauterized area and the 2 polyp sites. If indicated; can then cautiously restart Can begin on regular diet today. Discharge plans per Dr Napier.
[2019-09-18] MEDS: DONEPEZIL HCL 10 MG TABLET (FP) PO SCH (17:55)
[2019-09-18] MEDS: QUEtiapine FUMARATE 25 MG TABLET PO SCH (20:38)
[2019-09-18] MEDS: SENNOSIDES 8.6MG TABLET (FP) PO SCH (22:02)
[2019-09-18] MEDS: MELATONIN 5 MG TABLETS PO SCH ×2 (22:02→23:41)
[2019-09-19 06:03] VITALS: BP 169/69; PULSE 69; TEMP 97.8
[2019-09-19] MEDS: LEVOTHYROXINE NA 50 MCG TABLET (FP) PO SCH (06:35)
--- NOTE | 2019-09-19 07:11 | PN ---
Progress Note, Physician Chief Complaint: Patient seen and examined at the bedside, no acute events from last night, feeling stronger and happier today. History of Present Illness: This 89 yr old w/m with PMH of leukemia, CHF, HTN, HLD, peptic ulcer disease, chronic atrial fibrillation, dementia, aemia, BPH, CAD, chronic low back pain, renal insufficiency and depression admitted via ER with an acute lower GI bleeding, acutely severe anemia, and an acute generalized muscle weakness. - Current Medication List Current Medications: Active Medications Acetaminophen (Tylenol -) 500 mg PO Q6H PRN PRN Reason: MODERATE PAIN Amiodarone HCl (Cordarone -) 100 mg PO DAILY [facility] Last Admin: 09/18/19 09:50 Dose: Not Given Donepezil HCl (Aricept -) 10 mg PO DAILY@1800 [facility] Last Admin: 09/18/19 17:55 Dose: 10 mg Finasteride (Proscar -) 5 mg PO DAILY [facility] Last Admin: 09/18/19 09:50 Dose: Not Given Furosemide (Lasix -) 20 mg PO DAILY [facility] Last Admin: 09/18/19 09:50 Dose: Not Given Levothyroxine Sodium (Synthroid -) 50 mcg PO DAILY@0700 [facility] Last Admin: 09/19/19 06:35 Dose: 50 mcg Melatonin (Melatonin) 5 mg PO [facility] Last Admin: 09/18/19 23:41 Dose: 5 mg Metoprolol Succinate (Toprol Xl -) 25 mg PO BID@08,1999 [facility] Last Admin: 09/18/19 20:38 Dose: Not Given Pantoprazole Sodium (Protonix Iv) 40 mg IVPUSH BID [facility] Last Admin: 09/18/19 22:01 Dose: 40 mg Quetiapine Fumarate (Seroquel -) 12.5 mg PO DAILY@1999 [facility] Last Admin: 09/18/19 20:38 Dose: Not Given Senna (Senna -) 1 tab PO [facility] Last Admin: 09/18/19 22:02 Dose: 1 tab - Objective Vital Signs: Vital Signs Temperature 97.8 F 09/19/19 06:00 Pulse Rate 69 09/19/19 06:00 Respiratory Rate 19 09/19/19 06:00 Blood Pressure 169/69 09/19/19 06:00 O2 Sat by Pulse Oximetry (%) 96 02/25/20 06:01 Constitutional: Yes: Well Nourished, No Distress, Calm Eyes: Yes: Conjunctiva Clear, EOM Intact HENT: Yes: Atraumatic, Normocephalic Neck: Yes: Supple, Trachea Midline Cardiovascular: Yes: Regular Rate and Rhythm Respiratory: Yes: Regular, CTA Bilaterally Gastrointestinal: Yes: Normal Bowel Sounds, Soft ...Rectal Exam: Yes: Deferred Genitourinary: Yes: WNL Breast(s): Yes: WNL Musculoskeletal: Yes: WNL Edema: No Peripheral Pulses WNL: Yes Integumentary: Yes: WNL Neurological: Yes: WNL, Unsteady Gait ...Motor Strength: WNL Psychiatric: Yes: Alert Labs: CBC, BMP 09/18/19 07:00 09/18/19 07:00 INR, PTT INR 1.10 (0.82-1.09) 09/16/19 07:20 Problem List - Problems (1) AF (paroxysmal atrial fibrillation) Code(s): I48.0 - PAROXYSMAL ATRIAL FIBRILLATION (2) Acute pure red cell anemia Code(s): D60.8 - OTHER ACQUIRED PURE RED CELL APLASIAS (3) Afib Code(s): I48.91 - UNSPECIFIED ATRIAL FIBRILLATION (4) Altered mental status Code(s): R41.82 - ALTERED MENTAL STATUS, UNSPECIFIED (5) Anemia Code(s): D64.9 - ANEMIA, UNSPECIFIED (6) Anxiety Code(s): F41.9 - ANXIETY DISORDER, UNSPECIFIED (7) Cardiomegaly Code(s): I51.7 - CARDIOMEGALY (8) Dementia Code(s): F03.90 - UNSPECIFIED DEMENTIA WITHOUT BEHAVIORAL DISTURBANCE (9) Diverticulosis of sigmoid colon Code(s): K57.30 - DVRTCLOS OF LG INT W/O PERFORATION OR ABSCESS W/O BLEEDING (10) HTN (hypertension) Code(s): I10 - ESSENTIAL (PRIMARY) HYPERTENSION (11) Hx of residential use of blood thinners Code(s): Z79.01 - SHELTER (CURRENT) USE OF ANTICOAGULANTS (12) Hyperlipidemia Code(s): E78.5 - HYPERLIPIDEMIA, UNSPECIFIED (13) Hypothyroid Code(s): E03.9 - HYPOTHYROIDISM, UNSPECIFIED (14) Intractable low back pain Code(s): M54.5 - LOW BACK PAIN (15) Lumbar compression fracture Code(s): S32.000A - WEDGE COMPRESSION FRACTURE OF UNSP LUMBAR VERTEBRA, INIT (16) Orthostatic hypotension Code(s): I95.1 - ORTHOSTATIC HYPOTENSION (17) Spondylosis of cervical spine Code(s): M47.812 - SPONDYLOSIS W/O MYELOPATHY OR RADICULOPATHY, CERVICAL REGION (18) Thoracic compression fracture Code(s): S22.000A - WEDGE COMPRESSION FRACTURE OF UNSP THORACIC VERTEBRA, INIT (19) Thrombocytopenia Code(s): D69.6 - THROMBOCYTOPENIA, UNSPECIFIED (20) Anemia Code(s): D64.9 - ANEMIA, UNSPECIFIED (21) Back pain Code(s): M54.9 - DORSALGIA, UNSPECIFIED (22) Hypothyroidism Code(s): E03.9 - HYPOTHYROIDISM, UNSPECIFIED (23) Peptic ulcer disease with hemorrhage Code(s): K27.4 - CHRONIC OR UNSP PEPTIC ULCER, SITE UNSP, WITH HEMORRHAGE (24) Gastric ulcer Code(s): K25.9 - GASTRIC ULCER, UNSP ACUTE OR CHRONIC, W/O HEMOR OR PERF (25) Lower GI bleeding Code(s): K92.2 - GASTROINTESTINAL HEMORRHAGE, UNSPECIFIED (26) Muscle weakness (generalized) Code(s): M62.81 - MUSCLE WEAKNESS (GENERALIZED) (27) Hypokalemia Code(s): E87.6 - HYPOKALEMIA Assessment/Plan Assessment/plan: acute lower GI bleeding due to cecal angiodysplasia, acute severe anemia, acute generalized muscle weakness; discharge planning, social worker clinical request, no ac for one week, continue home meds, physical therapy.
[2019-09-19 08:03] LABS: BASO % 0.2 % (0-2.0); EOS % 1.1 % (0-4.5); HEMATOCRIT 29.5 % (35.4-49); HEMOGLOBIN 9.4 GM/dl (11.7-16.9); LYMPH % 20.5 % (8-40); MCHC 31.8 g/dl (32.0-35.9); MEAN PLT VOLUME 7.3 fl (7.5-11.1); MONO % 8.2 % (3.8-10.2); PLATELET COUNT 174 K/MM3 (134-434); RBC 3.35 M/mm3 (4.00-5.60); RDW 15.4 % (11.9-15.9); WHITE BLOOD COUNT 8.2 K/mm3 (4.0-10.8)
[2019-09-19 08:08] LABS: CALCIUM 8.6 mg/dl (8.5-10); CREATININE 1.2 mg/dl (0.55-1.3); POTASSIUM 3.5 mmol/L (3.5-5.1)
[2019-09-19] MEDS: metoPROLOL SUCCINATE 25 MG TAB.SR.24H (FP) PO SCH (09:28)
[2019-09-19] MEDS: FUROSEMIDE 20 MG TABLET (FP) PO SCH (09:28)
[2019-09-19] MEDS: PANTOPRAZOLE SODIUM 40 MG VIAL IVPUSH SCH (09:28)
[2019-09-19] MEDS: AMIODARONE HCL 200 MG TABLET PO SCH (09:28)
[2019-09-19] MEDS: FINASTERIDE 5 MG TABLET (FP) PO SCH (09:28)
--- NOTE | 2019-09-19 13:52 | DS ---
Physical Examination Vital Signs: Vital Signs Temperature 97.8 F 09/19/19 06:00 Pulse Rate 69 09/19/19 06:00 Respiratory Rate 16 09/19/19 09:00 Blood Pressure 169/69 09/19/19 06:00 O2 Sat by Pulse Oximetry (%) 97 09/19/19 09:00 Constitutional: Yes: Well Nourished, No Distress, Calm Eyes: Yes: Conjunctiva Clear, EOM Intact HENT: Yes: Atraumatic, Normocephalic Neck: Yes: Supple, Trachea Midline Cardiovascular: Yes: Regular Rate and Rhythm Respiratory: Yes: Regular, CTA Bilaterally Gastrointestinal: Yes: Normal Bowel Sounds, Soft ...Rectal Exam: Yes: Deferred Renal/: Yes: WNL Breast(s): Yes: WNL Musculoskeletal: Yes: WNL Extremities: Yes: WNL Edema: No Peripheral Pulses WNL: Yes Integumentary: Yes: WNL Neurological: Yes: Alert, Unsteady Gait, Weakness ...Motor Strength: WNL Psychiatric: Yes: Alert Labs: CBC, BMP 09/19/19 07:22 09/19/19 07:22 Discharge Summary Problems reviewed: Yes Reason For Visit: GASTROINTESTINAL HEMORRHAGE, ANEMIA Condition: Stable - Instructions Diet, Activity, Other Instructions: Continue on home meds with the following exceptions. No Ferrex. Xarelto 15mg po daily to be started on 09/25/2019. Physical therapy. Activity as tolerated. Will see patient in one week. Total time spent over 30 minutes. Referrals: Rajesh Napier MD [Primary Care Provider] - Disposition: [facility]ACILITY - Home Medications Comprehensive Discharge Medication List: Ambulatory Orders Amiodarone HCl [Cordarone -] 100 mg PO DAILY 04/17/18 Donepezil HCl 10 mg PO HS 04/17/18 Levothyroxine [Synthroid -] 50 mcg PO DAILY 04/17/18 Metoprolol Succinate 25 mg PO BID 04/17/18 Quetiapine Fumarate [Seroquel -] 12.5 mg PO HS 04/17/18 Furosemide 20 mg PO DAILY 01/27/19 Finasteride [Proscar -] 5 mg PO DAILY tablet 03/13/19 Acetaminophen [Tylenol .Extra-Strength -] 500 mg PO Q4H PRN tablet 08/23/19 Cyanocobalamin (Vitamin B-12) [Vitamin B-12] 2,500 mcg SL WEEKLY 09/14/19 Iron Polysaccharide Complex [Ferrex 150] 150 mg PO DAILY 09/14/19 Melatonin 5 mg PO HS 09/14/19 Sennosides [Senna] 8.6 mg PO DAILY 09/14/19 Acetaminophen [Tylenol .Extra-Strength -] 500 mg PO Q6H PRN tablet 09/19/19 Amiodarone HCl [Cordarone -] 100 mg PO DAILY tablet 09/19/19 Donepezil HCl [Aricept -] 10 mg PO DAILY@1800 tablet 09/19/19 Finasteride [Proscar -] 5 mg PO DAILY tablet 09/19/19 Furosemide [Lasix -] 20 mg PO DAILY tablet 09/19/19 Levothyroxine [Synthroid -] 50 mcg PO DAILY@0700 tablet 09/19/19 Melatonin 5 mg PO HS tab 09/19/19 Metoprolol Succinate [Toprol XL -] 25 mg PO BID@0800,1999 tab.sr.24h 09/19/19 Pantoprazole Sodium [Protonix IV] 40 mg IVPUSH BID vial 09/19/19 Quetiapine Fumarate [Seroquel -] 12.5 mg PO DAILY@1999 tablet 09/19/19 Sennosides [Senna -] 1 tab PO HS tablet 09/19/19
--- NOTE | 2019-09-20 10:37 | PATH ---
Surgical Pathology Report Patient Name: KAYKAY RODGERS Med. Rec. #: [id number] /Age/Gender: 1930 (Age: 89) / M Account: [id number] Location: [facility] MED-SURG Taken: 09/18/2019 Received: 09/18/2019 Reported: 09/20/2019 Physicians: Steve Ng M.D. Specimen(s) Received A: BX POLYP CECUM B: BX POLYP RIGHT COLON Clinical History GI bleed Postoperative diagnosis: Cecal AVM, diverticulosis, colon polyps Final Diagnosis A. CECUM, POLYP, BIOPSY: TUBULOVILLOUS ADENOMA. B. RIGHT COLON, POLYP, BIOPSY: TUBULAR ADENOMA. Electronically Signed Gloria Preciado M.D. Gross Description A. Received in formalin, labeled "biopsy polyp cecum" are 6 alba, irregular portions of soft tissue ranging from 0.2-0.4 cm. in greatest dimension. The specimens are submitted in toto in one cassette. B. Received in formalin, labeled "biopsy polyp right colon" is a alba, polypoid portion of soft tissue measuring 0.5 cm. in greatest dimension. The specimen is submitted in toto in one cassette. 09/19/2019 saudi09/19/2019
== END 2019-09-19 12:07 | DRG 378 ==
LOC: FER 09:46 → SUPCPDRO 09:46 → FM/S 11:19
PROVIDERS: ADMIT Internal Medicine; ATTEND Internal Medicine
PROC: 30233N1 Transfusion of Nonautologous Red Blood Cells into Peripheral Vein, Percutaneous Approach (ICD-10-PCS; principal; 2019-09-14)
PROC: 0DJ08ZZ Inspection of Upper Intestinal Tract, Via Natural or Artificial Opening Endoscopic (ICD-10-PCS; 2019-09-15)
PROC: 0DJD8ZZ Inspection of Lower Intestinal Tract, Via Natural or Artificial Opening Endoscopic (ICD-10-PCS; 2019-09-15)
PROC: 30233N1 Transfusion of Nonautologous Red Blood Cells into Peripheral Vein, Percutaneous Approach (ICD-10-PCS; 2019-09-16)
PROC: 0W3P8ZZ Control Bleeding in Gastrointestinal Tract, Via Natural or Artificial Opening Endoscopic (ICD-10-PCS; 2019-09-18)
PROC: 0DBK8ZX Excision of Ascending Colon, Via Natural or Artificial Opening Endoscopic, Diagnostic (ICD-10-PCS; 2019-09-18)
PROC: 0DBH8ZX Excision of Cecum, Via Natural or Artificial Opening Endoscopic, Diagnostic (ICD-10-PCS; 2019-09-18)
DX: K55.21 Angiodysplasia of colon with hemorrhage (principal); D62 Acute posthemorrhagic anemia; C95.90 Leukemia, unspecified not having achieved remission; I13.0 Hypertensive heart and chronic kidney disease with heart failure and stage 1 through stage 4 chronic kidney disease, or unspecified chronic kidney disease; K92.1 Melena; D64.9 Anemia, unspecified; E87.6 Hypokalemia; E11.22 Type 2 diabetes mellitus with diabetic chronic kidney disease; I50.9 Heart failure, unspecified; N18.9 Chronic kidney disease, unspecified; I48.0 Paroxysmal atrial fibrillation; F03.90 Unspecified dementia, unspecified severity, without behavioral disturbance, psychotic disturbance, mood disturbance, and anxiety; K57.30 Diverticulosis of large intestine without perforation or abscess without bleeding; E78.5 Hyperlipidemia, unspecified; I25.10 Atherosclerotic heart disease of native coronary artery without angina pectoris; N40.0 Benign prostatic hyperplasia without lower urinary tract symptoms; F32.9 Major depressive disorder, single episode, unspecified; M54.5 Low back pain; E03.9 Hypothyroidism, unspecified; R53.83 Other fatigue; Z91.81 History of falling; Z78.1 Physical restraint status; Z95.0 Presence of cardiac pacemaker
CPT/HCPCS: 36415; 36430; 36511; 71045-TC-FY; 80048; 80053; 81003; 81015; 82272; 85025; 85027; 85610; 86850; 86900; 86901; 86922; 87086; 88305-TC; 93005; 97116-GP; 97162-GP; 99285-25; P9038; P9058

== ENCOUNTER 2020-01-18 14:24 | Inpatient (IN) | payer OTHER, MEDICARE ==
--- NOTE | 2020-01-18 14:55 | PDOC ---
History of Present Illness - General Chief Complaint: Shortness of Breath Stated Complaint: CHF Time Seen by Provider: 01/18/20 14:52 History Source: Family (Pt's daughter at bedside), Old Records, Primary Care Provider (Case discussed with PCP Dr. Napier) Exam Limitations: Dementia - History of Present Illness Initial Comments: 89 y/o male presenting to [facility] ER complaining of progressive SOB and bilateral leg swelling for the past several days. Pt is demented at baseline and unable to contribute to HPI. Pt's daughter (and healthcare proxy) present at bedside and reports a long history of CHF with several episodes of acute decompensation. She also reports the pt's H/H has trended downward and his PCP was considering a transfusion. Last received a transfusion just prior to started of COVID pandemic. No reports of recent illness. Daughter says no fevers have been r ecorded on the online patient portal. Social Hx: - Resident of the [facility] Past History - Medical History Allergies/Adverse Reactions: Allergies Allergy/AdvReac Type Severity Reaction Status Date / Time No Known Drug Allergies Allergy Verified 08/22/19 05:00 Home Medications: Ambulatory Orders Amiodarone HCl [Cordarone -] 100 mg PO DAILY 04/17/18 Donepezil HCl 10 mg PO HS 04/17/18 Levothyroxine [Synthroid -] 50 mcg PO DAILY 04/17/18 Metoprolol Succinate 25 mg PO BID 04/17/18 Quetiapine Fumarate [Seroquel -] 12.5 mg PO HS 04/17/18 Furosemide 20 mg PO DAILY 01/27/19 Finasteride [Proscar -] 5 mg PO DAILY tablet 03/13/19 Acetaminophen [Tylenol .Extra-Strength -] 500 mg PO Q4H PRN tablet 08/23/19 Cyanocobalamin (Vitamin B-12) [Vitamin B-12] 2,500 mcg SL WEEKLY 09/14/19 Iron Polysaccharide Complex [Ferrex 150] 150 mg PO DAILY 09/14/19 Melatonin 5 mg PO HS 09/14/19 Sennosides [Senna] 8.6 mg PO DAILY 09/14/19 Acetaminophen [Tylenol .Extra-Strength -] 500 mg PO Q6H PRN tablet 09/19/19 Amiodarone HCl [Cordarone -] 100 mg PO DAILY tablet 09/19/19 Donepezil HCl [Aricept -] 10 mg PO DAILY@1800 tablet 09/19/19 Finasteride [Proscar -] 5 mg PO DAILY tablet 09/19/19 Furosemide [Lasix -] 20 mg PO DAILY tablet 09/19/19 Levothyroxine [Synthroid -] 50 mcg PO DAILY@0700 tablet 09/19/19 Melatonin 5 mg PO HS tab 09/19/19 Metoprolol Succinate [Toprol XL -] 25 mg PO BID@0800,2000 tab.sr.24h 09/19/19 Pantoprazole Sodium [Protonix IV] 40 mg IVPUSH BID vial 09/19/19 Quetiapine Fumarate [Seroquel -] 12.5 mg PO DAILY@1999 tablet 09/19/19 Sennosides [Senna -] 1 tab PO HS tablet 09/19/19 Anemia: No Asthma: No Cancer: Yes (Prostate, SEEDING, leukemia) Cardiac Disorders: Yes (Atrial Fibrillation, PPM) CVA: No COPD: No CHF: Yes Dementia: Yes (MILD) Diabetes: Yes Dialysis: No GI Disorders: Yes (espohageal dilations, GI bleed) Disorders: No HTN: Yes Hypercholesterolemia: Yes Kidney Stones: No Liver Disease: No Seizures: No Thyroid Disease: Yes (hypothyroid) - Surgical History Abdominal Surgery: No Appendectomy: No Cardiac Surgery: Yes (PACEMAKER) Cholecystectomy: No Lung Surgery: No Neurologic Surgery: No Orthopedic Surgery: Yes (BACK SURGERY) - Immunization History Td Vaccination: Yes TDAP Vaccination: Yes Immunization Up to Date: Yes - Psycho-Social/Smoking History Smoking Status: No Smoking History: Unknown if ever smoked Have you smoked in the past 12 months: No Number of Cigarettes Smoked Daily: 0 Cigars Per Day: 0 Review of Systems - Review of Systems Able to Perform ROS?: No Comments:: Demented at baseline. *Physical Exam - Physical Exam Vital signs and nursing notes reviewed. Constitutional- Nontoxic elderly adult male in no acute distress or obvious discomfort. Obese body habitus. Found sitting upright on edge of hospital bed. Head- Normocephalic. No obvious external signs of trauma. Eyes- Sclerae white. Conjunctiva moist and not injected. Neck- Supple, trachea is midline. No JVD. Right sided, nontender thyroid nodule. Cardiovascular / Chest- Regular rate and regular rhythm. No murmur, rubs, clicks, or gallops. Peripheral pulses- radial pulses full. 4+ bilateral pretibial edema with overlying chronic appearing skin changes. Pacemaker in left upper chest. Respiratory- Breathing mildly tachypneic but unlabored on room air. Equal chest rise and fall. Rales in bilateral lower lung osuna. No stridor or no wheezing. Gastrointestinal- abdomen is soft, non-tender, non-distended. Neuro- Alert and oriented to person, but not place, time, or events. Moving all four extremities spontaneously. No facial asymmetry. No slurred speech. Skin- Warm, dry, and intact. Psych- Affect- appropriate. Mood- normal. Speech was non-labored, non- pressured. ED Treatment Course - LABORATORY CBC & Chemistry Diagram: 01/18/20 15:00 01/18/20 15:00 - RADIOLOGY Radiology Studies Ordered: Category Date Time Status CHEST X-RAY PORTABLE* [RAD] Stat Radiology 01/18/20 14:53 Ordered Medical Decision Making - Medical Decision Making 89 y/o male presenting with progressive SOB and significant pretibial edema. No report of recent infectious symptoms. Afebrile. Triage vitals unremarkable for hypotension or tachycardia. Normoxic on room air. Physical exam as described above. Concern for acute CHF exacerbation. Will evaluate for ACS vs PNA vs arrhythmia vs electrolyte derangement vs anemia. Ordered IV Lasix. EKG revealed a paced atria and ventricular rhythm. No ST segment elevation or depression. No significant change when compared to previous EKG dated 14 Sep 2019 per my read. 18 Jan 2020 15:21 PM Telephone conversation with Dr. Napier, pt PCP. Will admit the pt to his service on telemetry. No further orders requested. Will follow up pending laboratory studies. Reviewed laboratory data. Noted normocytic anemia; at baseline per historical [employer] data. Also noted hyponatremia and hyperkalemia. Low suspicion for emergent values. Dr. Napier actively managing the pts care. Reviewed CXR radiology report. UA ordered at Dr. Hughes request. Results pending at time of signing. Case discussed with ED Attending Dr. Yara Mccoy M.D., PGY2 Emergency Medicine Resident Discharge - Discharge Information Problems reviewed: Yes Clinical Impression/Diagnosis: Shortness of breath, Bilateral lower extremity edema Acute CHF Qualifiers: Heart failure type: unspecified Qualified Code(s): I50.9 - Heart failure, unspecified Condition: Stable - Admission Yes - Follow up/Referral - Patient Discharge Instructions - Post Discharge Activity
[2020-01-18] MEDS ORDERED: FUROSEMIDE 40 MG/4 ML INJECTABLE VIAL IVPUSH ONE (15:12)
[2020-01-18] MEDS ORDERED: ACETAMINOPHEN 325 MG TABLET (FP) ONE ×2 (15:26→21:03)
[2020-01-18] MEDS ORDERED: FUROSEMIDE 40 MG/4 ML INJECTABLE VIAL ONE (15:26)
[2020-01-18] MEDS ORDERED: ACETAMINOPHEN 325 MG TABLET (FP) PO ONE (15:28)
[2020-01-18 16:04] LABS: EOS % 3.5 % (0-4.5); HEMATOCRIT 26.1 % (35.4-49); HEMOGLOBIN 8.1 GM/dL (11.7-16.9); LYMPH % 39.4 % (8-40); MCH 25.5 pg (25.7-33.7); MEAN CELL VOLUME 82.2 fl (80-96); MEAN PLT VOLUME 9.3 fl (7.5-11.1); MONO % 25.1 % (3.8-10.2); RBC 3.18 M/mm3 (4.00-5.60); RDW 16.3 % (11.9-15.9); WHITE BLOOD COUNT 3.3 K/mm3 (4.0-10.0)
[2020-01-18 16:13] LABS: INR 2.01 (0.83-1.09); PROTHROMBIN TIME (PATIENT) 23.9 SEC (9.7-13.0)
[2020-01-18 16:16] LABS: ACTIVATED PTT 43.8 SECONDS (25.2-36.5)
--- NOTE | 2020-01-18 16:16 | HP ---
Admitting History and Physical - Admission Chief Complaint: Acute exacerbation of shortness of breath and edema of lower extremities History of Present Illness: This 89 yr old w/m with PMH of leukemia, colonic angiodysplasia, iron deficiency anemia, atrial fibrillation, HTN, hypothyroidism, depression, dementia, wedge compression fracture of 1st lumbar vertebra, BPH, cancer of prostate, pulmonary hypertension, CKD, S/P PPM admitted via ER with an acute exacerbation of shortness of breath and edema of lower extremities. 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 Cardiovascular: Yes: AFIB, CAD, CHF, HTN, Hyperlipdemia Pulmonary: No: Asthma, Bronchitis, Cancer, COPD, O2 Dependent, Pneumonia, Previously Intubated, Pulmonary Embolus, Pulmonary Fibrosis, Sleep Apnea, Other Gastrointestinal: Yes: GI Bleed, Other (colonic angiodysplasia) Hepatobiliary: No: Cirrhosis, Cholelithiasis, Cholecystitis, Choledocholithiasis, Hepatitis A, Hepatitis B, Hepatitis C, Other Renal/: Yes: Renal Inusuff, BPH Heme/Onc: Yes: Anemia, Other (leukemia) Infectious Disease: No: AIDS, C-Diff, Herpes Zoster, HIV, MRSA, STD's, Tuberculosis, VREF, Other Psych: Yes: Depression Musculoskeletal: Yes: Chronic low back pain (compression fractures of the spine) Rheumatology: No: Fibromyalgia, Gout, Lupus, Rheumatoid Arthritis, Sarcoidosis, Vasculitis, Other ENT: No: Allergic Rhinitis, Sinusitis, Other Endocrine: Yes: Hypothyroidism Dermatology: No: Basal Cell, Cellulitis, Eczema, Melanoma, Psoriasis, Squamous Cell, Other - Past Surgical History Past Surgical History: Yes: Permanent Pacemaker - Smoking History Smoking history: Unknown if ever smoked Have you smoked in the past 12 months: No Aproximately how many cigarettes per day: 0 - Alcohol/Substance Use Hx Alcohol Use: No History of Substance Use: reports: None - Social History Usual Living Arrangement: Yes: Assisted Living ADL: Family Assistance History of Recent Travel: No Home Medications - Allergies Allergies/Adverse Reactions: Allergies Allergy/AdvReac Type Severity Reaction Status Date / Time No Known Drug Allergies Allergy Verified 08/22/19 05:00 - Home Medications Home Medications: Ambulatory Orders Amiodarone HCl [Cordarone -] 100 mg PO DAILY 04/17/18 Donepezil HCl 10 mg PO HS 04/17/18 Levothyroxine [Synthroid -] 50 mcg PO DAILY 04/17/18 Metoprolol Succinate 25 mg PO BID 04/17/18 Quetiapine Fumarate [Seroquel -] 12.5 mg PO HS 04/17/18 Furosemide 20 mg PO DAILY 01/27/19 Finasteride [Proscar -] 5 mg PO DAILY tablet 03/13/19 Acetaminophen [Tylenol .Extra-Strength -] 500 mg PO Q4H PRN tablet 08/23/19 Cyanocobalamin (Vitamin B-12) [Vitamin B-12] 2,500 mcg SL WEEKLY 09/14/19 Iron Polysaccharide Complex [Ferrex 150] 150 mg PO DAILY 09/14/19 Melatonin 5 mg PO HS 09/14/19 Sennosides [Senna] 8.6 mg PO DAILY 09/14/19 Acetaminophen [Tylenol .Extra-Strength -] 500 mg PO Q6H PRN tablet 09/19/19 Amiodarone HCl [Cordarone -] 100 mg PO DAILY tablet 09/19/19 Donepezil HCl [Aricept -] 10 mg PO DAILY@1800 tablet 09/19/19 Finasteride [Proscar -] 5 mg PO DAILY tablet 09/19/19 Furosemide [Lasix -] 20 mg PO DAILY tablet 09/19/19 Levothyroxine [Synthroid -] 50 mcg PO DAILY@0700 tablet 09/19/19 Melatonin 5 mg PO HS tab 09/19/19 Metoprolol Succinate [Toprol XL -] 25 mg PO BID@0800,2000 tab.sr.24h 09/19/19 Pantoprazole Sodium [Protonix IV] 40 mg IVPUSH BID vial 09/19/19 Quetiapine Fumarate [Seroquel -] 12.5 mg PO DAILY@1999 tablet 09/19/19 Sennosides [Senna -] 1 tab PO HS tablet 09/19/19 Review of Systems - Review of Systems Constitutional: reports: Weakness Eyes: reports: No Symptoms HENT: reports: No Symptoms Neck: reports: No Symptoms Cardiovascular: reports: Shortness of Breath Respiratory: reports: Orthopnea, SOB, SOB on Exertion Gastrointestinal: reports: Constipation Genitourinary: reports: Incontinence Breasts: reports: No Symptoms Reported Musculoskeletal: reports: Muscle Weakness Integumentary: reports: No Symptoms Neurological: reports: Unsteady Gait, Weakness Endocrine: reports: No Symptoms Hematology/Lymphatic: reports: No Symptoms Psychiatric: reports: Depression Physical Examination Vital Signs: Vital Signs Temperature 98.6 F 01/18/20 14:25 Pulse Rate 76 01/18/20 14:25 Respiratory Rate 22 H 01/18/20 14:25 Blood Pressure 128/78 01/18/20 14:25 O2 Sat by Pulse Oximetry (%) 98 01/18/20 14:25 Constitutional: Yes: Well Nourished, Calm, Mild Distress Eyes: Yes: Conjunctiva Clear, EOM Intact HENT: Yes: Atraumatic, Normocephalic Neck: Yes: Supple, Trachea Midline Cardiovascular: Yes: Pulse Irregular (atrial fibrillation) Respiratory: Yes: CTA Bilaterally, Diminished, Rales, SOB, SOB on Exertion Gastrointestinal: Yes: Normal Bowel Sounds, Soft ...Rectal Exam: Yes: Deferred Renal/: Yes: Incontinence Breast(s): Yes: WNL Musculoskeletal: Yes: Back Pain, Muscle Weakness Extremities: Yes: WNL Edema: LLE: 3+, RLE: 3+ Peripheral Pulses WNL: Yes Integumentary: Yes: WNL Neurological: Yes: Alert, Unsteady Gait, Weakness ...Motor Strength: LLE (muscle weakness), RLE (muscle weakness) Psychiatric: Yes: Alert Problem List - Problems (1) Acute CHF Code(s): I50.9 - HEART FAILURE, UNSPECIFIED Qualifiers: Heart failure type: unspecified Qualified Code(s): I50.9 - Heart failure, unspecified (2) Bilateral lower extremity edema Code(s): R60.0 - LOCALIZED EDEMA (3) SOB (shortness of breath) Code(s): R06.02 - SHORTNESS OF BREATH (4) AF (paroxysmal atrial fibrillation) Code(s): I48.0 - PAROXYSMAL ATRIAL FIBRILLATION (5) DEE (acute kidney injury) Code(s): N17.9 - ACUTE KIDNEY FAILURE, UNSPECIFIED (6) Acute pure red cell anemia Code(s): D60.8 - OTHER ACQUIRED PURE RED CELL APLASIAS (7) Afib Code(s): I48.91 - UNSPECIFIED ATRIAL FIBRILLATION (8) Altered mental status Code(s): R41.82 - ALTERED MENTAL STATUS, UNSPECIFIED Assessment/Plan Assessment/plan: acute exacerbation of shortness of breath, acute exacerbation of edema of lower extremities, acute iron deficiency anemia, acute leukopenia, acute diastolic heart failure, acute hyponatremia, acute hyperkalemia, atrial fibrillation, hypothyroidism, dementia, HTN, wedge compression fracture of L1 and L2, cancer of prostate, BPH, history of falling, depression, generalized muscle weakness, insomnia, pulmonary hypertension, CKD, lymphoid leukemia; IV Furosemide, oral potassium chloride, metoprolol, levothyroxine, consult to Cardiology, DVT/GI prophylaxis, a/c with Xarelto, physical therapy, out of bed in chair as tolerated, ekg - suspect unspecified pacemaker failure, SCDs.
[2020-01-18 16:28] LABS: ALBUMIN 3.4 g/dl (3.4-5.0); ALK PHOS 108 U/L (45-117); ANION GAP 7 MMOL/L (8-16); BILIRUBIN,TOTAL 0.6 mg/dL (0.2-1); BLOOD UREA NITROGEN 16.3 mg/dL (7-18); CALCIUM 8.5 mg/dL (8.5-10.1); CHLORIDE 97 mmol/L (98-107); CO2 27 mmol/L (21-32); CREATININE 1.3 mg/dL (0.55-1.3); GLUCOSE,RANDOM 110 mg/dL (74-106); MAGNESIUM 2.6 mg/dL (1.8-2.4); N-TERMINAL BNP 6632.7 pg/ml (5-450); PHOSPHOROUS 3.4 mg/dL (2.5-4.9); POTASSIUM 5.4 mmol/L (3.5-5.1); SGOT/AST 34 U/L (15-37); SGPT/ALT 14 U/L (13-61); SODIUM 130 mmol/L (136-145); TOT PROT 6.9 g/dl (6.4-8.2)
--- NOTE | 2020-01-18 16:28 | PDOC ---
Documentation entered by Mariangel Pereira SCRIBE, acting as scribe for Yelitza Livingston MD. Yelitza Livingston MD: This documentation has been prepared by the germanibKelli tovar Sydney, SCRIBE, under my direction and personally reviewed by me in its entirety. I confirm that the documentation accurately reflects all work, treatment, procedures, and medical decision making performed by me. Attending Attestation - Resident Resident Name: Samuel Mccoy - ED Attending Attestation I have performed the following: I have examined & evaluated the patient, The case was reviewed & discussed with the resident, I agree w/resident's findings & plan, Exceptions are as noted - HPI HPI: 01/18/20 16:02 Patient is a 89 year old male with a significant past medical history of CHF who presents to the ED with several days of progressively worsening shortness of breath and bilateral leg swelling. Patient was unable to give the HPI secondary to demented state and patients daughter (healthcare proxy) reported lengthy h istory of CHF. She notes no fevers have been recorded on the online patient portal. Allergies: NKDA - Physicial Exam PE: 01/18/20 16:25 General: non-toxic appearing Chest: b/l crackles, no tachypnea, no accessory muscle use CVS: + s1 s2 Extremities: 3-4+ LE pitting edema - Medical Decision Making 01/18/20 16:25 89 yo M with likely CHF exacerbation, no infectious complaints to suggest PNA or COVID such as fever or cough and hx and exam more consistent with CHF exacerbation. Plan: -labs -cxr -EKG -lasix -admit to telemetry This clinical encounter is taking place during a federal and state health care emergency attributable to the novel [place] Virus pandemic. The Sorting And Folding Supervisor of the Department of Health and Human Services has declared, pursuant to the Public Health Service Act 319F-3 (42 U.S.C. 247d-6d), that a covered persons activities related to medical countermeasures against COVID-19 will be immune from liability under Federal and State law. Discharge - Discharge Information Problems reviewed: Yes Clinical Impression/Diagnosis: Shortness of breath, Bilateral lower extremity edema Acute CHF Qualifiers: Heart failure type: unspecified Qualified Code(s): I50.9 - Heart failure, unspecified Condition: Stable - Follow up/Referral - Patient Discharge Instructions - Post Discharge Activity
[2020-01-18] MEDS ORDERED: AMIODARONE HCL 200 MG TABLET PO SCH (16:30)
[2020-01-18] MEDS ORDERED: POTASSIUM CHLORIDE TABS 10 MEQ TABLET.ER (FP) PO SCH (16:45)
[2020-01-18] MEDS ORDERED: FUROSEMIDE 40 MG/4 ML INJECTABLE VIAL IVPUSH SCH (16:45)
[2020-01-18 17:08] LABS: PH,URINE 6.5 (5.0-8.0); URINE APPEARANCE CLEAR; URINE BILIRUBIN NEGATIVE (NEGATIVE); URINE COLOR YELLOW; URINE GLUCOSE (UA) NEGATIVE (NEGATIVE); URINE KETONE NEGATIVE (NEGATIVE); URINE LEUK ESTERASE NEGATIVE (NEGATIVE); URINE NITRITE NEGATIVE (NEGATIVE); URINE PROTEIN NEGATIVE (NEGATIVE); URINE UROBILINOGEN 0.2 mg/dL (0.2-1.0)
[2020-01-18 17:47] LABS: ANISOCYTOSIS 1+; MACROCYTOSIS 0; OVALOCYTE 1+; PLATELET ESTIMATE DECREASED; TARGET CELLS 1+
[2020-01-18 17:59] LABS: PLATELET COUNT 89 K/MM3 (134-434)
[2020-01-18] MEDS: PANTOPRAZOLE 40 MG TABLET PO SCH (18:22)
[2020-01-18] MEDS ORDERED: PANTOPRAZOLE 40 MG TABLET ONE ×2 (18:22→18:28)
[2020-01-18] MEDS: metoPROLOL SUCCINATE 25 MG TAB.SR.24H (FP) PO SCH (21:00)
[2020-01-18] MEDS: RIVAROXABAN 15 MG TABLET PO SCH (21:00)
[2020-01-18] MEDS: QUEtiapine FUMARATE 25 MG TABLET PO SCH (21:00)
[2020-01-18] MEDS: FE POLYSAC/CYANOCOBAL/FA COMBO CAPSULE PO SCH (21:00)
[2020-01-18] MEDS: MEMANTINE HCL 10 MG TABLET (FP) PO SCH (21:00)
[2020-01-18] MEDS: CYANOCOBALAMIN 1,000 MCG TABLET (FP) PO SCH (21:00)
[2020-01-18] MEDS: ACETAMINOPHEN 325 MG TABLET (FP) PO SCH (21:00)
[2020-01-18] MEDS ORDERED: metoPROLOL SUCCINATE 25 MG TAB.SR.24H (FP) ONE (21:04)
[2020-01-18] MEDS ORDERED: QUEtiapine FUMARATE 25 MG TABLET ONE (21:04)
[2020-01-18] MEDS ORDERED: HALOPERIDOL LACTATE 5 MG/ML IV ONE (21:29)
[2020-01-18] MEDS ORDERED: HALOPERIDOL LACTATE 5 MG/ML ONE (21:34)
[2020-01-18] MEDS ORDERED: SENNOSIDES 8.6MG TABLET (FP) PO PRN (22:00)
[2020-01-18] MEDS ORDERED: MELATONIN 5 MG TABLETS PO PRN (22:00)
--- NOTE | 2020-01-19 05:40 | PN ---
Progress Note, Physician Chief Complaint: Patient seen and examined at the bedside, no acute events from last night History of Present Illness: This 89 yr old w/m with PMH of leukemia, colonic angiodysplasia, iron deficiency anemia, hypothyroidism, atrial fibrillation, HTN, depression, dementia, wedge compression fracture of L1 and L2, BPH, cancer of prostate, CKD, s/ ppm admitted via ER for an acute shortness of breath, acute edema of lower extremities, and an acute exacerbation of diastolic CHF. - Current Medication List Current Medications: Active Medications Acetaminophen (Tylenol -) 650 mg PO BID [facility] Last Admin: 01/18/20 21:00 Dose: 650 mg Documented by: B12/Folic Ac/Intrin Fact/Iron/Vit C (Niferex-150 Forte -) 1 each PO DAILY [facility] Last Admin: 01/18/20 21:00 Dose: 1 each Documented by: Camphor/Menthol (Sarna Anti-Itch -) 1 applic TP DAILY [facility] Cyanocobalamin (Vitamin B12 -) 2,500 mcg PO Th [facility] Last Admin: 01/18/20 21:00 Dose: 2,500 mcg Documented by: Donepezil HCl (Aricept -) 10 mg PO DAILY [facility] Escitalopram Oxalate (Lexapro -) 5 mg PO DAILY [facility] Finasteride (Proscar -) 5 mg PO DAILY [facility] Levothyroxine Sodium (Synthroid -) 50 mcg PO DAILY@0700 [facility] Melatonin (Melatonin) 5 mg PO HS PRN PRN Reason: INSOMNIA Memantine (Namenda -) 10 mg PO BID [facility] Last Admin: 01/18/20 21:00 Dose: 10 mg Documented by: Metoprolol Succinate (Toprol Xl -) 25 mg PO BID [facility] Last Admin: 01/18/20 21:00 Dose: 25 mg Documented by: Pantoprazole Sodium (Protonix -) 40 mg PO DAILY [facility] Last Admin: 01/18/20 18:22 Dose: 40 mg Documented by: Quetiapine Fumarate (Seroquel -) 25 mg PO HS [facility] Last Admin: 01/18/20 21:00 Dose: 25 mg Documented by: Rivaroxaban (Xarelto) 15 mg PO DAILY@1800 [facility] Last Admin: 01/18/20 21:00 Dose: 15 mg Documented by: Senna (Senna -) 2 tab PO HS PRN PRN Reason: CONSTIPATION - Objective Vital Signs: Vital Signs Temperature 98.0 F 01/19/20 03:00 Pulse Rate 72 01/19/20 03:00 Respiratory Rate 14 01/19/20 03:00 Blood Pressure 124/52 L 01/19/20 03:00 O2 Sat by Pulse Oximetry (%) 94 L 01/19/20 03:00 Constitutional: Yes: Well Nourished, No Distress, Calm Eyes: Yes: Conjunctiva Clear, EOM Intact HENT: Yes: Atraumatic, Normocephalic Neck: Yes: Supple, Trachea Midline Cardiovascular: Yes: Pulse Irregular (atrial fibrillation) Respiratory: Yes: CTA Bilaterally, Diminished Gastrointestinal: Yes: Normal Bowel Sounds, Soft ...Rectal Exam: Yes: Deferred Genitourinary: Yes: WNL Breast(s): Yes: WNL Musculoskeletal: Yes: Muscle Weakness Extremities: Yes: WNL Edema: Yes Edema: LLE: 3+, RLE: 3+ Peripheral Pulses WNL: Yes Integumentary: Yes: WNL Neurological: Yes: Alert, Unsteady Gait, Weakness ...Motor Strength: LUE (generalized muscle weakness of all extremities) Psychiatric: Yes: Alert Labs: CBC, BMP 01/18/20 15:00 01/18/20 15:00 INR, PTT INR 2.01 (0.83-1.09) H 01/18/20 15:00 - ....Imaging Other: Report Reviewed (lab data reviewed) Problem List - Problems (1) Acute CHF Code(s): I50.9 - HEART FAILURE, UNSPECIFIED Qualifiers: Heart failure type: unspecified Qualified Code(s): I50.9 - Heart failure, unspecified (2) Bilateral lower extremity edema Code(s): R60.0 - LOCALIZED EDEMA (3) SOB (shortness of breath) Code(s): R06.02 - SHORTNESS OF BREATH (4) AF (paroxysmal atrial fibrillation) Code(s): I48.0 - PAROXYSMAL ATRIAL FIBRILLATION (5) DEE (acute kidney injury) Code(s): N17.9 - ACUTE KIDNEY FAILURE, UNSPECIFIED (6) Acute pure red cell anemia Code(s): D60.8 - OTHER ACQUIRED PURE RED CELL APLASIAS (7) Afib Code(s): I48.91 - UNSPECIFIED ATRIAL FIBRILLATION (8) Altered mental status Code(s): R41.82 - ALTERED MENTAL STATUS, UNSPECIFIED (9) Leukopenia Code(s): D72.819 - DECREASED WHITE BLOOD CELL COUNT, UNSPECIFIED (10) Hyperkalemia Code(s): E87.5 - HYPERKALEMIA (11) Hyponatremia Code(s): E87.1 - HYPO-OSMOLALITY AND HYPONATREMIA (12) Pancytopenia Code(s): D61.818 - OTHER PANCYTOPENIA Assessment/Plan Assessment/plan: acute exacerbation of shortness of breath, acute edema of lower extremities, acute exacerbation of diastolic CHF, lymphoid leukemia, pancytopenia, HTN, atrial fibrillation, cancer of prostate, CKD, s/p PPM, hypothyroidism, colonic angiodysplasia, moderate MR, iron deficiency anemia, cancer of prostate, CKD, depression, dementia, wedge compression fractures of L1 and L2; IV Furosemide, a/c with Xarelto, DVT/GI prophylaxis, Niferex, Seroquel, Levothyroxine, Metoprolol, physical therapy, out of bed in chair as tolerated.
--- NOTE | 2020-01-19 05:53 | CON.CARD ---
Consult Consult Specialty:: Cardiology Referred by:: Dr. Napier Reason for Consultation:: CHF - History of Present Illness Chief Complaint: SOB History of Present Illness: 89 M non-obstx CAD, PPM (MDTRC), EF 40%, PHTN, Moderate MR, AF, orthostatic hypotension, CKD, dementia, history of sundowning in hospital, chronic anemia now admitted with altered MS, SOB and edema. CXR with increased interstitial markings. BNP: 6632 (last 2735 in february 2009) Received IV Lasix x1 dose in ER. 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: Yes: Dementia Cardio/Vascular: Yes: AFIB, CAD, CHF, HTN, Hyperlipdemia Pulmonary: No: Asthma, Bronchitis, Cancer, COPD, O2 Dependent, Pneumonia, Previously Intubated, Pulmonary Embolus, Pulmonary Fibrosis, Sleep Apnea, Other Gastrointestinal: Yes: GI Bleed, Other (colonic angiodysplasia) Hepatobiliary: No: Cirrhosis, Cholelithiasis, Cholecystitis, Choledocholithiasi s, Hepatitis A, Hepatitis B, Hepatitis C, Other Renal/: Yes: Renal Inusuff, BPH Infectious Disease: No: AIDS, C-Diff, Herpes Zoster, HIV, MRSA, STD's, Tuberculosis, VREF, Other Psych: Yes: Depression Musculoskeletal: Yes: Chronic low back pain (compression fractures of the spine) Rheumatology: No: Fibromyalgia, Gout, Lupus, Rheumatoid Arthritis, Sarcoidosis, Vasculitis, Other ENT: No: Allergic Rhinitis, Sinusitis, Other Endocrine: Yes: Hypothyroidism Dermatology: No: Basal Cell, Cellulitis, Eczema, Melanoma, Psoriasis, Squamous Cell, Other - Past Surgical History Past Surgical History: Yes: Permanent Pacemaker - Alcohol/Substance Use Hx Alcohol Use: No History of Substance Use: reports: None - Smoking History Smoking history: Unknown if ever smoked Have you smoked in the past 12 months: No Aproximately how many cigarettes per day: 0 - Social History ADL: Family Assistance History of Recent Travel: No Home Medications - Allergies Allergies/Adverse Reactions: Allergies Allergy/AdvReac Type Severity Reaction Status Date / Time No Known Drug Allergies Allergy Verified 08/22/19 05:00 - Home Medications Home Medications: Ambulatory Orders Amiodarone HCl [Cordarone -] 100 mg PO DAILY 04/17/18 Donepezil HCl 10 mg PO HS 04/17/18 Levothyroxine [Synthroid -] 50 mcg PO DAILY 04/17/18 Metoprolol Succinate 25 mg PO BID 04/17/18 Quetiapine Fumarate [Seroquel -] 12.5 mg PO HS 04/17/18 Furosemide 20 mg PO DAILY 01/27/19 Finasteride [Proscar -] 5 mg PO DAILY tablet 03/13/19 Acetaminophen [Tylenol .Extra-Strength -] 500 mg PO Q4H PRN tablet 08/23/19 Cyanocobalamin (Vitamin B-12) [Vitamin B-12] 2,500 mcg SL WEEKLY 09/14/19 Iron Polysaccharide Complex [Ferrex 150] 150 mg PO DAILY 09/14/19 Melatonin 5 mg PO HS 09/14/19 Sennosides [Senna] 8.6 mg PO DAILY 09/14/19 Acetaminophen [Tylenol .Extra-Strength -] 500 mg PO Q6H PRN tablet 09/19/19 Amiodarone HCl [Cordarone -] 100 mg PO DAILY tablet 09/19/19 Donepezil HCl [Aricept -] 10 mg PO DAILY@1800 tablet 09/19/19 Finasteride [Proscar -] 5 mg PO DAILY tablet 09/19/19 Furosemide [Lasix -] 20 mg PO DAILY tablet 09/19/19 Levothyroxine [Synthroid -] 50 mcg PO DAILY@0700 tablet 09/19/19 Melatonin 5 mg PO HS tab 09/19/19 Metoprolol Succinate [Toprol XL -] 25 mg PO BID@0800,2000 tab.sr.24h 09/19/19 Pantoprazole Sodium [Protonix IV] 40 mg IVPUSH BID vial 09/19/19 Quetiapine Fumarate [Seroquel -] 12.5 mg PO DAILY@1999 tablet 09/19/19 Sennosides [Senna -] 1 tab PO HS tablet 09/19/19 Family Medical History Family History: Unremarkable Review of Systems - Review of Systems Constitutional: reports: No Symptoms Eyes: reports: No Symptoms HENT: reports: No Symptoms Neck: reports: No Symptoms Cardiovascular: reports: Shortness of Breath Respiratory: reports: No Symptoms Gastrointestinal: reports: No Symptoms Genitourinary: reports: No Symptoms Breasts: reports: No Symptoms Reported Musculoskeletal: reports: No Symptoms Integumentary: reports: No Symptoms Neurological: reports: No Symptoms Endocrine: reports: No Symptoms - Risk Factors Known Risk Factors: Yes: Age Vital Signs: Vital Signs Temperature 98.9 F 01/19/20 05:42 Pulse Rate 61 01/19/20 05:42 Respiratory Rate 16 01/19/20 05:42 Blood Pressure 108/46 L 01/19/20 05:42 O2 Sat by Pulse Oximetry (%) 96 01/19/20 05:42 Constitutional: Yes: No Distress Eyes: Yes: Conjunctiva Clear Respiratory: Yes: Other (rales at bases 1/3 b/l) Gastrointestinal: Yes: Soft (nt) JVD: Yes Heart Sounds: Yes: S1, S2 (reg, paced) Edema: Yes Edema: LLE: 2+, RLE: 2+ Neurological: Yes: Confusion - Other Data Labs, Other Data: CBC, BMP 01/18/20 15:00 01/18/20 15:00 INR, PTT INR 2.01 (0.83-1.09) H 01/18/20 15:00 Troponin, BNP 01/18/20 15:00 Troponin I < 0.02 B-Natriuretic Peptide 6632.7 H Troponin, BNP 01/18/20 15:00 Troponin I < 0.02 B-Natriuretic Peptide 6632.7 H Paced 62bpm Echo: Report Reviewed (2018: EF 40%, Moderate MR, PAP 70) Imaging - Results Chest X-ray: Image Reviewed EKG: Image Reviewed Assessment/Plan IMP: Acute on chronic systolic CHF (EF 40%) Non-obstructive CAD Moderate MR Pulmonary HTN (RVSP 70 echo 2018) AF Orthostatic hypotension CKD Dementia with sundowning on hospital Chronic anemia (though secondary CKD) REC: 1. Acute on chronic systolic CHF: -tele -IV Lasix with daily BMP and daily weights 2. Non-obstx CAD: -On Xarelto, no added benefit of ASA in this age group 3. Moderate MR: -Advise repeat echo 4. PHTN: -Echo -Likely secondary to left sided cardiac dz with reduced EF and moderate MR 5. AF: s/p PPM -On Xarelto -Cont Toprol -Tele to assess rate control 6. Orthostatic hypotension: -Documented on previous admissions -Monitor 7. CKD: -Daily BMP /lytes while being actively diuresed 8. Dementia : -History of sundowning in hospital -As per PMD 9. CKD: -Chronic anemia, thought to be secondary CKD -Monitor H/H
[2020-01-19 08:24] LABS: BASO % 0.8 % (0-2.0); EOS % 1.3 % (0-4.5); HEMATOCRIT 24.9 % (35.4-49); HEMOGLOBIN 7.8 GM/dL (11.7-16.9); LYMPH % 54.3 % (8-40); MCH 25.9 pg (25.7-33.7); MCHC 31.4 g/dl (32.0-35.9); MEAN CELL VOLUME 82.3 fl (80-96); MEAN PLT VOLUME 8.8 fl (7.5-11.1); MONO % 24.3 % (3.8-10.2); NEUT % 19.3 % (42.8-82.8); PLATELET COUNT 70 K/MM3 (134-434); RBC 3.02 M/mm3 (4.00-5.60); RDW 16.5 % (11.9-15.9); WHITE BLOOD COUNT 2.6 K/mm3 (4.0-10.0)
[2020-01-19 08:57] LABS: ALBUMIN 3.2 g/dl (3.4-5.0); BILIRUBIN,TOTAL 0.6 mg/dL (0.2-1); BLOOD UREA NITROGEN 15.5 mg/dL (7-18); CALCIUM 8.5 mg/dL (8.5-10.1); CREATININE 1.3 mg/dL (0.55-1.3); POTASSIUM 4.2 mmol/L (3.5-5.1); TOT PROT 6.2 g/dl (6.4-8.2)
[2020-01-19] MEDS ORDERED: DONEPEZIL HCL 10 MG TABLET (FP) PO SCH (10:00)
[2020-01-19] MEDS: LEVOTHYROXINE NA 50 MCG TABLET (FP) PO SCH (10:31)
[2020-01-19] MEDS: FINASTERIDE 5 MG TABLET (FP) PO SCH (10:32)
[2020-01-19] MEDS: MEMANTINE HCL 10 MG TABLET (FP) PO SCH (10:32)
[2020-01-19] MEDS ORDERED: ESCITALOPRAM OXALATE 10 MG TABLET ONE (10:36)
[2020-01-19] MEDS ORDERED: PANTOPRAZOLE 40 MG TABLET ONE (10:36)
[2020-01-19] MEDS ORDERED: metoPROLOL SUCCINATE 25 MG TAB.SR.24H (FP) ONE (10:36)
[2020-01-19] MEDS: PANTOPRAZOLE 40 MG TABLET PO SCH (10:37)
[2020-01-19] MEDS: ESCITALOPRAM OXALATE 10 MG TABLET PO SCH (10:37)
[2020-01-19] MEDS: FUROSEMIDE 40 MG/4 ML INJECTABLE VIAL IVPUSH SCH (10:37)
[2020-01-19] MEDS: metoPROLOL SUCCINATE 25 MG TAB.SR.24H (FP) PO SCH ×2 (10:37→21:02)
[2020-01-19] MEDS ORDERED: FUROSEMIDE 40 MG/4 ML INJECTABLE VIAL ONE (10:37)
[2020-01-19] MEDS: FE POLYSAC/CYANOCOBAL/FA COMBO CAPSULE PO SCH (11:00)
[2020-01-19 11:08] LABS: ANISOCYTOSIS 1+; MACROCYTOSIS 0; OVALOCYTE 1+; PLATELET ESTIMATE DECREASED
--- NOTE | 2020-01-19 14:56 | EKG ---
Test Reason : Blood Pressure : / mmHG Vent. Rate : 062 BPM Atrial Rate : 105 BPM P-R Int : 000 ms QRS Dur : 122 ms QT Int : 464 ms P-R-T Axes : 000 030 170 degrees QTc Int : 470 ms Ventricular-paced rhythm ABNORMAL ECG WHEN COMPARED WITH ECG OF 14-SEP-2019 09:46, VENT. RATE HAS DECREASED BY 2 BPM Confirmed by ANGELA RUGGIERO MD ([id number]) on 01/19/2020 2:55:57 PM Referred By: Confirmed By:ANGELA RUGGIERO MD
[2020-01-19] MEDS: ACETAMINOPHEN 325 MG TABLET (FP) PO SCH ×2 (16:11→21:03)
[2020-01-19] MEDS: MENTHOL/CAMPHOR 1 APPLIC BTL TP SCH (16:11)
[2020-01-19] MEDS: RIVAROXABAN 15 MG TABLET PO SCH (17:08)
[2020-01-19] MEDS: QUEtiapine FUMARATE 25 MG TABLET PO SCH (21:02)
[2020-01-20] MEDS ORDERED: HALOPERIDOL 1 MG TABLET PO ONE (04:50)
[2020-01-20] MEDS: LEVOTHYROXINE NA 50 MCG TABLET (FP) PO SCH (06:01)
[2020-01-20 07:53] LABS: BASO % 0.8 % (0-2.0); EOS % 1.4 % (0-4.5); HEMATOCRIT 25.2 % (35.4-49); LYMPH % 54.4 % (8-40); MCHC 31.9 g/dl (32.0-35.9); MEAN CELL VOLUME 81.5 fl (80-96); MEAN PLT VOLUME 8.9 fl (7.5-11.1); MONO % 26.2 % (3.8-10.2); NEUT % 17.2 % (42.8-82.8); PLATELET COUNT 83 K/MM3 (134-434); RBC 3.09 M/mm3 (4.00-5.60); RDW 16.2 % (11.9-15.9)
[2020-01-20 08:01] LABS: ALBUMIN 3.2 g/dl (3.4-5.0); BILIRUBIN,TOTAL 0.9 mg/dL (0.2-1); BLOOD UREA NITROGEN 16.3 mg/dL (7-18); CALCIUM 8.7 mg/dL (8.5-10.1); CREATININE 1.4 mg/dL (0.55-1.3); POTASSIUM 3.9 mmol/L (3.5-5.1); TOT PROT 6.2 g/dl (6.4-8.2)
--- NOTE | 2020-01-20 08:16 | PN ---
Progress Note, Physician Chief Complaint: Patient seen and examined at the bedside, no acute events from last night, no labored breathing, no chest pain. History of Present Illness: This 89 yr old w/m with PMH of lymphoid leukemia, colonic angiodysplasia, CAD, moderate MR, iron deficiency anemia, atrial fibrillation, HTN, hypothyroidism, depression, dementia, wedge compression fractures of L1 and L2, cancer of pros bobby, pulmonary hypertension, CKD admitted via ER with an acute shortness of breath, an acute edema of lower extremities, acute altered mental status, and acute diastolic CHF. - Current Medication List Current Medications: Active Medications Acetaminophen (Tylenol -) 650 mg PO BID [facility] Last Admin: 01/19/20 21:03 Dose: 650 mg Documented by: B12/Folic Ac/Intrin Fact/Iron/Vit C (Niferex-150 Forte -) 1 each PO DAILY [facility] Last Admin: 01/19/20 11:00 Dose: 1 each Documented by: Camphor/Menthol (Sarna Anti-Itch -) 1 applic TP DAILY [facility] Last Admin: 01/19/20 16:11 Dose: Not Given Documented by: Cyanocobalamin (Vitamin B12 -) 2,500 mcg PO Th [facility] Last Admin: 01/18/20 21:00 Dose: 2,500 mcg Documented by: Escitalopram Oxalate (Lexapro -) 5 mg PO DAILY [facility] Last Admin: 01/19/20 10:37 Dose: 5 mg Documented by: Finasteride (Proscar -) 5 mg PO DAILY [facility] Last Admin: 01/19/20 10:32 Dose: 5 mg Documented by: Furosemide (Lasix Injection -) 40 mg IVPUSH DAILY [facility] Last Admin: 01/19/20 10:37 Dose: 40 mg Documented by: Levothyroxine Sodium (Synthroid -) 50 mcg PO DAILY@0700 [facility] Last Admin: 01/20/20 06:01 Dose: 50 mcg Documented by: Melatonin (Melatonin) 10 mg PO HS PRN PRN Reason: INSOMNIA Metoprolol Succinate (Toprol Xl -) 25 mg PO BID [facility] Last Admin: 01/19/20 21:02 Dose: 25 mg Documented by: Pantoprazole Sodium (Protonix -) 40 mg PO DAILY [facility] Last Admin: 01/19/20 10:37 Dose: 40 mg Documented by: Quetiapine Fumarate (Seroquel -) 25 mg PO HS [facility] Last Admin: 01/19/20 21:02 Dose: 25 mg Documented by: Rivaroxaban (Xarelto) 15 mg PO DAILY@1800 [facility] Last Admin: 01/19/20 17:08 Dose: 15 mg Documented by: Senna (Senna -) 2 tab PO HS PRN PRN Reason: CONSTIPATION - Objective Vital Signs: Vital Signs Temperature 98.1 F 01/20/20 06:00 Pulse Rate 68 01/20/20 06:34 Respiratory Rate 18 01/20/20 06:00 Blood Pressure 126/61 01/20/20 06:34 O2 Sat by Pulse Oximetry (%) 98 01/19/20 21:00 Constitutional: Yes: Well Nourished, No Distress, Calm Eyes: Yes: Conjunctiva Clear, EOM Intact HENT: Yes: Atraumatic, Normocephalic Neck: Yes: Supple, Trachea Midline Cardiovascular: Yes: Pulse Irregular (atrial fibrillation) Respiratory: Yes: Regular, CTA Bilaterally, Diminished, SOB, SOB on Exertion Gastrointestinal: Yes: Normal Bowel Sounds, Soft ...Rectal Exam: Yes: Deferred Genitourinary: Yes: WNL Breast(s): Yes: WNL Musculoskeletal: Yes: Muscle Weakness Extremities: Yes: WNL Edema: Yes Edema: LLE: 2+, RLE: 2+ Peripheral Pulses WNL: Yes Integumentary: Yes: WNL Neurological: Yes: Alert, Unsteady Gait, Weakness ...Motor Strength: LLE (muscle weakness), RLE (muscle weakness) Psychiatric: Yes: Alert Labs: CBC, BMP 01/20/20 06:45 01/20/20 06:45 INR, PTT INR 2.01 (0.83-1.09) H 01/18/20 15:00 - ....Imaging Other: Report Reviewed (lab data reviewed) Problem List - Problems (1) Acute CHF Code(s): I50.9 - HEART FAILURE, UNSPECIFIED Qualifiers: Heart failure type: unspecified Qualified Code(s): I50.9 - Heart failure, unspecified (2) Bilateral lower extremity edema Code(s): R60.0 - LOCALIZED EDEMA (3) SOB (shortness of breath) Code(s): R06.02 - SHORTNESS OF BREATH (4) AF (paroxysmal atrial fibrillation) Code(s): I48.0 - PAROXYSMAL ATRIAL FIBRILLATION (5) DEE (acute kidney injury) Code(s): N17.9 - ACUTE KIDNEY FAILURE, UNSPECIFIED (6) Acute pure red cell anemia Code(s): D60.8 - OTHER ACQUIRED PURE RED CELL APLASIAS (7) Afib Code(s): I48.91 - UNSPECIFIED ATRIAL FIBRILLATION (8) Altered mental status Code(s): R41.82 - ALTERED MENTAL STATUS, UNSPECIFIED (9) Leukopenia Code(s): D72.819 - DECREASED WHITE BLOOD CELL COUNT, UNSPECIFIED (10) Hyperkalemia Code(s): E87.5 - HYPERKALEMIA (11) Hyponatremia Code(s): E87.1 - HYPO-OSMOLALITY AND HYPONATREMIA (12) Pancytopenia Code(s): D61.818 - OTHER PANCYTOPENIA Assessment/Plan Assessment/plan: acute shortness of breath, acute exacerbation of diastolic CHF, acute exacerbation of edema of lower extremities, acute exacerbation of pancytopenia, lymphoid leukemia, colonic angiodysplasia, CAD, moderate MR, acute exacerbation of iron deficiency anemia, atrial fibrillation, HTN, hypothyroidism, depression, dementia, wedge compression fractures of L1 and L2, pulmonary hypertension, CKD; IV Furosemide, amiodarone, metoprolol for atrial fibrillation, DVT/GI prophylaxis, a/c with xarelto, Olanzapine for delirium, fall risk precautions, SCDs, physical therapy.
--- NOTE | 2020-01-20 08:39 | PN ---
Progress Note, Physician Chief Complaint: sob History of Present Illness: denies sob, chest discomfort, palpitations, swelling - Current Medication List Current Medications: Active Medications Acetaminophen (Tylenol -) 650 mg PO BID [facility] Last Admin: 01/19/20 21:03 Dose: 650 mg Documented by: B12/Folic Ac/Intrin Fact/Iron/Vit C (Niferex-150 Forte -) 1 each PO DAILY [facility] Last Admin: 01/19/20 11:00 Dose: 1 each Documented by: Camphor/Menthol (Sarna Anti-Itch -) 1 applic TP DAILY [facility] Last Admin: 01/19/20 16:11 Dose: Not Given Documented by: Cyanocobalamin (Vitamin B12 -) 2,500 mcg PO Th [facility] Last Admin: 01/18/20 21:00 Dose: 2,500 mcg Documented by: Escitalopram Oxalate (Lexapro -) 5 mg PO DAILY [facility] Last Admin: 01/19/20 10:37 Dose: 5 mg Documented by: Finasteride (Proscar -) 5 mg PO DAILY [facility] Last Admin: 01/19/20 10:32 Dose: 5 mg Documented by: Furosemide (Lasix Injection -) 40 mg IVPUSH DAILY [facility] Last Admin: 01/19/20 10:37 Dose: 40 mg Documented by: Levothyroxine Sodium (Synthroid -) 50 mcg PO DAILY@0700 [facility] Last Admin: 01/20/20 06:01 Dose: 50 mcg Documented by: Melatonin (Melatonin) 10 mg PO HS PRN PRN Reason: INSOMNIA Metoprolol Succinate (Toprol Xl -) 25 mg PO BID [facility] Last Admin: 01/19/20 21:02 Dose: 25 mg Documented by: Pantoprazole Sodium (Protonix -) 40 mg PO DAILY [facility] Last Admin: 01/19/20 10:37 Dose: 40 mg Documented by: Quetiapine Fumarate (Seroquel -) 25 mg PO HS [facility] Last Admin: 01/19/20 21:02 Dose: 25 mg Documented by: Rivaroxaban (Xarelto) 15 mg PO DAILY@1800 [facility] Last Admin: 01/19/20 17:08 Dose: 15 mg Documented by: Senna (Senna -) 2 tab PO HS PRN PRN Reason: CONSTIPATION - Objective Vital Signs: Vital Signs Temperature 98.1 F 01/20/20 06:00 Pulse Rate 68 01/20/20 06:34 Respiratory Rate 18 01/20/20 06:00 Blood Pressure 126/61 01/20/20 06:34 O2 Sat by Pulse Oximetry (%) 98 01/19/20 21:00 Constitutional: Yes: Well Nourished, No Distress, Calm Neck: Yes: Rigid (chronic OA/pain) Cardiovascular: Yes: Regular Rate and Rhythm, JVD (probable (flexion of neck limited)), S1, S2. No: Gallop, Murmur Respiratory: Yes: Regular, Rales (bases, incr over prior baseline). No: Accessory Muscle Use, Wheezes Extremities: No: Cold Edema: Yes (1+ feet) Neurological: Yes: Alert. No: Seizure Psychiatric: No: Agitated Labs: CBC, BMP 01/20/20 06:45 01/20/20 06:45 INR, PTT INR 2.01 (0.83-1.09) H 01/18/20 15:00 Assessment/Plan Echo 12/11 (): moder decr LVEF (global), EF 35-40%. RV TDS. mild LAE. mild AI/MR. mild-mod TR. no pulm HTN seen. Echo 11/10: 1. The left ventricular size is normal. 2. Overall left ventricular systolic function is moderately impaired with a v isually estimated EF of approximately 40 %. Peters's EF calculation (biplane) is 44%. 3. LA pressure is uncertain. 4. Septal wall motion is consistent with ventricular pacing; remaining wilson appear mildly hypokinetic. 5. The right ventricle is moderately enlarged. 6. The right ventricular systolic function is normal. 7. Left atrium is severely dilated by volume. 8. The right atrium is markedly enlarged. 9. There is mild aortic regurgitation. 10. Moderate mitral regurgitation is present (central jet). Estimated regurgitant volume = 38cc; estimated FELICIANO = 0.18 cm2. 11. Moderate to severe tricuspid regurgitation present (no hepatic vein doppler imaging was performed). 12. There is at least mild to moderate pulmonary hypertension (TR doppler signal is cut off). 13. The right ventricular systolic pressure is at least 47 mmHg (assuming RA pressure of 3). 14. The aortic root is mildy to moderately dilated (4.2 cm at sinuses of Valsalva). Acute on chronic systolic CHF: -BNP 6K, from baseline 1-2K. CXR clear with chronic/stable mild increased inter stitial markings -he is presenting with his typical HF sx's (bibasilar rales incr'd over baseline sounds, feet swelling), JVD likely on TDS exam -known h/o orthostatic hypotension complicating diuresis--down to lasix 20 QD in [place] as of last communication with me 02/10 -receiving lasix 40 IV qd here. no reliable weights trend available. no sob--continue same dose for now Moderate MR -Advise repeat echo PHTN: -repeat echo pending -Component of WHO 2 etiology (left heart filling pressures), also ? WHO 3 component from severe, untreated ANJUM AF: s/p PPM -Xarelto held 01/11 due to hgb trending down from 7s to 6s in [place], to start trial of Procrit injections at that time--? NOAC resumed since, receiving here (15mg dose for GFR <50) -has been maintained on amiodarone 100mg for many yrs to help with rapid AF possibly triggering HF in the past--continue here (QTc ok on ECG. mild interstitial thickening on CXR is chronic, pt previously evaluated by pulmonary who did not suspect amio lung fibrosis) -Cont Toprol 25 bid -Tele to assess rate control -PM remote monitoring stable 12/12 CKD: -baseline creat runs 1.5-1.9, with fluctuations when uses NSAIDs for severe spinal stenosis pain -renal fxn currently stable Dementia/Delirium -History of severe sundowning in hospital -As per PMD Panctyopenia: -Chronic anemia, ? secondary CKD, ? 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 consider heme evaluation (i believe he has seen dr kumar in the past)
[2020-01-20] MEDS ORDERED: PT OWN MED DRAWER 7, Y5N ONE ×3 (09:44→20:46)
[2020-01-20] MEDS: AMIODARONE HCL 200 MG TABLET PO SCH (09:58)
[2020-01-20] MEDS: FINASTERIDE 5 MG TABLET (FP) PO SCH (09:58)
[2020-01-20] MEDS: ACETAMINOPHEN 325 MG TABLET (FP) PO SCH ×2 (09:59→21:06)
[2020-01-20] MEDS: PANTOPRAZOLE 40 MG TABLET PO SCH (10:00)
[2020-01-20] MEDS: metoPROLOL SUCCINATE 25 MG TAB.SR.24H (FP) PO SCH ×2 (10:00→21:06)
[2020-01-20] MEDS: ESCITALOPRAM OXALATE 10 MG TABLET PO SCH (10:00)
[2020-01-20] MEDS: FUROSEMIDE 40 MG/4 ML INJECTABLE VIAL IVPUSH SCH (10:01)
[2020-01-20] MEDS: FE POLYSAC/CYANOCOBAL/FA COMBO CAPSULE PO SCH (10:01)
[2020-01-20] MEDS: MENTHOL/CAMPHOR 1 APPLIC BTL TP SCH (10:49)
[2020-01-20 12:39] LABS: ANISOCYTOSIS 0; MACROCYTOSIS 0; OVALOCYTE 1+; PLATELET ESTIMATE DECREASED
[2020-01-20] MEDS: RIVAROXABAN 15 MG TABLET PO SCH (17:18)
[2020-01-20] MEDS: QUEtiapine FUMARATE 25 MG TABLET PO SCH (21:06)
[2020-01-20] MEDS ORDERED: OLANZapine 2.5 MG TABLET PO SCH (22:00)
[2020-01-21] MEDS: LEVOTHYROXINE NA 50 MCG TABLET (FP) PO SCH (06:09)
[2020-01-21 07:19] LABS: BASO % 0.9 % (0-2.0); HEMATOCRIT 26.4 % (35.4-49); HEMOGLOBIN 8.2 GM/dL (11.7-16.9); LYMPH % 60.8 % (8-40); MCH 25.1 pg (25.7-33.7); MEAN CELL VOLUME 80.8 fl (80-96); MEAN PLT VOLUME 8.4 fl (7.5-11.1); MONO % 25.4 % (3.8-10.2); NEUT % 10.9 % (42.8-82.8); PLATELET COUNT 98 K/MM3 (134-434); RBC 3.27 M/mm3 (4.00-5.60); RDW 16.4 % (11.9-15.9); WHITE BLOOD COUNT 3.2 K/mm3 (4.0-10.0)
[2020-01-21 07:25] LABS: BILIRUBIN,TOTAL 0.8 mg/dL (0.2-1); BLOOD UREA NITROGEN 15.6 mg/dL (7-18); CALCIUM 8.8 mg/dL (8.5-10.1); CREATININE 1.5 mg/dL (0.55-1.3); POTASSIUM 3.7 mmol/L (3.5-5.1)
[2020-01-21] MEDS ORDERED: POTASSIUM CHLORIDE ORAL LIQUID 20 MEQ/15 ML PO ONE (07:51)
--- NOTE | 2020-01-21 07:52 | PN ---
Progress Note, Physician Chief Complaint: sob History of Present Illness: denies sob. no cp, palp, syncope no etoh - Current Medication List Current Medications: Active Medications Acetaminophen (Tylenol -) 650 mg PO BID [facility] Last Admin: 01/20/20 21:06 Dose: 650 mg Documented by: Amiodarone HCl (Cordarone -) 100 mg PO DAILY [facility] Last Admin: 01/20/20 09:58 Dose: 100 mg Documented by: B12/Folic Ac/Intrin Fact/Iron/Vit C (Niferex-150 Forte -) 1 each PO DAILY [facility] Last Admin: 01/20/20 10:01 Dose: 1 each Documented by: Camphor/Menthol (Sarna Anti-Itch -) 1 applic TP DAILY [facility] Last Admin: 01/20/20 10:49 Dose: 1 applic Documented by: Cyanocobalamin (Vitamin B12 -) 2,500 mcg PO Th [facility] Last Admin: 01/18/20 21:00 Dose: 2,500 mcg Documented by: Escitalopram Oxalate (Lexapro -) 5 mg PO DAILY [facility] Last Admin: 01/20/20 10:00 Dose: 5 mg Documented by: Finasteride (Proscar -) 5 mg PO DAILY [facility] Last Admin: 01/20/20 09:58 Dose: 5 mg Documented by: Furosemide (Lasix Injection -) 40 mg IVPUSH DAILY [facility] Last Admin: 01/20/20 10:01 Dose: 40 mg Documented by: Levothyroxine Sodium (Synthroid -) 50 mcg PO DAILY@0700 [facility] Last Admin: 01/21/20 06:09 Dose: 50 mcg Documented by: Melatonin (Melatonin) 10 mg PO HS PRN PRN Reason: INSOMNIA Metoprolol Succinate (Toprol Xl -) 25 mg PO BID [facility] Last Admin: 01/20/20 21:06 Dose: 25 mg Documented by: Olanzapine (Zyprexa -) 1.25 mg PO HS [facility] Last Admin: 01/20/20 21:07 Dose: 1.25 mg Documented by: Pantoprazole Sodium (Protonix -) 40 mg PO DAILY [facility] Last Admin: 01/20/20 10:00 Dose: 40 mg Documented by: Quetiapine Fumarate (Seroquel -) 25 mg PO HS [facility] Last Admin: 01/20/20 21:06 Dose: 25 mg Documented by: Rivaroxaban (Xarelto) 15 mg PO DAILY@1800 [facility] Last Admin: 01/20/20 17:18 Dose: 15 mg Documented by: Lewis (Senna -) 2 tab PO HS PRN PRN Reason: CONSTIPATION - Objective Vital Signs: Vital Signs Temperature 98.8 F 01/21/20 06:41 Pulse Rate 61 01/21/20 06:41 Respiratory Rate 18 01/21/20 06:41 Blood Pressure 118/70 01/21/20 06:41 O2 Sat by Pulse Oximetry (%) 100 01/20/20 21:00 Constitutional: Yes: Well Nourished, No Distress, Calm Eyes: No: Sclera Icterus HENT: No: Nasal Congestion Cardiovascular: Yes: Regular Rate and Rhythm, JVD (probable). No: Gallop, Murmur Respiratory: Yes: CTA Bilaterally. No: Accessory Muscle Use, Rales, Wheezes Gastrointestinal: Yes: Normal Bowel Sounds, Soft. No: Tenderness Musculoskeletal: Yes: Other (No kyphosis) Extremities: No: Cold, Cyanosis Edema: No Integumentary: No: Jaundice Neurological: Yes: Alert, Oriented (x3) Psychiatric: No: Agitated Labs: CBC, BMP 01/21/20 06:25 01/21/20 06:25 INR, PTT INR 2.01 (0.83-1.09) H 01/18/20 15:00 Assessment/Plan Echo 12/11 (): moder decr LVEF (global), EF 35-40%. RV TDS. mild LAE. mild AI/MR. mild-mod TR. no pulm HTN seen. Echo 11/10: 1. The left ventricular size is normal. 2. Overall left ventricular systolic function is moderately impaired with a visually estimated EF of approximately 40 %. Peters's EF calculation (biplane) is 44%. 3. LA pressure is uncertain. 4. Septal wall motion is consistent with ventricular pacing; remaining wilson appear mildly hypokinetic. 5. The right ventricle is moderately enlarged. 6. The right ventricular systolic function is normal. 7. Left atrium is severely dilated by volume. 8. The right atrium is markedly enlarged. 9. There is mild aortic regurgitation. 10. Moderate mitral regurgitation is present (central jet). Estimated regurgitant volume = 38cc; estimated FELICIANO = 0.18 cm2. 11. Moderate to severe tricuspid regurgitation present (no hepatic vein doppler imaging was performed). 12. There is at least mild to moderate pulmonary hypertension (TR doppler signal is cut off). 13. The right ventricular systolic pressure is at least 47 mmHg (assuming RA pressure of 3). 14. The aortic root is mildy to moderately dilated (4.2 cm at sinuses of Valsalva). Acute on chronic systolic CHF, moderate MR, pulm HTN with dilated RV and mod- severe TR: -BNP 6K, from baseline 1-2K. CXR clear with chronic/stable mild increased interstitial markings -he is presenting with his typical HF sx's (bibasilar rales incr'd over baseline sounds, feet swelling), JVD likely on TDS exam -known h/o orthostatic hypotension complicating diuresis--down to lasix 20 QD in [place] as of last communication with me 02/10 -receiving lasix 40 IV qd here. no reliable weights trend available. no sob. basilar rales have resolved. still mild JVD--continue same -replete K/Mag to > 4/2 -rpt echo here -component of WHO 2 etiology of PH (left heart filling pressures), also ? WHO 3 component from severe, untreated ANJUM AF: s/p PPM -Xarelto held 01/11 due to hgb trending down from 7s to 6s in [place], started Procrit injections, Xarelto eventually resumed -h/h stable here--cont Xarelto 15mg (GFR <50) -has been maintained on amiodarone 100mg for many yrs to help with rapid AF possibly triggering HF in the past--continue here (QTc ok on ECG. mild interstitial thickening on CXR is chronic, pt previously evaluated by pulmonary who did not suspect amio lung fibrosis) -Cont Toprol 25 bid -Tele to assess rate control -PM remote monitoring stable 12/12 CKD: -baseline creat runs 1.5-1.9, with fluctuations when uses NSAIDs for severe spinal stenosis pain -renal fxn currently stable Dementia/Delirium -History of severe sundowning in hospital -As per PMD Panctyopenia: -Chronic anemia, ? secondary CKD, ? 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 defer to primary team whether to get heme in volved here.
--- NOTE | 2020-01-21 08:26 | PN ---
Progress Note, Physician Chief Complaint: Patient seen and examined at the bedside, no acute events from last night, no labored breathing. History of Present Illness: This 89 yr old w/m with PMH of lymphoid leukemia, colonic angiodysplasia, CAD, moderate MR, iron deficiency anemia, ventricular paced rhythm, HTN, hypo thyroidism, depression, dementia, pulmonary hypertension, CKD, wedge compression fractures of L1 and L2, moderate to severe TR admitted via ER with an acute shortness of breath, acute exacerbation of systolic CHF, acute edema of lower extremities, and an acute altered mental status. - Current Medication List Current Medications: Active Medications Acetaminophen (Tylenol -) 650 mg PO BID [facility] Last Admin: 01/20/20 21:06 Dose: 650 mg Documented by: Amiodarone HCl (Cordarone -) 100 mg PO DAILY [facility] Last Admin: 01/20/20 09:58 Dose: 100 mg Documented by: B12/Folic Ac/Intrin Fact/Iron/Vit C (Niferex-150 Forte -) 1 each PO DAILY [facility] Last Admin: 01/20/20 10:01 Dose: 1 each Documented by: Camphor/Menthol (Sarna Anti-Itch -) 1 applic TP DAILY [facility] Last Admin: 01/20/20 10:49 Dose: 1 applic Documented by: Cyanocobalamin (Vitamin B12 -) 2,500 mcg PO Th [facility] Last Admin: 01/18/20 21:00 Dose: 2,500 mcg Documented by: Escitalopram Oxalate (Lexapro -) 5 mg PO DAILY [facility] Last Admin: 01/20/20 10:00 Dose: 5 mg Documented by: Finasteride (Proscar -) 5 mg PO DAILY [facility] Last Admin: 01/20/20 09:58 Dose: 5 mg Documented by: Furosemide (Lasix Injection -) 40 mg IVPUSH DAILY [facility] Last Admin: 01/20/20 10:01 Dose: 40 mg Documented by: Levothyroxine Sodium (Synthroid -) 50 mcg PO DAILY@0700 [facility] Last Admin: 01/21/20 06:09 Dose: 50 mcg Documented by: Melatonin (Melatonin) 10 mg PO HS PRN PRN Reason: INSOMNIA Metoprolol Succinate (Toprol Xl -) 25 mg PO BID [facility] Last Admin: 01/20/20 21:06 Dose: 25 mg Documented by: Olanzapine (Zyprexa -) 1.25 mg PO HS [facility] Last Admin: 01/20/20 21:07 Dose: 1.25 mg Documented by: Pantoprazole Sodium (Protonix -) 40 mg PO DAILY [facility] Last Admin: 01/20/20 10:00 Dose: 40 mg Documented by: Quetiapine Fumarate (Seroquel -) 25 mg PO [facility] Last Admin: 01/20/20 21:06 Dose: 25 mg Documented by: Rivaroxaban (Xarelto) 15 mg PO DAILY@1800 [facility] Last Admin: 01/20/20 17:18 Dose: 15 mg Documented by: Senna (Senna -) 2 tab PO PRN PRN Reason: CONSTIPATION - Objective Vital Signs: Vital Signs Temperature 98.8 F 01/21/20 06:41 Pulse Rate 61 01/21/20 06:41 Respiratory Rate 18 01/21/20 06:41 Blood Pressure 118/70 01/21/20 06:41 O2 Sat by Pulse Oximetry (%) 100 01/20/20 21:00 Constitutional: Yes: Well Nourished, No Distress, Calm Eyes: Yes: Conjunctiva Clear, EOM Intact HENT: Yes: Atraumatic, Normocephalic Neck: Yes: Supple, Trachea Midline Cardiovascular: Yes: Other (ventricular paced rhythm) Respiratory: Yes: Regular, CTA Bilaterally, On Nasal O2, Rales Gastrointestinal: Yes: Normal Bowel Sounds, Soft ...Rectal Exam: Yes: Deferred Genitourinary: Yes: WNL Breast(s): Yes: WNL Musculoskeletal: Yes: Muscle Weakness Extremities: Yes: WNL Edema: Yes Edema: LLE: 1+, RLE: 1+ Peripheral Pulses WNL: Yes Integumentary: Yes: WNL Neurological: Yes: Alert, Confusion, Unsteady Gait, Weakness ...Motor Strength: LLE (muscle weakness), RLE (muscle weakness) Psychiatric: Yes: Alert Labs: CBC, BMP 01/21/20 06:25 01/21/20 06:25 INR, PTT INR 2.01 (0.83-1.09) H 01/18/20 15:00 - ....Imaging Other: Report Reviewed (lab data reviewed) Problem List - Problems (1) Acute CHF Code(s): I50.9 - HEART FAILURE, UNSPECIFIED Qualifiers: Heart failure type: unspecified Qualified Code(s): I50.9 - Heart failure, unspecified (2) Bilateral lower extremity edema Code(s): R60.0 - LOCALIZED EDEMA (3) SOB (shortness of breath) Code(s): R06.02 - SHORTNESS OF BREATH (4) AF (paroxysmal atrial fibrillation) Code(s): I48.0 - PAROXYSMAL ATRIAL FIBRILLATION (5) DEE (acute kidney injury) Code(s): N17.9 - ACUTE KIDNEY FAILURE, UNSPECIFIED (6) Acute pure red cell anemia Code(s): D60.8 - OTHER ACQUIRED PURE RED CELL APLASIAS (7) Afib Code(s): I48.91 - UNSPECIFIED ATRIAL FIBRILLATION (8) Altered mental status Code(s): R41.82 - ALTERED MENTAL STATUS, UNSPECIFIED (9) Leukopenia Code(s): D72.819 - DECREASED WHITE BLOOD CELL COUNT, UNSPECIFIED (10) Hyperkalemia Code(s): E87.5 - HYPERKALEMIA (11) Hyponatremia Code(s): E87.1 - HYPO-OSMOLALITY AND HYPONATREMIA (12) Pancytopenia Code(s): D61.818 - OTHER PANCYTOPENIA (13) Systolic CHF Code(s): I50.20 - UNSPECIFIED SYSTOLIC (CONGESTIVE) HEART FAILURE (14) Moderate mitral regurgitation Code(s): I34.0 - NONRHEUMATIC MITRAL (VALVE) INSUFFICIENCY (15) Severe tricuspid regurgitation Code(s): I07.1 - RHEUMATIC TRICUSPID INSUFFICIENCY Assessment/Plan Assessment/plan: acute shortness of breath, acute systolic CHF, acute edema of lower extremities, acute altered mental status, moderate MR, moderate to severe TR, pulmonary hypertension, mild AR, severe dilatation of the left atrium, right atrium is moderately enlarged, overall left ventricular systolic function is moderately impaired with EF 40%, pancytopenia, lymphoid leukemia, colonic angiodysplasia, CAD, iron deficiency anemia, HTN, atrial fibrillation, hypothyroidism, depression, dementia, CKD; IV Furosemide, a/c with xarelto, DVT/GI prophylaxis, olanzapine for delirium, melatonin for insomnia, amiodarone, metoprolol, levothyroxine, fall risk precautions, SCDs, out of bed in chair as tolerated, physical therapy.
[2020-01-21 09:00] LABS: ANISOCYTOSIS 1+; MACROCYTOSIS 0; PLATELET ESTIMATE DECREASED
[2020-01-21] MEDS: ESCITALOPRAM OXALATE 10 MG TABLET PO SCH (09:13)
[2020-01-21] MEDS: FUROSEMIDE 40 MG/4 ML INJECTABLE VIAL IVPUSH SCH (09:13)
[2020-01-21] MEDS: ACETAMINOPHEN 325 MG TABLET (FP) PO SCH ×2 (09:14→22:34)
[2020-01-21] MEDS: PANTOPRAZOLE 40 MG TABLET PO SCH (09:14)
[2020-01-21] MEDS: metoPROLOL SUCCINATE 25 MG TAB.SR.24H (FP) PO SCH ×2 (09:15→22:35)
[2020-01-21] MEDS: FE POLYSAC/CYANOCOBAL/FA COMBO CAPSULE PO SCH (09:16)
[2020-01-21] MEDS: FINASTERIDE 5 MG TABLET (FP) PO SCH (09:16)
[2020-01-21] MEDS: AMIODARONE HCL 200 MG TABLET PO SCH (09:17)
[2020-01-21] MEDS: MENTHOL/CAMPHOR 1 APPLIC BTL TP SCH (09:18)
--- NOTE | 2020-01-21 11:42 | PN ---
Progress Note (short form) - Note Progress Note: ID consult dictated imp/reccd asked to see for leukopenia and neutropenia 89 yo man with history of CLL, prostate cancer s/p brachytherapy Pancytopenia- suspect due to CLL neutropenic isolation blood cultures (screening) no evidence UTI hematology consult CHF- per cardiology d/w PMD Problem List - Problems (1) Pancytopenia Code(s): D61.818 - OTHER PANCYTOPENIA (2) CLL (chronic lymphocytic leukemia) Code(s): C91.10 - CHRONIC LYMPHOCYTIC LEUK OF B-CELL TYPE NOT ACHIEVE REMIS (3) Acute CHF Code(s): I50.9 - HEART FAILURE, UNSPECIFIED Qualifiers: Heart failure type: unspecified Qualified Code(s): I50.9 - Heart failure, unspecified
--- NOTE | 2020-01-21 12:06 | CONS ---
INFECTIOUS DISEASE CONSULTATION DATE OF CONSULTATION: DATE OF DICTATION: 01/21/2020 REQUESTED BY: Rajesh Vasquez MD HISTORY: I am asked to see this man for leukopenia and neutropenia. This is an 89-year-old man with a past medical history of CLL and prostate cancer. He has had brachytherapy in the past. He has a history of CHF as well. He was admitted on the from assisted living for worsening shortness of breath and leg edema. He was noted to have a low white count and I am asked to further evaluate him. He has no fevers or chills. He is awake and alert and resting comfortably. He is unfortunately mildly demented and unable to give a good history. He thinks he still lives with his daughter in [place], but apparently early this year his living situation was moved to the assisted living center. ALLERGIES: He has no known drug allergies. MEDICATIONS: At the [facility] include finasteride, escitalopram, Aricept, amiodarone, melatonin, levothyroxine, senna, Seroquel, metoprolol, Namenda, Xarelto and vitamin B12. He was started on Lasix as well recently. SURGICAL HISTORY: Notable for permanent pacemaker. PAST MEDICAL HISTORY: Notable for dementia, atrial fibrillation, coronary artery disease, CHF, hypertension, hyperlipidemia. He has had a GI bleed in the past and has colonic angiodysplasia, history of renal insufficiency, BPH, prostate cancer, CLL, anemia, chronic low back pain with compression fractures, history of depression, hypothyroidism. SOCIAL HISTORY: It is unknown what his cigarette, alcohol or substance use history is. He lives in assisted living now and there is no history of any recent travel. REVIEW OF SYSTEMS: He reports no complaints whatsoever. He denies cough or shortness of breath. PHYSICAL EXAMINATION: General: He is awake and alert. Vital Signs: Temperature is 98.6. Pulse is 64. Blood pressure is 112/53. Respiratory rate is 20. He is saturating 100% on 2 L. HEENT: He is normocephalic. His eyes are anicteric. He has very poor dentition. No thrush. Neck: Supple. I do not feel any adenopathy. Lungs: Diminished breath sounds at the bases. Heart: Regular rate and rhythm. Abdomen: Soft, nontender. Extremities: Without edema. Skin: He has no skin breakdown. White count since admission has been ranging from 3.3 to 2.6. Hemoglobin is 8.2. Platelets are 98,000. He has 60% lymphocytes with 10% neutrophils with an ANC of 300. INR is 2. Chemistry: His BUN is 15 and creatinine 1.5. Urinalysis is negative. Stool occult blood is negative. COVID-19 is negative. X-ray is notable for cardiomegaly with mild interstitial markings. Urine culture has grown 30,000 to 40,000 alpha strep which is a skin sukhdeep. In summary, this is an 89-year-old man with pancytopenia most likely secondary to his CLL. He has a history of prostate cancer as well and CHF as well as dementia. He now has pancytopenia which I suspect is on the basis of his CLL. He has no fevers to suggest infection, but will obtain some surveillance blood cultures. Would place him in isolation given his neutropenia. His urine culture represents skin sukhdeep and is of a low colony count, would not treat at this time. Would refer to Hematology Oncology for further evaluation. EARNEST PIRES M.D. [id number]
--- NOTE | 2020-01-21 16:26 | CON.HO ---
Consult Consult Specialty:: Hematology Reason for Consultation:: CLL - History of Present Illness History of Present Illness: This 89 y/o gentleman w/m with PMH of Chronic Lymphocytic Leukemia, colonic angiodysplasia, iron deficiency anemia, atrial fibrillation, HTN, hypothyroidi sm, depression, dementia, wedge compression fracture of 1st lumbar vertebra, BPH, cancer of prostate, pulmonary hypertension, CKD, S/P PPM admitted via ER with an acute exacerbation of shortness of breath and edema of lower extremities. 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: Dementia Cardio/Vascular: Yes: AFIB, CAD, CHF, HTN, Hyperlipdemia Pulmonary: No: Asthma, Bronchitis, Cancer, COPD, O2 Dependent, Pneumonia, P reviously Intubated, Pulmonary Embolus, Pulmonary Fibrosis, Sleep Apnea, Other Gastrointestinal: Yes: GI Bleed, Other (colonic angiodysplasia) Hepatobiliary: No: Cirrhosis, Cholelithiasis, Cholecystitis, Choledocholithiasis, Hepatitis A, Hepatitis B, Hepatitis C, Other Renal/: Yes: Renal Inusuff, BPH Infectious Disease: No: AIDS, C-Diff, Herpes Zoster, HIV, MRSA, STD's, Tuberculosis, VREF, Other Psych: Yes: Depression Musculoskeletal: Yes: Chronic low back pain (compression fractures of the spine) Rheumatology: No: Fibromyalgia, Gout, Lupus, Rheumatoid Arthritis, Sarcoidosis, Vasculitis, Other ENT: No: Allergic Rhinitis, Sinusitis, Other Endocrine: Yes: Hypothyroidism Dermatology: No: Basal Cell, Cellulitis, Eczema, Melanoma, Psoriasis, Squamous Cell, Other - Past Surgical History Past Surgical History: Yes: Permanent Pacemaker - Alcohol/Substance Use Hx Alcohol Use: No History of Substance Use: reports: None - Smoking History Smoking history: Unknown if ever smoked Have you smoked in the past 12 months: No Aproximately how many cigarettes per day: 0 - Social History ADL: Family Assistance History of Recent Travel: No Home Medications - Allergies Allergies/Adverse Reactions: Allergies Allergy/AdvReac Type Severity Reaction Status Date / Time No Known Drug Allergies Allergy Verified 08/22/19 05:00 - Home Medications Home Medications: Ambulatory Orders Donepezil HCl 10 mg PO HS 04/17/18 Metoprolol Succinate 25 mg PO BID 04/17/18 Furosemide 20 mg PO ASDIR 01/27/19 Cyanocobalamin (Vitamin B-12) [Vitamin B-12] 2,500 mcg SL WEEKLY 09/14/19 Sennosides [Senna] 17.2 mg PO DAILY 09/14/19 Amiodarone HCl [Cordarone -] 100 mg PO DAILY tablet 09/19/19 Finasteride [Proscar -] 5 mg PO DAILY tablet 09/19/19 Levothyroxine [Synthroid -] 50 mcg PO DAILY@0700 tablet 09/19/19 Melatonin 5 mg PO HS tab 09/19/19 Acetaminophen [Tylenol .Extra-Strength -] 650 mg PO BID PRN 01/19/20 Furosemide [Lasix -] 40 mg PO ASDIR 01/19/20 Quetiapine Fumarate [Seroquel -] 12.5 mg PO HS 01/19/20 Review of Systems - Review of Systems Constitutional: reports: No Symptoms Eyes: reports: No Symptoms HENT: reports: No Symptoms Neck: reports: No Symptoms Cardiovascular: reports: No Symptoms, Edema Respiratory: reports: No Symptoms, SOB Gastrointestinal: reports: No Symptoms Musculoskeletal: reports: No Symptoms Integumentary: reports: No Symptoms Neurological: reports: No Symptoms Endocrine: reports: No Symptoms Hematology/Lymphatic: reports: No Symptoms Physical Exam Vital Signs: Vital Signs Temperature 98.9 F 01/21/20 14:09 Pulse Rate 65 01/21/20 14:09 Respiratory Rate 20 01/21/20 14:09 Blood Pressure 93/46 L 01/21/20 14:09 O2 Sat by Pulse Oximetry (%) 100 01/21/20 09:00 Constitutional: Yes: Well Nourished, No Distress, Calm Eyes: Yes: WNL, Conjunctiva Clear HENT: Yes: WNL, Atraumatic, Normocephalic Neck: Yes: WNL, Supple, Trachea Midline Cardiovascular: Yes: Pulse Irregular Respiratory: Yes: Diminished Gastrointestinal: Yes: WNL, Normal Bowel Sounds Musculoskeletal: Yes: WNL, Back Pain Extremities: Yes: WNL Labs: CBC, BMP 01/21/20 06:25 01/21/20 06:25 Assessment/Plan 89 y/o gentleman w/m with PMH of Chronic Lymphocytic Leukemia, cancer of prostate, pulmonary hypertension, CKD, S/P PPM admitted due to an acute exacerbation of shortness of breath and edema of lower extremities. Dr. Garrison evaluated in his office in 07/01/2015 Recommend: 1) CLL. Neutropenia with lymphocytosis. Start Levaquin, Valtrex and Fluconazole for Opportunistic pathogen prophylaxis. 2) Obtain Peripheral Blood Flow Cytometry, LDH, Haptoglobin, Immunoglobulin profile, PT/INR, PTT. 3) CHF Exacerbation per primary team and Cardiology. 4) Thank you for this consultation.
[2020-01-21] MEDS: RIVAROXABAN 15 MG TABLET PO SCH (18:15)
[2020-01-21] MEDS ORDERED: PT OWN MED DRAWER 7, Y5N ONE (22:27)
[2020-01-21] MEDS: MELATONIN 5 MG TABLETS PO PRN (22:35)
[2020-01-21] MEDS: QUEtiapine FUMARATE 25 MG TABLET PO SCH (22:35)
[2020-01-21] MEDS: OLANZapine 2.5 MG TABLET PO SCH (22:35)
[2020-01-22] MEDS: LEVOTHYROXINE NA 50 MCG TABLET (FP) PO SCH (06:39)
[2020-01-22 07:46] LABS: BASO % 0.7 % (0-2.0); EOS % 2.2 % (0-4.5); HEMATOCRIT 26.7 % (35.4-49); HEMOGLOBIN 8.4 GM/dL (11.7-16.9); LYMPH % 55.8 % (8-40); MCH 25.4 pg (25.7-33.7); MCHC 31.4 g/dl (32.0-35.9); MEAN PLT VOLUME 8.4 fl (7.5-11.1); MONO % 33.5 % (3.8-10.2); NEUT % 7.8 % (42.8-82.8); PLATELET COUNT 100 K/MM3 (134-434); RBC 3.29 M/mm3 (4.00-5.60); RDW 16.1 % (11.9-15.9)
[2020-01-22 08:16] LABS: ALBUMIN 3.2 g/dl (3.4-5.0); BILIRUBIN,TOTAL 0.7 mg/dL (0.2-1); BLOOD UREA NITROGEN 21.1 mg/dL (7-18); CALCIUM 8.6 mg/dL (8.5-10.1); CREATININE 1.7 mg/dL (0.55-1.3); MAGNESIUM 2.4 mg/dL (1.8-2.4); POTASSIUM 3.8 mmol/L (3.5-5.1); TOT PROT 6.3 g/dl (6.4-8.2)
--- NOTE | 2020-01-22 08:51 | PN ---
Progress Note, Physician Chief Complaint: Patient seen and examined at the bedside, no acute events from last night, acute nasal bleeding. History of Present Illness: This 89 yr old w/m with PMH of lymphoid leukemia, colonic angiodysplasia, CAD, moderate MR, iron deficiency anemia, atrial fibrillation, HTN, hypothyroidism, depression, dementia, pulmonary hypertension, CKD, wedge compression fractures of L1 and L2 admitted via ER with an acute shortness of breath, edema of lower extremities, systolic CHF, and altered mental status. - Current Medication List Current Medications: Active Medications Acetaminophen (Tylenol -) 650 mg PO BID [facility] Last Admin: 01/21/20 22:34 Dose: 650 mg Documented by: Amiodarone HCl (Cordarone -) 100 mg PO DAILY [facility] Last Admin: 01/21/20 09:17 Dose: 100 mg Documented by: B12/Folic Ac/Intrin Fact/Iron/Vit C (Niferex-150 Forte -) 1 each PO DAILY [facility] Last Admin: 01/21/20 09:16 Dose: 1 each Documented by: Camphor/Menthol (Sarna Anti-Itch -) 1 applic TP DAILY [facility] Last Admin: 01/21/20 09:18 Dose: 1 applic Documented by: Cyanocobalamin (Vitamin B12 -) 2,500 mcg PO Th [facility] Last Admin: 01/18/20 21:00 Dose: 2,500 mcg Documented by: Escitalopram Oxalate (Lexapro -) 5 mg PO DAILY [facility] Last Admin: 01/21/20 09:13 Dose: 5 mg Documented by: Finasteride (Proscar -) 5 mg PO DAILY [facility] Last Admin: 01/21/20 09:16 Dose: 5 mg Documented by: Furosemide (Lasix Injection -) 40 mg IVPUSH DAILY [facility] Last Admin: 01/21/20 09:13 Dose: 40 mg Documented by: Levothyroxine Sodium (Synthroid -) 50 mcg PO DAILY@0700 [facility] Last Admin: 01/22/20 06:39 Dose: 50 mcg Documented by: Melatonin (Melatonin) 10 mg PO HS PRN PRN Reason: INSOMNIA Last Admin: 01/21/20 22:35 Dose: 10 mg Documented by: Metoprolol Succinate (Toprol Xl -) 25 mg PO BID [facility] Last Admin: 01/21/20 22:35 Dose: 25 mg Documented by: Olanzapine (Zyprexa -) 1.25 mg PO HS [facility] Last Admin: 01/21/20 22:35 Dose: 1.25 mg Documented by: Pantoprazole Sodium (Protonix -) 40 mg PO DAILY [facility] Last Admin: 01/21/20 09:14 Dose: 40 mg Documented by: Quetiapine Fumarate (Seroquel -) 25 mg PO [facility] Last Admin: 01/21/20 22:35 Dose: 25 mg Documented by: Rivaroxaban (Xarelto) 15 mg PO DAILY@1800 [facility] Last Admin: 01/21/20 18:15 Dose: 15 mg Documented by: Senna (Senna -) 2 tab PO PRN PRN Reason: CONSTIPATION - Objective Vital Signs: Vital Signs Temperature 97.6 F 01/22/20 06:04 Pulse Rate 90 01/22/20 06:04 Respiratory Rate 18 01/22/20 06:04 Blood Pressure 115/53 L 01/22/20 06:04 O2 Sat by Pulse Oximetry (%) 100 01/21/20 21:00 Constitutional: Yes: Well Nourished, No Distress, Calm Eyes: Yes: Conjunctiva Clear, EOM Intact HENT: Yes: Atraumatic, Normocephalic, Epistaxis Neck: Yes: Supple, Trachea Midline Cardiovascular: Yes: Regular Rate and Rhythm Respiratory: Yes: Regular, CTA Bilaterally, Diminished, On Nasal O2, Rhonchi Gastrointestinal: Yes: Normal Bowel Sounds, Soft ...Rectal Exam: Yes: Deferred Genitourinary: Yes: WNL Breast(s): Yes: WNL Musculoskeletal: Yes: Muscle Weakness Extremities: Yes: WNL Edema: Yes Edema: LLE: 1+, RLE: 1+ Peripheral Pulses WNL: Yes Integumentary: Yes: WNL Neurological: Yes: Alert, Confusion, Unsteady Gait, Weakness ...Motor Strength: LUE (generalized muscle weakness of all extremities) Psychiatric: Yes: Alert Labs: CBC, BMP 01/22/20 06:35 01/22/20 06:35 INR, PTT INR 2.01 (0.83-1.09) H 01/18/20 15:00 - ....Imaging Other: Report Reviewed (lab data reviewed) Problem List - Problems (1) Acute CHF Code(s): I50.9 - HEART FAILURE, UNSPECIFIED Qualifiers: Heart failure type: unspecified Qualified Code(s): I50.9 - Heart failure, unspecified (2) Bilateral lower extremity edema Code(s): R60.0 - LOCALIZED EDEMA (3) SOB (shortness of breath) Code(s): R06.02 - SHORTNESS OF BREATH (4) AF (paroxysmal atrial fibrillation) Code(s): I48.0 - PAROXYSMAL ATRIAL FIBRILLATION (5) DEE (acute kidney injury) Code(s): N17.9 - ACUTE KIDNEY FAILURE, UNSPECIFIED (6) Acute pure red cell anemia Code(s): D60.8 - OTHER ACQUIRED PURE RED CELL APLASIAS (7) Afib Code(s): I48.91 - UNSPECIFIED ATRIAL FIBRILLATION (8) Altered mental status Code(s): R41.82 - ALTERED MENTAL STATUS, UNSPECIFIED (9) Leukopenia Code(s): D72.819 - DECREASED WHITE BLOOD CELL COUNT, UNSPECIFIED (10) Hyperkalemia Code(s): E87.5 - HYPERKALEMIA (11) Hyponatremia Code(s): E87.1 - HYPO-OSMOLALITY AND HYPONATREMIA (12) Pancytopenia Code(s): D61.818 - OTHER PANCYTOPENIA (13) Systolic CHF Code(s): I50.20 - UNSPECIFIED SYSTOLIC (CONGESTIVE) HEART FAILURE (14) Moderate mitral regurgitation Code(s): I34.0 - NONRHEUMATIC MITRAL (VALVE) INSUFFICIENCY (15) Severe tricuspid regurgitation Code(s): I07.1 - RHEUMATIC TRICUSPID INSUFFICIENCY Assessment/Plan Assessment/plan: acute shortness of breath, acute systolic CHF, acute edema of lower extremities, altered mental status, acute epistaxis, pancytopenia due to chronic lymphocytic leukemia, colonic angiodysplasia, CAD, moderate MR, severe TR, iron deficiency anemia, atrial fibrillation, HTN, hypothyroidism, depression, dementia, pulmonary hypertension, CKD, wedge compression fractures of L1 and L2; oral Furosemide, a/c with Xarelto, DVT/GI prophylaxis, amiodarone, metoprolol for atrial fibrillation, melatonin for insomnia, olanzapine for delirium, levothyroxine for hypothyroidism, oxygen 2L/min via nasal cannula with spo2 100%, physical therapy, fall risk precautions, nasal packing for epistaxis, neutropenic isolation precautions.
[2020-01-22] MEDS: AMIODARONE HCL 200 MG TABLET PO SCH (10:11)
[2020-01-22] MEDS: PANTOPRAZOLE 40 MG TABLET PO SCH (10:11)
[2020-01-22] MEDS: FINASTERIDE 5 MG TABLET (FP) PO SCH (10:11)
[2020-01-22] MEDS: ESCITALOPRAM OXALATE 10 MG TABLET PO SCH (10:14)
[2020-01-22] MEDS: FE POLYSAC/CYANOCOBAL/FA COMBO CAPSULE PO SCH (10:15)
[2020-01-22] MEDS: MENTHOL/CAMPHOR 1 APPLIC BTL TP SCH (10:16)
[2020-01-22] MEDS: ACETAMINOPHEN 325 MG TABLET (FP) PO SCH ×2 (10:17→20:59)
[2020-01-22] MEDS: metoPROLOL SUCCINATE 25 MG TAB.SR.24H (FP) PO SCH ×3 (10:18→21:00)
[2020-01-22] MEDS ORDERED: PT OWN MED DRAWER 7, Y5N ONE (10:23)
--- NOTE | 2020-01-22 10:56 | PN ---
Progress Note (short form) - Note Progress Note: no complaints seen by hematology no fevers Vital Signs Period Temp Pulse Resp BP Sys/Neal Pulse Ox Last 24 Hr 97.6 F-98.9 F 60-90 18-20 93-140/46-65 100-100 cor-rrr lungs clear abd soft, nt ext no edema CBC, BMP 01/22/20 06:35 01/22/20 06:35 Microbiology 01/18/20 16:25 Urine - Urine Clean Catch Urine Culture - Final Alpha Hemolytic Streptococcus imp/reccd Pancytopenia- suspect due to CLL neutropenic isolation blood cultures (screening) no evidence UTI hematology consult noted- f/u per dental insurance biller valtrex started and adjusted for renal failure would have PMD discuss levaquin and diflucan need with hematology as patient is already on multiple qt prolonging agents CHF- per cardiology please call back if needed Problem List - Problems (1) Pancytopenia Code(s): D61.818 - OTHER PANCYTOPENIA (2) CLL (chronic lymphocytic leukemia) Code(s): C91.10 - CHRONIC LYMPHOCYTIC LEUK OF B-CELL TYPE NOT ACHIEVE REMIS (3) Acute CHF Code(s): I50.9 - HEART FAILURE, UNSPECIFIED Qualifiers: Heart failure type: unspecified Qualified Code(s): I50.9 - Heart failure, unspecified
--- NOTE | 2020-01-22 11:29 | PN ---
Progress Note (short form) - Note Progress Note: Chief Complaint: sob History of Present Illness: denies sob. no cp, palp, syncope Current Medications Generic Name Dose Route Start Last Admin Trade Name Oscar PRN Reason Stop Dose Admin Acetaminophen 650 mg 01/18/20 22:00 01/22/20 10:17 Tylenol - PO 650 mg BID JOSE Administration Amiodarone HCl 100 mg 01/20/20 10:00 01/22/20 10:11 Cordarone - PO 100 mg DAILY JOSE Administration B12/Folic Ac/Intrin Fact/Iron/Vit C 1 each 01/18/20 16:45 01/22/20 10:15 Niferex-150 Forte - PO 1 each DAILY JOSE Administration Camphor/Menthol 1 applic 01/19/20 10:00 01/22/20 10:16 Sarna Anti-Itch - TP 1 applic DAILY JOSE Administration Cyanocobalamin 2,500 mcg 01/18/20 16:30 01/18/20 21:00 Vitamin B12 - PO 2,500 mcg Th JOSE Administration Escitalopram Oxalate 5 mg 01/19/20 10:00 01/22/20 10:14 Lexapro - PO 5 mg DAILY JOSE Administration Finasteride 5 mg 01/19/20 10:00 01/22/20 10:11 Proscar - PO 5 mg DAILY JOSE Administration Furosemide 40 mg 01/23/20 10:00 Lasix - PO DAILY JOSE Levothyroxine Sodium 50 mcg 01/19/20 07:00 01/22/20 06:39 Synthroid - PO 50 mcg DAILY@0700 JOSE Administration Melatonin 10 mg 01/19/20 22:00 01/21/20 22:35 Melatonin PO 10 mg HS PRN Administration INSOMNIA Metoprolol Succinate 25 mg 01/18/20 22:00 01/22/20 10:18 Toprol Xl - PO 25 mg BID JOSE Administration Olanzapine 1.25 mg 01/21/20 22:00 01/21/20 22:35 Zyprexa - PO 1.25 mg HS JOSE Administration Pantoprazole Sodium 40 mg 01/18/20 17:15 01/22/20 10:11 Protonix - PO 40 mg DAILY JOSE Administration Quetiapine Fumarate 25 mg 01/18/20 22:00 01/21/20 22:35 Seroquel - PO 25 mg HS JOSE Administration Rivaroxaban 15 mg 01/18/20 18:00 06/28/20 18:15 Xarelto PO 15 mg DAILY@1800 [facility] Administration Senna 2 tab 01/18/20 22:00 Senna - PO HS PRN CONSTIPATION Valacyclovir HCl 500 mg 01/22/20 11:00 Valtrex - PO DAILY [facility] Vital Signs Period Temp Pulse Resp BP Sys/Neal Pulse Ox Last 24 Hr 97.6 F-98.9 F 60-90 18-20 93-140/46-65 100-100 Constitutional: Yes: Well Nourished, No Distress, Calm Eyes: No: Sclera Icterus Cardiovascular: Yes: Regular Rate and Rhythm, JVD (probable). No: Gallop, Murmur Respiratory: Yes: CTA Bilaterally. No: Accessory Muscle Use, Rales, Wheezes Gastrointestinal: Yes: Normal Bowel Sounds, Soft. No: Tenderness Extremities: No: Cold, Cyanosis Edema: No Integumentary: No: Jaundice Neurological: Yes: Alert, Oriented Psychiatric: No: Agitated Labs: CBC, BMP 01/22/20 06:35 01/22/20 06:35 Assessment/Plan Echo 12/11 (): moder decr LVEF (global), EF 35-40%. RV TDS. mild LAE. mild AI/MR. mild-mod TR. no pulm HTN seen. Echo 11/10: 1. The left ventricular size is normal. 2. Overall left ventricular systolic function is moderately impaired with a visually estimated EF of approximately 40 %. Peters's EF calculation (biplane) is 44%. 3. LA pressure is uncertain. 4. Septal wall motion is consistent with ventricular pacing; remaining wilson appear mildly hypokinetic. 5. The right ventricle is moderately enlarged. 6. The right ventricular systolic function is normal. 7. Left atrium is severely dilated by volume. 8. The right atrium is markedly enlarged. 9. There is mild aortic regurgitation. 10. Moderate mitral regurgitation is present (central jet). Estimated regurgitant volume = 38cc; estimated FELICIANO = 0.18 cm2. 11. Moderate to severe tricuspid regurgitation present (no hepatic vein doppler imaging was performed). 12. There is at least mild to moderate pulmonary hypertension (TR doppler signal is cut off). 13. The right ventricular systolic pressure is at least 47 mmHg (assuming RA pressure of 3). 14. The aortic root is mildy to moderately dilated (4.2 cm at sinuses of Valsalva). Acute on chronic systolic CHF, moderate MR, pulm HTN with dilated RV and mod- severe TR: -BNP 6K, from baseline 1-2K. CXR clear with chronic/stable mild increased interstitial markings -he is presenting with his typical HF sx's (bibasilar rales incr'd over baseline sounds, feet swelling), JVD likely on TDS exam -known h/o orthostatic hypotension complicating diuresis--down to lasix 20 QD in [place] as of last communication with me 02/10 -receiving lasix 40 IV qd here. vol status improving, chf sxs resolved. bun/cr rising, will dc iv lasix and change to po now. 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 WHO 3 component from severe, untreated ANJUM AF: s/p PPM -Xarelto held 01/11 due to hgb trending down from 7s to 6s in [place], started Procrit injections, Xarelto eventually resumed -h/h stable here--cont Xarelto 15mg (GFR <50) -has been maintained on amiodarone 100mg for many yrs to help with rapid AF possibly triggering HF in the past--continue here (QTc ok on ECG. mild interstitial thickening on CXR is chronic, pt previously evaluated by pulmonary who did not suspect amio lung fibrosis) -Cont Toprol 25 bid -PM remote monitoring stable 12/12 CKD: -baseline creat runs 1.5-1.9, with fluctuations when uses NSAIDs for severe spinal stenosis pain Dementia/Delirium -History of severe sundowning in hospital -As per PMD Panctyopenia: -Chronic anemia, ? secondary CKD, ? on Procrit in [place]--counts stable -on NOAC currently, with stable H/H--monitor counts, observe for bleeding/melena -leukopenia and thrombocytopenia are new; pt with underlying heme malignancy that dtr has not shared diagnosis of with him due to concerns would cause decompensated anxiety/depression. defer to primary team whether to get heme involved here.
[2020-01-22 11:30] LABS: INR 2.09 (0.83-1.09); PROTHROMBIN TIME (PATIENT) 24.8 SEC (9.7-13.0)
[2020-01-22 12:00] LABS: ANISOCYTOSIS 1+; MACROCYTOSIS 0; OVALOCYTE 1+; PLATELET ESTIMATE DECREASED; TARGET CELLS 1+
--- NOTE | 2020-01-22 13:32 | ECHO ---
Name: KAYKAY RODGERS Exam:Adult Echocardiogram Study Date: 01/22/2020 12:22 PM Age: 89 yrs Reason For Study: severe phtn MMode/2D Measurements & Calculations IVSd: 1.2 cm Ao root diam: 3.6 cm LVIDd: 4.2 cm LA dimension: 4.9 cm LVIDs: 3.5 cm LVPWd: 1.6 cm LVPWs: 2.2 cm EDV(Teich): 79.0 ml ESV(Teich): 49.2 ml LAV (MOD-bp): 139.0 ml Time Measurements MM R-R int: 0.67 sec MM HR: 89.0 BPM Doppler Measurements & Calculations Ao V2 max: 161.8 cm/sec AI dec slope: 163.0 cm/sec2 Ao max P.5 mmHg LV V1 max P.2 mmHg TR max zen: 347.0 cm/sec LV V1 max: 88.8 cm/sec TR max P.6 mmHg PA V2 max: 85.1 cm/sec PA max P.9 mmHg Procedure There was technical limitations during this study due to uncooperative patient. Left Ventricle The left ventricle is normal in size. There is mild concentric left ventricular hypertrophy. Ejection Fraction = 25-30%. Left ventricular systolic function is severely reduced. Right Ventricle The right ventricle is moderate to severely dilated. The right ventricular systolic function is moder ate to severely reduced. Atria The left atrium is severely dilated. The right atrium is severely dilated. Mitral Valve The mitral valve is grossly normal. There is mild mitral regurgitation. Tricuspid Valve The tricuspid valve is not well visualized, but is grossly normal. There is severe tricuspid regurgit ation. Right ventricular systolic pressure is elevated at >60mmHg. There is severe pulmonary hypertension. Aortic Valve There is mild aortic sclerosis.;. Mild aortic regurgitation. Pulmonic Valve The pulmonic valve is not well seen, but is grossly normal. Mild pulmonic valvular regurgitation. Great Vessels The aortic root is normal size. Mildly dilated ascending aorta. Pericardium/Pleura There is no pericardial effusion. Interpretation Summary Incomplete study (patient combative) LV: Normal size, -severely decreased systolic function: EF 25-30%, septal motion suggestive of RV ove rload; AFb excludes diastic evaluation RV: Dilated ,mod-severely hypokinetic, moderate band;PPM right heart Atria: Severely dilated Sclerotic aortic valve with mild AR Severe TR with severe pulmonary hypertension Mildly dilated ascending aorta. Aniceto Hurtado 01/22/2020 01:32 PM
[2020-01-22] MEDS: valACYclovir HCL 500 MG TABLET (FP) PO SCH (16:11)
[2020-01-22] MEDS: RIVAROXABAN 15 MG TABLET PO SCH (20:44)
[2020-01-22] MEDS: QUEtiapine FUMARATE 25 MG TABLET PO SCH (21:00)
[2020-01-22] MEDS: OLANZapine 2.5 MG TABLET PO SCH (21:00)
[2020-01-23] MEDS: LEVOTHYROXINE NA 50 MCG TABLET (FP) PO SCH (06:12)
[2020-01-23 08:26] LABS: BASO % 0.8 % (0-2.0); EOS % 3.4 % (0-4.5); HEMOGLOBIN 8.4 GM/dL (11.7-16.9); LYMPH % 57.5 % (8-40); MCH 25.3 pg (25.7-33.7); MCHC 31.3 g/dl (32.0-35.9); MEAN PLT VOLUME 8.3 fl (7.5-11.1); MONO % 33.1 % (3.8-10.2); NEUT % 5.2 % (42.8-82.8); PLATELET COUNT 106 K/MM3 (134-434); RBC 3.33 M/mm3 (4.00-5.60); RDW 16.6 % (11.9-15.9)
[2020-01-23 08:57] LABS: ALBUMIN 3.1 g/dl (3.4-5.0); BILIRUBIN,TOTAL 0.6 mg/dL (0.2-1); BLOOD UREA NITROGEN 16.7 mg/dL (7-18); CALCIUM 8.6 mg/dL (8.5-10.1); CREATININE 1.5 mg/dL (0.55-1.3); POTASSIUM 3.9 mmol/L (3.5-5.1); TOT PROT 6.1 g/dl (6.4-8.2)
--- NOTE | 2020-01-23 09:12 | PN ---
Progress Note, Physician Chief Complaint: Patient seen and examined at the bedside, no acute events from last night, no labored breathing, afebrile. History of Present Illness: This 89 yr old w/m with PMH of chronic lymphocytic leukemia, colonic angiodysplasia, CAD, moderate MR, iron deficiency anemia, atrial fibrillation, HTN, hypothyroidism, depression, dementia, CKD, wedge compression fractures of L1 and L2, BPH, cancer of the prostate, pulmonary hypertension admitted via ER with an acute shortness of breath, acute systolic CHF, edema of lower extremities, and altered mental status. - Current Medication List Current Medications: Active Medications Acetaminophen (Tylenol -) 650 mg PO BID [facility] Last Admin: 01/22/20 20:59 Dose: 650 mg Documented by: Amiodarone HCl (Cordarone -) 100 mg PO DAILY [facility] Last Admin: 01/22/20 10:11 Dose: 100 mg Documented by: B12/Folic Ac/Intrin Fact/Iron/Vit C (Niferex-150 Forte -) 1 each PO DAILY [facility] Last Admin: 01/22/20 10:15 Dose: 1 each Documented by: Camphor/Menthol (Sarna Anti-Itch -) 1 applic TP DAILY [facility] Last Admin: 01/22/20 10:16 Dose: 1 applic Documented by: Cyanocobalamin (Vitamin B12 -) 2,500 mcg PO Th [facility] Last Admin: 01/18/20 21:00 Dose: 2,500 mcg Documented by: Escitalopram Oxalate (Lexapro -) 5 mg PO DAILY [facility] Last Admin: 01/22/20 10:14 Dose: 5 mg Documented by: Finasteride (Proscar -) 5 mg PO DAILY [facility] Last Admin: 01/22/20 10:11 Dose: 5 mg Documented by: Furosemide (Lasix -) 40 mg PO DAILY [facility] Levothyroxine Sodium (Synthroid -) 50 mcg PO DAILY@0700 [facility] Last Admin: 01/23/20 06:12 Dose: 50 mcg Documented by: Melatonin (Melatonin) 10 mg PO HS PRN PRN Reason: INSOMNIA Last Admin: 01/21/20 22:35 Dose: 10 mg Documented by: Metoprolol Succinate (Toprol Xl -) 25 mg PO BID [facility] Last Admin: 01/22/20 21:00 Dose: 25 mg Documented by: Olanzapine (Zyprexa -) 1.25 mg PO HS [facility] Last Admin: 01/22/20 21:00 Dose: 1.25 mg Documented by: Pantoprazole Sodium (Protonix -) 40 mg PO DAILY [facility] Last Admin: 01/22/20 10:11 Dose: 40 mg Documented by: Quetiapine Fumarate (Seroquel -) 25 mg PO HS [facility] Last Admin: 01/22/20 21:00 Dose: 25 mg Documented by: Rivaroxaban (Xarelto) 15 mg PO DAILY@1800 [facility] Last Admin: 01/22/20 20:44 Dose: 15 mg Documented by: Senna (Senna -) 2 tab PO PRN PRN Reason: CONSTIPATION Valacyclovir HCl (Valtrex -) 500 mg PO DAILY [facility] Last Admin: 01/22/20 16:11 Dose: Not Given Documented by: - Objective Vital Signs: Vital Signs Temperature 97.8 F 01/23/20 06:00 Pulse Rate 60 01/23/20 06:00 Respiratory Rate 18 01/23/20 06:00 Blood Pressure 139/61 01/23/20 06:00 O2 Sat by Pulse Oximetry (%) 94 L 01/22/20 21:00 Constitutional: Yes: Well Nourished, No Distress, Calm Eyes: Yes: Conjunctiva Clear, EOM Intact HENT: Yes: Atraumatic, Normocephalic Neck: Yes: Supple, Trachea Midline Cardiovascular: Yes: Regular Rate and Rhythm Respiratory: Yes: Regular, CTA Bilaterally Gastrointestinal: Yes: Normal Bowel Sounds, Soft ...Rectal Exam: Yes: Deferred Genitourinary: Yes: WNL Breast(s): Yes: WNL Musculoskeletal: Yes: Muscle Weakness Extremities: Yes: WNL Edema: Yes Edema: LLE: 1+, RLE: 2+ Peripheral Pulses WNL: Yes Integumentary: Yes: WNL Neurological: Yes: Alert, Confusion, Unsteady Gait, Weakness ...Motor Strength: LUE (generalized muscle weakness of all extremities) Psychiatric: Yes: Alert Labs: CBC, BMP 01/23/20 07:40 01/23/20 07:40 INR, PTT INR 2.09 (0.83-1.09) H 01/22/20 10:10 - ....Imaging Other: Report Reviewed (lab data reviewed) Problem List - Problems (1) Acute CHF Code(s): I50.9 - HEART FAILURE, UNSPECIFIED Qualifiers: Heart failure type: unspecified Qualified Code(s): I50.9 - Heart failure, unspecified (2) Bilateral lower extremity edema Code(s): R60.0 - LOCALIZED EDEMA (3) SOB (shortness of breath) Code(s): R06.02 - SHORTNESS OF BREATH (4) AF (paroxysmal atrial fibrillation) Code(s): I48.0 - PAROXYSMAL ATRIAL FIBRILLATION (5) DEE (acute kidney injury) Code(s): N17.9 - ACUTE KIDNEY FAILURE, UNSPECIFIED (6) Acute pure red cell anemia Code(s): D60.8 - OTHER ACQUIRED PURE RED CELL APLASIAS (7) Afib Code(s): I48.91 - UNSPECIFIED ATRIAL FIBRILLATION (8) Altered mental status Code(s): R41.82 - ALTERED MENTAL STATUS, UNSPECIFIED (9) Leukopenia Code(s): D72.819 - DECREASED WHITE BLOOD CELL COUNT, UNSPECIFIED (10) Hyperkalemia Code(s): E87.5 - HYPERKALEMIA (11) Hyponatremia Code(s): E87.1 - HYPO-OSMOLALITY AND HYPONATREMIA (12) Pancytopenia Code(s): D61.818 - OTHER PANCYTOPENIA (13) Systolic CHF Code(s): I50.20 - UNSPECIFIED SYSTOLIC (CONGESTIVE) HEART FAILURE (14) Moderate mitral regurgitation Code(s): I34.0 - NONRHEUMATIC MITRAL (VALVE) INSUFFICIENCY (15) Severe tricuspid regurgitation Code(s): I07.1 - RHEUMATIC TRICUSPID INSUFFICIENCY Assessment/Plan Assessment/plan: acute shortness of breath, edema of lower extremities, altered mental status, acute systolic CHF, 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
[2020-01-23] MEDS ORDERED: PT OWN MED DRAWER 7, Y5N ONE ×3 (10:44→21:06)
[2020-01-23] MEDS: metoPROLOL SUCCINATE 25 MG TAB.SR.24H (FP) PO SCH ×3 (10:46→21:29)
[2020-01-23] MEDS: ACETAMINOPHEN 325 MG TABLET (FP) PO SCH ×2 (10:46→21:29)
[2020-01-23] MEDS: valACYclovir HCL 500 MG TABLET (FP) PO SCH (10:46)
[2020-01-23] MEDS: FUROSEMIDE 40 MG TABLET (FP) PO SCH (10:46)
[2020-01-23] MEDS: PANTOPRAZOLE 40 MG TABLET PO SCH (10:46)
[2020-01-23] MEDS: FINASTERIDE 5 MG TABLET (FP) PO SCH (10:46)
[2020-01-23 10:47] LABS: ANISOCYTOSIS 3+; MACROCYTOSIS 0; PLATELET ESTIMATE DECREASED
[2020-01-23] MEDS: ESCITALOPRAM OXALATE 10 MG TABLET PO SCH (10:47)
[2020-01-23] MEDS: AMIODARONE HCL 200 MG TABLET PO SCH (10:47)
[2020-01-23] MEDS: FE POLYSAC/CYANOCOBAL/FA COMBO CAPSULE PO SCH (10:49)
[2020-01-23] MEDS: MENTHOL/CAMPHOR 1 APPLIC BTL TP SCH (10:54)
--- NOTE | 2020-01-23 15:23 | PN ---
Progress Note (short form) - Note Progress Note: Chief Complaint: sob History of Present Illness: no cp, palp, syncope Current Medications Generic Name Dose Route Start Last Admin Trade Name Freq PRN Reason Stop Dose Admin Acetaminophen 650 mg 01/18/20 22:00 01/23/20 10:46 Tylenol - PO 650 mg BID JOSE Administration Amiodarone HCl 100 mg 01/20/20 10:00 01/23/20 10:47 Cordarone - PO 100 mg DAILY JOSE Administration B12/Folic Ac/Intrin Fact/Iron/Vit C 1 each 01/18/20 16:45 01/23/20 10:49 Niferex-150 Forte - PO 1 each DAILY [facility]SE Administration Camphor/Menthol 1 applic 01/19/20 10:00 01/23/20 10:54 Sarna Anti-Itch - TP 1 applic DAILY JOSE Administration Cyanocobalamin 2,500 mcg 01/18/20 16:30 01/18/20 21:00 Vitamin B12 - PO 2,500 mcg Th JOSE Administration Escitalopram Oxalate 5 mg 01/19/20 10:00 01/23/20 10:47 Lexapro - PO 5 mg DAILY JOSE Administration Finasteride 5 mg 01/19/20 10:00 01/23/20 10:46 Proscar - PO 5 mg DAILY JOSE Administration Furosemide 40 mg 01/23/20 10:00 01/23/20 10:46 Lasix - PO 40 mg DAILY JOSE Administration Levothyroxine Sodium 50 mcg 01/19/20 07:00 01/23/20 06:12 Synthroid - PO 50 mcg DAILY@0700 JOSE Administration Melatonin 10 mg 01/19/20 22:00 01/21/20 22:35 Melatonin PO 10 mg HS PRN Administration INSOMNIA Metoprolol Succinate 25 mg 01/18/20 22:00 01/23/20 12:00 Toprol Xl - PO Not Given BID JOSE Olanzapine 1.25 mg 01/21/20 22:00 01/22/20 21:00 Zyprexa - PO 1.25 mg HS JOSE Administration Pantoprazole Sodium 40 mg 01/18/20 17:15 01/23/20 10:46 Protonix - PO 40 mg DAILY JOSE Administration Quetiapine Fumarate 25 mg 01/18/20 22:00 01/22/20 21:00 Seroquel - PO 25 mg HS JOSE Administration Rivaroxaban 15 mg 01/18/20 18:00 01/22/20 20:44 Xarelto PO 15 mg DAILY@1800 JOSE Administration Senna 2 tab 01/18/20 22:00 Senna - PO HS PRN CONSTIPATION Valacyclovir HCl 500 mg 01/22/20 11:00 01/23/20 10:46 Valtrex - PO 500 mg DAILY [facility] Administration Vital Signs Period Temp Pulse Resp BP Sys/Neal Pulse Ox Last 24 Hr 97.7 F-100.2 F 60-94 18-18 101-139/44-74 94-95 Constitutional: Yes: Well Nourished, No Distress, Calm Eyes: No: Sclera Icterus Cardiovascular: Yes: Regular Rate and Rhythm, JVD (probable). No: Gallop, Murmur Respiratory: Yes: CTA Bilaterally. No: Accessory Muscle Use, Rales, Wheezes Gastrointestinal: Yes: Normal Bowel Sounds, Soft. No: Tenderness Extremities: No: Cold, Cyanosis Edema: No Integumentary: No: Jaundice Neurological: Yes: Alert, Oriented Psychiatric: No: Agitated Assessment/Plan Echo 12/11 (): moder decr LVEF (global), EF 35-40%. RV TDS. mild LAE. mild AI/MR. mild-mod TR. no pulm HTN seen. Echo 11/10: 1. The left ventricular size is normal. 2. Overall left ventricular systolic function is moderately impaired with a visually estimated EF of approximately 40 %. Peters's EF calculation (biplane) is 44%. 3. LA pressure is uncertain. 4. Septal wall motion is consistent with ventricular pacing; remaining wilson appear mildly hypokinetic. 5. The right ventricle is moderately enlarged. 6. The right ventricular systolic function is normal. 7. Left atrium is severely dilated by volume. 8. The right atrium is markedly enlarged. 9. There is mild aortic regurgitation. 10. Moderate mitral regurgitation is present (central jet). Estimated regurgitant volume = 38cc; estimated FELICIANO = 0.18 cm2. 11. Moderate to severe tricuspid regurgitation present (no hepatic vein doppler imaging was performed). 12. There is at least mild to moderate pulmonary hypertension (TR doppler signal is cut off). 13. The right ventricular systolic pressure is at least 47 mmHg (assuming RA pressure of 3). 14. The aortic root is mildy to moderately dilated (4.2 cm at sinuses of Valsalv a). echo 12/2019 incomplete study (patient combative), severely reduced LV function EF 25-30%, septal motion suggestive of RV overload, RV dilated mod to sev hypokinesis, mod band, PPM R heart, severely dilated atria, severe TR with severe pulm HTN, mildly dilated asc aorta Acute on chronic systolic CHF, moderate MR, pulm HTN with dilated RV and mod- severe TR: -BNP 6K, from baseline 1-2K. CXR clear with chronic/stable mild increased interstitial markings -he is presenting with his typical HF sx's (bibasilar rales incr'd over baseline sounds, feet swelling), JVD likely on TDS exam -known h/o orthostatic hypotension complicating diuresis--down to lasix 20 QD in [facility] as of last communication with me 02/10 -received lasix 40 IV qd here. vol status improving, chf sxs resolved. 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 WHO 3 component from severe, untreated ANJUM - echo here limited due to patient combative - showed EF 25-30%, worse compared to prior function - cont toprol - cont PO lasix AF: s/p PPM -Xarelto held 01/11 due to hgb trending down from 7s to 6s in [place], started Procrit injections, Xarelto eventually resumed -h/h stable here--cont Xarelto 15mg (GFR <50) -has been maintained on amiodarone 100mg for many yrs to help with rapid AF possibly triggering HF in the past--continue here (QTc ok on ECG. mild interstitial thickening on CXR is chronic, pt previously evaluated by pulmonary who did not suspect amio lung fibrosis) -Cont Toprol 25 bid -PM remote monitoring stable 12/12 CKD: -baseline creat runs 1.5-1.9, with fluctuations when uses NSAIDs for severe spinal stenosis pain Dementia/Delirium -History of severe sundowning in hospital -As per PMD Panctyopenia: -Chronic anemia, ? secondary CKD, ? on Procrit in NH--counts stable -on NOAC currently, with stable H/H--monitor counts, observe for bleeding/melena -leukopenia and thrombocytopenia are new; pt with underlying heme malignancy that dtr has not shared diagnosis of with him due to concerns would cause decompensated anxiety/depression. defer to primary team whether to get heme involved here.
[2020-01-23] MEDS ORDERED: CEFEPIME 1 GM in DEXTROSE 5%-WATER - 100 ML IVPB SCH (16:42)
--- NOTE | 2020-01-23 16:42 | PN ---
Progress Note (short form) - Note Progress Note: much more alert today called by nurse for fever 100.2 no complaints Vital Signs Period Temp Pulse Resp BP Sys/Neal Pulse Ox Last 24 Hr 97.7 F-100.2 F 60-94 18-18 101-139/44-74 94-95 cor-rrr lungs clear abd soft,nt ext no edema CBC, BMP 01/23/20 07:40 01/23/20 07:40 Microbiology 01/21/20 14:45 Blood - Peripheral Venous Blood Culture - Preliminary NO GROWTH OBTAINED AFTER 48 HOURS, INCUBATION TO CONTINUE FOR 3 DAYS. 01/21/20 15:00 Blood - Peripheral Venous Blood Culture - Preliminary NO GROWTH OBTAINED AFTER 48 HOURS, INCUBATION TO CONTINUE FOR 3 DAYS. 01/18/20 16:25 Urine - Urine Clean Catch Urine Culture - Final Alpha Hemolytic Streptococcus imp/reccd neuropenic fever- cultures, cefepime (empiric for neutropenic fever) Pancytopenia- suspect due to CLL neutropenic isolation hematology consult noted- f/u per rf engineer valtrex started and adjusted for renal failure CHF- per cardiology Problem List - Problems (1) Pancytopenia Code(s): D61.818 - OTHER PANCYTOPENIA (2) CLL (chronic lymphocytic leukemia) Code(s): C91.10 - CHRONIC LYMPHOCYTIC LEUK OF B-CELL TYPE NOT ACHIEVE REMIS (3) Acute CHF Code(s): I50.9 - HEART FAILURE, UNSPECIFIED Qualifiers: Heart failure type: unspecified Qualified Code(s): I50.9 - Heart failure, unspecified
[2020-01-23] MEDS: CEFEPIME 1 GM in DEXTROSE 5%-WATER 100 ML IVPB SCH ×2 (17:46→21:29)
[2020-01-23] MEDS ORDERED: CEFEPIME HCL 1 GM VIAL (RESTRICTED TO ID) ONE ×3 (17:46→21:07)
[2020-01-23] MEDS ORDERED: DEXTROSE 5%-WATER 100 ML IVPB ONE ×3 (17:46→21:07)
[2020-01-23] MEDS: RIVAROXABAN 15 MG TABLET PO SCH (17:47)
[2020-01-23] MEDS: MELATONIN 5 MG TABLETS PO PRN (21:25)
[2020-01-23] MEDS: QUEtiapine FUMARATE 25 MG TABLET PO SCH (21:26)
[2020-01-23] MEDS: OLANZapine 2.5 MG TABLET PO SCH (21:32)
[2020-01-24] MEDS: LEVOTHYROXINE NA 50 MCG TABLET (FP) PO SCH (06:16)
[2020-01-24] MEDS ORDERED: CEFEPIME HCL 1 GM VIAL (RESTRICTED TO ID) ONE ×2 (08:35→21:04)
[2020-01-24] MEDS ORDERED: DEXTROSE 5%-WATER 100 ML IVPB ONE ×2 (08:35→21:04)
[2020-01-24] MEDS ORDERED: PT OWN MED DRAWER 7, Y5N ONE ×3 (08:38→21:04)
--- NOTE | 2020-01-24 09:00 | PN ---
Progress Note, Physician Chief Complaint: Patient seen and examined at the bedside, no acute events from last night, neutropenic fever. History of Present Illness: This 89 yr old w/m with PMH of atrial fibrillation, colonic angiodysplasia, chronic lymphocytic leukemia, moderate MR, CAD, iron deficiency anemia, HTN, h ypothyroidism, depression, dementia, delirium, pulmonary hypertension, CKD, cancer of the prostate, BPH, wedge compression fractures of L1 and L2 admitted via ER with an acute shortness of breath, systolic CHF, edema of lower extremities, and altered mental status. - Current Medication List Current Medications: Active Medications Acetaminophen (Tylenol -) 650 mg PO BID [facility] Last Admin: 01/23/20 21:29 Dose: 650 mg Documented by: Amiodarone HCl (Cordarone -) 100 mg PO DAILY [facility] Last Admin: 01/23/20 10:47 Dose: 100 mg Documented by: B12/Folic Ac/Intrin Fact/Iron/Vit C (Niferex-150 Forte -) 1 each PO DAILY [facility] Last Admin: 01/23/20 10:49 Dose: 1 each Documented by: Camphor/Menthol (Sarna Anti-Itch -) 1 applic TP DAILY [facility] Last Admin: 01/23/20 10:54 Dose: 1 applic Documented by: Cyanocobalamin (Vitamin B12 -) 2,500 mcg PO Th [facility] Last Admin: 01/18/20 21:00 Dose: 2,500 mcg Documented by: Escitalopram Oxalate (Lexapro -) 5 mg PO DAILY [facility] Last Admin: 01/23/20 10:47 Dose: 5 mg Documented by: Finasteride (Proscar -) 5 mg PO DAILY [facility] Last Admin: 01/23/20 10:46 Dose: 5 mg Documented by: Furosemide (Lasix -) 40 mg PO DAILY [facility] Last Admin: 01/23/20 10:46 Dose: 40 mg Documented by: Cefepime HCl 1 gm/ Dextrose 100 mls @ 200 mls/hr IVPB BID [facility]; Protocol Last Admin: 01/23/20 21:29 Dose: 200 mls/hr Documented by: Levothyroxine Sodium (Synthroid -) 50 mcg PO DAILY@0700 [facility] Last Admin: 01/24/20 06:16 Dose: 50 mcg Documented by: Melatonin (Melatonin) 10 mg PO HS PRN PRN Reason: INSOMNIA Last Admin: 01/23/20 21:25 Dose: 10 mg Documented by: Metoprolol Succinate (Toprol Xl -) 25 mg PO BID [facility] Last Admin: 01/23/20 21:29 Dose: 25 mg Documented by: Olanzapine (Zyprexa -) 1.25 mg PO HS [facility] Last Admin: 01/23/20 21:32 Dose: 1.25 mg Documented by: Pantoprazole Sodium (Protonix -) 40 mg PO DAILY [facility] Last Admin: 01/23/20 10:46 Dose: 40 mg Documented by: Quetiapine Fumarate (Seroquel -) 25 mg PO HS [facility] Last Admin: 01/23/20 21:26 Dose: 25 mg Documented by: Rivaroxaban (Xarelto) 15 mg PO DAILY@1800 [facility] Last Admin: 01/23/20 17:47 Dose: 15 mg Documented by: Senna (Senna -) 2 tab PO HS PRN PRN Reason: CONSTIPATION Valacyclovir HCl (Valtrex -) 500 mg PO DAILY [facility] Last Admin: 01/23/20 10:46 Dose: 500 mg Documented by: - Objective Vital Signs: Vital Signs Temperature 98.2 F 01/24/20 05:00 Pulse Rate 68 01/24/20 05:00 Respiratory Rate 18 01/24/20 05:00 Blood Pressure 119/50 L 01/24/20 05:00 O2 Sat by Pulse Oximetry (%) 96 01/23/20 21:00 Constitutional: Yes: Well Nourished, No Distress, Calm Eyes: Yes: Conjunctiva Clear, EOM Intact HENT: Yes: Atraumatic, Normocephalic Neck: Yes: Supple, Trachea Midline Cardiovascular: Yes: Regular Rate and Rhythm Respiratory: Yes: Regular, CTA Bilaterally, Other (oxygen saturation 96% on room air) Gastrointestinal: Yes: Normal Bowel Sounds, Soft ...Rectal Exam: Yes: Deferred Genitourinary: Yes: WNL Breast(s): Yes: WNL Musculoskeletal: Yes: Muscle Weakness Extremities: Yes: WNL Edema: Yes Edema: LLE: 1+, RLE: 1+ Peripheral Pulses WNL: Yes Integumentary: Yes: WNL Neurological: Yes: Alert, Unsteady Gait, Weakness ...Motor Strength: LUE (generalized muscle weakness of all extremities) Psychiatric: Yes: Alert Labs: CBC, BMP 01/23/20 07:40 06/30/20 07:40 INR, PTT INR 2.09 (0.83-1.09) H 01/22/20 10:10 - ....Imaging Other: Report Reviewed (lab data reviewed) Problem List - Problems (1) Acute CHF Code(s): I50.9 - HEART FAILURE, UNSPECIFIED Qualifiers: Heart failure type: unspecified Qualified Code(s): I50.9 - Heart failure, unspecified (2) Bilateral lower extremity edema Code(s): R60.0 - LOCALIZED EDEMA (3) SOB (shortness of breath) Code(s): R06.02 - SHORTNESS OF BREATH (4) AF (paroxysmal atrial fibrillation) Code(s): I48.0 - PAROXYSMAL ATRIAL FIBRILLATION (5) DEE (acute kidney injury) Code(s): N17.9 - ACUTE KIDNEY FAILURE, UNSPECIFIED (6) Acute pure red cell anemia Code(s): D60.8 - OTHER ACQUIRED PURE RED CELL APLASIAS (7) Afib Code(s): I48.91 - UNSPECIFIED ATRIAL FIBRILLATION (8) Altered mental status Code(s): R41.82 - ALTERED MENTAL STATUS, UNSPECIFIED (9) Leukopenia Code(s): D72.819 - DECREASED WHITE BLOOD CELL COUNT, UNSPECIFIED (10) Hyperkalemia Code(s): E87.5 - HYPERKALEMIA (11) Hyponatremia Code(s): E87.1 - HYPO-OSMOLALITY AND HYPONATREMIA (12) Pancytopenia Code(s): D61.818 - OTHER PANCYTOPENIA (13) Systolic CHF Code(s): I50.20 - UNSPECIFIED SYSTOLIC (CONGESTIVE) HEART FAILURE (14) Moderate mitral regurgitation Code(s): I34.0 - NONRHEUMATIC MITRAL (VALVE) INSUFFICIENCY (15) Severe tricuspid regurgitation Code(s): I07.1 - RHEUMATIC TRICUSPID INSUFFICIENCY (16) Neutropenic fever Code(s): D70.9 - NEUTROPENIA, UNSPECIFIED; R50.81 - FEVER PRESENTING WITH CONDITIONS CLASSIFIED ELSEWHERE Assessment/Plan Assessment/plan: acute neutropenic fever, acute shortness of breath, acute systolic CHF, acute edema of lower extremities, acute altered mental status, acute delirium, chronic lymphocytic leukemia, pancytopenia, colonic angiodysplasia, CAD, moderate MR, iron deficiency anemia, atrial fibrillation, HTN, hypothyroidism, depression, dementia, pulmonary hypertension, CKD, prostate cancer, wedge compression fractures of L1 and L2; IV Cefepime as per ID for acute neutropenic fever, oral Valtrex, oral Furosemide, Niferex, DVT/GI prophylaxis, a/c with Xarelto, olanzapine and seroquel for delirium, Lyrica for bipolar disorder, physical therapy, fall risk precautions, neutropenic precautions, amiodarone and metoprolol for atrial fibrillation, melatonin for insomnia.
[2020-01-24] MEDS: FINASTERIDE 5 MG TABLET (FP) PO SCH (09:15)
[2020-01-24] MEDS: ACETAMINOPHEN 325 MG TABLET (FP) PO SCH ×2 (09:15→21:10)
[2020-01-24] MEDS: AMIODARONE HCL 200 MG TABLET PO SCH (09:16)
[2020-01-24] MEDS: ESCITALOPRAM OXALATE 10 MG TABLET PO SCH (09:16)
[2020-01-24] MEDS: metoPROLOL SUCCINATE 25 MG TAB.SR.24H (FP) PO SCH ×2 (09:16→21:10)
[2020-01-24] MEDS: valACYclovir HCL 500 MG TABLET (FP) PO SCH (09:16)
[2020-01-24] MEDS: CEFEPIME 1 GM in DEXTROSE 5%-WATER 100 ML IVPB SCH ×2 (09:16→21:11)
[2020-01-24] MEDS: FUROSEMIDE 40 MG TABLET (FP) PO SCH (09:16)
[2020-01-24] MEDS: FE POLYSAC/CYANOCOBAL/FA COMBO CAPSULE PO SCH (09:17)
[2020-01-24] MEDS: PANTOPRAZOLE 40 MG TABLET PO SCH (09:17)
--- NOTE | 2020-01-24 09:44 | CON.HO ---
Consult - text type - Consultation Consultation Note: I ordered Haptoglobin, Immunnoglobulins is pending, will order also FLow CYtmetery for CLL
[2020-01-24 10:06] LABS: IGA IMMUNOGLOBULIN 130 mg/dL (61-437); IGG QN IMMUNOGLOBULIN 934 mg/dL (603-1613); IGM QN SERUM 129 mg/dL (15-143)
[2020-01-24] MEDS: MENTHOL/CAMPHOR 1 APPLIC BTL TP SCH (11:00)
--- NOTE | 2020-01-24 14:16 | PN ---
Progress Note (short form) - Note Progress Note: Chief Complaint: sob History of Present Illness: no cp, palp, syncope Current Medications Generic Name Dose Route Start Last Admin Trade Name Markq PRN Reason Stop Dose Admin Acetaminophen 650 mg 01/18/20 22:00 01/24/20 09:15 Tylenol - PO 650 mg BID JOSE Administration Amiodarone HCl 100 mg 01/20/20 10:00 01/24/20 09:16 Cordarone - PO 100 mg DAILY JOSE Administration B12/Folic Ac/Intrin Fact/Iron/Vit C 1 each 01/18/20 16:45 01/24/20 09:17 Niferex-150 Forte - PO 1 each DAILY JOSE Administration Camphor/Menthol 1 applic 01/19/20 10:00 01/24/20 11:00 Sarna Anti-Itch - TP 1 applic DAILY JOSE Administration Cyanocobalamin 2,500 mcg 01/18/20 16:30 01/18/20 21:00 Vitamin B12 - PO 2,500 mcg Th JOSE Administration Escitalopram Oxalate 5 mg 01/19/20 10:00 01/24/20 09:16 Lexapro - PO 5 mg DAILY JOSE Administration Finasteride 5 mg 01/19/20 10:00 01/24/20 09:15 Proscar - PO 5 mg DAILY JOSE Administration Furosemide 40 mg 01/23/20 10:00 01/24/20 09:16 Lasix - PO 40 mg DAILY JOSE Administration Cefepime HCl 1 gm/ Dextrose 100 mls @ 200 mls/hr 01/23/20 17:00 01/24/20 09:16 IVPB 200 mls/hr BID JOSE Administration Protocol Levothyroxine Sodium 50 mcg 01/19/20 07:00 01/24/20 06:16 Synthroid - PO 50 mcg DAILY@0700 JOSE Administration Melatonin 10 mg 01/19/20 22:00 01/23/20 21:25 Melatonin PO 10 mg HS PRN Administration INSOMNIA Metoprolol Succinate 25 mg 01/18/20 22:00 01/24/20 09:16 Toprol Xl - PO 25 mg BID JOSE Administration Olanzapine 1.25 mg 01/21/20 22:00 01/23/20 21:32 Zyprexa - PO 1.25 mg HS JOSE Administration Pantoprazole Sodium 40 mg 01/18/20 17:15 01/24/20 09:17 Protonix - PO 40 mg DAILY JOSE Administration Quetiapine Fumarate 25 mg 01/18/20 22:00 01/23/20 21:26 Seroquel - PO 25 mg HS JOSE Administration Rivaroxaban 15 mg 01/18/20 18:00 01/23/20 17:47 Xarelto PO 15 mg DAILY@1800 JOSE Administration Senna 2 tab 01/18/20 22:00 Senna - PO HS PRN CONSTIPATION Valacyclovir HCl 500 mg 01/22/20 11:00 01/24/20 09:16 Valtrex - PO 500 mg DAILY JOSE Administration Vital Signs Period Temp Pulse Resp BP Sys/Neal Pulse Ox Last 24 Hr 98.1 F-100.2 F 62-68 18-19 108-140/44-65 96-96 Constitutional: Yes: Well Nourished, No Distress, Calm Eyes: No: Sclera Icterus Cardiovascular: Yes: Regular Rate and Rhythm, JVD (probable). No: Gallop, Murmur Respiratory: Yes: CTA Bilaterally. No: Accessory Muscle Use, Rales, Wheezes Gastrointestinal: Yes: Normal Bowel Sounds, Soft. No: Tenderness Extremities: No: Cold, Cyanosis Edema: No Integumentary: No: Jaundice Neurological: Yes: Alert, Oriented Psychiatric: No: Agitated Assessment/Plan Echo 12/11 (): moder decr LVEF (global), EF 35-40%. RV TDS. mild LAE. mild AI/MR. mild-mod TR. no pulm HTN seen. Echo 11/10: 1. The left ventricular size is normal. 2. Overall left ventricular systolic function is moderately impaired with a visually estimated EF of approximately 40 %. Peters's EF calculation (biplane) is 44%. 3. LA pressure is uncertain. 4. Septal wall motion is consistent with ventricular pacing; remaining wilson vishal ear mildly hypokinetic. 5. The right ventricle is moderately enlarged. 6. The right ventricular systolic function is normal. 7. Left atrium is severely dilated by volume. 8. The right atrium is markedly enlarged. 9. There is mild aortic regurgitation. 10. Moderate mitral regurgitation is present (central jet). Estimated regurgitant volume = 38cc; estimated FELICIANO = 0.18 cm2. 11. Moderate to severe tricuspid regurgitation present (no hepatic vein doppler imaging was performed). 12. There is at least mild to moderate pulmonary hypertension (TR doppler signal is cut off). 13. The right ventricular systolic pressure is at least 47 mmHg (assuming RA pressure of 3). 14. The aortic root is mildy to moderately dilated (4.2 cm at sinuses of Valsalva). echo 12/2019 incomplete study (patient combative), severely reduced LV function EF 25-30%, septal motion suggestive of RV overload, RV dilated mod to sev hypokinesis, mod band, PPM R heart, severely dilated atria, severe TR with severe pulm HTN, mildly dilated asc aorta Acute on chronic systolic CHF, moderate MR, pulm HTN with dilated RV and mod- severe TR: -BNP 6K, from baseline 1-2K. CXR clear with chronic/stable mild increased interstitial markings -he is presenting with his typical HF sx's (bibasilar rales incr'd over baseline sounds, feet swelling), JVD likely on TDS exam -known h/o orthostatic hypotension complicating diuresis--down to lasix 20 QD in NH as of last communication with me 02/10 -received lasix 40 IV qd here. vol status improving, chf sxs resolved. 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 - cont toprol, not on YANI/ARB for CKD - cont PO lasix AF: s/p PPM -Xarelto held 01/11 due to hgb trending down from 7s to 6s in [place], started Procrit injections, Xarelto eventually resumed -h/h stable here--cont Xarelto 15mg (GFR <50) -has been maintained on amiodarone 100mg for many yrs to help with rapid AF possibly triggering HF in the past--continue here (QTc ok on ECG. mild interstitial thickening on CXR is chronic, pt previously evaluated by pulmonary who did not suspect amio lung fibrosis) -Cont Toprol 25 bid -PM remote monitoring stable 12/12 CKD: -baseline creat runs 1.5-1.9, with fluctuations when uses NSAIDs for severe spinal stenosis pain Dementia/Delirium -History of severe sundowning in hospital -As per PMD Panctyopenia: -Chronic anemia, ? secondary CKD, ? on Procrit in [place]--counts stable -on NOAC currently, with stable H/H--monitor counts, observe for bleeding/melena -leukopenia and thrombocytopenia are new; pt with underlying heme malignancy that dtr has not shared diagnosis of with him due to concerns would cause decompensated anxiety/depression. defer to primary team whether to get heme involved here.
--- NOTE | 2020-01-24 16:10 | PN ---
Progress Note (short form) - Note Progress Note: remains quite alert afebrile today no complaints tmax 100.5 Vital Signs Period Temp Pulse Resp BP Sys/Neal Pulse Ox Last 24 Hr 97.9 F-100 F 61-68 18-19 113-140/50-65 96-96 cor-rrr lungs clear, decreased bs at bases abd soft,nt ext no edema CBC, BMP 01/23/20 07:40 01/23/20 07:40 Microbiology 01/21/20 14:45 Blood - Peripheral Venous Blood Culture - Preliminary NO GROWTH OBTAINED AFTER 72 HOURS, INCUBATION TO CONTINUE FOR 2 DAYS. 01/21/20 15:00 Blood - Peripheral Venous Blood Culture - Preliminary NO GROWTH OBTAINED AFTER 72 HOURS, INCUBATION TO C ONTINUE FOR 2 DAYS. 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
[2020-01-24] MEDS: RIVAROXABAN 15 MG TABLET PO SCH (17:11)
[2020-01-24] MEDS: OLANZapine 2.5 MG TABLET PO SCH (21:10)
[2020-01-24] MEDS: QUEtiapine FUMARATE 25 MG TABLET PO SCH (21:11)
[2020-01-24 22:36] LABS: URINE APPEARANCE CLEAR; URINE BILIRUBIN NEGATIVE (NEGATIVE); URINE COLOR YELLOW; URINE GLUCOSE (UA) NEGATIVE (NEGATIVE); URINE KETONE NEGATIVE (NEGATIVE); URINE LEUK ESTERASE NEGATIVE (NEGATIVE); URINE NITRITE NEGATIVE (NEGATIVE); URINE PROTEIN NEGATIVE (NEGATIVE); URINE UROBILINOGEN 0.2 mg/dL (0.2-1.0)
[2020-01-24] MEDS: MELATONIN 5 MG TABLETS PO PRN (23:44)
[2020-01-25] MEDS: LEVOTHYROXINE NA 50 MCG TABLET (FP) PO SCH (06:35)
[2020-01-25 06:42] LABS: BASO % 0.7 % (0-2.0); EOS % 5.4 % (0-4.5); HEMATOCRIT 26.4 % (35.4-49); HEMOGLOBIN 8.2 GM/dL (11.7-16.9); LYMPH % 60.6 % (8-40); MCH 24.9 pg (25.7-33.7); MEAN CELL VOLUME 80.3 fl (80-96); MONO % 28.8 % (3.8-10.2); NEUT % 4.5 % (42.8-82.8); PLATELET COUNT 109 K/MM3 (134-434); RBC 3.28 M/mm3 (4.00-5.60); RDW 16.8 % (11.9-15.9); WHITE BLOOD COUNT 3.1 K/mm3 (4.0-10.0)
[2020-01-25 08:05] LABS: ALBUMIN 3.1 g/dl (3.4-5.0); BILIRUBIN,TOTAL 0.5 mg/dL (0.2-1); BLOOD UREA NITROGEN 19.4 mg/dL (7-18); CALCIUM 8.7 mg/dL (8.5-10.1); CREATININE 1.5 mg/dL (0.55-1.3); POTASSIUM 3.8 mmol/L (3.5-5.1); TOT PROT 6.3 g/dl (6.4-8.2)
--- NOTE | 2020-01-25 09:02 | PN ---
Progress Note, Physician Chief Complaint: Patient seen and examined at the bedside, no acute events from last night, afebrile, no shortness of breath. History of Present Illness: This 89 yr old w/m with PMH of chronic lymphycytic leukemia, pancytopenia, colonic angiodysplasia, CAD, moderate MR, iron deficiency anemia, atrial fibrillation, HTN, hypothyroidism, depression, dementia, pulmonary hypertension, CKD, wedge compression fractures of L1 and L2 admitted via ER with an acute shortness of breath, severe edema of lower extremities, acute systolic CHF, and altered mental status. - Current Medication List Current Medications: Active Medications Acetaminophen (Tylenol -) [address] [facility] Last Admin: 01/24/20 21:10 Dose: 650 mg Documented by: Amiodarone HCl (Cordarone -) [address] [facility] Last Admin: 01/24/20 09:16 Dose: 100 mg Documented by: B12/Folic Ac/Intrin Fact/Iron/Vit C (Niferex-150 Forte -) [address] [facility] Last Admin: 01/24/20 09:17 Dose: 1 each Documented by: Camphor/Menthol (Sarna Anti-Itch -) [address] [facility] Last Admin: 01/24/20 11:00 Dose: 1 applic Documented by: Cyanocobalamin (Vitamin B12 -) 2,[address] [facility] Last Admin: 01/18/20 21:00 Dose: 2,500 mcg Documented by: Escitalopram Oxalate (Lexapro -) [address] [facility] Last Admin: 01/24/20 09:16 Dose: 5 mg Documented by: Finasteride (Proscar -) [address] [facility] Last Admin: 01/24/20 09:15 Dose: 5 mg Documented by: Furosemide (Lasix -) [address] [facility] Last Admin: 01/24/20 09:16 Dose: 40 mg Documented by: Cefepime HCl 1 gm/ Dextrose 100 mls @ 200 mls/hr IVPB BID [facility]; Protocol Last Admin: 01/24/20 21:11 Dose: 200 mls/hr Documented by: Levothyroxine Sodium (Synthroid -) 50 mcg PO DAILY@0700 [facility] Last Admin: 01/25/20 06:35 Dose: 50 mcg Documented by: Melatonin (Melatonin) 10 mg PO HS PRN PRN Reason: INSOMNIA Last Admin: 01/24/20 23:44 Dose: 10 mg Documented by: Metoprolol Succinate (Toprol Xl -) [address] [facility] Last Admin: 01/24/20 21:10 Dose: 25 mg Documented by: Olanzapine (Zyprexa -) 1.[address] [facility] Last Admin: 01/24/20 21:10 Dose: 1.25 mg Documented by: Pantoprazole Sodium (Protonix -) [address] [facility] Last Admin: 01/24/20 09:17 Dose: 40 mg Documented by: Quetiapine Fumarate (Seroquel -) [address] [facility] Last Admin: 01/24/20 21:11 Dose: 25 mg Documented by: Rivaroxaban (Xarelto) 15 mg PO DAILY@1800 [facility] Last Admin: 01/24/20 17:11 Dose: 15 mg Documented by: Senna (Senna -) 2 tab PO HS PRN PRN Reason: CONSTIPATION Valacyclovir HCl (Valtrex -) [address] [facility] Last Admin: 01/24/20 09:16 Dose: 500 mg Documented by: - Objective Vital Signs: Vital Signs Temperature 97.9 F 01/25/20 04:08 Pulse Rate 66 01/25/20 04:08 Respiratory Rate 20 01/25/20 04:08 Blood Pressure 105/49 L 01/25/20 04:08 O2 Sat by Pulse Oximetry (%) 96 01/24/20 21:00 Constitutional: Yes: Well Nourished, No Distress, Calm Eyes: Yes: Conjunctiva Clear, EOM Intact HENT: Yes: Atraumatic, Normocephalic Neck: Yes: Supple, Trachea Midline Cardiovascular: Yes: Regular Rate and Rhythm Respiratory: Yes: Regular, CTA Bilaterally, Rhonchi Gastrointestinal: Yes: Normal Bowel Sounds, Soft ...Rectal Exam: Yes: Deferred Genitourinary: Yes: WNL Breast(s): Yes: WNL Musculoskeletal: Yes: Muscle Weakness Extremities: Yes: WNL Edema: Yes Edema: LLE: 1+, RLE: 1+ Peripheral Pulses WNL: Yes Integumentary: Yes: WNL Neurological: Yes: Alert, Unsteady Gait, Weakness ...Motor Strength: LUE (generalized muscle weakness of all extremities) Psychiatric: Yes: Alert Labs: CBC, BMP 01/25/20 06:08 01/25/20 06:08 INR, PTT INR 2.09 (0.83-1.09) H 01/22/20 10:10 - ....Imaging EKG: Report Reviewed (lab data reviewed) Problem List - Problems (1) Acute CHF Code(s): I50.9 - HEART FAILURE, UNSPECIFIED Qualifiers: Heart failure type: unspecified Qualified Code(s): I50.9 - Heart failure, unspecified (2) Bilateral lower extremity edema Code(s): R60.0 - LOCALIZED EDEMA (3) SOB (shortness of breath) Code(s): R06.02 - SHORTNESS OF BREATH (4) AF (paroxysmal atrial fibrillation) Code(s): I48.0 - PAROXYSMAL ATRIAL FIBRILLATION (5) DEE (acute kidney injury) Code(s): N17.9 - ACUTE KIDNEY FAILURE, UNSPECIFIED (6) Acute pure red cell anemia Code(s): D60.8 - OTHER ACQUIRED PURE RED CELL APLASIAS (7) Afib Code(s): I48.91 - UNSPECIFIED ATRIAL FIBRILLATION (8) Altered mental status Code(s): R41.82 - ALTERED MENTAL STATUS, UNSPECIFIED (9) Leukopenia Code(s): D72.819 - DECREASED WHITE BLOOD CELL COUNT, UNSPECIFIED (10) Hyperkalemia Code(s): E87.5 - HYPERKALEMIA (11) Hyponatremia Code(s): E87.1 - HYPO-OSMOLALITY AND HYPONATREMIA (12) Pancytopenia Code(s): D61.818 - OTHER PANCYTOPENIA (13) Systolic CHF Code(s): I50.20 - UNSPECIFIED SYSTOLIC (CONGESTIVE) HEART FAILURE (14) Moderate mitral regurgitation Code(s): I34.0 - NONRHEUMATIC MITRAL (VALVE) INSUFFICIENCY (15) Severe tricuspid regurgitation Code(s): I07.1 - RHEUMATIC TRICUSPID INSUFFICIENCY (16) Neutropenic fever Code(s): D70.9 - NEUTROPENIA, UNSPECIFIED; R50.81 - FEVER PRESENTING WITH CONDITIONS CLASSIFIED ELSEWHERE Assessment/Plan Assessment/plan: acute neutropenic fever, acute shortness of breath, acute severe edema of lower extremities, acute systolic CHF, altered mental status, chronic lymphocytic leukemia, pancytopenia, colonic angiodysplasia, CAD, mo derate MR, iron deficiency anemia, atrial fibrillation, depression, dementia, HTN, hypothyroidism, cancer of prostate, pulmonary hypertension, CKD, wedge compression fractures of L1 and L2; oral Furosemide, IV Cefepime as per ID for neutropenic fever, physical therapy, fall risk precautions, neutropenic isolation precautions, Niferex a/c with Xarelto, amiodarone and metoprolol for atrial fibrillation, seroquel and olanzapine for delirium, DVT/GI prophylaxis, Lexapro for depression, Melatonin for insomnia, menthol patch for low back pain.
[2020-01-25 09:55] LABS: ANISOCYTOSIS 1+; MACROCYTOSIS 0; PLATELET ESTIMATE DECREASED
[2020-01-25] MEDS ORDERED: DEXTROSE 5%-WATER 100 ML IVPB ONE ×2 (10:19→20:57)
[2020-01-25] MEDS ORDERED: CEFEPIME HCL 1 GM VIAL (RESTRICTED TO ID) ONE ×2 (10:19→20:57)
[2020-01-25] MEDS: valACYclovir HCL 500 MG TABLET (FP) PO SCH (10:33)
[2020-01-25] MEDS: ESCITALOPRAM OXALATE 10 MG TABLET PO SCH (10:33)
[2020-01-25] MEDS: FE POLYSAC/CYANOCOBAL/FA COMBO CAPSULE PO SCH (10:33)
[2020-01-25] MEDS: metoPROLOL SUCCINATE 25 MG TAB.SR.24H (FP) PO SCH ×2 (10:33→21:01)
[2020-01-25] MEDS: FINASTERIDE 5 MG TABLET (FP) PO SCH (10:34)
[2020-01-25] MEDS: PANTOPRAZOLE 40 MG TABLET PO SCH (10:34)
[2020-01-25] MEDS: ACETAMINOPHEN 325 MG TABLET (FP) PO SCH ×2 (10:34→21:01)
[2020-01-25] MEDS: FUROSEMIDE 40 MG TABLET (FP) PO SCH (10:35)
[2020-01-25] MEDS: AMIODARONE HCL 200 MG TABLET PO SCH (10:35)
[2020-01-25] MEDS: MENTHOL/CAMPHOR 1 APPLIC BTL TP SCH (10:35)
[2020-01-25] MEDS: CEFEPIME 1 GM in DEXTROSE 5%-WATER 100 ML IVPB SCH ×2 (10:36→21:02)
--- NOTE | 2020-01-25 11:54 | PN ---
Progress Note (short form) - Note Progress Note: Chief Complaint: sob History of Present Illness: denies sob. no cp, palp, syncope Current Medications Generic Name Dose Route Start Last Admin Trade Name Oscar PRN Reason Stop Dose Admin Acetaminophen 650 mg 01/18/20 22:00 01/25/20 10:34 Tylenol - PO 650 mg BID JOSE Administration Amiodarone HCl 100 mg 01/20/20 10:00 01/25/20 10:35 Cordarone - PO 100 mg DAILY JOSE Administration B12/Folic Ac/Intrin Fact/Iron/Vit C 1 each 01/18/20 16:45 01/25/20 10:33 Niferex-150 Forte - PO 1 each DAILY JSOE Administration Camphor/Menthol 1 applic 01/19/20 10:00 01/25/20 10:35 Sarna Anti-Itch - TP 1 applic DAILY JOSE Administration Cyanocobalamin 2,500 mcg 01/18/20 16:30 01/18/20 21:00 Vitamin B12 - PO 2,500 mcg Th JOSE Administration Escitalopram Oxalate 5 mg 01/19/20 10:00 01/25/20 10:33 Lexapro - PO 5 mg DAILY JOSE Administration Finasteride 5 mg 01/19/20 10:00 01/25/20 10:34 Proscar - PO 5 mg DAILY JOSE Administration Furosemide 40 mg 01/23/20 10:00 01/25/20 10:35 Lasix - PO 40 mg DAILY JOSE Administration Cefepime HCl 1 gm/ Dextrose 100 mls @ 200 mls/hr 01/23/20 17:00 01/25/20 1 0:36 IVPB 200 mls/hr BID JOSE Administration Protocol Levothyroxine Sodium 50 mcg 01/19/20 07:00 01/25/20 06:35 Synthroid - PO 50 mcg DAILY@0700 JOSE Administration Melatonin 10 mg 01/19/20 22:00 01/24/20 23:44 Melatonin PO 10 mg HS PRN Administration INSOMNIA Metoprolol Succinate 25 mg 01/18/20 22:00 01/25/20 10:33 Toprol Xl - PO 25 mg BID JOSE Administration Olanzapine 1.25 mg 01/21/20 22:00 01/24/20 21:10 Zyprexa - PO 1.25 mg HS JOSE Administration Pantoprazole Sodium 40 mg 01/18/20 17:15 01/25/20 10:34 Protonix - PO 40 mg DAILY JOSE Administration Quetiapine Fumarate 25 mg 01/18/20 22:00 01/24/20 21:11 Seroquel - PO 25 mg HS JOSE Administration Rivaroxaban 15 mg 01/18/20 18:00 01/24/20 17:11 Xarelto PO 15 mg DAILY@1800 JOSE Administration Senna 2 tab 01/18/20 22:00 Senna - PO HS PRN CONSTIPATION Valacyclovir HCl 500 mg 01/22/20 11:00 01/25/20 10:33 Valtrex - PO 500 mg DAILY JOSE Administration Vital Signs Period Temp Pulse Resp BP Sys/Neal Pulse Ox Last 24 Hr 97.8 F-98.5 F 61-81 16-20 103-115/49-63 96-96 Constitutional: Yes: Well Nourished, No Distress, Calm Eyes: No: Sclera Icterus Cardiovascular: Yes: Regular Rate and Rhythm, JVD (probable). No: Gallop, Murmur Respiratory: Yes: CTA Bilaterally. No: Accessory Muscle Use, Rales, Wheezes Gastrointestinal: Yes: Normal Bowel Sounds, Soft. No: Tenderness Extremities: No: Cold, Cyanosis Edema: No Integumentary: No: Jaundice Neurological: Yes: Alert, Oriented Psychiatric: No: Agitated Labs: CBC, BMP 01/25/20 06:08 01/25/20 06:08 Assessment/Plan Echo 12/11 (): moder decr LVEF (global), EF 35-40%. RV TDS. mild LAE. mild AI/MR. mild-mod TR. no pulm HTN seen. Echo 11/10: 1. The left ventricular size is normal. 2. Overall left ventricular systolic function is moderately impaired with a visually estimated EF of approximately 40 %. Peters's EF calculation (biplane) is 44%. 3. LA pressure is uncertain. 4. Septal wall motion is consistent with ventricular pacing; remaining wilson appear mildly hypokinetic. 5. The right ventricle is moderately enlarged. 6. The right ventricular systolic function is normal. 7. Left atrium is severely dilated by volume. 8. The right atrium is markedly enlarged. 9. There is mild aortic regurgitation. 10. Moderate mitral regurgitation is present (central jet). Estimated regurgitant volume = 38cc; estimated FELICIANO = 0.18 cm2. 11. Moderate to severe tricuspid regurgitation present (no hepatic vein doppler imaging was performed). 12. There is at least mild to moderate pulmonary hypertension (TR doppler signal is cut off). 13. The right ventricular systolic pressure is at least 47 mmHg (assuming RA pre ssure of 3). 14. The aortic root is mildy to moderately dilated (4.2 cm at sinuses of Valsalva). echo 12/2019 incomplete study (patient combative), severely reduced LV function EF 25-30%, septal motion suggestive of RV overload, RV dilated mod to sev hypokinesis, mod band, PPM R heart, severely dilated atria, severe TR with severe pulm HTN, mildly dilated asc aorta Acute on chronic systolic CHF, moderate MR, pulm HTN with dilated RV and mod- severe TR: -BNP 6K, from baseline 1-2K. CXR clear with chronic/stable mild increased interstitial markings -he is presenting with his typical HF sx's (bibasilar rales incr'd over baseline sounds, feet swelling), JVD likely on TDS exam -known h/o orthostatic hypotension complicating diuresis--down to lasix 20 QD in [place] as of last communication with me 02/10 -received lasix 40 IV qd here. vol status improving, chf sxs resolved. 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 - cont toprol, not on YANI/ARB for CKD - cont PO lasix AF: s/p PPM -Xarelto held 01/11 due to hgb trending down from 7s to 6s in [place], started Procrit injections, Xarelto eventually resumed -h/h stable here--cont Xarelto 15mg (GFR <50) -has been maintained on amiodarone 100mg for many yrs to help with rapid AF possibly triggering HF in the past--continue here (QTc ok on ECG. mild interstitial thickening on CXR is chronic, pt previously evaluated by pulmonary who did not suspect amio lung fibrosis) -Cont Toprol 25 bid -PM remote monitoring stable 12/12 CKD: -baseline creat runs 1.5-1.9, with fluctuations when uses NSAIDs for severe spinal stenosis pain Dementia/Delirium -History of severe sundowning in hospital -As per PMD Panctyopenia: -Chronic anemia, ? secondary CKD, ? on Procrit in [place]--counts stable -on NOAC currently, with stable H/H--monitor counts, observe for bleeding/melena -leukopenia and thrombocytopenia are new; pt with underlying heme malignancy that dtr has not shared diagnosis of with him due to concerns would cause decompensated anxiety/depression. defer to primary team whether to get heme involved here.
--- NOTE | 2020-01-25 13:49 | PN ---
Physical Exam: SUBJECTIVE: Patient seen and examined. Pt. denies any acute complaints. Pt. states he has chronic back brain that is not worse than usual. OBJECTIVE: Vital Signs Period Temp Pulse Resp BP Sys/Neal Pulse Ox Last 24 Hr 97.8 F-98.5 F 61-81 16-20 103-115/49-63 96-96 GENERAL: The patient is awake, alert, and fully oriented, in no acute distress. HEAD: Normal with no signs of trauma. EYES: Sclera anicteric, conjunctiva clear. No ptosis. ENT: Moist mucous membranes. NECK: Trachea midline, full range of motion, supple. LUNGS: Breath sounds equal, clear to auscultation bilaterally, no wheezes, no crackles, no accessory muscle use. HEART: Regular rate and rhythm, S1, S2 without murmur ABDOMEN: Soft, nontender, nondistended, normoactive bowel sounds, no guarding EXTREMITIES: 2+ dorsal pedal pulses, warm, no calf tenderness, well-perfused, no edema. NEUROLOGICAL: Normal speech, gait not observed. PSYCH: Normal mood, normal affect. SKIN: Warm, dry, normal turgor Laboratory Results - last 24 hr 01/24/20 01/25/20 01/25/20 20:51 06:08 06:08 WBC 3.1 L RBC 3.28 L Hgb 8.2 L Hct 26.4 L MCV 80.3 MCH 24.9 L MCHC 31.0 L RDW 16.8 H Plt Count 109 L MPV 8.0 Absolute Neuts (auto) 0.1 L Neutrophils % 4.5 L Neutrophils % (Manual) 5.1 L Band Neutrophils % 0.0 Lymphocytes % 60.6 H Lymphocytes % (Manual) 70.4 H Monocytes % 28.8 H Monocytes % (Manual) 20 H Eosinophils % 5.4 H Eosinophils % (Manual) 4.1 Basophils % 0.7 Basophils % (Manual) 0.0 Myelocytes % (Man) 0 Promyelocytes % (Man) 0 Blast Cells % (Manual) 0 Nucleated RBC % 0 Metamyelocytes 0 Hypochromia 0 Platelet Estimate Decreased Polychromasia 1+ Poikilocytosis 0 Anisocytosis 1+ Microcytosis 1+ Macrocytosis 0 Sodium 141 Potassium 3.8 Chloride 106 Carbon Dioxide 26 Anion Gap 9 BUN 19.4 H Creatinine 1.5 H Est GFR (CKD-EPI)AfAm 47.16 Est GFR (CKD-EPI)NonAf 40.69 Random Glucose 87 Calcium 8.7 Total Bilirubin 0.5 AST 22 ALT 14 Alkaline Phosphatase 81 Total Protein 6.3 L Albumin 3.1 L Urine Color Yellow Urine Appearance Clear Urine pH 5.0 D Ur Specific [place] 1.015 Urine Protein Negative Urine Glucose (UA) Negative Urine Ketones Negative Urine Blood Negative Urine Nitrite Negative Urine Bilirubin Negative Urine Urobilinogen 0.2 Ur Leukocyte Esterase Negative Active Medications Generic Name Dose Route Start Last Admin Trade Name Freq PRN Reason Stop Dose Admin Acetaminophen 650 mg 01/18/20 22:00 01/25/20 10:34 Tylenol - PO 650 mg BID JOSE Administration Amiodarone HCl 100 mg 01/20/20 10:00 01/25/20 10:35 Cordarone - PO 100 mg DAILY JOSE Administration B12/Folic Ac/Intrin Fact/Iron/Vit C 1 each 01/18/20 16:45 01/25/20 10:33 Niferex-150 Forte - PO 1 each DAILY JOSE Administration Camphor/Menthol 1 applic 01/19/20 10:00 01/25/20 10:35 Sarna Anti-Itch - TP 1 applic DAILY JOSE Administration Cyanocobalamin 2,500 mcg 01/18/20 16:30 01/18/20 21:00 Vitamin B12 - PO 2,500 mcg Th JOSE Administration Escitalopram Oxalate 5 mg 01/19/20 10:00 01/25/20 10:33 Lexapro - PO 5 mg DAILY JOSE Administration Finasteride 5 mg 01/19/20 10:00 01/25/20 10:34 Proscar - PO 5 mg DAILY JOSE Administration Furosemide 40 mg 01/23/20 10:00 01/25/20 10:35 Lasix - PO 40 mg DAILY JOSE Administration Cefepime HCl 1 gm/ Dextrose 100 mls @ 200 mls/hr 01/23/20 17:00 01/25/20 10:36 IVPB 200 mls/hr BID JOSE Administration Protocol Levothyroxine Sodium 50 mcg 01/19/20 07:00 01/25/20 06:35 Synthroid - PO 50 mcg DAILY@0700 JOSE Administration Melatonin 10 mg 01/19/20 22:00 01/24/20 23:44 Melatonin PO 10 mg HS PRN Administration INSOMNIA Metoprolol Succinate 25 mg 01/18/20 22:00 01/25/20 10:33 Toprol Xl - PO 25 mg BID JOSE Administration Olanzapine 1.25 mg 01/21/20 22:00 01/24/20 21:10 Zyprexa - PO 1.25 mg HS JOSE Administration Pantoprazole Sodium 40 mg 01/18/20 17:15 01/25/20 10:34 Protonix - PO 40 mg DAILY JOSE Administration Quetiapine Fumarate 25 mg 01/18/20 22:00 01/24/20 21:11 Seroquel - PO 25 mg HS JOSE Administration Rivaroxaban 15 mg 01/18/20 18:00 01/24/20 17:11 Xarelto PO 15 mg DAILY@1800 JOSE Administration Senna 2 tab 01/18/20 22:00 Senna - PO HS PRN CONSTIPATION Valacyclovir HCl 500 mg 01/22/20 11:00 01/25/20 10:33 Valtrex - PO 500 mg DAILY JOSE Administration ASSESSMENT/PLAN: Pt. is a 89 y.o. M w/ PMHx. of Chronic Lymphocytic Leukemia, Prostate CA, pHTN, CKD, ODESSA, colonic angiodysplasia, CAD (s/p PPM) admitted due to an acute exacerbation of shortness of breath and edema of lower extremities. Dr. 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 f/u Peripheral Blood Flow Cytometry, LDH, PT/INR, PTT Haptoglobin: 195, f/u Rpt., Immunoglobulin profile: wnl #Acute CHF exacerbation c/w Lasix as per Cardiology #HTN #CKD #ODESSA #Colonic angiodyspolasia #CAD as per Primary team #DVT Ppx. Xarelto 15mg Visit type - Emergency Visit Emergency Visit: Yes ED Registration Date: 01/18/20 Care time: The patient presented to the Emergency Department on the above date and was hospitalized for further evaluation of their emergent condition. - New Patient This patient is new to me today: Yes Date on this admission: 01/25/20 - Critical Care Critical Care patient: No - Discharge Referral Referred to [facility] Med P.C.: No ATTENDING PHYSICIAN STATEMENT I saw and evaluated the patient. I reviewed the resident's note and discussed the case with the resident. I agree with the resident's findings and plan as documented. SUBJECTIVE: OBJECTIVE: ASSESSMENT AND PLAN:
--- NOTE | 2020-01-25 14:47 | PN ---
Progress Note (short form) - Note Progress Note: remains quite alert afebrile today Vital Signs Period Temp Pulse Resp BP Sys/Neal Pulse Ox Last 24 Hr 97.8 F-98.5 F 63-81 16-20 103-115/49-63 96-96 cor-rrr lungs decreased bs at bases abd soft,nt ext no edema CBC, BMP 01/25/20 06:08 01/25/20 06:08 Microbiology 01/23/20 16:00 Blood - Peripheral Venous Blood Culture - Preliminary NO GROWTH OBTAINED AFTER 24 HOURS, INCUBATION TO CONTINUE FOR 4 DAYS. 01/23/20 15:45 Blood - Peripheral Venous Blood Culture - Preliminary NO GROWTH OBTAINED AFTER 24 HOURS, INCUBATION TO CONTINUE FOR 4 DAYS. 01/21/20 14:45 Blood - Peripheral Venous Blood Culture - Preliminary NO GROWTH OBTAINED AFTER 72 HOURS, INCUBATION TO CONTINUE FOR 2 DAYS. 01/21/20 15:00 Blood - Peripheral Venous Blood Culture - Preliminary NO GROWTH OBTAINED AFTER 72 HOURS, INCUBATION TO CONTINUE FOR 2 DAYS. 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
[2020-01-25 15:13] VITALS: BMI 31.2
[2020-01-25] MEDS: CYANOCOBALAMIN 1,000 MCG TABLET (FP) PO SCH (17:22)
[2020-01-25] MEDS: RIVAROXABAN 15 MG TABLET PO SCH (17:22)
[2020-01-25] MEDS ORDERED: PT OWN MED DRAWER 7, Y5N ONE (20:55)
[2020-01-25] MEDS: QUEtiapine FUMARATE 25 MG TABLET PO SCH (21:01)
[2020-01-25] MEDS: MELATONIN 5 MG TABLETS PO PRN (21:01)
[2020-01-25] MEDS: OLANZapine 2.5 MG TABLET PO SCH (22:07)
[2020-01-26] MEDS: LEVOTHYROXINE NA 50 MCG TABLET (FP) PO SCH (06:02)
--- NOTE | 2020-01-26 08:54 | PN ---
Progress Note, Physician Chief Complaint: Patient seen and examined at the bedside, no acute events from last night, oxygen saturation 98% on room air. History of Present Illness: This 89 yr old w/m with PMH of chronic lymphocytic leukemia, pancytopenia, colonic angiodysplasia, CAD, moderate MR, iron deficiency anemia, atrial fibrillation, HTN, hypothyroidism, depression, dementia, wedge compression fractures L1 and L2, cancer of the prostate, pulmonary hypertension, CKD admitted via ER with an acute shortness of breath, edema of lower extremities, systolic CHF, and an altered mental status. - Current Medication List Current Medications: Active Medications Acetaminophen (Tylenol -) 650 mg PO BID [facility] Last Admin: 01/25/20 21:01 Dose: 650 mg Documented by: Amiodarone HCl (Cordarone -) 100 mg PO DAILY [facility] Last Admin: 01/25/20 10:35 Dose: 100 mg Documented by: B12/Folic Ac/Intrin Fact/Iron/Vit C (Niferex-150 Forte -) 1 each PO DAILY [facility] Last Admin: 01/25/20 10:33 Dose: 1 each Documented by: Camphor/Menthol (Sarna Anti-Itch -) 1 applic TP DAILY [facility] Last Admin: 01/25/20 10:35 Dose: 1 applic Documented by: Cyanocobalamin (Vitamin B12 -) 2,500 mcg PO Th [facility] Last Admin: 01/25/20 17:22 Dose: 2,500 mcg Documented by: Escitalopram Oxalate (Lexapro -) 5 mg PO DAILY [facility] Last Admin: 01/25/20 10:33 Dose: 5 mg Documented by: Finasteride (Proscar -) 5 mg PO DAILY [facility] Last Admin: 01/25/20 10:34 Dose: 5 mg Documented by: Furosemide (Lasix -) 40 mg PO DAILY [facility] Last Admin: 01/25/20 10:35 Dose: 40 mg Documented by: Cefepime HCl 1 gm/ Dextrose 100 mls @ 200 mls/hr IVPB BID [facility]; Protocol Last Admin: 01/25/20 21:02 Dose: 200 mls/hr Documented by: Levothyroxine Sodium (Synthroid -) 50 mcg PO DAILY@0700 [facility] Last Admin: 01/26/20 06:02 Dose: 50 mcg Documented by: Melatonin (Melatonin) 10 mg PO HS PRN PRN Reason: INSOMNIA Last Admin: 01/25/20 21:01 Dose: 10 mg Documented by: Metoprolol Succinate (Toprol Xl -) 25 mg PO BID [facility] Last Admin: 01/25/20 21:01 Dose: 25 mg Documented by: Olanzapine (Zyprexa -) 1.25 mg PO HS [facility] Last Admin: 01/25/20 22:07 Dose: 1.25 mg Documented by: Pantoprazole Sodium (Protonix -) 40 mg PO DAILY [facility] Last Admin: 01/25/20 10:34 Dose: 40 mg Documented by: Quetiapine Fumarate (Seroquel -) 25 mg PO HS [facility] Last Admin: 01/25/20 21:01 Dose: 25 mg Documented by: Rivaroxaban (Xarelto) 15 mg PO DAILY@1800 [facility] Last Admin: 01/25/20 17:22 Dose: 15 mg Documented by: Senna (Senna -) 2 tab PO HS PRN PRN Reason: CONSTIPATION Valacyclovir HCl (Valtrex -) 500 mg PO DAILY [facility] Last Admin: 01/25/20 10:33 Dose: 500 mg Documented by: - Objective Vital Signs: Vital Signs Temperature 97.8 F 01/26/20 05:47 Pulse Rate 66 01/26/20 05:47 Respiratory Rate 18 01/26/20 05:47 Blood Pressure 138/72 01/26/20 05:47 O2 Sat by Pulse Oximetry (%) 98 01/25/20 21:00 Labs: CBC, BMP 01/25/20 06:08 01/25/20 06:08 INR, PTT INR 2.09 (0.83-1.09) H 01/22/20 10:10 Problem List - Problems (1) Acute CHF Code(s): I50.9 - HEART FAILURE, UNSPECIFIED Qualifiers: Heart failure type: unspecified Qualified Code(s): I50.9 - Heart failure, unspecified (2) Bilateral lower extremity edema Code(s): R60.0 - LOCALIZED EDEMA (3) SOB (shortness of breath) Code(s): R06.02 - SHORTNESS OF BREATH (4) AF (paroxysmal atrial fibrillation) Code(s): I48.0 - PAROXYSMAL ATRIAL FIBRILLATION (5) DEE (acute kidney injury) Code(s): N17.9 - ACUTE KIDNEY FAILURE, UNSPECIFIED (6) Acute pure red cell anemia Code(s): D60.8 - OTHER ACQUIRED PURE RED CELL APLASIAS (7) Afib Code(s): I48.91 - UNSPECIFIED ATRIAL FIBRILLATION (8) Altered mental status Code(s): R41.82 - ALTERED MENTAL STATUS, UNSPECIFIED (9) Leukopenia Code(s): D72.819 - DECREASED WHITE BLOOD CELL COUNT, UNSPECIFIED (10) Hyperkalemia Code(s): E87.5 - HYPERKALEMIA (11) Hyponatremia Code(s): E87.1 - HYPO-OSMOLALITY AND HYPONATREMIA (12) Pancytopenia Code(s): D61.818 - OTHER PANCYTOPENIA (13) Systolic CHF Code(s): I50.20 - UNSPECIFIED SYSTOLIC (CONGESTIVE) HEART FAILURE (14) Moderate mitral regurgitation Code(s): I34.0 - NONRHEUMATIC MITRAL (VALVE) INSUFFICIENCY (15) Severe tricuspid regurgitation Code(s): I07.1 - RHEUMATIC TRICUSPID INSUFFICIENCY (16) Neutropenic fever Code(s): D70.9 - NEUTROPENIA, UNSPECIFIED; R50.81 - FEVER PRESENTING WITH CONDITIONS CLASSIFIED ELSEWHERE
[2020-01-26] MEDS ORDERED: CEFEPIME HCL 1 GM VIAL (RESTRICTED TO ID) ONE ×2 (09:07→21:20)
[2020-01-26] MEDS ORDERED: DEXTROSE 5%-WATER 100 ML IVPB ONE ×2 (09:08→21:21)
[2020-01-26] MEDS ORDERED: PT OWN MED DRAWER 7, Y5N ONE ×2 (09:09→21:20)
[2020-01-26] MEDS: ACETAMINOPHEN 325 MG TABLET (FP) PO SCH ×2 (09:10→21:23)
[2020-01-26] MEDS: FINASTERIDE 5 MG TABLET (FP) PO SCH (09:10)
[2020-01-26] MEDS: AMIODARONE HCL 200 MG TABLET PO SCH (09:11)
[2020-01-26] MEDS: valACYclovir HCL 500 MG TABLET (FP) PO SCH (09:11)
[2020-01-26] MEDS: ESCITALOPRAM OXALATE 10 MG TABLET PO SCH (09:11)
[2020-01-26] MEDS: PANTOPRAZOLE 40 MG TABLET PO SCH (09:11)
[2020-01-26] MEDS: metoPROLOL SUCCINATE 25 MG TAB.SR.24H (FP) PO SCH ×2 (09:11→21:23)
[2020-01-26] MEDS: FUROSEMIDE 40 MG TABLET (FP) PO SCH (09:11)
[2020-01-26] MEDS: CEFEPIME 1 GM in DEXTROSE 5%-WATER 100 ML IVPB SCH ×2 (09:12→21:25)
[2020-01-26] MEDS: FE POLYSAC/CYANOCOBAL/FA COMBO CAPSULE PO SCH (09:13)
[2020-01-26] MEDS: MENTHOL/CAMPHOR 1 APPLIC BTL TP SCH (09:14)
--- NOTE | 2020-01-26 10:08 | PN ---
Progress Note, Physician Chief Complaint: See first note dated 01/26/2020 for chief complaints and HPI. - Current Medication List Current Medications: Active Medications Acetaminophen (Tylenol -) 650 mg PO BID [facility] Last Admin: 01/26/20 09:10 Dose: 650 mg Documented by: Amiodarone HCl (Cordarone -) 100 mg PO DAILY [facility] Last Admin: 01/26/20 09:11 Dose: 100 mg Documented by: B12/Folic Ac/Intrin Fact/Iron/Vit C (Niferex-150 Forte -) 1 each PO DAILY [facility] Last Admin: 01/26/20 09:13 Dose: 1 each Documented by: Camphor/Menthol (Sarna Anti-Itch -) 1 applic TP DAILY [facility] Last Admin: 01/26/20 09:14 Dose: 1 applic Documented by: Cyanocobalamin (Vitamin B12 -) 2,500 mcg PO Th [facility] Last Admin: 01/25/20 17:22 Dose: 2,500 mcg Documented by: Escitalopram Oxalate (Lexapro -) 5 mg PO DAILY [facility] Last Admin: 01/26/20 09:11 Dose: 5 mg Documented by: Finasteride (Proscar -) 5 mg PO DAILY [facility] Last Admin: 01/26/20 09:10 Dose: 5 mg Documented by: Furosemide (Lasix -) 40 mg PO DAILY [facility] Last Admin: 01/26/20 09:11 Dose: 40 mg Documented by: Cefepime HCl 1 gm/ Dextrose 100 mls @ 200 mls/hr IVPB BID [facility]; Protocol Last Admin: 01/26/20 09:12 Dose: 200 mls/hr Documented by: Levothyroxine Sodium (Synthroid -) 50 mcg PO DAILY@0700 [facility] Last Admin: 01/26/20 06:02 Dose: 50 mcg Documented by: Melatonin (Melatonin) 10 mg PO HS PRN PRN Reason: INSOMNIA Last Admin: 01/25/20 21:01 Dose: 10 mg Documented by: Metoprolol Succinate (Toprol Xl -) 25 mg PO BID [facility] Last Admin: 01/26/20 09:11 Dose: 25 mg Documented by: Olanzapine (Zyprexa -) 1.25 mg PO HS [facility] Last Admin: 01/25/20 22:07 Dose: 1.25 mg Documented by: Pantoprazole Sodium (Protonix -) 40 mg PO DAILY [facility] Last Admin: 01/26/20 09:11 Dose: 40 mg Documented by: Quetiapine Fumarate (Seroquel -) 25 mg PO HS [facility] Last Admin: 01/25/20 21:01 Dose: 25 mg Documented by: Rivaroxaban (Xarelto) 15 mg PO DAILY@1800 [facility] Last Admin: 01/25/20 17:22 Dose: 15 mg Documented by: Senna (Senna -) 2 tab PO HS PRN PRN Reason: CONSTIPATION Valacyclovir HCl (Valtrex -) 500 mg PO DAILY [facility] Last Admin: 01/26/20 09:11 Dose: 500 mg Documented by: - Objective Vital Signs: Vital Signs Temperature 98.9 F 01/26/20 09:00 Pulse Rate 60 01/26/20 09:00 Respiratory Rate 19 01/26/20 09:00 Blood Pressure 132/62 01/26/20 09:00 O2 Sat by Pulse Oximetry (%) 97 01/26/20 09:00 Constitutional: Yes: Well Nourished, No Distress, Calm Eyes: Yes: Conjunctiva Clear, EOM Intact HENT: Yes: Atraumatic, Normocephalic Neck: Yes: Supple, Trachea Midline Cardiovascular: Yes: Regular Rate and Rhythm Respiratory: Yes: Regular, CTA Bilaterally Gastrointestinal: Yes: Normal Bowel Sounds, Soft ...Rectal Exam: Yes: Deferred Genitourinary: Yes: WNL Breast(s): Yes: WNL Musculoskeletal: Yes: Muscle Weakness Extremities: Yes: WNL Edema: Yes Edema: LLE: Trace, RLE: 1+ Integumentary: Yes: WNL Neurological: Yes: Alert, Unsteady Gait, Weakness ...Motor Strength: LUE (generalized muscle weakness of all extremities) Psychiatric: Yes: Alert Labs: CBC, BMP 01/25/20 06:08 01/25/20 06:08 INR, PTT INR 2.09 (0.83-1.09) H 01/22/20 10:10 - ....Imaging Other: Report Reviewed (lab data reviewed) Problem List - Problems (1) Acute CHF Code(s): I50.9 - HEART FAILURE, UNSPECIFIED Qualifiers: Heart failure type: unspecified Qualified Code(s): I50.9 - Heart failure, unspecified (2) Bilateral lower extremity edema Code(s): R60.0 - LOCALIZED EDEMA (3) SOB (shortness of breath) Code(s): R06.02 - SHORTNESS OF BREATH (4) AF (paroxysmal atrial fibrillation) Code(s): I48.0 - PAROXYSMAL ATRIAL FIBRILLATION (5) DEE (acute kidney injury) Code(s): N17.9 - ACUTE KIDNEY FAILURE, UNSPECIFIED (6) Acute pure red cell anemia Code(s): D60.8 - OTHER ACQUIRED PURE RED CELL APLASIAS (7) Afib Code(s): I48.91 - UNSPECIFIED ATRIAL FIBRILLATION (8) Altered mental status Code(s): R41.82 - ALTERED MENTAL STATUS, UNSPECIFIED (9) Leukopenia Code(s): D72.819 - DECREASED WHITE BLOOD CELL COUNT, UNSPECIFIED (10) Hyperkalemia Code(s): E87.5 - HYPERKALEMIA (11) Hyponatremia Code(s): E87.1 - HYPO-OSMOLALITY AND HYPONATREMIA (12) Pancytopenia Code(s): D61.818 - OTHER PANCYTOPENIA (13) Systolic CHF Code(s): I50.20 - UNSPECIFIED SYSTOLIC (CONGESTIVE) HEART FAILURE (14) Moderate mitral regurgitation Code(s): I34.0 - NONRHEUMATIC MITRAL (VALVE) INSUFFICIENCY (15) Severe tricuspid regurgitation Code(s): I07.1 - RHEUMATIC TRICUSPID INSUFFICIENCY (16) Neutropenic fever Code(s): D70.9 - NEUTROPENIA, UNSPECIFIED; R50.81 - FEVER PRESENTING WITH CONDITIONS CLASSIFIED ELSEWHERE Assessment/Plan Assessment/plan: acute shortness of breath, acute edema of lower extremities, altered mental status, chronic lymphocytic leukemia, acute pancytopenia, colonic angiodysplasia, CAD, moderate MR, iron deficiency anemia, atrial fibrillation, HTN, hypothyroidism, depression, delirium, dementia, wedge compression fractures of L1 and L2, chronic low back pain, cancer of prostate, pulmonary hypertension, CKD; oral Furosemide, IV Cefepime as per ID for neutropenic fever, DVT/GI prophylaxis, physical therapy, Valtrex, Niferex, amiodarone and metoprolol, a/c with Xarelto, Lexapro for depression Seroquel and Olanzapine for delirium, Melatonin for insomnia.
--- NOTE | 2020-01-26 10:23 | PN ---
Progress Note, Physician Chief Complaint: confused, trying to get out of bed. Wants to go home Denies CP/SOB/dizzines History of Present Illness: BP stable O2 95% + on RA - Current Medication List Current Medications: Active Medications Acetaminophen (Tylenol -) 650 mg PO BID [facility] Last Admin: 01/26/20 09:10 Dose: 650 mg Documented by: Amiodarone HCl (Cordarone -) 100 mg PO DAILY [facility] Last Admin: 01/26/20 09:11 Dose: 100 mg Documented by: B12/Folic Ac/Intrin Fact/Iron/Vit C (Niferex-150 Forte -) 1 each PO DAILY [facility] Last Admin: 01/26/20 09:13 Dose: 1 each Documented by: Camphor/Menthol (Sarna Anti-Itch -) 1 applic TP DAILY [facility] Last Admin: 01/26/20 09:14 Dose: 1 applic Documented by: Cyanocobalamin (Vitamin B12 -) 2,500 mcg PO Th [facility] Last Admin: 01/25/20 17:22 Dose: 2,500 mcg Documented by: Escitalopram Oxalate (Lexapro -) 5 mg PO DAILY [facility] Last Admin: 01/26/20 09:11 Dose: 5 mg Documented by: Finasteride (Proscar -) 5 mg PO DAILY [facility] Last Admin: 01/26/20 09:10 Dose: 5 mg Documented by: Furosemide (Lasix -) 40 mg PO DAILY [facility] Last Admin: 01/26/20 09:11 Dose: 40 mg Documented by: Cefepime HCl 1 gm/ Dextrose 100 mls @ 200 mls/hr IVPB BID [facility]; Protocol Last Admin: 01/26/20 09:12 Dose: 200 mls/hr Documented by: Levothyroxine Sodium (Synthroid -) 50 mcg PO DAILY@0700 [facility] Last Admin: 01/26/20 06:02 Dose: 50 mcg Documented by: Melatonin (Melatonin) 10 mg PO HS PRN PRN Reason: INSOMNIA Last Admin: 01/25/20 21:01 Dose: 10 mg Documented by: Metoprolol Succinate (Toprol Xl -) 25 mg PO BID [facility] Last Admin: 01/26/20 09:11 Dose: 25 mg Documented by: Olanzapine (Zyprexa -) 1.25 mg PO HS [facility] Last Admin: 01/25/20 22:07 Dose: 1.25 mg Documented by: Pantoprazole Sodium (Protonix -) 40 mg PO DAILY [facility] Last Admin: 01/26/20 09:11 Dose: 40 mg Documented by: Quetiapine Fumarate (Seroquel -) 25 mg PO HS [facility] Last Admin: 01/25/20 21:01 Dose: 25 mg Documented by: Rivaroxaban (Xarelto) 15 mg PO DAILY@1800 [facility] Last Admin: 01/25/20 17:22 Dose: 15 mg Documented by: Senna (Senna -) 2 tab PO PRN PRN Reason: CONSTIPATION Valacyclovir HCl (Valtrex -) 500 mg PO DAILY [facility] Last Admin: 01/26/20 09:11 Dose: 500 mg Documented by: - Objective Vital Signs: Vital Signs Temperature 98.9 F 01/26/20 09:00 Pulse Rate 60 01/26/20 09:00 Respiratory Rate 19 01/26/20 09:00 Blood Pressure 132/62 01/26/20 09:00 O2 Sat by Pulse Oximetry (%) 97 01/26/20 09:00 Constitutional: Yes: No Distress Cardiovascular: Yes: Pulse Irregular Respiratory: Yes: CTA Bilaterally Gastrointestinal: Yes: Soft (nt) Edema: No Neurological: Yes: Confusion Labs: CBC, BMP 01/25/20 06:08 01/25/20 06:08 INR, PTT INR 2.09 (0.83-1.09) H 01/22/20 10:10 Microbiology 01/24/20 20:51 Urine - Urine Clean Catch Urine Culture - Final NO GROWTH OBTAINED 01/18/20 16:25 Urine - Urine Clean Catch Urine Culture - Final Alpha Hemolytic Streptococcus 01/23/20 16:00 Blood - Peripheral Venous Blood Culture - Preliminary NO GROWTH OBTAINED AFTER 48 HOURS, INCUBATION TO CONTINUE FOR 3 DAYS. 01/23/20 15:45 Blood - Peripheral Venous Blood Culture - Preliminary NO GROWTH OBTAINED AFTER 48 HOURS, INCUBATION TO CONTINUE FOR 3 DAYS. 01/21/20 15:00 Blood - Peripheral Venous Blood Culture - Preliminary NO GROWTH OBTAINED AFTER 96 HOURS, INCUBATION TO CONTINUE FOR 1 DAYS. 01/21/20 14:45 Blood - Peripheral Venous Blood Culture - Preliminary NO GROWTH OBTAINED AFTER 96 HOURS, INCUBATION TO CONTINUE FOR 1 DAYS. Laboratory Tests 01/19/20 01/20/20 01/22/20 14:00 06: 10:10 WBC Hgb Plt Count INR 2.09 H Sodium Potassium Creatinine AST ALT Alkaline Phosphatase Stool Occult Blood Negative IgG IgA IgM COVID-19 (MARVIN) Not detected 01/23/20 01/23/20 01/25/20 07:40 11:10 06:08 WBC 3.1 L Hgb 8.2 L Plt Count 109 L INR Sodium Potassium Creatinine AST ALT Alkaline Phosphatase Stool Occult Blood IgG 934 IgA 130 IgM 129 COVID-19 (MARVIN) Not detected 01/25/20 06:08 WBC Hgb Plt Count INR Sodium 141 Potassium 3.8 Creatinine 1.5 H AST 22 ALT 14 Alkaline Phosphatase 81 Stool Occult Blood IgG IgA IgM COVID-19 (MARVIN) Assessment/Plan DATA echo 12/2019 incomplete study (patient combative), severely reduced LV function EF 25-30%, septal motion suggestive of RV overload, RV dilated mod to sev hypokinesis, mod band, PPM R heart, severely dilated atria, severe TR with severe pulm HTN, mildly dilated asc aorta Acute on chronic systolic CHF, moderate MR, pulm HTN with dilated RV and mod- severe TR: -BNP 6K, from baseline 1-2K. CXR clear with chronic/stable mild increased interstitial markings -known h/o orthostatic hypotension complicating diuresis--down to lasix 20 QD in [place] as of last communication with dr. castillo -received lasix 40 IV qd here. vol status improving, chf sxs resolved. 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 - cont toprol, not on YANI/ARB for CKD - cont PO lasix AF: s/p PPM -Xarelto held 01/11 due to hgb trending down from 7s to 6s in [place], started Procrit injections, Xarelto eventually resumed -h/h stable here--cont Xarelto 15mg (GFR <50) -has been maintained on amiodarone 100mg for many yrs to help with rapid AF possibly triggering HF in the past--continue here (QTc ok on ECG. mild interstitial thickening on CXR is chronic, pt previously evaluated by pulmonary who did not suspect amio lung fibrosis) -Cont Toprol 25 bid -PM remote monitoring stable 12/12 CKD: -baseline creat runs 1.5-1.9, with fluctuations when uses NSAIDs for severe spinal stenosis pain Dementia/Delirium: -History of severe sundowning in hospital -As per PMD Panctyopenia: -Chronic anemia, ? secondary CKD, ? on Procrit in [place]--counts stable -on NOAC currently, with stable H/H--monitor counts, observe for bleeding/melena -leukopenia and thrombocytopenia are new; pt with underlying heme malignancy that dtr has not shared diagnosis of with him due to concerns would cause decompensated anxiety/depression. defer to primary team whether to get heme involved here.
--- NOTE | 2020-01-26 10:47 | PN.HO ---
Progress Note (short form) - Note Progress Note: Patient seen and examined Feels well Incoherent Last Vital Signs Temp Pulse Resp BP Pulse Ox 98.9 F 60 19 132/62 97 01/26/20 09:00 01/26/20 09:00 01/26/20 09:00 01/26/20 09:00 01/26/20 09:00 Cor: RSR, No murmurs, No gallops Lungs: Clear to P&A Abd: Soft, Normal bowel sounds, No organomegaly Ext:No significant edema Skin: No rashes, Integument intact Labs reviewed A/P 89 y/o patient with dementia, CLL, CHF, pancytopenia/neutropenia significant dementia/wheel chair bound Neutropenia ANC 0.1 On cefepime CXR ? infiltrates COVID neg. neutropenia --? marrow infiltrative process ? autoimmune trial of neupogen allopurinol for tumor moisés prophy discussed trial of steroids with daughter discussed low intensity options ongoing discussions regarding management options with the daughter
[2020-01-26] MEDS ORDERED: TBO-FILGRASTIM 300 MCG/0.5 ML DISP.SYRINGE SQ ONE (16:29)
[2020-01-26] MEDS ORDERED: TBO-FILGRASTIM 300 MCG/0.5 ML DISP.SYRINGE SQ SCH (16:30)
[2020-01-26] MEDS: RIVAROXABAN 15 MG TABLET PO SCH (17:24)
[2020-01-26] MEDS: ALLOPURINOL 300 MG TABLET (FP) PO SCH (17:24)
[2020-01-26] MEDS: MELATONIN 5 MG TABLETS PO PRN (21:23)
[2020-01-26] MEDS: OLANZapine 2.5 MG TABLET PO SCH (21:23)
[2020-01-26] MEDS: QUEtiapine FUMARATE 25 MG TABLET PO SCH (21:24)
--- NOTE | 2020-01-26 23:47 | PN ---
Progress Note, Physician History of Present Illness: OOB IN WHEELCHAIR CONFUSED AFEBRILE WBC 3.1 ANC 100 BC (-) - Current Medication List Current Medications: Active Medications Acetaminophen (Tylenol -) 650 mg PO BID [facility] Last Admin: 01/26/20 21:23 Dose: 650 mg Documented by: Allopurinol (Zyloprim -) 300 mg PO DAILY [facility] Last Admin: 01/26/20 17:24 Dose: 300 mg Documented by: Amiodarone HCl (Cordarone -) 100 mg PO DAILY [facility] Last Admin: 01/26/20 09:11 Dose: 100 mg Documented by: B12/Folic Ac/Intrin Fact/Iron/Vit C (Niferex-150 Forte -) 1 each PO DAILY [facility] Last Admin: 01/26/20 09:13 Dose: 1 each Documented by: Camphor/Menthol (Sarna Anti-Itch -) 1 applic TP DAILY [facility] Last Admin: 01/26/20 09:14 Dose: 1 applic Documented by: Cyanocobalamin (Vitamin B12 -) 2,500 mcg PO Th [facility] Last Admin: 01/25/20 17:22 Dose: 2,500 mcg Documented by: Escitalopram Oxalate (Lexapro -) 5 mg PO DAILY [facility] Last Admin: 01/26/20 09:11 Dose: 5 mg Documented by: Finasteride (Proscar -) 5 mg PO DAILY [facility] Last Admin: 01/26/20 09:10 Dose: 5 mg Documented by: Furosemide (Lasix -) 40 mg PO DAILY [facility] Last Admin: 01/26/20 09:11 Dose: 40 mg Documented by: Cefepime HCl 1 gm/ Dextrose 100 mls @ 200 mls/hr IVPB BID [facility]; Protocol Last Admin: 01/26/20 21:25 Dose: 200 mls/hr Documented by: Levothyroxine Sodium (Synthroid -) 50 mcg PO DAILY@0700 [facility] Last Admin: 01/26/20 06:02 Dose: 50 mcg Documented by: Melatonin (Melatonin) 10 mg PO HS PRN PRN Reason: INSOMNIA Last Admin: 01/26/20 21:23 Dose: 10 mg Documented by: Metoprolol Succinate (Toprol Xl -) 25 mg PO BID [facility] Last Admin: 01/26/20 21:23 Dose: 25 mg Documented by: Olanzapine (Zyprexa -) 1.25 mg PO HS [facility] Last Admin: 01/26/20 21:23 Dose: 1.25 mg Documented by: Pantoprazole Sodium (Protonix -) 40 mg PO DAILY [facility] Last Admin: 01/26/20 09:11 Dose: 40 mg Documented by: Quetiapine Fumarate (Seroquel -) 25 mg PO HS [facility] Last Admin: 01/26/20 21:24 Dose: 25 mg Documented by: Rivaroxaban (Xarelto) 15 mg PO DAILY@1800 [facility] Last Admin: 01/26/20 17:24 Dose: 15 mg Documented by: Senna (Senna -) 2 tab PO HS PRN PRN Reason: CONSTIPATION Valacyclovir HCl (Valtrex -) 500 mg PO DAILY [facility] Last Admin: 01/26/20 09:11 Dose: 500 mg Documented by: - Objective Vital Signs: Vital Signs Temperature 97.9 F 01/26/20 16:46 Pulse Rate 64 01/26/20 16:46 Respiratory Rate 19 01/26/20 16:46 Blood Pressure 124/60 01/26/20 16:46 O2 Sat by Pulse Oximetry (%) 97 01/26/20 09:00 Constitutional: Yes: No Distress Eyes: Yes: Conjunctiva Clear Cardiovascular: Yes: Regular Rate and Rhythm Respiratory: Yes: Rhonchi Gastrointestinal: Yes: Normal Bowel Sounds, Soft. No: Tenderness Edema: Yes Edema: LLE: 2+, RLE: 2+ Integumentary: Yes: Other (ECCHYMOTIC AREAS UE B/L) Labs: CBC, BMP 01/25/20 06:08 01/25/20 06:08 INR, PTT INR 2.09 (0.83-1.09) H 01/22/20 10:10 Assessment/Plan NEUTROPENIA/ PANCYTOPENIA FEVER RESOLVED CLL HEME NOTED APPRECIATED TRIAL OF NEUPOGEN CONTINUE CEFEPIME NEUTROPENIC PRECAUTIONS
[2020-01-27] MEDS: LEVOTHYROXINE NA 50 MCG TABLET (FP) PO SCH (06:22)
[2020-01-27 08:26] LABS: BILIRUBIN,TOTAL 0.4 mg/dL (0.2-1); BLOOD UREA NITROGEN 26.1 mg/dL (7-18); CALCIUM 8.6 mg/dL (8.5-10.1); CREATININE 1.6 mg/dL (0.55-1.3); POTASSIUM 4.4 mmol/L (3.5-5.1); TOT PROT 6.4 g/dl (6.4-8.2); URIC ACID 5.6 mg/dL (2.6-7.2)
--- NOTE | 2020-01-27 08:26 | PN ---
Progress Note, Physician Chief Complaint: Patient seen and examined at the bedside, no acute events from last night, afebrile. History of Present Illness: This 89 yr old w/m with PMH of chronic lymphocytic leukemia, pancytopenia, colonic angiodysplasia, CAD, moderate MR, severe TR, iron deficiency anemia, atrial fibrillation, HTN, hypothyroidism, depression, dementia, wedge compression fractures of L1 and L2, pulmonary hypertension, CKD, cancer of the prostate admitted via ER with an acute shortness of breath, edema of lower extremities, iron deficiency anemia, and altered mental status. - Current Medication List Current Medications: Active Medications Acetaminophen (Tylenol -) 650 mg PO BID [facility] Last Admin: 01/26/20 21:23 Dose: 650 mg Documented by: Allopurinol (Zyloprim -) 300 mg PO DAILY [facility] Last Admin: 01/26/20 17:24 Dose: 300 mg Documented by: Amiodarone HCl (Cordarone -) 100 mg PO DAILY [facility] Last Admin: 01/26/20 09:11 Dose: 100 mg Documented by: B12/Folic Ac/Intrin Fact/Iron/Vit C (Niferex-150 Forte -) 1 each PO DAILY [facility] Last Admin: 01/26/20 09:13 Dose: 1 each Documented by: Camphor/Menthol (Sarna Anti-Itch -) 1 applic TP DAILY [facility] Last Admin: 01/26/20 09:14 Dose: 1 applic Documented by: Cyanocobalamin (Vitamin B12 -) 2,500 mcg PO Th [facility] Last Admin: 01/25/20 17:22 Dose: 2,500 mcg Documented by: Escitalopram Oxalate (Lexapro -) 5 mg PO DAILY [facility] Last Admin: 01/26/20 09:11 Dose: 5 mg Documented by: Finasteride (Proscar -) 5 mg PO DAILY [facility] Last Admin: 01/26/20 09:10 Dose: 5 mg Documented by: Furosemide (Lasix -) 40 mg PO DAILY [facility] Last Admin: 01/26/20 09:11 Dose: 40 mg Documented by: Cefepime HCl 1 gm/ Dextrose 100 mls @ 200 mls/hr IVPB BID [facility]; Protocol Last Admin: 01/26/20 21:25 Dose: 200 mls/hr Documented by: Levothyroxine Sodium (Synthroid -) 50 mcg PO DAILY@0700 [facility] Last Admin: 01/27/20 06:22 Dose: 50 mcg Documented by: Melatonin (Melatonin) 10 mg PO HS PRN PRN Reason: INSOMNIA Last Admin: 01/26/20 21:23 Dose: 10 mg Documented by: Metoprolol Succinate (Toprol Xl -) 25 mg PO BID [facility] Last Admin: 01/26/20 21:23 Dose: 25 mg Documented by: Olanzapine (Zyprexa -) 1.25 mg PO HS [facility] Last Admin: 01/26/20 21:23 Dose: 1.25 mg Documented by: Pantoprazole Sodium (Protonix -) 40 mg PO DAILY [facility] Last Admin: 01/26/20 09:11 Dose: 40 mg Documented by: Quetiapine Fumarate (Seroquel -) 25 mg PO HS [facility] Last Admin: 01/26/20 21:24 Dose: 25 mg Documented by: Rivaroxaban (Xarelto) 15 mg PO DAILY@1800 [facility] Last Admin: 01/26/20 17:24 Dose: 15 mg Documented by: Senna (Senna -) 2 tab PO HS PRN PRN Reason: CONSTIPATION Valacyclovir HCl (Valtrex -) 500 mg PO DAILY [facility] Last Admin: 01/26/20 09:11 Dose: 500 mg Documented by: - Objective Vital Signs: Vital Signs Temperature 98.0 F 01/27/20 06:00 Pulse Rate 62 01/27/20 06:00 Respiratory Rate 18 01/27/20 06:00 Blood Pressure 120/61 01/27/20 06:00 O2 Sat by Pulse Oximetry (%) 96 01/26/20 21:00 Constitutional: Yes: Well Nourished, No Distress, Calm Eyes: Yes: Conjunctiva Clear, EOM Intact HENT: Yes: Atraumatic, Normocephalic Neck: Yes: Supple, Trachea Midline Cardiovascular: Yes: Regular Rate and Rhythm Respiratory: Yes: Regular, CTA Bilaterally Gastrointestinal: Yes: Normal Bowel Sounds, Soft ...Rectal Exam: Yes: Deferred Genitourinary: Yes: WNL Breast(s): Yes: WNL Musculoskeletal: Yes: Muscle Weakness Extremities: Yes: WNL Edema: Yes Edema: LLE: Trace, RLE: 1+ Peripheral Pulses WNL: Yes Integumentary: Yes: WNL Neurological: Yes: Alert, Confusion, Unsteady Gait, Weakness ...Motor Strength: LUE (generalized muscle weakness of all extremities) Psychiatric: Yes: Alert Labs: INR, PTT INR 2.09 (0.83-1.09) H 01/22/20 10:10 - ....Imaging Other: Report Reviewed (lab data reviewed) Problem List - Problems (1) Acute CHF Code(s): I50.9 - HEART FAILURE, UNSPECIFIED Qualifiers: Heart failure type: unspecified Qualified Code(s): I50.9 - Heart failure, unspecified (2) Bilateral lower extremity edema Code(s): R60.0 - LOCALIZED EDEMA (3) SOB (shortness of breath) Code(s): R06.02 - SHORTNESS OF BREATH (4) AF (paroxysmal atrial fibrillation) Code(s): I48.0 - PAROXYSMAL ATRIAL FIBRILLATION (5) DEE (acute kidney injury) Code(s): N17.9 - ACUTE KIDNEY FAILURE, UNSPECIFIED (6) Acute pure red cell anemia Code(s): D60.8 - OTHER ACQUIRED PURE RED CELL APLASIAS (7) Afib Code(s): I48.91 - UNSPECIFIED ATRIAL FIBRILLATION (8) Altered mental status Code(s): R41.82 - ALTERED MENTAL STATUS, UNSPECIFIED (9) Leukopenia Code(s): D72.819 - DECREASED WHITE BLOOD CELL COUNT, UNSPECIFIED (10) Hyperkalemia Code(s): E87.5 - HYPERKALEMIA (11) Hyponatremia Code(s): E87.1 - HYPO-OSMOLALITY AND HYPONATREMIA (12) Pancytopenia Code(s): D61.818 - OTHER PANCYTOPENIA (13) Systolic CHF Code(s): I50.20 - UNSPECIFIED SYSTOLIC (CONGESTIVE) HEART FAILURE (14) Moderate mitral regurgitation Code(s): I34.0 - NONRHEUMATIC MITRAL (VALVE) INSUFFICIENCY (15) Severe tricuspid regurgitation Code(s): I07.1 - RHEUMATIC TRICUSPID INSUFFICIENCY (16) Neutropenic fever Code(s): D70.9 - NEUTROPENIA, UNSPECIFIED; R50.81 - FEVER PRESENTING WITH COND ITIONS CLASSIFIED ELSEWHERE Assessment/Plan Assessment/plan: acute shortness of breath, acute edema of lower extremities, acute iron deficiency anemia, acute altered mental status, acute neutropenic fever, chronic lymphocytic leukenia, pancytopenia, colonic angiodysplasia, CAD, moderate MR, severe TR, atrial fibrillation, HTN, hypothyroidism, depression, dementia, wedge compression fractures of L1 and L2, pulmonary hypertension, cancer of prostate, CKD; oral Furosemide, DVT prophylaxis, a/c with Xarelto, IV Cefepime and Valtrex and Granix for neutropenic fever, Niferex, amiodarone and metoprolol for atrial fibrillation, Lexapro for depression, seroquel and olanzapine for delirium.
[2020-01-27 08:30] LABS: BASO % 0.9 % (0-2.0); EOS % 4.1 % (0-4.5); HEMATOCRIT 26.4 % (35.4-49); HEMOGLOBIN 8.1 GM/dL (11.7-16.9); LYMPH % 51.2 % (8-40); MCH 24.6 pg (25.7-33.7); MCHC 30.5 g/dl (32.0-35.9); MEAN CELL VOLUME 80.6 fl (80-96); MEAN PLT VOLUME 8.6 fl (7.5-11.1); MONO % 36.5 % (3.8-10.2); NEUT % 7.3 % (42.8-82.8); PLATELET COUNT 125 K/MM3 (134-434); RBC 3.28 M/mm3 (4.00-5.60); RDW 16.8 % (11.9-15.9); WHITE BLOOD COUNT 4.5 K/mm3 (4.0-10.0)
[2020-01-27] MEDS ORDERED: CEFEPIME HCL 1 GM VIAL (RESTRICTED TO ID) ONE ×2 (08:33→20:35)
[2020-01-27] MEDS ORDERED: PT OWN MED DRAWER 7, Y5N ONE (08:33)
[2020-01-27] MEDS ORDERED: DEXTROSE 5%-WATER 100 ML IVPB ONE ×2 (08:33→20:36)
[2020-01-27] MEDS: CEFEPIME 1 GM in DEXTROSE 5%-WATER 100 ML IVPB SCH ×2 (09:01→21:35)
[2020-01-27] MEDS: FINASTERIDE 5 MG TABLET (FP) PO SCH (09:07)
[2020-01-27] MEDS: FE POLYSAC/CYANOCOBAL/FA COMBO CAPSULE PO SCH (09:07)
[2020-01-27] MEDS: valACYclovir HCL 500 MG TABLET (FP) PO SCH (09:08)
[2020-01-27] MEDS: ESCITALOPRAM OXALATE 10 MG TABLET PO SCH (09:08)
[2020-01-27] MEDS: metoPROLOL SUCCINATE 25 MG TAB.SR.24H (FP) PO SCH ×2 (09:08→21:33)
[2020-01-27] MEDS: ALLOPURINOL 300 MG TABLET (FP) PO SCH (09:08)
[2020-01-27] MEDS: AMIODARONE HCL 200 MG TABLET PO SCH (09:08)
[2020-01-27] MEDS: PANTOPRAZOLE 40 MG TABLET PO SCH (09:08)
[2020-01-27] MEDS: FUROSEMIDE 40 MG TABLET (FP) PO SCH (09:08)
[2020-01-27] MEDS: ACETAMINOPHEN 325 MG TABLET (FP) PO SCH ×2 (09:09→21:33)
[2020-01-27] MEDS: MENTHOL/CAMPHOR 1 APPLIC BTL TP SCH (09:10)
--- NOTE | 2020-01-27 11:22 | PN ---
Progress Note, Physician History of Present Illness: OOB IN WHEELCHAIR CONFUSED OFFERS NO COMPLAINTS AFEBRILE WBC IMPROVED 4.5 ANC 300 BC (-) - Current Medication List Current Medications: Active Medications Acetaminophen (Tylenol -) 650 mg PO BID [facility] Last Admin: 01/27/20 09:09 Dose: 650 mg Documented by: Allopurinol (Zyloprim -) 300 mg PO DAILY [facility] Last Admin: 01/27/20 09:08 Dose: 300 mg Documented by: Amiodarone HCl (Cordarone -) 100 mg PO DAILY [facility] Last Admin: 01/27/20 09:08 Dose: 100 mg Documented by: B12/Folic Ac/Intrin Fact/Iron/Vit C (Niferex-150 Forte -) 1 each PO DAILY [facility] Last Admin: 01/27/20 09:07 Dose: 1 each Documented by: Camphor/Menthol (Sarna Anti-Itch -) 1 applic TP DAILY [facility] Last Admin: 01/27/20 09:10 Dose: 1 applic Documented by: Cyanocobalamin (Vitamin B12 -) 2,500 mcg PO Th [facility] Last Admin: 01/25/20 17:22 Dose: 2,500 mcg Documented by: Escitalopram Oxalate (Lexapro -) 5 mg PO DAILY [facility] Last Admin: 01/27/20 09:08 Dose: 5 mg Documented by: Finasteride (Proscar -) 5 mg PO DAILY [facility] Last Admin: 01/27/20 09:07 Dose: 5 mg Documented by: Furosemide (Lasix -) 40 mg PO DAILY [facility] Last Admin: 01/27/20 09:08 Dose: 40 mg Documented by: Cefepime HCl 1 gm/ Dextrose 100 mls @ 200 mls/hr IVPB BID [facility]; Protocol Last Admin: 01/27/20 09:01 Dose: 200 mls/hr Documented by: Levothyroxine Sodium (Synthroid -) 50 mcg PO DAILY@0700 [facility] Last Admin: 01/27/20 06:22 Dose: 50 mcg Documented by: Melatonin (Melatonin) 10 mg PO HS PRN PRN Reason: INSOMNIA Last Admin: 01/26/20 21:23 Dose: 10 mg Documented by: Metoprolol Succinate (Toprol Xl -) 25 mg PO BID [facility] Last Admin: 01/27/20 09:08 Dose: 25 mg Documented by: Olanzapine (Zyprexa -) 1.25 mg PO HS [facility] Last Admin: 01/26/20 21:23 Dose: 1.25 mg Documented by: Pantoprazole Sodium (Protonix -) 40 mg PO DAILY [facility] Last Admin: 01/27/20 09:08 Dose: 40 mg Documented by: Quetiapine Fumarate (Seroquel -) 25 mg PO HS [facility] Last Admin: 01/26/20 21:24 Dose: 25 mg Documented by: Rivaroxaban (Xarelto) 15 mg PO DAILY@1800 [facility] Last Admin: 01/26/20 17:24 Dose: 15 mg Documented by: Senna (Senna -) 2 tab PO HS PRN PRN Reason: CONSTIPATION Valacyclovir HCl (Valtrex -) 500 mg PO DAILY [facility] Last Admin: 01/27/20 09:08 Dose: 500 mg Documented by: - Objective Vital Signs: Vital Signs Temperature 98.0 F 01/27/20 06:00 Pulse Rate 62 01/27/20 06:00 Respiratory Rate 18 01/27/20 06:00 Blood Pressure 120/61 01/27/20 06:00 O2 Sat by Pulse Oximetry (%) 96 01/26/20 21:00 Constitutional: Yes: No Distress Eyes: Yes: Conjunctiva Clear Cardiovascular: Yes: Regular Rate and Rhythm Respiratory: Yes: Rhonchi Gastrointestinal: Yes: Normal Bowel Sounds, Soft. No: Tenderness Edema: Yes Labs: CBC, BMP 01/27/20 06:40 01/27/20 06:40 INR, PTT INR 2.09 (0.83-1.09) H 01/22/20 10:10 Assessment/Plan NEUTROPENIA/ PANCYTOPENIA FEVER RESOLVED CLL HEME NOTED APPRECIATED TRIAL OF NEUPOGEN CONTINUE CEFEPIME NEUTROPENIC PRECAUTIONS
[2020-01-27 13:36] LABS: ANISOCYTOSIS 1+; MACROCYTOSIS 0; OVALOCYTE 1+; PLATELET ESTIMATE DECREASED; TARGET CELLS 1+
[2020-01-27] MEDS: RIVAROXABAN 15 MG TABLET PO SCH (18:48)
[2020-01-27] MEDS: OLANZapine 2.5 MG TABLET PO SCH (21:32)
[2020-01-27] MEDS: QUEtiapine FUMARATE 25 MG TABLET PO SCH (21:33)
[2020-01-27] MEDS: MELATONIN 5 MG TABLETS PO PRN (21:33)
[2020-01-27] MEDS ORDERED: TBO-FILGRASTIM 300 MCG/0.5 ML DISP.SYRINGE SQ ONE (21:53)
--- NOTE | 2020-01-27 21:54 | PN.HO ---
Progress Note (short form) - Note Progress Note: Patient seen and examined Feels well Incoherent Last Vital Signs Temp Pulse Resp BP Pulse Ox 98.9 F 60 19 132/62 97 01/26/20 09:00 01/26/20 09:00 01/26/20 09:00 01/26/20 09:00 01/26/20 09:00 Cor: RSR, No murmurs, No gallops Lungs: Clear to P&A Abd: Soft, Normal bowel sounds, No organomegaly Ext:No significant edema Labs reviewed A/P 89 y/o patient with dementia, CLL, CHF, pancytopenia/neutropenia significant dementia/wheel chair bound Neutropenia ANC 0.1 On cefepime CXR ? infiltrates COVID neg. neutropenia --? marrow infiltrative process ? autoimmune ? meds ( zyprexa/seroquel) trial of neupogen allopurinol for tumor moisés mikeoleksandr discussed trial of steroids with daughter based on clinical course to consult psychiatry regarding switching zyprexa/seroquel
[2020-01-28] MEDS: LEVOTHYROXINE NA 50 MCG TABLET (FP) PO SCH (06:49)
[2020-01-28 07:19] LABS: BASO % 0.4 % (0-2.0); EOS % 4.2 % (0-4.5); HEMOGLOBIN 7.7 GM/dL (11.7-16.9); LYMPH % 42.1 % (8-40); MCH 24.8 pg (25.7-33.7); MCHC 30.9 g/dl (32.0-35.9); MEAN CELL VOLUME 80.4 fl (80-96); MEAN PLT VOLUME 8.4 fl (7.5-11.1); MONO % 32.9 % (3.8-10.2); NEUT % 20.4 % (42.8-82.8); PLATELET COUNT 114 K/MM3 (134-434); RBC 3.11 M/mm3 (4.00-5.60); WHITE BLOOD COUNT 5.3 K/mm3 (4.0-10.0)
[2020-01-28 07:51] LABS: ALBUMIN 2.9 g/dl (3.4-5.0); BILIRUBIN,TOTAL 0.6 mg/dL (0.2-1); BLOOD UREA NITROGEN 24.9 mg/dL (7-18); CALCIUM 8.8 mg/dL (8.5-10.1); CREATININE 1.8 mg/dL (0.55-1.3); POTASSIUM 4.2 mmol/L (3.5-5.1); TOT PROT 6.1 g/dl (6.4-8.2)
--- NOTE | 2020-01-28 08:12 | PN ---
Progress Note, Physician Chief Complaint: Patient seen and examined at the bedside, no acute events from last night, no labored breathing, wishes to go to [facility]. History of Present Illness: This 89 yr old w/m wit PMH of chronic lymphycytic leukemia, pancytopenia, colonic angiodysplasia, CAD, moderate MR, severe TR, atrial fibrillation, HTN, hypothyroidism, depression, dementia, wedge compression fractures of L1 and L2, severe pulmonary hypertension, CKD admitted via ER with an acute shortness of breath, systolic CHF, edema of lower extremities, and an altered mental status. - Current Medication List Current Medications: Active Medications Acetaminophen (Tylenol -) 650 mg PO BID [facility] Last Admin: 01/27/20 21:33 Dose: 650 mg Documented by: Allopurinol (Zyloprim -) 300 mg PO DAILY [facility] Last Admin: 01/27/20 09:08 Dose: 300 mg Documented by: Amiodarone HCl (Cordarone -) 100 mg PO DAILY [facility] Last Admin: 01/27/20 09:08 Dose: 100 mg Documented by: B12/Folic Ac/Intrin Fact/Iron/Vit C (Niferex-150 Forte -) 1 each PO DAILY [facility] Last Admin: 01/27/20 09:07 Dose: 1 each Documented by: Camphor/Menthol (Sarna Anti-Itch -) 1 applic TP DAILY [facility] Last Admin: 01/27/20 09:10 Dose: 1 applic Documented by: Cyanocobalamin (Vitamin B12 -) 2,500 mcg PO Th [facility] Last Admin: 01/25/20 17:22 Dose: 2,500 mcg Documented by: Escitalopram Oxalate (Lexapro -) 5 mg PO DAILY [facility] Last Admin: 01/27/20 09:08 Dose: 5 mg Documented by: Finasteride (Proscar -) 5 mg PO DAILY [facility] Last Admin: 01/27/20 09:07 Dose: 5 mg Documented by: Furosemide (Lasix -) 40 mg PO DAILY [facility] Last Admin: 01/27/20 09:08 Dose: 40 mg Documented by: Cefepime HCl 1 gm/ Dextrose 100 mls @ 200 mls/hr IVPB BID [facility]; Protocol Last Admin: 01/27/20 21:35 Dose: 200 mls/hr Documented by: Levothyroxine Sodium (Synthroid -) 50 mcg PO DAILY@0700 [facility] Last Admin: 01/28/20 06:49 Dose: 50 mcg Documented by: Melatonin (Melatonin) 10 mg PO HS PRN PRN Reason: INSOMNIA Last Admin: 01/27/20 21:33 Dose: 10 mg Documented by: Metoprolol Succinate (Toprol Xl -) 25 mg PO BID [facility] Last Admin: 01/27/20 21:33 Dose: 25 mg Documented by: Olanzapine (Zyprexa -) 1.25 mg PO HS [facility] Last Admin: 01/27/20 21:32 Dose: 1.25 mg Documented by: Pantoprazole Sodium (Protonix -) 40 mg PO DAILY [facility] Last Admin: 01/27/20 09:08 Dose: 40 mg Documented by: Quetiapine Fumarate (Seroquel -) 25 mg PO HS [facility] Last Admin: 01/27/20 21:33 Dose: 25 mg Documented by: Rivaroxaban (Xarelto) 15 mg PO DAILY@1800 [facility] Last Admin: 01/27/20 18:48 Dose: 15 mg Documented by: Senna (Senna -) 2 tab PO HS PRN PRN Reason: CONSTIPATION Valacyclovir HCl (Valtrex -) 500 mg PO DAILY [facility] Last Admin: 01/27/20 09:08 Dose: 500 mg Documented by: - Objective Vital Signs: Vital Signs Temperature 98 F 01/28/20 06:24 Pulse Rate 68 01/28/20 06:24 Respiratory Rate 20 01/28/20 06:24 Blood Pressure 128/62 01/28/20 06:24 O2 Sat by Pulse Oximetry (%) 98 01/27/20 21:00 Constitutional: Yes: Well Nourished, No Distress, Calm, Other (depressed) Eyes: Yes: Conjunctiva Clear, EOM Intact HENT: Yes: Atraumatic, Normocephalic Neck: Yes: Supple, Trachea Midline Cardiovascular: Yes: Regular Rate and Rhythm Respiratory: Yes: Regular, CTA Bilaterally Gastrointestinal: Yes: Normal Bowel Sounds, Soft ...Rectal Exam: Yes: Deferred Genitourinary: Yes: WNL Breast(s): Yes: WNL Musculoskeletal: Yes: Muscle Weakness Extremities: Yes: WNL Edema: Yes Edema: LLE: Trace, RLE: 1+ Peripheral Pulses WNL: Yes Integumentary: Yes: WNL Neurological: Yes: Alert, Confusion, Unsteady Gait, Weakness ...Motor Strength: LUE (generalized muscle weakness of all extremities) Psychiatric: Yes: Alert Labs: CBC, BMP 01/28/20 06:50 01/28/20 06:50 INR, PTT INR 2.09 (0.83-1.09) H 01/22/20 10:10 - ....Imaging Other: Report Reviewed (lab data reviewed) Problem List - Problems (1) Acute CHF Code(s): I50.9 - HEART FAILURE, UNSPECIFIED Qualifiers: Heart failure type: unspecified Qualified Code(s): I50.9 - Heart failure, unspecified (2) Bilateral lower extremity edema Code(s): R60.0 - LOCALIZED EDEMA (3) SOB (shortness of breath) Code(s): R06.02 - SHORTNESS OF BREATH (4) AF (paroxysmal atrial fibrillation) Code(s): I48.0 - PAROXYSMAL ATRIAL FIBRILLATION (5) DEE (acute kidney injury) Code(s): N17.9 - ACUTE KIDNEY FAILURE, UNSPECIFIED (6) Acute pure red cell anemia Code(s): D60.8 - OTHER ACQUIRED PURE RED CELL APLASIAS (7) Afib Code(s): I48.91 - UNSPECIFIED ATRIAL FIBRILLATION (8) Altered mental status Code(s): R41.82 - ALTERED MENTAL STATUS, UNSPECIFIED (9) Leukopenia Code(s): D72.819 - DECREASED WHITE BLOOD CELL COUNT, UNSPECIFIED (10) Hyperkalemia Code(s): E87.5 - HYPERKALEMIA (11) Hyponatremia Code(s): E87.1 - HYPO-OSMOLALITY AND HYPONATREMIA (12) Pancytopenia Code(s): D61.818 - OTHER PANCYTOPENIA (13) Systolic CHF Code(s): I50.20 - UNSPECIFIED SYSTOLIC (CONGESTIVE) HEART FAILURE (14) Moderate mitral regurgitation Code(s): I34.0 - NONRHEUMATIC MITRAL (VALVE) INSUFFICIENCY (15) Severe tricuspid regurgitation Code(s): I07.1 - RHEUMATIC TRICUSPID INSUFFICIENCY (16) Neutropenic fever Code(s): D70.9 - NEUTROPENIA, UNSPECIFIED; R50.81 - FEVER PRESENTING WITH CONDITIONS CLASSIFIED ELSEWHERE Assessment/Plan Assessment/plan: acute shortness of breath, acute edema of lower extremities, acute systolic chf, altered mental status, neutropenic fever, chronic lymphocytic leukemia, pancytopenia, iron deficiency anemia, colonic angiodysplasia, CAD, moderate MR, severe TR, atrial fibrillation, HTN, hypothyroidism, depression, dementia, delirium, wedge compression fracture of L1 and L2, severe pulmonary hypertension, cancer of prostate, CKD; oral Furosemide, IV Cefepime and Valtrex as per ID, a/c with Xarelto, DVT/GI prophylaxis, granix, niferex, amiodarone, metoprolol, olanzapine for delirium, lexapro for depre ssion, physical therapy, consult to Psychiatrist re switching olanzapine/seroquel.
[2020-01-28] MEDS ORDERED: DEXTROSE 5%-WATER 100 ML IVPB ONE ×2 (08:50→21:46)
[2020-01-28] MEDS ORDERED: CEFEPIME HCL 1 GM VIAL (RESTRICTED TO ID) ONE ×2 (08:50→21:46)
[2020-01-28] MEDS: CEFEPIME 1 GM in DEXTROSE 5%-WATER 100 ML IVPB SCH ×2 (09:06→21:48)
[2020-01-28] MEDS: AMIODARONE HCL 200 MG TABLET PO SCH (09:08)
[2020-01-28] MEDS: valACYclovir HCL 500 MG TABLET (FP) PO SCH (09:08)
[2020-01-28] MEDS: ACETAMINOPHEN 325 MG TABLET (FP) PO SCH ×2 (09:09→21:47)
[2020-01-28] MEDS: ESCITALOPRAM OXALATE 10 MG TABLET PO SCH (09:09)
[2020-01-28] MEDS: FINASTERIDE 5 MG TABLET (FP) PO SCH (09:09)
[2020-01-28] MEDS: PANTOPRAZOLE 40 MG TABLET PO SCH (09:10)
[2020-01-28] MEDS: FUROSEMIDE 40 MG TABLET (FP) PO SCH (09:10)
[2020-01-28] MEDS: metoPROLOL SUCCINATE 25 MG TAB.SR.24H (FP) PO SCH ×2 (09:10→21:49)
[2020-01-28] MEDS: ALLOPURINOL 300 MG TABLET (FP) PO SCH (09:11)
[2020-01-28] MEDS ORDERED: PT OWN MED DRAWER 7, Y5N ONE ×2 (09:13→16:36)
[2020-01-28] MEDS: FE POLYSAC/CYANOCOBAL/FA COMBO CAPSULE PO SCH (09:14)
[2020-01-28] MEDS: MENTHOL/CAMPHOR 1 APPLIC BTL TP SCH (09:20)
[2020-01-28 09:40] LABS: ANISOCYTOSIS 2+; MACROCYTOSIS 0; PLATELET ESTIMATE DECREASED
--- NOTE | 2020-01-28 14:53 | PN.HO ---
Progress Note (short form) - Note Progress Note: Patient seen and examined Feels well Incoherent Last Vital Signs Temp Pulse Resp BP Pulse Ox 98.9 F 60 19 132/62 97 01/26/20 09:00 01/26/20 09:00 01/26/20 09:00 01/26/20 09:00 01/26/20 09:00 Cor: RSR, No murmurs, No gallops Lungs: Clear to P&A Abd: Soft, Normal bowel sounds, No organomegaly Ext:No significant edema Labs reviewed A/P 89 y/o patient with dementia, CLL, CHF, pancytopenia/neutropenia significant dementia/wheel chair bound Neutropenia ANC 0.1 On cefepime CXR ? infiltrates COVID neg. neutropenia --? marrow infiltrative process ? autoimmune ? meds ( zyprexa/seroquel) trial of neupogen--- neutrophil count improving allopurinol for tumor lysis prophy discussed trial of steroids with daughter based on clinical course daughter who is the health care proxy does not want patient to have any invasive work up /treatments discussed with Dr. osuna regarding holding zyprexa/seroquel
[2020-01-28] MEDS ORDERED: TBO-FILGRASTIM 300 MCG/0.5 ML DISP.SYRINGE SQ ONE (15:15)
[2020-01-28] MEDS: RIVAROXABAN 15 MG TABLET PO SCH (17:06)
--- NOTE | 2020-01-28 18:13 | CON.PSY ---
Psychiatry Consult Chief Complaint: 89 Year old Male witha History of Dementia and other chronic Medical conditions seen for Psych eval. Patient had been on S eroquel which may contribute to Neutropenia.. Patient is forgetful but not displyaing any acute agiatation at this time. Symptoms: reports: Memory Impairment - Previous Psychiatric Treatment Outpatient: None Inpatient: None - Previous Substance Abuse Treatment Outpatient: None Inpatient: None - Current Medications Current Medications: Active Medications Acetaminophen (Tylenol -) 650 mg PO BID [facility] Last Admin: 01/28/20 09:09 Dose: 650 mg Documented by: Allopurinol (Zyloprim -) 300 mg PO DAILY [facility] Last Admin: 01/28/20 09:11 Dose: 300 mg Documented by: Amiodarone HCl (Cordarone -) 100 mg PO DAILY [facility] Last Admin: 01/28/20 09:08 Dose: 100 mg Documented by: B12/Folic Ac/Intrin Fact/Iron/Vit C (Niferex-150 Forte -) 1 each PO DAILY [facility] Last Admin: 01/28/20 09:14 Dose: 1 each Documented by: Camphor/Menthol (Sarna Anti-Itch -) 1 applic TP DAILY [facility] Last Admin: 01/28/20 09:20 Dose: 1 applic Documented by: Cyanocobalamin (Vitamin B12 -) 2,500 mcg PO Th [facility] Last Admin: 01/25/20 17:22 Dose: 2,500 mcg Documented by: Escitalopram Oxalate (Lexapro -) 5 mg PO DAILY [facility] Last Admin: 01/28/20 09:09 Dose: 5 mg Documented by: Finasteride (Proscar -) 5 mg PO DAILY [facility] Last Admin: 01/28/20 09:09 Dose: 5 mg Documented by: Furosemide (Lasix -) 40 mg PO DAILY [facility] Last Admin: 01/28/20 09:10 Dose: 40 mg Documented by: Cefepime HCl 1 gm/ Dextrose 100 mls @ 200 mls/hr IVPB BID [facility]; Protocol Last Admin: 01/28/20 09:06 Dose: 200 mls/hr Documented by: Levothyroxine Sodium (Synthroid -) 50 mcg PO DAILY@0700 [facility] Last Admin: 01/28/20 06:49 Dose: 50 mcg Documented by: Melatonin (Melatonin) 10 mg PO HS PRN PRN Reason: INSOMNIA Last Admin: 01/27/20 21:33 Dose: 10 mg Documented by: Metoprolol Succinate (Toprol Xl -) 25 mg PO BID [facility] Last Admin: 01/28/20 09:10 Dose: 25 mg Documented by: Pantoprazole Sodium (Protonix -) 40 mg PO DAILY [facility] Last Admin: 01/28/20 09:10 Dose: 40 mg Documented by: Rivaroxaban (Xarelto) 15 mg PO DAILY@1800 [facility] Last Admin: 01/28/20 17:06 Dose: 15 mg Documented by: Senna (Senna -) 2 tab PO HS PRN PRN Reason: CONSTIPATION Valacyclovir HCl (Valtrex -) 500 mg PO DAILY [facility] Last Admin: 01/28/20 09:08 Dose: 500 mg Documented by: - Allergies Allergies: Allergies Allergy/AdvReac Type Severity Reaction Status Date / Time No Known Drug Allergies Allergy Verified 08/22/19 05:00 - Current Living Status Usual Living Arrangement: With Significant Other - Current Mental Status Evaluation Appearance: Well Groomed Attitude: Cooperative - Affect Affect: Constrictive Appropriateness: Appropriate to Content - Mood Mood: Euthymic - Speech/Language Expressive: Delayed - Psychomotor Activity Psychomotor Activity: Slowed - Thought Process Thought Process: Circumstantial - Thought Content Hallucinations: Absent Delusions: Absent - Self Perception Self Perception: No Impairment - Cognition Attention: Alert Orientation: Time Memory, Short Term: 1/3 Memory, Remote with Promptin/3 - Concentration Serial Sevens Intact: No Simple Calculations Intact: No - Abstraction Proverb Interpretation: Impaired Judgement: Minimally Impaired - Insight Insight: Impaired - Impulse Control Impulse Control: Minimally Impaired - Suicidal Ideation Suicidal Ideation: No - Homicidal Ideation Homicidal Ideation: No Assessment/Plan 1) d/c All anti Psychotic meds. 2) Continue with Lexapro 5 mg po od for ? Depression.
[2020-01-28] MEDS: MELATONIN 5 MG TABLETS PO PRN (21:47)
[2020-01-28] MEDS ORDERED: OLANZapine 2.5 MG TABLET PO SCH (22:00)
[2020-01-29] MEDS: LEVOTHYROXINE NA 50 MCG TABLET (FP) PO SCH (06:05)
[2020-01-29 08:07] LABS: BASO % 0.3 % (0-2.0); EOS % 1.7 % (0-4.5); HEMATOCRIT 27.3 % (35.4-49); HEMOGLOBIN 8.2 GM/dL (11.7-16.9); LYMPH % 19.6 % (8-40); MCH 24.8 pg (25.7-33.7); MCHC 30.1 g/dl (32.0-35.9); MEAN CELL VOLUME 82.1 fl (80-96); MEAN PLT VOLUME 8.8 fl (7.5-11.1); MONO % 16.4 % (3.8-10.2); PLATELET COUNT 133 K/MM3 (134-434); RBC 3.33 M/mm3 (4.00-5.60); RDW 17.3 % (11.9-15.9); WHITE BLOOD COUNT 18.4 K/mm3 (4.0-10.0)
--- NOTE | 2020-01-29 08:31 | PN ---
Progress Note, Physician Chief Complaint: Patient seen and examined at the bedside, didn't sleep at all last night since olanzapine and seroquel were discontinued by the Psychiatrist. History of Present Illness: This 89 yr old w/m with PMH of chronic lymphocytic leukemia, pancytopenia, colonic angiodysplasia, CAD, moderate MR, severe TR, atrial fibrillation, HTN, hypothyroidism, depression, dementia, delirium, wedge compression fractures of L1 and L2, pulmonary hypertension, cancer of prostate, CKD admitted via ER with an acute shortness of breath, systolic CHF, edema of lower extremities and iron deficiency anemia. - Current Medication List Current Medications: Active Medications Acetaminophen (Tylenol -) 650 mg PO BID [facility] Last Admin: 01/28/20 21:47 Dose: 650 mg Documented by: Allopurinol (Zyloprim -) 300 mg PO DAILY [facility] Last Admin: 01/28/20 09:11 Dose: 300 mg Documented by: Amiodarone HCl (Cordarone -) 100 mg PO DAILY [facility] Last Admin: 01/28/20 09:08 Dose: 100 mg Documented by: B12/Folic Ac/Intrin Fact/Iron/Vit C (Niferex-150 Forte -) 1 each PO DAILY [facility] Last Admin: 01/28/20 09:14 Dose: 1 each Documented by: Camphor/Menthol (Sarna Anti-Itch -) 1 applic TP DAILY [facility] Last Admin: 01/28/20 09:20 Dose: 1 applic Documented by: Cyanocobalamin (Vitamin B12 -) 2,500 mcg PO Th [facility] Last Admin: 01/25/20 17:22 Dose: 2,500 mcg Documented by: Escitalopram Oxalate (Lexapro -) 5 mg PO DAILY [facility] Last Admin: 01/28/20 09:09 Dose: 5 mg Documented by: Finasteride (Proscar -) 5 mg PO DAILY [facility] Last Admin: 01/28/20 09:09 Dose: 5 mg Documented by: Furosemide (Lasix -) 40 mg PO DAILY [facility] Last Admin: 01/28/20 09:10 Dose: 40 mg Documented by: Cefepime HCl 1 gm/ Dextrose 100 mls @ 200 mls/hr IVPB BID [facility]; Protocol Last Admin: 01/28/20 21:48 Dose: 200 mls/hr Documented by: Levothyroxine Sodium (Synthroid -) 50 mcg PO DAILY@0700 [facility] Last Admin: 01/29/20 06:05 Dose: 50 mcg Documented by: Melatonin (Melatonin) 10 mg PO HS PRN PRN Reason: INSOMNIA Last Admin: 01/28/20 21:47 Dose: 10 mg Documented by: Metoprolol Succinate (Toprol Xl -) 25 mg PO BID [facility] Last Admin: 01/28/20 21:49 Dose: 25 mg Documented by: Pantoprazole Sodium (Protonix -) 40 mg PO DAILY [facility] Last Admin: 01/28/20 09:10 Dose: 40 mg Documented by: Rivaroxaban (Xarelto) 15 mg PO DAILY@1800 [facility] Last Admin: 01/28/20 17:06 Dose: 15 mg Documented by: Senna (Senna -) 2 tab PO HS PRN PRN Reason: CONSTIPATION Valacyclovir HCl (Valtrex -) 500 mg PO DAILY [facility] Last Admin: 01/28/20 09:08 Dose: 500 mg Documented by: - Objective Vital Signs: Vital Signs Temperature 98.3 F 01/29/20 06:00 Pulse Rate 68 01/29/20 06:00 Respiratory Rate 18 01/29/20 06:00 Blood Pressure 119/82 01/29/20 06:00 O2 Sat by Pulse Oximetry (%) 96 01/28/20 21:00 Constitutional: Yes: Well Nourished, No Distress, Calm Eyes: Yes: Conjunctiva Clear, EOM Intact HENT: Yes: Atraumatic, Normocephalic Neck: Yes: Supple, Trachea Midline Respiratory: Yes: Regular, CTA Bilaterally Gastrointestinal: Yes: Normal Bowel Sounds, Soft ...Rectal Exam: Yes: Deferred Genitourinary: Yes: WNL Breast(s): Yes: WNL Musculoskeletal: Yes: Muscle Weakness Extremities: Yes: WNL Edema: Yes Edema: LLE: 1+, RLE: 2+ Peripheral Pulses WNL: Yes Integumentary: Yes: WNL Neurological: Yes: Alert, Confusion, Unsteady Gait, Weakness ...Motor Strength: LUE (generalized muscle weakness of all extremities) Psychiatric: Yes: Alert Labs: CBC, BMP 01/29/20 06:50 01/28/20 06:50 INR, PTT INR 2.09 (0.83-1.09) H 01/22/20 10:10 - ....Imaging Other: Report Reviewed (lab data reviewed) Problem List - Problems (1) Acute CHF Code(s): I50.9 - HEART FAILURE, UNSPECIFIED Qualifiers: Heart failure type: unspecified Qualified Code(s): I50.9 - Heart failure, unspecified (2) Bilateral lower extremity edema Code(s): R60.0 - LOCALIZED EDEMA (3) SOB (shortness of breath) Code(s): R06.02 - SHORTNESS OF BREATH (4) AF (paroxysmal atrial fibrillation) Code(s): I48.0 - PAROXYSMAL ATRIAL FIBRILLATION (5) DEE (acute kidney injury) Code(s): N17.9 - ACUTE KIDNEY FAILURE, UNSPECIFIED (6) Acute pure red cell anemia Code(s): D60.8 - OTHER ACQUIRED PURE RED CELL APLASIAS (7) Afib Code(s): I48.91 - UNSPECIFIED ATRIAL FIBRILLATION (8) Altered mental status Code(s): R41.82 - ALTERED MENTAL STATUS, UNSPECIFIED (9) Leukopenia Code(s): D72.819 - DECREASED WHITE BLOOD CELL COUNT, UNSPECIFIED (10) Hyperkalemia Code(s): E87.5 - HYPERKALEMIA (11) Hyponatremia Code(s): E87.1 - HYPO-OSMOLALITY AND HYPONATREMIA (12) Pancytopenia Code(s): D61.818 - OTHER PANCYTOPENIA (13) Systolic CHF Code(s): I50.20 - UNSPECIFIED SYSTOLIC (CONGESTIVE) HEART FAILURE (14) Moderate mitral regurgitation Code(s): I34.0 - NONRHEUMATIC MITRAL (VALVE) INSUFFICIENCY (15) Severe tricuspid regurgitation Code(s): I07.1 - RHEUMATIC TRICUSPID INSUFFICIENCY (16) Neutropenic fever Code(s): D70.9 - NEUTROPENIA, UNSPECIFIED; R50.81 - FEVER PRESENTING WITH CONDITIONS CLASSIFIED ELSEWHERE Assessment/Plan Assessment/plan: acute shortness of breath, systolic CHF, acute edema of lower extremities, acute altered mental status, chronic lymphocytic leukemia, colonic angiodysplasia, acute iron deficiency anemia, pancytopenia, CAD, moderate MR, severe TR, atrial fibrillation, HTN, hypothyroidism, depression, dementia, delirium, insomnia, wedge compression fractures of L1 and L2, BPH, cancer of prostate, pulmonary hypertension, CKD; a/c with Xarelto, DVT/GI prophylaxis, oral Furosemide, IV Cefepime and oral Valtrex as per ID, Niferex, Granix, amiodarone, metoprolol, Lexapro for depression, oral Tylenol for low back pain, Proscar, levothyroxine, melatonin for insomnia and topical menthol/camphor patch for low back pain, wbc 18.4 ?neupogen effect.
[2020-01-29] MEDS ORDERED: DEXTROSE 5%-WATER 100 ML IVPB ONE ×2 (09:42→20:27)
[2020-01-29] MEDS ORDERED: CEFEPIME HCL 1 GM VIAL (RESTRICTED TO ID) ONE ×2 (09:42→20:27)
[2020-01-29] MEDS: CEFEPIME 1 GM in DEXTROSE 5%-WATER 100 ML IVPB SCH ×2 (09:48→21:15)
[2020-01-29] MEDS: FINASTERIDE 5 MG TABLET (FP) PO SCH (09:49)
[2020-01-29] MEDS: ACETAMINOPHEN 325 MG TABLET (FP) PO SCH ×2 (09:49→21:14)
[2020-01-29] MEDS: valACYclovir HCL 500 MG TABLET (FP) PO SCH (09:49)
[2020-01-29] MEDS: AMIODARONE HCL 200 MG TABLET PO SCH (09:50)
[2020-01-29] MEDS: PANTOPRAZOLE 40 MG TABLET PO SCH (09:50)
[2020-01-29] MEDS: metoPROLOL SUCCINATE 25 MG TAB.SR.24H (FP) PO SCH ×2 (09:50→21:15)
[2020-01-29] MEDS: FUROSEMIDE 40 MG TABLET (FP) PO SCH (09:51)
[2020-01-29] MEDS: ALLOPURINOL 300 MG TABLET (FP) PO SCH (09:51)
[2020-01-29] MEDS: ESCITALOPRAM OXALATE 10 MG TABLET PO SCH (09:51)
[2020-01-29] MEDS ORDERED: PT OWN MED DRAWER 7, Y5N ONE ×2 (09:52→20:35)
[2020-01-29] MEDS: FE POLYSAC/CYANOCOBAL/FA COMBO CAPSULE PO SCH (09:53)
[2020-01-29] MEDS: MENTHOL/CAMPHOR 1 APPLIC BTL TP SCH (09:53)
[2020-01-29 10:21] LABS: ANISOCYTOSIS 2+; MACROCYTOSIS 0; PLATELET ESTIMATE DECREASED
--- NOTE | 2020-01-29 11:44 | PN ---
Progress Note (short form) - Note Progress Note: alert no complaints seroquel /zyprexa have been discontinued no longer neutropenic Vital Signs Period Temp Pulse Resp BP Sys/Neal Pulse Ox Last 24 Hr 98.0 F-98.3 F 61-68 18-19 110-138/58-96 95-96 cor-rrr llungs clear abd soft,nt ext trace edema CBC, BMP 01/29/20 06:50 01/28/20 06:50 Microbiology 01/23/20 16:00 Blood - Peripheral Venous Blood Culture - Final NO GROWTH AFTER 5 DAYS INCUBATION 01/23/20 15:45 Blood - Peripheral Venous Blood Culture - Final NO GROWTH AFTER 5 DAYS INCUBATION 01/21/20 14:45 Blood - Peripheral Venous Blood Culture - Final NO GROWTH AFTER 5 DAYS INCUBATION 01/21/20 15:00 Blood - Peripheral Venous Blood Culture - Final NO GROWTH AFTER 5 DAYS INCUBATION 01/24/20 20:51 Urine - Urine Clean Catch Urine Culture - Final NO GROWTH OBTAINED 01/18/20 16:25 Urine - Urine Clean Catch Urine Culture - Final Alpha Hemolytic Streptococcus imp/reccd leukocytosis due to neupogen neutropenic fever-resolved, last dose cefepime today Pancytopenia- ?meds, ?CLL repet covid pcr for SNF return d/w health informatics specialist CHF- per cardiology d/w daughter at bedside please call back if needed Problem List - Problems (1) Pancytopenia Code(s): D61.818 - OTHER PANCYTOPENIA (2) CLL (chronic lymphocytic leukemia) Code(s): C91.10 - CHRONIC LYMPHOCYTIC LEUK OF B-CELL TYPE NOT ACHIEVE REMIS (3) Acute CHF Code(s): I50.9 - HEART FAILURE, UNSPECIFIED Qualifiers: Heart failure type: unspecified Qualified Code(s): I50.9 - Heart failure, unspecified
--- NOTE | 2020-01-29 12:31 | PN ---
Progress Note (short form) - Note Progress Note: Chief Complaint: sob History of Present Illness: denies sob. no cp, palp, syncope Current Medications Generic Name Dose Route Start Last Admin Trade Name Oscar PRN Reason Stop Dose Admin Acetaminophen 650 mg 01/18/20 22:00 01/29/20 09:49 Tylenol - PO 650 mg BID JOSE Administration Allopurinol 300 mg 01/26/20 16:30 01/29/20 09:51 Zyloprim - PO 300 mg DAILY JOSE Administration Amiodarone HCl 100 mg 01/20/20 10:00 01/29/20 09:50 Cordarone - PO 100 mg DAILY JOSE Administration B12/Folic Ac/Intrin Fact/Iron/Vit C 1 each 01/18/20 16:45 01/29/20 09:53 Niferex-150 Forte - PO 1 each DAILY JOSE Administration Camphor/Menthol 1 applic 01/19/20 10:00 01/29/20 09:53 Sarna Anti-Itch - TP 1 applic DAILY JOSE Administration Cyanocobalamin 2,500 mcg 01/18/20 16:30 01/25/20 17:22 Vitamin B12 - PO 2,500 mcg Th JOSE Administration Escitalopram Oxalate 5 mg 01/19/20 10:00 01/29/20 09:51 Lexapro - PO 5 mg DAILY JSOE Administration Finasteride 5 mg 01/19/20 10:00 01/29/20 09:49 Proscar - PO 5 mg DAILY JOSE Administration Furosemide 40 mg 01/23/20 10:00 01/29/20 09:51 Lasix - PO 40 mg DAILY JOSE Administration Cefepime HCl 1 gm/ Dextrose 100 mls @ 200 mls/hr 01/23/20 17:00 01/29/20 09:48 IVPB 01/30/20 08:00 200 mls/hr BID JOSE Administration Protocol Levothyroxine Sodium 50 mcg 01/19/20 07:00 01/29/20 06:05 Synthroid - PO 50 mcg DAILY@0700 JOSE Administration Melatonin 10 mg 01/19/20 22:00 01/28/20 21:47 Melatonin PO 10 mg HS PRN Administration INSOMNIA Metoprolol Succinate 25 mg 01/18/20 22:00 01/29/20 09:50 Toprol Xl - PO 25 mg BID JOSE Administration Olanzapine 2.5 mg 01/29/20 22:00 Zyprexa - PO HS JOSE Pantoprazole Sodium 40 mg 01/18/20 17:15 01/29/20 09:50 Protonix - PO 40 mg DAILY JOSE Administration Rivaroxaban 15 mg 01/18/20 18:00 01/28/20 17:06 Xarelto PO 15 mg DAILY@1800 JOSE Administration Senna 2 tab 01/18/20 22:00 Senna - PO HS PRN CONSTIPATION Valacyclovir HCl 500 mg 01/22/20 11:00 01/29/20 09:49 Valtrex - PO 500 mg DAILY JOSE Administration Vital Signs Period Temp Pulse Resp BP Sys/Neal Pulse Ox Last 24 Hr 98.0 F-98.3 F 61-68 18-19 110-138/58-96 95-96 Constitutional: Yes: Well Nourished, No Distress, Calm Eyes: No: Sclera Icterus Cardiovascular: Yes: Regular Rate and Rhythm, JVD (probable). No: Gallop, Murmur Respiratory: Yes: CTA Bilaterally. No: Accessory Muscle Use, Rales, Wheezes Gastrointestinal: Yes: Normal Bowel Sounds, Soft. No: Tenderness Extremities: No: Cold, Cyanosis Edema: No Integumentary: No: Jaundice Neurological: Yes: Alert, Oriented Psychiatric: No: Agitated Labs: CBC, BMP 01/29/20 06:50 01/28/20 06:50 Assessment/Plan Echo 12/11 (): moder decr LVEF (global), EF 35-40%. RV TDS. mild LAE. mild AI/MR. mild-mod TR. no pulm HTN seen. Echo 11/10: 1. The left ventricular size is normal. 2. Overall left ventricular systolic function is moderately impaired with a visually estimated EF of approximately 40 %. Peters's EF calculation (biplane) is 44%. 3. LA pressure is uncertain. 4. Septal wall motion is consistent with ventricular pacing; remaining wilson appear mildly hypokinetic. 5. The right ventricle is moderately enlarged. 6. The right ventricular systolic function is normal. 7. Left atrium is severely dilated by volume. 8. The right atrium is markedly enlarged. 9. There is mild aortic regurgitation. 10. Moderate mitral regurgitation is present (central jet). Estimated regurgitant volume = 38cc; estimated FELICIANO = 0.18 cm2. 11. Moderate to severe tricuspid regurgitation present (no hepatic vein doppler imaging was performed). 12. There is at least mild to moderate pulmonary hypertension (TR doppler signal is cut off). 13. The right ventricular systolic pressure is at least 47 mmHg (assuming RA pressure of 3). 14. The aortic root is mildy to moderately dilated (4.2 cm at sinuses of Valsalva). echo 12/2019 incomplete study (patient combative), severely reduced LV function EF 25-30%, septal motion suggestive of RV overload, RV dilated mod to sev hypokinesis, mod band, PPM R heart, severely dilated atria, severe TR with severe pulm HTN, mildly dilated asc aorta Acute on chronic systolic CHF, moderate MR, pulm HTN with dilated RV and mod- severe TR: -BNP 6K, from baseline 1-2K. CXR clear with chronic/stable mild increased interstitial markings -he is presenting with his typical HF sx's (bibasilar rales incr'd over baseline sounds, feet swelling), JVD likely on TDS exam -known h/o orthostatic hypotension complicating diuresis--down to lasix 20 QD in [place] as of last communication with me 02/10 -received lasix 40 IV qd here. vol status improving, chf sxs resolved. 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 - cont toprol, not on YANI/ARB for CKD - cont PO lasix AF: s/p PPM -Xarelto held 01/11 due to hgb trending down from 7s to 6s in [place], started Procrit injections, Xarelto eventually resumed -h/h stable here--cont Xarelto 15mg (GFR <50) -has been maintained on amiodarone 100mg for many yrs to help with rapid AF possibly triggering HF in the past--continue here (QTc ok on ECG. mild interstitial thickening on CXR is chronic, pt previously evaluated by pulmonary who did not suspect amio lung fibrosis) -Cont Toprol 25 bid -PM remote monitoring stable 12/12 CKD: -baseline creat runs 1.5-1.9, with fluctuations when uses NSAIDs for severe spinal stenosis pain Dementia/Delirium -History of severe sundowning in hospital -As per PMD Panctyopenia: -Chronic anemia, ? secondary CKD, ? 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
[2020-01-29] MEDS: RIVAROXABAN 15 MG TABLET PO SCH (18:50)
[2020-01-29] MEDS: MELATONIN 5 MG TABLETS PO PRN (21:14)
[2020-01-29] MEDS ORDERED: OLANZapine 2.5 MG TABLET PO SCH (22:00)
--- NOTE | 2020-01-30 01:19 | PN.HO ---
Progress Note (short form) - Note Progress Note: Patient seen and examined Feels well Incoherent Last Vital Signs Temp Pulse Resp BP Pulse Ox 98.9 F 60 19 132/62 97 01/26/20 09:00 01/26/20 09:00 01/26/20 09:00 01/26/20 09:00 01/26/20 09:00 Last Vital Signs Temp Pulse Resp BP Pulse Ox 98.4 F 70 16 126/64 95 01/29/20 20:41 01/29/20 20:41 01/29/20 21:00 01/29/20 20:41 01/29/20 21:00 Cor: RSR, No murmurs, No gallops Lungs: Clear to P&A Abd: Soft, Normal bowel sounds, No organomegaly Ext:No significant edema Labs reviewed A/P 89 y/o patient with dementia, CLL, CHF, pancytopenia/neutropenia significant dementia/wheel chair bound Neutropenia ANC 0.1 On cefepime CXR ? infiltrates COVID neg. neutropenia --? marrow infiltrative process ? autoimmune ? meds ( zyprexa/seroquel) ANC much improved with neupogen daughter who is the health care proxy does not want patient to have any invasive work up /treatments. will need tumor lysis prophy even prior to low intensity treatments like steroids seroquel stopped had to resume zyprexa per psych due to behavioral issues Will need close monitoring of CBC as outpatient and neupogen 300 or 480 micrograms Subcutaneously as needed
[2020-01-30] MEDS: LEVOTHYROXINE NA 50 MCG TABLET (FP) PO SCH (06:25)
[2020-01-30 07:45] LABS: BASO % 0.4 % (0-2.0); EOS % 1.6 % (0-4.5); HEMATOCRIT 26.5 % (35.4-49); LYMPH % 17.7 % (8-40); MCH 24.9 pg (25.7-33.7); MCHC 30.4 g/dl (32.0-35.9); MEAN PLT VOLUME 8.9 fl (7.5-11.1); NEUT % 68.3 % (42.8-82.8); PLATELET COUNT 122 K/MM3 (134-434); RBC 3.23 M/mm3 (4.00-5.60); RDW 16.9 % (11.9-15.9); WHITE BLOOD COUNT 18.9 K/mm3 (4.0-10.0)
--- NOTE | 2020-01-30 09:13 | DS ---
Physical Examination Vital Signs: Vital Signs Temperature 98.4 F 01/30/20 05:51 Pulse Rate 68 01/30/20 05:51 Respiratory Rate 18 01/30/20 08:18 Blood Pressure 132/76 01/30/20 05:51 O2 Sat by Pulse Oximetry (%) 95 01/30/20 08:18 Constitutional: Yes: Well Nourished, No Distress, Calm Eyes: Yes: Conjunctiva Clear, EOM Intact HENT: Yes: Atraumatic, Normocephalic Neck: Yes: Supple, Trachea Midline Cardiovascular: Yes: Regular Rate and Rhythm Respiratory: Yes: Regular, CTA Bilaterally Gastrointestinal: Yes: Normal Bowel Sounds, Soft ...Rectal Exam: Yes: Deferred Renal/: Yes: WNL Breast(s): Yes: WNL Musculoskeletal: Yes: Muscle Weakness Extremities: Yes: WNL Edema: Yes Edema: LLE: 1+, RLE: 2+ Peripheral Pulses WNL: Yes Integumentary: Yes: WNL Neurological: Yes: Alert, Confusion, Unsteady Gait, Weakness ...Motor Strength: LUE (generalized muscle weakness of all extremities) Psychiatric: Yes: Alert Labs: CBC, BMP 01/30/20 07:14 01/28/20 06:50 Discharge Summary Problems reviewed: Yes Reason For Visit: SOB/CHF Current Active Problems Acute CHF (Acute) Bilateral lower extremity edema (Acute) CLL (chronic lymphocytic leukemia) (Acute) Hyperkalemia (Acute) Hyponatremia (Acute) Leukopenia (Acute) Moderate mitral regurgitation (Acute) Neutropenic fever (Acute) Pancytopenia (Acute) SOB (shortness of breath) (Acute) Severe tricuspid regurgitation (Acute) Systolic CHF (Acute) Condition: Stable - Instructions Diet, Activity, Other Instructions: Continue present meds. Valtrex 500mg po od. Furosemide 40mg po od. Follow up with Dr. Napier in one week. Total time spent over 30 minutes. Referrals: Rajesh Napier MD [Primary Care Provider] - - Home Medications Comprehensive Discharge Medication List: Ambulatory Orders Donepezil HCl 10 mg PO HS 04/17/18 Metoprolol Succinate 25 mg PO BID 04/17/18 Cyanocobalamin (Vitamin B-12) [Vitamin B-12] 2,500 mcg SL WEEKLY 09/14/19 Sennosides [Senna] 17.2 mg PO DAILY 09/14/19 Amiodarone HCl [Cordarone -] 100 mg PO DAILY tablet 09/19/19 Finasteride [Proscar -] 5 mg PO DAILY tablet 09/19/19 Levothyroxine [Synthroid -] 50 mcg PO DAILY@0700 tablet 09/19/19 Melatonin 5 mg PO HS tab 09/19/19 Acetaminophen [Tylenol .Extra-Strength -] 650 mg PO BID PRN 01/19/20 Furosemide [Lasix -] 40 mg PO ASDIR 01/19/20 Quetiapine Fumarate [Seroquel -] 12.5 mg PO HS 01/19/20 Acetaminophen [Tylenol .Regular Strength -] 650 mg PO BID tablet 01/23/20 Amiodarone HCl [Cordarone -] 100 mg PO DAILY tablet 01/23/20 Cyanocobalamin [Vitamin B12 -] 2,500 mcg PO Th tablet 01/23/20 Escitalopram Oxalate [Lexapro -] 5 mg PO DAILY tablet 01/23/20 Fe Polysac/Cyanocobal/FA [Niferex-150 Forte -] 1 each PO DAILY capsule 01/23/20 Finasteride [Proscar -] 5 mg PO DAILY tablet 01/23/20 Furosemide [Lasix -] 40 mg PO DAILY tablet 01/23/20 Levothyroxine [Synthroid -] 50 mcg PO DAILY@0700 tablet 01/23/20 Melatonin 10 mg PO HS PRN tab 01/23/20 Menthol/Camphor [Sarna Anti-Itch -] 1 applic TP DAILY btl 01/23/20 Metoprolol Succinate [Toprol XL -] 25 mg PO BID tab.sr.24h 01/23/20 Pantoprazole Sodium [Protonix -] 40 mg PO DAILY tablet.ec 01/23/20 Quetiapine Fumarate [Seroquel -] 25 mg PO HS tablet 01/23/20 Rivaroxaban [Xarelto] 15 mg PO DAILY@1800 tablet 01/23/20 Sennosides [Senna -] 2 tab PO HS PRN tablet 01/23/20 Valacyclovir HCl [Valtrex -] 500 mg PO DAILY tablet 01/23/20
[2020-01-30 12:49] LABS: ANISOCYTOSIS 0; MACROCYTOSIS 0; PLATELET ESTIMATE DECREASED
[2020-01-30] MEDS ORDERED: PT OWN MED DRAWER 7, Y5N ONE ×3 (12:59→21:15)
[2020-01-30] MEDS: ACETAMINOPHEN 325 MG TABLET (FP) PO SCH ×2 (13:01→21:24)
--- NOTE | 2020-01-30 13:01 | PN ---
Progress Note (short form) - Note Progress Note: s: no cp, palp, syncope Current Medications Generic Name Dose Route Start Last Admin Trade Name Freq PRN Reason Stop Dose Admin Acetaminophen 650 mg 01/18/20 22:00 01/29/20 21:14 Tylenol - PO 650 mg BID JOSE Administration Allopurinol 300 mg 01/26/20 16:30 01/29/20 09:51 Zyloprim - PO 300 mg DAILY JOSE Administration Amiodarone HCl 100 mg 01/20/20 10:00 01/29/20 09:50 Cordarone - PO 100 mg DAILY JOSE Administration B12/Folic Ac/Intrin Fact/Iron/Vit C 1 each 01/18/20 16:45 01/29/20 09:53 Niferex-150 Forte - PO 1 each DAILY JOSE Administration Camphor/Menthol 1 applic 01/19/20 10:00 01/29/20 09:53 Sarna Anti-Itch - TP 1 applic DAILY JOSE Administration Cyanocobalamin 2,500 mcg 01/18/20 16:30 01/25/20 17:22 Vitamin B12 - PO 2,500 mcg Th JOSE Administration Escitalopram Oxalate 5 mg 01/19/20 10:00 01/29/20 09:51 Lexapro - PO 5 mg DAILY JOSE Administration Finasteride 5 mg 01/19/20 10:00 01/29/20 09:49 Proscar - PO 5 mg DAILY JOSE Administration Furosemide 40 mg 01/23/20 10:00 01/29/20 09:51 Lasix - PO 40 mg DAILY JOSE Administration Levothyroxine Sodium 50 mcg 01/19/20 07:00 01/30/20 06:25 Synthroid - PO 50 mcg DAILY@0700 JOSE Administration Melatonin 10 mg 01/19/20 22:00 01/29/20 21:14 Melatonin PO 10 mg HS PRN Administration INSOMNIA Metoprolol Succinate 25 mg 01/18/20 22:00 01/29/20 21:15 Toprol Xl - PO 25 mg BID JOSE Administration Olanzapine 2.5 mg 01/29/20 22:00 01/29/20 21:14 Zyprexa - PO 2.5 mg HS JOSE Administration Pantoprazole Sodium 40 mg 01/18/20 17:15 01/29/20 09:50 Protonix - PO 40 mg DAILY JOSE Administration Rivaroxaban 15 mg 01/18/20 18:00 01/29/20 18:50 Xarelto PO 15 mg DAILY@1800 JOSE Administration Senna 2 tab 01/18/20 22:00 Senna - PO HS PRN CONSTIPATION Valacyclovir HCl 500 mg 01/22/20 11:00 01/29/20 09:49 Valtrex - PO 500 mg DAILY JOSE Administration Vital Signs Period Temp Pulse Resp BP Sys/Neal Pulse Ox Last 24 Hr 97.7 F-98.4 F 68-71 16-20 115-132/55-76 95-95 Constitutional: Yes: Well Nourished, No Distress, Calm Eyes: No: Sclera Icterus Cardiovascular: Yes: Regular Rate and Rhythm, JVD (probable). No: Gallop, Murmur Respiratory: Yes: CTA Bilaterally. No: Accessory Muscle Use, Rales, Wheezes Gastrointestinal: Yes: Normal Bowel Sounds, Soft. No: Tenderness Extremities: No: Cold, Cyanosis Edema: No Integumentary: No: Jaundice Neurological: Yes: Alert, Oriented Psychiatric: No: Agitated Assessment/Plan Echo 12/11 (): moder decr LVEF (global), EF 35-40%. RV TDS. mild LAE. mild AI/MR. mild-mod TR. no pulm HTN seen. Echo 11/10: 1. The left ventricular size is normal. 2. Overall left ventricular systolic function is moderately impaired with a visually estimated EF of approximately 40 %. Peters's EF calculation (biplane) is 44%. 3. LA pressure is uncertain. 4. Septal wall motion is consistent with ventricular pacing; remaining wilson appear mildly hypokinetic. 5. The right ventricle is moderately enlarged. 6. The right ventricular systolic function is normal. 7. Left atrium is severely dilated by volume. 8. The right atrium is markedly enlarged. 9. There is mild aortic regurgitation. 10. Moderate mitral regurgitation is present (central jet). Estimated regurgitant volume = 38cc; estimated FELICIANO = 0.18 cm2. 11. Moderate to severe tricuspid regurgitation present (no hepatic vein doppler imaging was performed). 12. There is at least mild to moderate pulmonary hypertension (TR doppler signal is cut off). 13. The right ventricular systolic pressure is at least 47 mmHg (assuming RA pressure of 3). 14. The aortic root is mildy to moderately dilated (4.2 cm at sinuses of Valsalva). echo 12/2019 incomplete study (patient combative), severely reduced LV function EF 25-30%, septal motion suggestive of RV overload, RV dilated mod to sev hypokinesis, mod band, PPM R heart, severely dilated atria, severe TR with severe pulm HTN, mildly dilated asc aorta Acute on chronic systolic CHF, moderate MR, pulm HTN with dilated RV and mod- severe TR: -BNP 6K, from baseline 1-2K. CXR clear with chronic/stable mild increased interstitial markings -he is presenting with his typical HF sx's (bibasilar rales incr'd over baseline sounds, feet swelling), JVD likely on TDS exam -known h/o orthostatic hypotension complicating diuresis--down to lasix 20 QD in [place] as of last communication with me 02/10 -received lasix 40 IV qd here. vol status improving, chf sxs resolved. 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 - cont toprol, not on YANI/ARB for CKD - cont PO lasix AF: s/p PPM -Xarelto held 01/11 due to hgb trending down from 7s to 6s in [place], started Procrit injections, Xarelto eventually resumed -h/h stable here--cont Xarelto 15mg (GFR <50) -has been maintained on amiodarone 100mg for many yrs to help with rapid AF possibly triggering HF in the past--continue here (QTc ok on ECG. mild interstitial thickening on CXR is chronic, pt previously evaluated by pulmonary who did not suspect amio lung fibrosis) -Cont Toprol 25 bid -PM remote monitoring stable 12/12 CKD: -baseline creat runs 1.5-1.9, with fluctuations when uses NSAIDs for severe spinal stenosis pain Dementia/Delirium -History of severe sundowning in hospital -As per PMD Panctyopenia: -Chronic anemia, ? secondary CKD, ? 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
[2020-01-30] MEDS: FINASTERIDE 5 MG TABLET (FP) PO SCH (13:02)
[2020-01-30] MEDS: PANTOPRAZOLE 40 MG TABLET PO SCH (13:02)
[2020-01-30] MEDS: valACYclovir HCL 500 MG TABLET (FP) PO SCH (13:02)
[2020-01-30] MEDS: FUROSEMIDE 40 MG TABLET (FP) PO SCH (13:02)
[2020-01-30] MEDS: ALLOPURINOL 300 MG TABLET (FP) PO SCH (13:02)
[2020-01-30] MEDS: AMIODARONE HCL 200 MG TABLET PO SCH (13:03)
[2020-01-30] MEDS: metoPROLOL SUCCINATE 25 MG TAB.SR.24H (FP) PO SCH ×2 (13:03→21:26)
[2020-01-30] MEDS: ESCITALOPRAM OXALATE 10 MG TABLET PO SCH (13:03)
[2020-01-30] MEDS: FE POLYSAC/CYANOCOBAL/FA COMBO CAPSULE PO SCH (13:04)
[2020-01-30] MEDS: MENTHOL/CAMPHOR 1 APPLIC BTL TP SCH (13:04)
--- NOTE | 2020-01-30 14:14 | PN ---
Physical Exam: SUBJECTIVE: Patient seen and examined. Pt. complains of chronic back pain OBJECTIVE: Vital Signs Period Temp Pulse Resp BP Sys/Neal Pulse Ox Last 24 Hr 97.7 F-98.4 F 62-71 16-20 115-132/55-76 95-95 GENERAL: The patient is awake, alert, in no acute distress. HEAD: Normal with no signs of trauma. EYES: Sclera anicteric, conjunctiva clear. No ptosis. ENT: Moist mucous membranes. NECK: Trachea midline, full range of motion, supple. LUNGS: Breath sounds equal, clear to auscultation bilaterally, no wheezes, no crackles, no accessory muscle use. HEART: Regular rate and rhythm, S1, S2 without murmur MSK: No spinal or paraspinal tenderness ABDOMEN: Soft, nontender, nondistended, normoactive bowel sounds, no guarding EXTREMITIES: 2+ dorsal pedal pulses, warm, no calf tenderness, well-perfused, no edema. NEUROLOGICAL: Normal speech, gait not observed. PSYCH: Normal mood, normal affect. SKIN: Warm, dry, normal turgor Laboratory Results - last 24 hr 01/30/20 07:14 WBC 18.9 H RBC 3.23 L Hgb 8.0 L Hct 26.5 L MCV 82.0 MCH 24.9 L MCHC 30.4 L RDW 16.9 H Plt Count 122 L MPV 8.9 Absolute Neuts (auto) 12.9 H Neutrophils % 68.3 Neutrophils % (Manual) 52.5 D Band Neutrophils % 12.1 Lymphocytes % 17.7 Lymphocytes % (Manual) 27.3 D Monocytes % 12.0 H Monocytes % (Manual) 6 Eosinophils % 1.6 Eosinophils % (Manual) 0.0 D Basophils % 0.4 Basophils % (Manual) 0.0 Myelocytes % (Man) 0 D Promyelocytes % (Man) 1 D Blast Cells % (Manual) 0 Nucleated RBC % 1 H Metamyelocytes 1 Hypochromia 1+ Platelet Estimate Decreased Polychromasia 0 Poikilocytosis 0 Anisocytosis 0 Microcytosis 0 Macrocytosis 0 Active Medications Generic Name Dose Route Start Last Admin Trade Name Freq PRN Reason Stop Dose Admin Acetaminophen 650 mg 01/18/20 22:00 01/30/20 13:01 Tylenol - PO 650 mg BID JOSE Administration Allopurinol 300 mg 01/26/20 16:30 01/30/20 13:02 Zyloprim - PO 300 mg DAILY JOSE Administration Amiodarone HCl 100 mg 01/20/20 10:00 01/30/20 13:03 Cordarone - PO 100 mg DAILY JOSE Administration B12/Folic Ac/Intrin Fact/Iron/Vit C 1 each 01/18/20 16:45 01/30/20 13:04 Niferex-150 Forte - PO 1 each DAILY JOSE Administration Camphor/Menthol 1 applic 01/19/20 10:00 01/30/20 13:04 Sarna Anti-Itch - TP 1 applic DAILY JOSE Administration Cyanocobalamin 2,500 mcg 01/18/20 16:30 01/25/20 17:22 Vitamin B12 - PO 2,500 mcg Th JOSE Administration Escitalopram Oxalate 5 mg 01/19/20 10:00 01/30/20 13:03 Lexapro - PO 5 mg DAILY JOSE Administration Finasteride 5 mg 01/19/20 10:00 01/30/20 13:02 Proscar - PO 5 mg DAILY JOSE Administration Furosemide 40 mg 01/23/20 10:00 01/30/20 13:02 Lasix - PO 40 mg DAILY JOSE Administration Levothyroxine Sodium 50 mcg 01/19/20 07:00 01/30/20 06:25 Synthroid - PO 50 mcg DAILY@0700 JOSE Administration Melatonin 10 mg 01/19/20 22:00 01/29/20 21:14 Melatonin PO 10 mg HS PRN Administration INSOMNIA Metoprolol Succinate 25 mg 01/18/20 22:00 01/30/20 13:03 Toprol Xl - PO 25 mg BID JOSE Administration Olanzapine 2.5 mg 01/29/20 22:00 01/29/20 21:14 Zyprexa - PO 2.5 mg HS JOSE Administration Pantoprazole Sodium 40 mg 01/18/20 17:15 01/30/20 13:02 Protonix - PO 40 mg DAILY JOSE Administration Rivaroxaban 15 mg 01/18/20 18:00 01/29/20 18:50 Xarelto PO 15 mg DAILY@1800 JOSE Administration Senna 2 tab 01/18/20 22:00 Senna - PO HS PRN CONSTIPATION Valacyclovir HCl 500 mg 01/22/20 11:00 01/30/20 13:02 Valtrex - PO 500 mg DAILY JOSE Administration ASSESSMENT/PLAN: Pt. is a 89 y.o. M w/ PMHx. of Chronic Lymphocytic Leukemia, Prostate CA, pHTN, CKD, ODESSA, colonic angiodysplasia, CAD (s/p PPM) admitted due to an acute exacerbation of shortness of breath and edema of lower extremities. Dr. 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 c/w Valtrex for opportunistic pathogen prophylaxis. Haptoglobin: 195, Rpt: 214 Immunoglobulin profile: wnl will need tumor lysis prophy even prior to low intensity treatments like steroids GOC discussed, no aggressive Treatments; Pt. is DNR/DNI #Acute CHF exacerbation c/w Lasix as per Cardiology #HTN #CKD #ODESSA #Colonic angiodyspolasia #CAD as per Primary team #DVT Ppx. Xarelto 15mg Visit type - Emergency Visit Emergency Visit: Yes ED Registration Date: 01/18/20 Care time: The patient presented to the Emergency Department on the above date and was hospitalized for further evaluation of their emergent condition. - New Patient This patient is new to me today: No - Critical Care Critical Care patient: No - Discharge Referral Referred to [facility] Med P.C.: No ATTENDING PHYSICIAN STATEMENT I saw and evaluated the patient. I reviewed the resident's note and discussed the case with the resident. I agree with the resident's findings and plan as documented. SUBJECTIVE: OBJECTIVE: ASSESSMENT AND PLAN:
--- NOTE | 2020-01-30 16:32 | PN ---
Progress Note (short form) - Note Progress Note: Staff report that patient has not slept in few days.. Very agitated and unable to be managed.. had slept well on Seroquel.. RN reports that Neutropenia is no longer an issue.. Plan. 1) d/c Lexapro ..No evidence of any clinical Depression. 2) d/c Zyprexa. 30 Start Seroquel 25 mg pop hs .
[2020-01-30] MEDS: QUEtiapine FUMARATE 25 MG TABLET PO SCH (21:25)
[2020-01-30] MEDS: RIVAROXABAN 15 MG TABLET PO SCH (21:26)
--- NOTE | 2020-01-30 22:16 | PN ---
Progress Note, Physician Chief Complaint: Patient seen and examined at the bedside, no acute events from last night, no labored breathing. History of Present Illness: This 89 yr old w/m with PMH of chronic lymphocytic leukemia, pancytopenia, atrial fibrillation, colonic angiodysplasia, cancer of prostate, pulmonary h ypertension, hypothyroidism, dementia, delirium, depression, wedge compression fractures of L1 and L2 admitted via ER with an acute shortness of breath, acute edema of lower extremities, systolic CHF, iron deficiency anemia and altered mental status. - Current Medication List Current Medications: Active Medications Acetaminophen (Tylenol -) 650 mg PO BID [facility] Last Admin: 01/30/20 21:24 Dose: 650 mg Documented by: Allopurinol (Zyloprim -) 300 mg PO DAILY [facility] Last Admin: 01/30/20 13:02 Dose: 300 mg Documented by: Amiodarone HCl (Cordarone -) 100 mg PO DAILY [facility] Last Admin: 01/30/20 13:03 Dose: 100 mg Documented by: B12/Folic Ac/Intrin Fact/Iron/Vit C (Niferex-150 Forte -) 1 each PO DAILY [facility] Last Admin: 01/30/20 13:04 Dose: 1 each Documented by: Camphor/Menthol (Sarna Anti-Itch -) 1 applic TP DAILY [facility] Last Admin: 01/30/20 13:04 Dose: 1 applic Documented by: Cyanocobalamin (Vitamin B12 -) 2,500 mcg PO Th [facility] Last Admin: 01/25/20 17:22 Dose: 2,500 mcg Documented by: Finasteride (Proscar -) 5 mg PO DAILY [facility] Last Admin: 01/30/20 13:02 Dose: 5 mg Documented by: Furosemide (Lasix -) 40 mg PO DAILY [facility] Last Admin: 01/30/20 13:02 Dose: 40 mg Documented by: Levothyroxine Sodium (Synthroid -) 50 mcg PO DAILY@0700 [facility] Last Admin: 01/30/20 06:25 Dose: 50 mcg Documented by: Melatonin (Melatonin) 10 mg PO HS PRN PRN Reason: INSOMNIA Last Admin: 01/29/20 21:14 Dose: 10 mg Documented by: Metoprolol Succinate (Toprol Xl -) 25 mg PO BID [facility] Last Admin: 01/30/20 21:26 Dose: 25 mg Documented by: Pantoprazole Sodium (Protonix -) 40 mg PO DAILY [facility] Last Admin: 01/30/20 13:02 Dose: 40 mg Documented by: Quetiapine Fumarate (Seroquel -) 25 mg PO [facility] Last Admin: 01/30/20 21:25 Dose: 25 mg Documented by: Rivaroxaban (Xarelto) 15 mg PO DAILY@1800 [facility] Last Admin: 01/30/20 21:26 Dose: 15 mg Documented by: Senna (Senna -) 2 tab PO PRN PRN Reason: CONSTIPATION Valacyclovir HCl (Valtrex -) 500 mg PO DAILY [facility] Last Admin: 01/30/20 13:02 Dose: 500 mg Documented by: - Objective Vital Signs: Vital Signs Temperature 98 F 01/30/20 13:00 Pulse Rate 62 01/30/20 13:00 Respiratory Rate 18 01/30/20 13:00 Blood Pressure 119/69 01/30/20 13:00 O2 Sat by Pulse Oximetry (%) 95 01/30/20 08:18 Constitutional: Yes: Well Nourished, No Distress, Calm Eyes: Yes: Conjunctiva Clear, EOM Intact HENT: Yes: Atraumatic Neck: Yes: Supple, Trachea Midline Cardiovascular: Yes: Regular Rate and Rhythm Respiratory: Yes: Regular, CTA Bilaterally Gastrointestinal: Yes: Normal Bowel Sounds, Soft ...Rectal Exam: Yes: Deferred Genitourinary: Yes: WNL Breast(s): Yes: WNL Musculoskeletal: Yes: Muscle Weakness Extremities: Yes: WNL Edema: Yes Edema: LLE: 1+, RLE: 2+ Peripheral Pulses WNL: Yes Integumentary: Yes: WNL Neurological: Yes: Alert, Confusion, Unsteady Gait, Weakness ...Motor Strength: LUE (generalized weakness of all extremities) Psychiatric: Yes: Alert Labs: CBC, BMP 01/30/20 07:14 01/28/20 06:50 INR, PTT INR 2.09 (0.83-1.09) H 01/22/20 10:10 - ....Imaging Other: Report Reviewed (lab data reviewed) Problem List - Problems (1) Acute CHF Code(s): I50.9 - HEART FAILURE, UNSPECIFIED Qualifiers: Heart failure type: unspecified Qualified Code(s): I50.9 - Heart failure, unspecified (2) Bilateral lower extremity edema Code(s): R60.0 - LOCALIZED EDEMA (3) SOB (shortness of breath) Code(s): R06.02 - SHORTNESS OF BREATH (4) AF (paroxysmal atrial fibrillation) Code(s): I48.0 - PAROXYSMAL ATRIAL FIBRILLATION (5) DEE (acute kidney injury) Code(s): N17.9 - ACUTE KIDNEY FAILURE, UNSPECIFIED (6) Acute pure red cell anemia Code(s): D60.8 - OTHER ACQUIRED PURE RED CELL APLASIAS (7) Afib Code(s): I48.91 - UNSPECIFIED ATRIAL FIBRILLATION (8) Altered mental status Code(s): R41.82 - ALTERED MENTAL STATUS, UNSPECIFIED (9) Leukopenia Code(s): D72.819 - DECREASED WHITE BLOOD CELL COUNT, UNSPECIFIED (10) Hyperkalemia Code(s): E87.5 - HYPERKALEMIA (11) Hyponatremia Code(s): E87.1 - HYPO-OSMOLALITY AND HYPONATREMIA (12) Pancytopenia Code(s): D61.818 - OTHER PANCYTOPENIA (13) Systolic CHF Code(s): I50.20 - UNSPECIFIED SYSTOLIC (CONGESTIVE) HEART FAILURE (14) Moderate mitral regurgitation Code(s): I34.0 - NONRHEUMATIC MITRAL (VALVE) INSUFFICIENCY (15) Severe tricuspid regurgitation Code(s): I07.1 - RHEUMATIC TRICUSPID INSUFFICIENCY (16) Neutropenic fever Code(s): D70.9 - NEUTROPENIA, UNSPECIFIED; R50.81 - FEVER PRESENTING WITH CONDITIONS CLASSIFIED ELSEWHERE Assessment/Plan Assessment/plan: acute shortness of breath, acute edema of lower extremities, acute systolic CHF, chronic lymphocytic leukemia, pancytopenia, neutropenic fever, acute iron deficiency anemia, colonic angiodysplasia, atrial fibrillation, pulmonary hypertension, moderate MR, CAD, severe TR, cancer of the prostate; a/c with Xarelto, DVT/GI prophylaxis, physical therapy, oral Furosemide, Melatonin Valtrex, Niferex, amiodarone, metoprolol, seroquel, discharge planning, social secretary request.
[2020-01-31] MEDS: LEVOTHYROXINE NA 50 MCG TABLET (FP) PO SCH (06:58)
[2020-01-31 08:02] LABS: URIC ACID 5.1 mg/dL (2.6-7.2)
--- NOTE | 2020-01-31 09:12 | PN ---
Progress Note, Physician Chief Complaint: Patient seen and examined at the bedside, no acute events from last night except for insomnia. History of Present Illness: This 89 yr old w/m with PMH of chronic lymphocytic leukemia, pancytopenia, atrial fibrillation, CAD, colonic angiodysplasia, moderate MR, severe TR, hypo thyroidism, depression, dementia, delirium, wedge compression fractures of L1 and L2, chronic low back pain, pulmonary hypertension, cancer of prostate, HTN, CKD admitted via ER with an acute shortness of breath, severe edema of lower extremities, systolic CHF, and an acute altered mental status. - Current Medication List Current Medications: Active Medications Acetaminophen (Tylenol -) 650 mg PO BID [facility] Last Admin: 01/30/20 21:24 Dose: 650 mg Documented by: Allopurinol (Zyloprim -) 300 mg PO DAILY [facility] Last Admin: 01/30/20 13:02 Dose: 300 mg Documented by: Amiodarone HCl (Cordarone -) 100 mg PO DAILY [facility] Last Admin: 01/30/20 13:03 Dose: 100 mg Documented by: B12/Folic Ac/Intrin Fact/Iron/Vit C (Niferex-150 Forte -) 1 each PO DAILY [facility] Last Admin: 01/30/20 13:04 Dose: 1 each Documented by: Camphor/Menthol (Sarna Anti-Itch -) 1 applic TP DAILY [facility] Last Admin: 01/30/20 13:04 Dose: 1 applic Documented by: Cyanocobalamin (Vitamin B12 -) 2,500 mcg PO Th [facility] Last Admin: 01/25/20 17:22 Dose: 2,500 mcg Documented by: Finasteride (Proscar -) 5 mg PO DAILY [facility] Last Admin: 01/30/20 13:02 Dose: 5 mg Documented by: Furosemide (Lasix -) 40 mg PO DAILY [facility] Last Admin: 01/30/20 13:02 Dose: 40 mg Documented by: Levothyroxine Sodium (Synthroid -) 50 mcg PO DAILY@0700 [facility] Last Admin: 01/31/20 06:58 Dose: 50 mcg Documented by: Melatonin (Melatonin) 10 mg PO HS PRN PRN Reason: INSOMNIA Last Admin: 01/29/20 21:14 Dose: 10 mg Documented by: Metoprolol Succinate (Toprol Xl -) 25 mg PO BID [facility] Last Admin: 07/07/20 21:26 Dose: 25 mg Documented by: Pantoprazole Sodium (Protonix -) 40 mg PO DAILY [facility] Last Admin: 01/30/20 13:02 Dose: 40 mg Documented by: Quetiapine Fumarate (Seroquel -) 25 mg PO HS [facility] Last Admin: 01/30/20 21:25 Dose: 25 mg Documented by: Rivaroxaban (Xarelto) 15 mg PO DAILY@1800 [facility] Last Admin: 01/30/20 21:26 Dose: 15 mg Documented by: Senna (Senna -) 2 tab PO PRN PRN Reason: CONSTIPATION Valacyclovir HCl (Valtrex -) 500 mg PO DAILY [facility] Last Admin: 01/30/20 13:02 Dose: 500 mg Documented by: - Objective Vital Signs: Vital Signs Temperature 97.8 F 01/31/20 05:00 Pulse Rate 58 L 01/31/20 05:00 Respiratory Rate 18 01/31/20 05:00 Blood Pressure 128/55 L 01/31/20 05:00 O2 Sat by Pulse Oximetry (%) 95 01/30/20 21:00 Constitutional: Yes: Well Nourished, No Distress, Calm Eyes: Yes: Conjunctiva Clear, EOM Intact HENT: Yes: Atraumatic, Normocephalic Neck: Yes: Supple, Trachea Midline Cardiovascular: Yes: Regular Rate and Rhythm Respiratory: Yes: Regular, CTA Bilaterally Gastrointestinal: Yes: Normal Bowel Sounds, Soft ...Rectal Exam: Yes: Deferred Genitourinary: Yes: WNL Breast(s): Yes: WNL Musculoskeletal: Yes: Muscle Weakness Extremities: Yes: WNL Edema: Yes Edema: LLE: 1+, RLE: 2+ Peripheral Pulses WNL: Yes Integumentary: Yes: WNL Neurological: Yes: Alert, Confusion, Unsteady Gait, Weakness ...Motor Strength: LUE (generalized muscle weakness of all extremities) Psychiatric: Yes: Alert Labs: CBC, BMP 01/30/20 07:14 01/28/20 06:50 INR, PTT INR 2.09 (0.83-1.09) H 01/22/20 10:10 - ....Imaging Other: Report Reviewed (lab data reviewed) Problem List - Problems (1) Acute CHF Code(s): I50.9 - HEART FAILURE, UNSPECIFIED Qualifiers: Heart failure type: unspecified Qualified Code(s): I50.9 - Heart failure, u nspecified (2) Bilateral lower extremity edema Code(s): R60.0 - LOCALIZED EDEMA (3) SOB (shortness of breath) Code(s): R06.02 - SHORTNESS OF BREATH (4) AF (paroxysmal atrial fibrillation) Code(s): I48.0 - PAROXYSMAL ATRIAL FIBRILLATION (5) DEE (acute kidney injury) Code(s): N17.9 - ACUTE KIDNEY FAILURE, UNSPECIFIED (6) Acute pure red cell anemia Code(s): D60.8 - OTHER ACQUIRED PURE RED CELL APLASIAS (7) Afib Code(s): I48.91 - UNSPECIFIED ATRIAL FIBRILLATION (8) Altered mental status Code(s): R41.82 - ALTERED MENTAL STATUS, UNSPECIFIED (9) Leukopenia Code(s): D72.819 - DECREASED WHITE BLOOD CELL COUNT, UNSPECIFIED (10) Hyperkalemia Code(s): E87.5 - HYPERKALEMIA (11) Hyponatremia Code(s): E87.1 - HYPO-OSMOLALITY AND HYPONATREMIA (12) Pancytopenia Code(s): D61.818 - OTHER PANCYTOPENIA (13) Systolic CHF Code(s): I50.20 - UNSPECIFIED SYSTOLIC (CONGESTIVE) HEART FAILURE (14) Moderate mitral regurgitation Code(s): I34.0 - NONRHEUMATIC MITRAL (VALVE) INSUFFICIENCY (15) Severe tricuspid regurgitation Code(s): I07.1 - RHEUMATIC TRICUSPID INSUFFICIENCY (16) Neutropenic fever Code(s): D70.9 - NEUTROPENIA, UNSPECIFIED; R50.81 - FEVER PRESENTING WITH CONDITIONS CLASSIFIED ELSEWHERE Assessment/Plan Assessment/plan: acute shortness of breath, acute systolic CHF, acute edema of lower extremities, acute altered mental status, acute neutropenic fever, acute pancytopenia, chronic lympocytic leukemia, colonic angiodysplasia, CAD, moderate MR, severe TR, pulmonary hypertension, cancer of the prostate, CKD, acute iron deficiency anemia, atrial fibrillation, hypothyroidism, depression, dementia, delirium, wedge compression fractures of L1 and L2; DVT/GI prophylaxis, Valtrex for prophylaxis, amiodarone and metoprolol for atrial fibrillation, a/c with Xarelto, Niferex for iron deficiency anemia, Seroquel for delirium and insomnia, melatonin for insomnia, oral Furosemide for CHF, levothyroxine for hypothyroidism, awaiting result of Covid 19 test.
[2020-01-31] MEDS ORDERED: PT OWN MED DRAWER 7, Y5N ONE (10:50)
[2020-01-31] MEDS: AMIODARONE HCL 200 MG TABLET PO SCH (10:51)
[2020-01-31] MEDS: ACETAMINOPHEN 325 MG TABLET (FP) PO SCH ×2 (10:51→21:07)
[2020-01-31] MEDS: FINASTERIDE 5 MG TABLET (FP) PO SCH (10:52)
[2020-01-31] MEDS: PANTOPRAZOLE 40 MG TABLET PO SCH (10:52)
[2020-01-31] MEDS: valACYclovir HCL 500 MG TABLET (FP) PO SCH (10:52)
[2020-01-31] MEDS: FUROSEMIDE 40 MG TABLET (FP) PO SCH ×2 (10:52→14:22)
[2020-01-31] MEDS: ALLOPURINOL 300 MG TABLET (FP) PO SCH (10:52)
[2020-01-31] MEDS: metoPROLOL SUCCINATE 25 MG TAB.SR.24H (FP) PO SCH ×2 (10:52→21:08)
[2020-01-31] MEDS: MENTHOL/CAMPHOR 1 APPLIC BTL TP SCH (10:53)
[2020-01-31] MEDS: FE POLYSAC/CYANOCOBAL/FA COMBO CAPSULE PO SCH (10:53)
--- NOTE | 2020-01-31 12:36 | PN ---
Progress Note (short form) - Note Progress Note: s: no cp, palp, syncope Current Medications Generic Name Dose Route Start Last Admin Trade Name Freq PRN Reason Stop Dose Admin Acetaminophen 650 mg 01/18/20 22:00 01/31/20 10:51 Tylenol - PO 650 mg BID JOSE Administration Allopurinol 300 mg 01/26/20 16:30 01/31/20 10:52 Zyloprim - PO 300 mg DAILY JOSE Administration Amiodarone HCl 100 mg 01/20/20 10:00 01/31/20 10:51 Cordarone - PO 100 mg DAILY JOSE Administration B12/Folic Ac/Intrin Fact/Iron/Vit C 1 each 01/18/20 16:45 01/31/20 10:53 Niferex-150 Forte - PO 1 each DAILY JOSE Administration Camphor/Menthol 1 applic 01/19/20 10:00 01/31/20 10:53 Sarna Anti-Itch - TP Not Given DAILY [facility] Cyanocobalamin 2,500 mcg 01/18/20 16:30 01/25/20 17:22 Vitamin B12 - PO 2,500 mcg Th JOSE Administration Finasteride 5 mg 01/19/20 10:00 01/31/20 10:52 Proscar - PO 5 mg DAILY JOSE Administration Furosemide 40 mg 01/23/20 10:00 01/31/20 10:52 Lasix - PO 40 mg DAILY JOSE Administration Levothyroxine Sodium 50 mcg 01/19/20 07:00 01/31/20 06:58 Synthroid - PO 50 mcg DAILY@0700 JOSE Administration Melatonin 10 mg 01/19/20 22:00 01/29/20 21:14 Melatonin PO 10 mg HS PRN Administration INSOMNIA Metoprolol Succinate 25 mg 01/18/20 22:00 01/31/20 10:52 Toprol Xl - PO 25 mg BID JOSE Administration Pantoprazole Sodium 40 mg 01/18/20 17:15 01/31/20 10:52 Protonix - PO 40 mg DAILY JOSE Administration Quetiapine Fumarate 25 mg 01/30/20 22:00 01/30/20 21:25 Seroquel - PO 25 mg HS JOSE Administration Rivaroxaban 15 mg 01/18/20 18:00 01/30/20 21:26 Xarelto PO 15 mg DAILY@1800 JOSE Administration Senna 2 tab 01/18/20 22:00 Senna - PO HS PRN CONSTIPATION Valacyclovir HCl 500 mg 01/22/20 11:00 01/31/20 10:52 Valtrex - PO 500 mg DAILY JOSE Administration Vital Signs Period Temp Pulse Resp BP Sys/Neal Pulse Ox Last 24 Hr 97.8 F-98.2 F 58-63 18-18 115-128/51-86 95 Constitutional: Yes: Well Nourished, No Distress, Calm Eyes: No: Sclera Icterus Cardiovascular: Yes: Regular Rate and Rhythm, JVD (probable). No: Gallop, Murmur Respiratory: Yes: CTA Bilaterally. No: Accessory Muscle Use, Rales, Wheezes Gastrointestinal: Yes: Normal Bowel Sounds, Soft. No: Tenderness Extremities: No: Cold, Cyanosis Edema: No Integumentary: No: Jaundice Neurological: Yes: Alert, Oriented Psychiatric: No: Agitated Assessment/Plan Echo 12/11 (): moder decr LVEF (global), EF 35-40%. RV TDS. mild LAE. mild AI/MR. mild-mod TR. no pulm HTN seen. Echo 11/10: 1. The left ventricular size is normal. 2. Overall left ventricular systolic function is moderately impaired with a visually estimated EF of approximately 40 %. Peters's EF calculation (biplane) is 44%. 3. LA pressure is uncertain. 4. Septal wall motion is consistent with ventricular pacing; remaining wilson appear mildly hypokinetic. 5. The right ventricle is moderately enlarged. 6. The right ventricular systolic function is normal. 7. Left atrium is severely dilated by volume. 8. The right atrium is markedly enlarged. 9. There is mild aortic regurgitation. 10. Moderate mitral regurgitation is present (central jet). Estimated regurgitant volume = 38cc; estimated FELICIANO = 0.18 cm2. 11. Moderate to severe tricuspid regurgitation present (no hepatic vein doppler imaging was performed). 12. There is at least mild to moderate pulmonary hypertension (TR doppler signal is cut off). 13. The right ventricular systolic pressure is at least 47 mmHg (assuming RA pressure of 3). 14. The aortic root is mildy to moderately dilated (4.2 cm at sinuses of Valsalva). 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 - cont toprol, not on YANI/ARB for CKD - cont PO lasix AF: s/p PPM -Xarelto held 01/11 due to hgb trending down from 7s to 6s in [place], started Procrit injections, Xarelto eventually resumed -h/h stable here--cont Xarelto 15mg (GFR <50) -has been maintained on amiodarone 100mg for many yrs to help with rapid AF possibly triggering HF in the past--continue here (QTc ok on ECG. mild interstitial thickening on CXR is chronic, pt previously evaluated by pulmonary who did not suspect amio lung fibrosis) -Cont Toprol 25 bid -PM remote monitoring stable 12/12 CKD: -baseline creat runs 1.5-1.9, with fluctuations when uses NSAIDs for severe spinal stenosis pain Dementia/Delirium -History of severe sundowning in hospital -As per PMD Panctyopenia: -Chronic anemia, ? secondary CKD, ? on Procrit in [place]--counts stable -on NOAC currently, with stable H/H -leukopenia and thrombocytopenia are new; pt with underlying heme malignancy that dtr has not shared diagnosis of with him due to concerns would cause decompensated anxiety/depression
--- NOTE | 2020-01-31 15:56 | PN ---
Physical Exam: SUBJECTIVE: Patient seen and examined. No acute complaints. Pt. states he was able to sleep. OBJECTIVE: Vital Signs Period Temp Pulse Resp BP Sys/Neal Pulse Ox Last 24 Hr 97.7 F-98.2 F 56-63 18-20 115-128/50-86 95-99 GENERAL: The patient is awake, alert, in no acute distress. HEAD: Normal with no signs of trauma. EYES: Sclera anicteric, conjunctiva clear. No ptosis. ENT: Moist mucous membranes. NECK: Trachea midline, full range of motion, supple. LUNGS: Breath sounds equal, clear to auscultation bilaterally, no wheezes, no crackles, no accessory muscle use. HEART: Regular rate and rhythm, S1, S2 without murmur MSK: No spinal or paraspinal tenderness ABDOMEN: Soft, nontender, nondistended, normoactive bowel sounds, no guarding EXTREMITIES: 2+ dorsal pedal pulses, warm, no calf tenderness, well-perfused, no edema. NEUROLOGICAL: Normal speech, gait not observed. PSYCH: Normal mood, normal affect. SKIN: Warm, dry, normal turgor Laboratory Results - last 24 hr 01/31/20 07:10 Uric Acid 5.1 LD Total 290 H Active Medications Generic Name Dose Route Start Last Admin Trade Name Freq PRN Reason Stop Dose Admin Acetaminophen 650 mg 01/18/20 22:00 01/31/20 10:51 Tylenol - PO 650 mg BID JOSE Administration Allopurinol 300 mg 01/26/20 16:30 01/31/20 10:52 Zyloprim - PO 300 mg DAILY JOSE Administration Amiodarone HCl 100 mg 01/20/20 10:00 01/31/20 10:51 Cordarone - PO 100 mg DAILY JOSE Administration B12/Folic Ac/Intrin Fact/Iron/Vit C 1 each 01/18/20 16:45 01/31/20 10:53 Niferex-150 Forte - PO 1 each DAILY JOSE Administration Camphor/Menthol 1 applic 01/19/20 10:00 01/31/20 10:53 Sarna Anti-Itch - TP Not Given DAILY JOSE Cyanocobalamin 2,500 mcg 01/18/20 16:30 01/25/20 17:22 Vitamin B12 - PO 2,500 mcg Th JOSE Administration Finasteride 5 mg 01/19/20 10:00 01/31/20 10:52 Proscar - PO 5 mg DAILY JOSE Administration Furosemide 40 mg 01/31/20 14:00 01/31/20 14:22 Lasix - PO 40 mg BIDLASIX JOSE Administration Levothyroxine Sodium 50 mcg 01/19/20 07:00 01/31/20 06:58 Synthroid - PO 50 mcg DAILY@0700 JOSE Administration Melatonin 10 mg 01/19/20 22:00 01/29/20 21:14 Melatonin PO 10 mg HS PRN Administration INSOMNIA Metoprolol Succinate 25 mg 01/18/20 22:00 01/31/20 10:52 Toprol Xl - PO 25 mg BID JOSE Administration Pantoprazole Sodium 40 mg 01/18/20 17:15 01/31/20 10:52 Protonix - PO 40 mg DAILY JOSE Administration Quetiapine Fumarate 25 mg 01/30/20 22:00 01/30/20 21:25 Seroquel - PO 25 mg HS JOSE Administration Rivaroxaban 15 mg 01/18/20 18:00 01/30/20 21:26 Xarelto PO 15 mg DAILY@1800 JOSE Administration Senna 2 tab 01/18/20 22:00 Senna - PO HS PRN CONSTIPATION Valacyclovir HCl 500 mg 01/22/20 11:00 01/31/20 10:52 Valtrex - PO 500 mg DAILY JOSE Administration ASSESSMENT/PLAN: Pt. is a 89 y.o. M w/ PMHx. of Chronic Lymphocytic Leukemia, Prostate CA, pHTN, CKD, ODESSA, colonic angiodysplasia, CAD (s/p PPM) admitted due to an acute exacerbation of shortness of breath and edema of lower extremities. Dr. 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 c/w Valtrex for opportunistic pathogen prophylaxis. Haptoglobin: 195, Rpt: 214 Immunoglobulin profile: wnl will need tumor lysis prophy even prior to low intensity treatments like steroids GOC discussed, no aggressive Treatments; Pt. is DNR/DNI Pt. is awaiting Negative COVId testing for SNF placement. f/u Anti Neutrophil antibodies #Acute CHF exacerbation c/w Lasix as per Cardiology #HTN #CKD #ODESSA #Colonic angiodyspolasia #CAD as per Primary team f/u complete anemia workup including reticulocyte count, haptoglobin and Direct semaj #DVT Ppx. Xarelto 15mg Visit type - Emergency Visit Emergency Visit: Yes ED Registration Date: 01/18/20 Care time: The patient presented to the Emergency Department on the above date and was hospitalized for further evaluation of their emergent condition. - New Patient This patient is new to me today: No - Critical Care Critical Care patient: No - Discharge Referral Referred to [facility] Med [facility] No ATTENDING PHYSICIAN STATEMENT I saw and evaluated the patient. I reviewed the resident's note and discussed the case with the resident. I agree with the resident's findings and plan as documented. SUBJECTIVE: OBJECTIVE: ASSESSMENT AND PLAN:
--- NOTE | 2020-01-31 17:35 | PATH ---
Surgical Pathology Report Patient Name: KAYKAY RODGERS Med. Rec. #: [id number] /Age/Gender: 1930 (Age: 89) / M Account: [id number] Location: [facility] MED/SURG Taken: 01/24/2020 Received: 01/29/2020 Reported: 01/31/2020 Physicians: Steve Kearney M.D. Specimen(s) Received PERIPHERAL BLOOD Clinical History Leukemia/lymphoma profile Final Diagnosis [facility] [id number][facility] shows the following: INTERPRETATION: Clonal B-cell population CD5+ detected. COMMENT: Ideally the flow sample should be analyzed within 48 hours after collection for optimal results. Collection time exceeding 48 hours may result in a false negative result. Repeat flow cytometry is suggested for definitive interpretation. The differential diagnosis includes mantle cell lymphoma and a variant of small lymphocytic lymphoma. Correlation with morphologic and molecular findings is recommended. PHENOTYPE: A monoclonal B-cell population kappa light-chain restricted is detected comprising approximately 30% of the lymphocytes and 15% of the analyzed WBCs. They are CD20+, CD19+, partially co-express CD5 and lack CD10. They are negative for CD23. See [facility] report for additional details. The flow cytometry findings were discussed with Dr. Davenport on 01/31/2020. Electronically Signed Leann Leyva M.D. Gross Description Received are 2 green top tubes of peripheral blood which are sent to [facility]. /01/29/2020 [facility]/01/29/2020
[2020-01-31] MEDS: QUEtiapine FUMARATE 25 MG TABLET PO SCH (21:08)
[2020-01-31] MEDS: RIVAROXABAN 15 MG TABLET PO SCH (21:08)
[2020-01-31] MEDS: MELATONIN 5 MG TABLETS PO PRN (21:08)
[2020-02-01] MEDS: LEVOTHYROXINE NA 50 MCG TABLET (FP) PO SCH (06:12)
[2020-02-01] MEDS: FUROSEMIDE 40 MG TABLET (FP) PO SCH (06:12)
[2020-02-01 07:44] LABS: BASO % 0.7 % (0-2.0); EOS % 2.9 % (0-4.5); HEMATOCRIT 25.3 % (35.4-49); HEMOGLOBIN 7.9 GM/dL (11.7-16.9); LYMPH % 42.7 % (8-40); MCHC 31.1 g/dl (32.0-35.9); MEAN CELL VOLUME 80.3 fl (80-96); MEAN PLT VOLUME 8.9 fl (7.5-11.1); NEUT % 39.7 % (42.8-82.8); PLATELET COUNT 103 K/MM3 (134-434); RBC 3.15 M/mm3 (4.00-5.60); RDW 17.2 % (11.9-15.9); WHITE BLOOD COUNT 6.9 K/mm3 (4.0-10.0)
[2020-02-01 07:50] LABS: ALBUMIN 2.9 g/dl (3.4-5.0); BILIRUBIN,TOTAL 0.5 mg/dL (0.2-1); BLOOD UREA NITROGEN 23.4 mg/dL (7-18); CALCIUM 8.4 mg/dL (8.5-10.1); CREATININE 1.9 mg/dL (0.55-1.3); POTASSIUM 3.9 mmol/L (3.5-5.1); TOT PROT 6.2 g/dl (6.4-8.2)
[2020-02-01 08:04] VITALS: BP 120/50; PULSE 64; TEMP 99
--- NOTE | 2020-02-01 08:54 | DS ---
Physical Examination Vital Signs: Vital Signs Temperature 99.0 F 02/01/20 08:03 Pulse Rate 64 02/01/20 08:03 Respiratory Rate 20 02/01/20 08:04 Blood Pressure 120/50 L 02/01/20 08:03 O2 Sat by Pulse Oximetry (%) 97 02/01/20 08:04 Constitutional: Yes: Well Nourished, No Distress, Calm Eyes: Yes: Conjunctiva Clear, EOM Intact HENT: Yes: Atraumatic, Normocephalic Neck: Yes: Supple, Trachea Midline Cardiovascular: Yes: Regular Rate and Rhythm Respiratory: Yes: Regular, CTA Bilaterally Gastrointestinal: Yes: Normal Bowel Sounds, Soft ...Rectal Exam: Yes: Deferred Renal/: Yes: WNL Breast(s): Yes: WNL Musculoskeletal: Yes: Muscle Weakness Extremities: Yes: WNL Edema: Yes Edema: LLE: 1+, RLE: 2+ Peripheral Pulses WNL: Yes Integumentary: Yes: WNL Neurological: Yes: Alert, Confusion, Unsteady Gait, Weakness ...Motor Strength: LUE (generalized muscle weakness of all extremities) Psychiatric: Yes: Alert Labs: CBC, BMP 02/01/20 06:26 02/01/20 06:26 Discharge Summary Problems reviewed: Yes Reason For Visit: SOB/CHF Current Active Problems Acute CHF (Acute) Bilateral lower extremity edema (Acute) CLL (chronic lymphocytic leukemia) (Acute) Hyperkalemia (Acute) Hyponatremia (Acute) Leukopenia (Acute) Moderate mitral regurgitation (Acute) Neutropenic fever (Acute) Pancytopenia (Acute) SOB (shortness of breath) (Acute) Severe tricuspid regurgitation (Acute) Systolic CHF (Acute) Condition: Improved - Instructions Diet, Activity, Other Instructions: Continue present meds. Activity as tolerated. Physical therapy. Valtrex 500mg po od. Furosemide 40mg po BID. Seroquel 25mg po qhs. Follow up with Dr. Napier in one week. Total time spent over 30 minutes. Referrals: Rajesh Napier MD [Primary Care Provider] - - Home Medications Comprehensive Discharge Medication List: Ambulatory Orders Donepezil HCl 10 mg PO HS 04/17/18 Metoprolol Succinate 25 mg PO BID 04/17/18 Cyanocobalamin (Vitamin B-12) [Vitamin B-12] 2,500 mcg SL WEEKLY 09/14/19 Sennosides [Senna] 17.2 mg PO DAILY 09/14/19 Amiodarone HCl [Cordarone -] 100 mg PO DAILY tablet 09/19/19 Finasteride [Proscar -] 5 mg PO DAILY tablet 09/19/19 Levothyroxine [Synthroid -] 50 mcg PO DAILY@0700 tablet 09/19/19 Melatonin 5 mg PO HS tab 09/19/19 Acetaminophen [Tylenol .Extra-Strength -] 650 mg PO BID PRN 01/19/20 Furosemide [Lasix -] 40 mg PO ASDIR 01/19/20 Quetiapine Fumarate [Seroquel -] 12.5 mg PO HS 01/19/20 Acetaminophen [Tylenol .Regular Strength -] 650 mg PO BID tablet 01/23/20 Amiodarone HCl [Cordarone -] 100 mg PO DAILY tablet 01/23/20 Cyanocobalamin [Vitamin B12 -] 2,500 mcg PO Th tablet 01/23/20 Escitalopram Oxalate [Lexapro -] 5 mg PO DAILY tablet 01/23/20 Fe Polysac/Cyanocobal/FA [Niferex-150 Forte -] 1 each PO DAILY capsule 01/23/20 Finasteride [Proscar -] 5 mg PO DAILY tablet 01/23/20 Furosemide [Lasix -] 40 mg PO DAILY tablet 01/23/20 Levothyroxine [Synthroid -] 50 mcg PO DAILY@0700 tablet 01/23/20 Melatonin 10 mg PO HS PRN tab 01/23/20 Menthol/Camphor [Sarna Anti-Itch -] 1 applic TP DAILY btl 01/23/20 Metoprolol Succinate [Toprol XL -] 25 mg PO BID tab.sr.24h 01/23/20 Pantoprazole Sodium [Protonix -] 40 mg PO DAILY tablet.ec 01/23/20 Quetiapine Fumarate [Seroquel -] 25 mg PO HS tablet 01/23/20 Rivaroxaban [Xarelto] 15 mg PO DAILY@1800 tablet 01/23/20 Sennosides [Senna -] 2 tab PO HS PRN tablet 01/23/20 Valacyclovir HCl [Valtrex -] 500 mg PO DAILY tablet 01/23/20 Allopurinol [Zyloprim -] 300 mg PO DAILY tablet 01/30/20 Olanzapine [Zyprexa -] 2.5 mg PO HS tablet 01/30/20 Olanzapine [Zyprexa -] 2.5 mg PO HS #30 tablet 01/30/20
[2020-02-01] MEDS: AMIODARONE HCL 200 MG TABLET PO SCH (09:47)
[2020-02-01] MEDS: ACETAMINOPHEN 325 MG TABLET (FP) PO SCH (09:48)
[2020-02-01] MEDS: metoPROLOL SUCCINATE 25 MG TAB.SR.24H (FP) PO SCH (09:48)
[2020-02-01] MEDS: ALLOPURINOL 300 MG TABLET (FP) PO SCH (09:48)
[2020-02-01] MEDS: FE POLYSAC/CYANOCOBAL/FA COMBO CAPSULE PO SCH (09:48)
[2020-02-01] MEDS: PANTOPRAZOLE 40 MG TABLET PO SCH (09:49)
[2020-02-01] MEDS: FINASTERIDE 5 MG TABLET (FP) PO SCH (09:49)
[2020-02-01] MEDS: valACYclovir HCL 500 MG TABLET (FP) PO SCH (09:49)
[2020-02-01] MEDS: MENTHOL/CAMPHOR 1 APPLIC BTL TP SCH (09:50)
--- NOTE | 2020-02-01 11:23 | PN ---
Progress Note (short form) - Note Progress Note: Chief Complaint: sob History of Present Illness: denies sob. no cp, palp, syncope Current Medications Generic Name Dose Route Start Last Admin Trade Name Oscar PRN Reason Stop Dose Admin Acetaminophen 650 mg 01/18/20 22:00 02/01/20 09:48 Tylenol - PO 650 mg BID JOSE Administration Allopurinol 300 mg 01/26/20 16:30 02/01/20 09:48 Zyloprim - PO 300 mg DAILY JOSE Administration Amiodarone HCl 100 mg 01/20/20 10:00 02/01/20 09:47 Cordarone - PO 100 mg DAILY JOSE Administration B12/Folic Ac/Intrin Fact/Iron/Vit C 1 each 01/18/20 16:45 02/01/20 09:48 Niferex-150 Forte - PO 1 each DAILY JOSE Administration Camphor/Menthol 1 applic 01/19/20 10:00 02/01/20 09:50 Sarna Anti-Itch - TP Not Given DAILY JOSE Cyanocobalamin 2,500 mcg 01/18/20 16:30 01/25/20 17:22 Vitamin B12 - PO 2,500 mcg Th JOSE Administration Finasteride 5 mg 01/19/20 10:00 02/01/20 09:49 Proscar - PO 5 mg DAILY JOSE Administration Furosemide 40 mg 01/31/20 14:00 02/01/20 06:12 Lasix - PO 40 mg BIDLASIX JOSE Administration Levothyroxine Sodium 50 mcg 01/19/20 07:00 02/01/20 06:12 Synthroid - PO 50 mcg DAILY@0700 JOSE Administration Melatonin 10 mg 01/19/20 22:00 01/31/20 21:08 Melatonin PO 10 mg HS PRN Administration INSOMNIA Metoprolol Succinate 25 mg 01/18/20 22:00 02/01/20 09:48 Toprol Xl - PO 25 mg BID JOSE Administration Pantoprazole Sodium 40 mg 01/18/20 17:15 02/01/20 09:49 Protonix - PO 40 mg DAILY JOSE Administration Quetiapine Fumarate 25 mg 01/30/20 22:00 01/31/20 21:08 Seroquel - PO 25 mg HS JOSE Administration Rivaroxaban 15 mg 01/18/20 18:00 01/31/20 21:08 Xarelto PO 15 mg DAILY@1800 JOSE Administration Senna 2 tab 01/18/20 22:00 Senna - PO HS PRN CONSTIPATION Valacyclovir HCl 500 mg 01/22/20 11:00 02/01/20 09:49 Valtrex - PO 500 mg DAILY JOSE Administration Vital Signs Period Temp Pulse Resp BP Sys/Neal Pulse Ox Last 24 Hr 97.7 F-99.0 F 56-75 20-20 97-135/49-66 97-99 Constitutional: Yes: Well Nourished, No Distress, Calm Eyes: No: Sclera Icterus Cardiovascular: Yes: Regular Rate and Rhythm, JVD (probable). No: Gallop, Murmur Respiratory: Yes: CTA Bilaterally. No: Accessory Muscle Use, Rales, Wheezes Gastrointestinal: Yes: Normal Bowel Sounds, Soft. No: Tenderness Extremities: No: Cold, Cyanosis Edema: No Integumentary: No: Jaundice Neurological: Yes: Alert Psychiatric: No: Agitated Labs: CBC, BMP 02/01/20 06:26 02/01/20 06:26 Assessment/Plan Echo 12/11 (): moder decr LVEF (global), EF 35-40%. RV TDS. mild LAE. mild AI/MR. mild-mod TR. no pulm HTN seen. Echo 11/10: 1. The left ventricular size is normal. 2. Overall left ventricular systolic function is moderately impaired with a visually estimated EF of approximately 40 %. Peters's EF calculation (biplane) is 44%. 3. LA pressure is uncertain. 4. Septal wall motion is consistent with ventricular pacing; remaining wilson appear mildly hypokinetic. 5. The right ventricle is moderately enlarged. 6. The right ventricular systolic function is normal. 7. Left atrium is severely dilated by volume. 8. The right atrium is markedly enlarged. 9. There is mild aortic regurgitation. 10. Moderate mitral regurgitation is present (central jet). Estimated regurgitan t volume = 38cc; estimated FELICIANO = 0.18 cm2. 11. Moderate to severe tricuspid regurgitation present (no hepatic vein doppler imaging was performed). 12. There is at least mild to moderate pulmonary hypertension (TR doppler signal is cut off). 13. The right ventricular systolic pressure is at least 47 mmHg (assuming RA pressure of 3). 14. The aortic root is mildy to moderately dilated (4.2 cm at sinuses of Valsalva). echo 12/2019 incomplete study (patient combative), severely reduced LV function EF 25-30%, septal motion suggestive of RV overload, RV dilated mod to sev hypokinesis, mod band, PPM R heart, severely dilated atria, severe TR with severe pulm HTN, mildly dilated asc aorta Acute on chronic systolic CHF, moderate MR, pulm HTN with dilated RV and mod- severe TR: -BNP 6K, from baseline 1-2K. CXR clear with chronic/stable mild increased interstitial markings -he is presenting with his typical HF sx's (bibasilar rales incr'd over baseline sounds, feet swelling), JVD likely on TDS exam -known h/o orthostatic hypotension complicating diuresis--down to lasix 20 QD in [facility] as of last communication with me 02/10 -received lasix 40 IV qd here. vol status improving, chf sxs resolved. 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 - cont toprol, not on YANI/ARB for CKD - cont PO lasix AF: s/p PPM -Xarelto held 01/11 due to hgb trending down from 7s to 6s in [place], started Procrit injections, Xarelto eventually resumed -h/h stable here--cont Xarelto 15mg (GFR <50) -has been maintained on amiodarone 100mg for many yrs to help with rapid AF possibly triggering HF in the past--continue here (QTc ok on ECG. mild interstitial thickening on CXR is chronic, pt previously evaluated by pulmonary who did not suspect amio lung fibrosis) -Cont Toprol 25 bid -PM remote monitoring stable 12/12 CKD: -baseline creat runs 1.5-1.9, with fluctuations when uses NSAIDs for severe spinal stenosis pain Dementia/Delirium -History of severe sundowning in hospital -As per PMD Panctyopenia: -Chronic anemia, ? secondary CKD, ? 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
[2020-02-01 11:53] LABS: ANISOCYTOSIS 2+; MACROCYTOSIS 0; PLATELET ESTIMATE DECREASED
== END 2020-02-01 12:40 | disposition home or self-care (01) | DRG 291 ==
LOC: JER 14:24 → JERBED 15:30 → J7W 01-19 14:41
PROVIDERS: ADMIT Internal Medicine; ATTEND Internal Medicine
DX: I13.0 Hypertensive heart and chronic kidney disease with heart failure and stage 1 through stage 4 chronic kidney disease, or unspecified chronic kidney disease (principal); I50.23 Acute on chronic systolic (congestive) heart failure; D60.8 Other acquired pure red cell aplasias; E87.1 Hypo-osmolality and hyponatremia; D61.818 Other pancytopenia; F05 Delirium due to known physiological condition; C91.10 Chronic lymphocytic leukemia of B-cell type not having achieved remission; F03.91 Unspecified dementia, unspecified severity, with behavioral disturbance; N18.9 Chronic kidney disease, unspecified; E87.5 Hyperkalemia; K55.20 Angiodysplasia of colon without hemorrhage; D63.1 Anemia in chronic kidney disease; F32.9 Major depressive disorder, single episode, unspecified; I27.20 Pulmonary hypertension, unspecified; I25.10 Atherosclerotic heart disease of native coronary artery without angina pectoris; E78.5 Hyperlipidemia, unspecified; N40.0 Benign prostatic hyperplasia without lower urinary tract symptoms; E03.9 Hypothyroidism, unspecified; R41.82 Altered mental status, unspecified; G47.00 Insomnia, unspecified; I34.0 Nonrheumatic mitral (valve) insufficiency; D70.9 Neutropenia, unspecified; I48.0 Paroxysmal atrial fibrillation; D72.819 Decreased white blood cell count, unspecified; I95.1 Orthostatic hypotension; D69.6 Thrombocytopenia, unspecified; I42.9 Cardiomyopathy, unspecified
CPT/HCPCS: 36415; 71045-TC-FY; 80048; 80053; 81003; 82272; 82550; 82607; 82728; 82784; 83010; 83540; 83550; 83615; 83735; 83880; 84100; 84436; 84443; 84484; 84550; 85025; 85044; 85610; 85730; 86850; 86880; 86900; 86901; 87040; 87077; 87086; 88300-TC; 93005; 93010; 93306-TC; 97116-GP; 97161-GP; 99285-25; J1447; U0003